=== PATIENT | female | born 1995 | race Caucasian/White ===

== ENCOUNTER 2017-11-07 16:45 | Emergency (ER) | payer SELFPAY ==
[2017-11-07 16:45] VITALS: BP 141/86; PULSE 108; RESP 16; TEMP 36.8; O2SAT 98; BMI 23.6
[2017-11-07 16:55] VITALS: BP 147/102; PULSE 93; RESP 16; O2SAT 99
--- NOTE | 2017-11-07 17:03 | CT_ITS ---
STUDY: CT BRAIN WITHOUT CONTRAST REASON FOR EXAM: Female, 22 years old. RADIATION DOSAGE (If Supplied By Facility): CTDIvol = ( 44.99 ) mGy, DLP = ( 762.36 ) mGycm TECHNIQUE: Transaxial CT imaging of the brain was performed without administration of intravenous contrast material. Individualized dose optimization techniques were used for this CT. COMPARISON: None. FINDINGS: Normal soft tissue structures. Normal calvarium. Normal size ventricles and extra-axial spaces for the patient's age. Normal white matter tracts of the cerebral hemispheres. Normal basal ganglia and thalami. Normal brainstem. Normal cerebellum. There is no intracranial hemorrhage. There are no findings of an acute ischemic infarction. Normal visualized paranasal sinuses. CT/Brain/Head without Contrast IMPRESSION: Normal unenhanced CT scan of the brain. Electronically Signed: Nando Collins MD at 19:25 EST , Service support ,
--- NOTE | 2017-11-07 18:34 | RAD_ITS ---
STUDY: X-RAY CHEST REASON FOR EXAM: Female, 22 years old. Chest pain TECHNIQUE: Frontal and lateral views of the chest. COMPARISON: None. FINDINGS: Incidental note is made of bilateral nipple rings. The lungs are clear and expanded. There is no demonstrated pleural abnormality. Normal size heart. Normal mediastinum and nathaniel. Normal visualized pulmonary arteries. Normal visualized aortic arch and descending thoracic aorta. Normal visualized thoracic spine. Normal visualized ribs, clavicles, and shoulders. There is no demonstrated abnormality of the visualized soft tissue structures of the upper abdomen. RAD/Chest PA and Lateral IMPRESSION: Normal x-ray examination of the chest. Electronically Signed: Nando Collins MD at 18:49 EST , Service support ,
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
--- NOTE | 2017-11-07 19:23 | NURSING ---
BRANDIN [facility] THE [facility] WILL ESCORT THE PT HOME TO ENSURE SAFETY.
[2017-11-07 19:47] VITALS: BP 116/74; PULSE 83; RESP 16; O2SAT 99
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
[2017-11-07 20:00] VITALS: BP 112/83; PULSE 82; RESP 16; O2SAT 100
== END 2017-11-07 20:03 | disposition home or self-care (01) ==
LOC: ED 19:01
PROVIDERS: Emergency Provider Emergency Medicine
DX: S06.9X9A Unspecified intracranial injury with loss of consciousness of unspecified duration, initial encounter (principal); S20.219A Contusion of unspecified front wall of thorax, initial encounter; S20.229A Contusion of unspecified back wall of thorax, initial encounter; Y04.2XXA Assault by strike against or bumped into by another person, initial encounter; Y93.89 Activity, other specified; Y92.9 Unspecified place or not applicable; Z72.0 Tobacco use
CPT/HCPCS: 70450; 71046; 99282

== ENCOUNTER 2022-11-03 09:20 | Emergency (ER) | payer MEDICAID, SELFPAY ==
[2022-11-03 09:20] VITALS: BP 119/78; PULSE 135; RESP 18; TEMP 36.6; O2SAT 98; BMI 23.7
--- NOTE | 2022-11-03 09:26 | EKG12_ITS ---
Test Reason : HIGH HR Blood Pressure : / mmHG Vent. Rate : 118 BPM Atrial Rate : 118 BPM P-R Int : 140 ms QRS Dur : 068 ms QT Int : 290 ms P-R-T Axes : 063 067 065 degrees QTc Int : 406 ms Sinus tachycardia Septal infarct , age undetermined Abnormal ECG Confirmed by OPAL DAVENPORT, PIERCE ([id number]), editor & co founder SHREE VERDUGO ([id number]) on 11/05/2022 2:00:17 PM Referred By: JOSE ALEJANDRO Confirmed By:PIERCE JOSEPH MD
[2022-11-03 09:29] VITALS: BP 122/96; PULSE 110; RESP 15; O2SAT 99
--- NOTE | 2022-11-03 09:54 | EDS_ITS ---
HPI History of Present Illness Chief Complaint: General Illness Detail of Chief Complaint: Body aches with nausea vomiting diarrhea. Informant: patient Onset/Context/Timing Onset: Days Context: Gradual Onset Timing: Continuous Current Severity: Mild Maximum Severity: Mild Narrative Narrative: 27-year-old female history of clots, prior tubal ligation, and history of kidney stones. States the last 4 days she has had just diffuse body aches with associated nausea, vomiting diarrhea. Decreased p.o. intake. Denies any significant abdominal pain. No dysuria. No fever. No melena or hematemesis. Prior similar symptoms: Yes Recent Illness/Hospitalization: No PFSH PFSH Medical History POTS (postural orthostatic tachycardia syndrome) Schizo affective schizophrenia Home Medications ondansetron 4 mg disintegrating tablet 4 mg PO Q6H PRN nausea and vomiting #7 tabs 11/03/22 [Rx Last Taken Unknown] Allergy/AdvReac Type Severity Reaction Status Date / Time adhesive Allergy Rash Verified 11/03/22 09:23 avocado Allergy Rash Verified 11/03/22 09:23 codeine Allergy Shortness Verified 11/03/22 09:23 of breath Surgical History Hx of section Hx of tubal ligation Social History Smoking Status: Current every day smoker tobacco type: cigarettes ROS ROS ED ROS Narrative Nausea vomiting diarrhea. Body aches Review of Systems ROS Unobtainable: Denies due to encephalopathy Constitutional Constitutional ED: Denies chills or fever(s) Eyes Eyes: Denies blurry vision ENT ENT ED: Denies ear pain Cardiovascular Cardiovascular: Denies chest pain Respiratory/Chest Respiratory/Chest: Denies cough or dyspnea Gastrointestinal Gastrointestinal: Reports diarrhea, nausea and vomiting; Denies abdominal pain or melena Genitourinary Genitourinary ED: Denies dysuria or hematuria Musculoskeletal Musculoskeletal: Reports myalgias; Denies arthralgias Integumentary Denies abscess Neurologic Neurologic: Denies headache(s) Psychiatric Psychiatric: Denies anxiety Endocrine Endocrinology: Denies cold intolerance Hematologic/Lymphatic Hematologic/Lymphatic: Reports none Allergic/Immunologic Allergic/Immunologic ED: Denies mouth swelling, tongue swelling or urticaria EXAM Physical Exam Narrative Exam Narrative: 27-year-old female no acute distress. Vital signs are stable afebrile. H EENT exam unremarkable except mild dry mucous membranes. Neck nontender no lymphadenopathy. No meningismus. Lungs clear to auscultation bilaterally. Heart tachycardic rate about 110 no murmur. Chest wall nontender. Abdomen soft, nontender, nondistended, normal bowel sounds without peritoneal signs. No hernia or mass. No distention. Back nontender. Patient moving all 4 extremities. Neurovascularly intact. Nontender no edema no cords. Normal range of motion. Neurologically she is awake and alert with no focal motor deficits. Benign exam mildly dehydrated. Const Vital Signs: 11/03/22 09:20 11/03/22 09:29 11/03/22 09:33 Temperature 97.9 F Temperature Source Temporal Pulse Rate 135 H 110 H Respiratory Rate 18 15 Respiratory Pattern Tachypnea Blood Pressure 119/78 122/96 H Blood Pressure Mean 91 104 Pulse Ox 98 99 Oxygen Delivery Method Room Air Room Air Positive well nourished and well developed; Negative for obese, cachectic, contractures or unkempt General Appearance ED: well developed and NAD; Negative for unkempt, cachectic, contractures, cyanotic, diaphoretic or pallor Nutritional Appearance: Negative for cachectic or obese HEENT Reports dry mucous membranes; Denies moist mucous membranes Negative for trauma or tenderness Mouth ED: Yes dry mucous membranes Mouth: dry mucous membranes Eyes PERRL and EOMs intact bilaterally General Eye ED: Negative for pale conjunctiva or scleral icterus Neck no lymphadenopathy, supple and no JVD General: Negative for tenderness Lymph Lymphatic: Negative for other Chest Wall inspection of chest normal and palpation of chest normal Chest: Negative for other Resp normal respiratory effort and clear to auscultation bilaterally Effort and Inspection: Negative for retractions Auscultation: Negative for rales, rhonchi or wheezes Cardio regular rhythm, S1 normal heart sound, S2 normal heart sound and no murmurs; Negative for regular rate Rate: tachycardic GI normal to inspection, nondistended, normoactive bowel sounds, non-tender, non- distended and no masses; Negative for hepatosplenomegaly Inspection: Negative for abdominal distention Auscultation: normoactive bowel sounds Palpation: soft; Negative for tender or guarding Back/Spine no CVA tenderness General Back: Negative for CVA tenderness Cervical Spine: Negative for cervical spine tenderness Thoracic Spine / Upper Back: Negative for thoracic spinal tenderness or paraspinal muscle tenderness Lumbar Spine / Lower Back: Negative for lumbar spinal tenderness Extremity normal to inspection General Extremety ED: Negative for edema or tenderness General Extremity: Negative for edema Neuro oriented x3 and CN's II-XII intact bilaterally Sensorium / Orientation: alert; Negative for orientation impaired, lethargic or stuporous Motor Exam: strength 5/5 throughout Psych mental status grossly normal Appearance: Negative for unkempt Attitude: No agitated Mood & Affect: Negative for depressed Skin no rashes or lesions noted and no wounds General Skin Exam: Negative for jaundice or pallor Rashes: No rashes noted Trauma: Negative for abrasion Wounds: Negative for wounds noted MDM MDM MDM Narrative Medical decision making narrative: 27-year-old with most likely viral gastroenteritis. Will be treated with IV fluids, IV Zofran and Toradol for body aches. CBC and chemistry will be obtained. Her abdomen is benign and nontender. She does not need any imaging. Repeat exam patient is doing well at 11:44 AM. We went over her normal test results. Clinically she looks well. She needs no further work-up today. She will be discharged home. Fluids and rest. Treated as a viral gastroenteritis. Zofran for nausea. Lab Data Attestation: I reviewed the patient's lab results. Lab results narrative: CBC shows a normal white count 5.2. H&H 13 and 39. Platelets 208. Elect rolytes show a gap of 5. Normal BUN and creatinine 11 and 0.6. Glucose of 105. Labs: Laboratory Results - last 24 hr 11/03/22 11/03/22 10:10 10:10 WBC 5.2 RBC 4.30 Hgb 13.4 Hct 39.7 MCV 92.3 MCH 31.2 MCHC 33.8 RDW Std Deviation 40.9 RDW Coeff of Mounika 12.0 Plt Count 208 MPV 10.5 Immature Gran % (Auto) 0.600 Neut % (Auto) 77.6 H Lymph % (Auto) 7.5 L [place] % (Auto) 12.6 H Eos % (Auto) 1.1 Baso % (Auto) 0.6 Absolute Neuts (auto) 4.1 Absolute Lymphs (auto) 0.39 L Nucleated RBC % 0 Sodium 139 Potassium 3.8 Chloride 108 H Carbon Dioxide 26.0 Anion Gap 5 BUN 11 Creatinine 0.67 Estim Creat Clear Calc 129.48 Est GFR (MDRD) Af Amer 133 Est GFR (MDRD) Non-Af 110 BUN/Creatinine Ratio 16.4 Glucose 105 Calcium 8.9 Rhythm Strip Rhythm Strip: Sinus Tach Rate: 118 Ectopy: None EKG Initial EKG: Attestation: I personally reviewed and interpreted this EKG as follows: Interpretation: No Acute Injury Pattern and Sinus Tachycardia Comments: Sinus tachycardia rate of 118 no acute signs of NE, ischemia or dysrhythmia. Discharge Plan Triage Chief Complaint: General Illness ED Provider: Bienvenido Bernard Dx/Rx/DC Orders Clinical Impression: Viral gastroenteritis Instructions: ED Gastroenteritis, Viral (Adult) Prescriptions: New ondansetron 4 mg tablet,disintegrating 4 mg PO Q6H PRN (Reason: nausea and vomiting) Qty: 7 0RF Primary Care Provider: Kelton Powers Referrals: Kelton Powers MD [Primary Care Provider] - 1 Week if not improving Activity Restrictions/Additional Instructions: Plenty of fluids and rest Zofran as needed for nausea. Follow-up with your doctor if not improving. Your labs today were all unremarkable. Disposition Disposition: Home, Self Care
[2022-11-03] MEDS: Ondansetron 4 MG/2 ML Vial IV (10:07)
[2022-11-03] MEDS: Ketorolac 30 MG/ML Syringe IV (10:07)
[2022-11-03] MEDS: 0.9% Normal Saline 1,000 ML 1000 ML IV (10:07)
[2022-11-03 10:27] LABS: Anion Gap 5 (5-15); BUN 11 mg/dL (7-18); BUN/Creat Ratio 16.4 RATIO (10-20); Calcium,Total 8.9 mg/dL (8.5-10.1); Chloride 108 mmol/L (98-107); Creatinine, Serum 0.67 mg/dL (0.55-1.02); EST Glomerular Filtration Rate 110 mL/min (>60); Est Glom Filt Rate - Afr Amer 133 mL/min (>60); Estimated Creatinine Clearance 129.48 ml/min; Glucose 105 mg/dL (74-106); Potassium 3.8 mmol/L (3.5-5.1); Sodium Level 139 mmol/L (136-145)
[2022-11-03 10:30] LABS: Absolute Lymphocyte Count 0.39 X10^3/uL (0.83-4.51); Absolute Neutrophil Count 4.1 X10^3/uL (2.0-7.7); Basophil# 0.03 X10^3/uL; Basophil% 0.6 % (0-1); Eosinophil# 0.06 X10^3/uL; Eosinophils% 1.1 % (0-5); Hematocrit 39.7 % (37-47); Hemoglobin 13.4 g/dL (12.0-15.0); Lymphocyte # 0.39 X10^3/ul (0.83-4.51); Lymphocyte % 7.5 % (19-41); Mean Corp Hgb Conc 33.8 g/dL (32-36); Mean Corpuscular Hgb 31.2 pg (27.0-32.0); Mean Corpuscular Volume 92.3 fL (81-99); Mean Platelet Vol. 10.5 fl (6.2-12.0); Monocyte# 0.66 X10^3/uL; Monocyte% 12.6 % (0-10); NRBC Flagged by Analyzer 0 % (0-5); Neutrophil # 4.06 X10^3/uL (2.7-7.7); Neutrophil % 77.6 % (47-70); POSITIVE DIFFERENTIAL YES; Platelet Count 208 K/mm3 (150-450); RBC Distribution Width SD 40.9 fl (35.1-43.9); White Blood Count 5.2 K/mm3 (4.4-11.0)
[2022-11-03 10:31] LABS: Differential Indicated SCAN CRITERIA MET
== END 2022-11-03 12:01 | disposition home or self-care (01) ==
PROVIDERS: Emergency Provider Emergency Medicine; PCP Internal Medicine; Visit Provider Emergency Medicine
DX: A08.4 Viral intestinal infection, unspecified (principal); F17.210 Nicotine dependence, cigarettes, uncomplicated
CPT/HCPCS: 80048; 85025; 93005; 96361; 96374; 96375; 99283; J7030; J2405

== ENCOUNTER 2025-09-05 10:14 | Emergency (ER) | payer MEDICARE, MEDICAID, SELFPAY ==
[2025-09-05 10:15] VITALS: BP 146/97; PULSE 108; RESP 15; TEMP 36.6; O2SAT 99; BMI 32.3
--- NOTE | 2025-09-05 10:37 | CT_ITS ---
PROCEDURE: ABDOMEN/PELVIS W IV CONT ONLY 09/05/2025 REASON FOR EXAM: LOWER ABDOMINAL PAIN, LEFT UPPER PAIN TECHNIQUE: Procedure Code: [id number] Modality: CT Procedure: ABDOMEN/PELVIS W IV CONT ONLY Coronal and Sagittal reconstruction series were provided. CONTRAST: Isovue 370 VOLUME: 75 mL One or more dose reduction techniques were used (e.g., Automated exposure control, adjustment of the mA and/or kV according to patient size, use of iterative reconstruction technique. RADIATION DOSE SUMMARY: CTDlvol: 21.47 mGy DLP: 1159.07 mGycm COMPARISON: None. FINDINGS: Lung bases: Clear Liver: Unremarkable. Gallbladder: Unremarkable. No biliary dilation. Spleen: Unremarkable. Pancreas: Unremarkable. Adrenals: Unremarkable. Kidneys: A 2 mm stone at the upper pole of the left kidney. No hydronephrosis. Bladder: Unremarkable. Reproductive Organs: Unremarkable. Bowel: No bowel wall thickening. No bowel obstruction. Appendix: Unremarkable. Lymph nodes: No lymphadenopathy. Vasculature: No aneurysm. Peritoneum / Retroperitoneum: No free air or free fluid. Bones: No acute bony elements. CT/Abdomen/Pelvis W IV Cont ONLY IMPRESSION: A 2 mm stone at the upper pole of the left kidney. No hydronephrosis. Reading Location: [id number]
--- NOTE | 2025-09-05 10:45 | ED.VIS.GI ---
HPI HPI - GI History of Present Illness Chief Complaint: Abd Pain Narrative Narrative: Patient is a 30-year-old female presenting to the emergency department for lower abdominal pain for the past 2 weeks. She states it has been constant and has consistently worsened. She states she has a past medical history of 2 sections, tubal ligation and reported oophorectomy on the left after an ovarian torsion. She states she followed up with her [employer] on the 16 of this month for the pain and had a pelvic exam done with STD swabs sent which were all negative and she showed me her MyChart which shows evidence of this. She also had a pelvic ultrasound that was normal and that was reviewed by myself in her MyChart as well. She states her last period was at the beginning of the week and was 7 days late and only 2 days long which is abnormal for her. She denies any fever or chills. She states that last night she had a bout of pain that worsened and she developed nausea with 1 episode of nonbloody nonbilious vomiting and felt like she was going to pass out but did not. She denies any changes to her bowel movements. Denies any dysuria or hematuria. She has been taking Motrin at home for pain control PFSH PFSH Medical History Schizophrenia Bipolar disorder Anxiety Depression Kidney stones Smoker Heart palpitations Schizo affective schizophrenia POTS (postural orthostatic tachycardia syndrome) Home Medications ?Medication ?Instructions ?Recorded ?Last Taken ?Type ondansetron 4 mg disintegrating 4 mg PO Q6H PRN nausea and 11/03/22 Unknown Rx tablet vomiting #7 tabs Allergy/AdvReac Type Severity Reaction Status Date / Time adhesive Allergy Rash Verified 09/05/25 10:19 avocado Allergy Rash Verified 09/05/25 10:19 codeine Allergy Shortness Verified 09/05/25 10:19 of breath Surgical History Hx of tubal ligation Hx of section Social History Smoking Status: Current every day smoker tobacco type: e-cigarettes ROS ROS ED ROS Narrative See HPI EXAM Physical Exam Narrative Exam Narrative: Vital signs: Reviewed General: Alert and oriented x 3. No acute distress. Well-appearing, nontoxic HEENT: Head is normocephalic and atraumatic, sinuses nontender, pupils equal round and reactive. Nares are patent. Oropharynx and throat exams normal. Neck: Supple without lymphadenopathy nontender Cardiovascular: Regular rate and rhythm, no murmurs. No rubs or gallops. Normal S1 and S2 Respiratory: Clear to auscultation bilaterally. No wheezes, rales, rhonchi Abdominal: Soft and tender to palpation in the suprapubic, left lower quadrant and left upper quadrant. Normal bowel sounds. No guarding or rebound. Extremities: No tenderness. No bruising. Normal range of motion. Normal sensation. Skin: No rash or redness. The rest of the physical exam is unremarkable Const Vital Signs: 09/05/25 10:15 09/05/25 12:31 Temperature 98 F Temperature Source Oral Pulse Rate 108 H 65 Respiratory Rate 15 18 Blood Pressure 146/97 H 97/78 Blood Pressure Mean 113 84 Pulse Ox 99 97 Oxygen Delivery Method Room Air Room Air MDM MDM MDM Narrative Medical decision making narrative: Patient is a 30-year-old female presenting to the emergency department for abdominal pain for the past 2 weeks. Patient was seen and examined. Vitals are stable. Patient resting in bed comfortably, no acute distress. Differential includes but is not limited to: UTI, colitis, diverticulitis, nephrolithiasis, ovarian torsion less likely given the patient's had pain for 2 weeks and her ultrasound was negative. The pain is not intermittent and I would not suspect intermittent ovarian torsion given her description of the pain. STD testing negative, less concern for tubo-ovarian abscess. Patient given Toradol for pain control. Labs and CT imaging of the abdomen was ordered. STD testing which included gonorrhea/chlamydia, trichomonas, BV, Lilian, urine and an ultrasound of the pelvis was reviewed by myself in her MyChart and are all negative. I do not think there is any indication to repeat any of these given it was just 5 days ago and she has had no change to her symptoms. Was notified by nursing staff that after she received the Toradol she did have 1 episode of vomiting. Toradol was ordered. CBC with no leukocytosis and a normal hemoglobin. CMP with no significant abnormalities. Lipase within normal limits. Urinalysis with no evidence of urinary tract infection. Urine negative. CT shows a 2 mm stone at the upper pole of the left kidney. No hydronephrosis. Bladder, appendix, bowel, reproductive organs and peritoneum/retroperitoneum are unremarkable. Patient was updated on the negative lab and imaging findings. She states that she has follow-up with GI and her safety patrol officer in September. Recommended Motrin and Tylenol at home for pain control and strict return precautions given we did not find a cause for her pain here today. Patient discharged from the Emergency Department. I do not feel that the patient's evaluation reveals any acute reason for admission at this time. I instructed them to either follow-up with their primary care physician or promptly return to the Emergency Department for reevaluation should symptoms worsen or new symptoms develop. I explained what symptoms would indicate the need to return to the emergency department. Shared decision making was used. The patient voiced understanding of the treatment plan and is agreeable with it. Clinical impression Lower abdominal pain History & Record Review Discussion w/independent historian: Patient Additional record(s) reviewed:: Prior outpatient record Lab Data Attestation: I reviewed the patient's lab results. Labs: Laboratory Results - last 24 hr 09/05/25 09/05/25 10:20 10:50 WBC 10.3 RBC 4.74 Hgb 14.5 Hct 42.1 MCV 88.8 MCH 30.6 MCHC 34.4 RDW Std Deviation 37.5 RDW Coeff of Mounika 11.6 Plt Count 382 MPV 9.5 Immature Gran % (Auto) 0.300 Neut % (Auto) 73.9 H Lymph % (Auto) 18.0 L Christian % (Auto) 5.9 Eos % (Auto) 1.0 Baso % (Auto) 0.9 Absolute Neuts (auto) 7.6 Absolute Lymphs (auto) 1.85 Nucleated RBC % 0 Sodium 138 Potassium 3.9 Chloride 101 Carbon Dioxide 23.2 Anion Gap 14 BUN 9 Creatinine 0.83 Estim Creat Clear Calc 122.05 Est GFR (MDRD) Non-Af 96 BUN/Creatinine Ratio 10.7 Glucose 103 H Calcium 9.5 Total Bilirubin 0.37 AST 20 ALT 28 Alkaline Phosphatase 71 Total Protein 7.6 Albumin 4.5 Globulin 3.2 Albumin/Globulin Ratio 1.4 Lipase 18 Urine Color Yellow Urine Clarity Clear Urine pH 8.0 Ur Specific [place] 1.010 Urine Protein Negative Urine Glucose (UA) Normal Urine Ketones Negative Urine Occult Blood Negative Urine Nitrite Negative Urine Bilirubin Negative Urine Urobilinogen Normal Ur Leukocyte Esterase Negative Urine RBC 0 SEEN Urine WBC 0-5 SEEN Ur Squamous Epith Cells 10-25 SEEN Urine Bacteria 1+ Urine Mucus 0 SEEN Urine Test Negative Radiography Diagnostic Testing: Clinical Impression(s) from Imaging Studies Abdomen/Pelvis CT 09/05/25 10:37 IMPRESSION: A 2 mm stone at the upper pole of the left kidney. No hydronephrosis. Reading Location: [facility] Discharge Plan Triage Chief Complaint: Abd Pain ED Provider: Shweta Beck Dx/Rx/DC Orders Clinical Impression: Lower abdominal pain Instructions: ED Abdominal Pain Unkn Cause Fem Prescriptions: No Action ondansetron 4 mg tablet,disintegrating 4 mg PO Q6H PRN (Reason: nausea and vomiting) Qty: 7 0RF Primary Care Provider: Kelton Powers Referrals: Kelton Powers MD [Primary Care Provider, Internal Medicine] - As soon as possible FriendMateusz DO [Med Staff - Active Staff, Gastroenterology] - As soon as possible Activity Restrictions/Additional Instructions: Please follow-up with your GI doctor or the 1 below as well as your safety patrol officer as soon as possible. Your evaluation in the Emergency Department did not reveal any acute reason for admission. However, I want to emphasize that you may be early in the course of a disease process or illness even if it is not present. For this reason you should follow-up within 24 hours for reevaluation with either your primary care physician or if necessary back here in the Emergency Department. You should return to the Emergency Department immediately if your symptoms worsen or new symptoms develop. Print Language: Venezuelan Disposition Disposition: Home, Self Care
--- OUTSIDE RECORDS SUMMARY | 2025-09-05 10:56 | XMS RPT_ITS | CCD ---
Author Organization [facility] Care Team Providers Care Network Operations Technician Name Role Phone Unavailable Primary Care Provider UnavailKelton Chambers MD Primary Care Provider Kelton Powers MD Primary Care Provider [phone] Unavailable Primary Care Provider UnavailKelton Chambers MD Primary Care Provider Alayna Bernard Attending Unavailable Ellis, Kelton Primary Care Unavailable PREETHI MELCHOR Attending Unavailable ANDRA PARRISH Referring Unavailable PRIYA, KELTON A Primary Care Unavailable Aileen Hunter Primary Care Provider [phone] Kelton Powers MD Primary Care Provider [phone] Kelton Powers MD Primary Care Provider [phone] PRIYA KELTON A Primary Care Unavailable ROLAND BLANCO Attending Unaaiyana alvarezle PRIYA, KELTON A Primary Care Unavailable SIVA GUNTER Referring Unavailable PRIYA, KELTON A Primary Care Unavailable JENNIFER SANDHU Referring Unavailable PRIYA, KELTON A Primary Care Unavailable PRIYA, KELTON A Referring Unavailable PRIYA, KELTON A Primary Care Unavailable MIREILLE SIMPSON Attending Unavailable PRIYA, KELTON A Referring Unavailable PRIYA, KELTON A Primary Care Unavailable RADHA HAYS Attending Unavailable SASKIA LUNA Attending Unavailable PRIYA, KELTON A Primary Care Unavailable RADHA HAYS Referring Unavailable MIREILLE SIMPSON Attending Unavailable PRIYA, KELTON A Primary Care Unavailable RADHA HAYS Referring Unavailable PRIYA, KELTON A Primary Care Unavailable RADHA HAYS Attending Unavailable ANDRA PARRISH Referring Unavailable PRIYA, KELTON A Primary Care Unavailable Aileen Hunter Primary Care Provider [phone] Stathopoulos WOOD HANDLER.HALL MANAGER, Ronen Unavailable Ani Batista MD Unavailable Ani Batista MD Unavailable Unavailable Primary Care Provider Unavailabl e Kelton Powers MD Primary Care Provider Ani Batista MD Unavailable Jessica Hollingsworth MD Unavailable Vinh Buchanan DO Unavailable PRIYA, KELTON Primary Care Unavailable JAMIL NEWBERRY Attending Unavailable PRIYA, KELTON Primary Care Unavailable JULISA AVALOS Attending Unavailable PRIYA, KELTON Primary Care Unavailable ALBA DOHERTY Attending Unavailable PRIYA, KELTON Primary Care Unavailable LINDA RODRIGUEZ Admitting Unavailable AZALIA CABRERA Attending Unavailable PRIYA, KELTON Primary Care Unavailable RAFA ARMSTRONG Attending Unavailable PRIYA, KELTON A Primary Care Unavailable STATHOPOULOS, RONEN Referring Unavailabl e PRIYA, KELTON A Primary Care Unavailable MICHELE VALENZUELA Attending Unavailable PRIYA, KELTON A Primary Care Unavailable STATHOPOULOS, RONEN Referring Unavailabl e PRIYA, KELTON A Primary Care Unavailable BRE GAGNON Referring Unavailable PRIYA, KELTON A Primary Care Unavailable STATHOPOULOS, RONEN Referring Unavailabl e PRIYA, KELTON A Primary Care Unavailable STATHOPOULOS, RONEN Referring Unavailabl e KATHYA SARABIA Attending Unavailable PRIYA, KELTON A Primary Care Unavailable STATHOPOULOS, RONEN Referring Unavailabl e PRIYA, KELTON A Primary Care Unavailable STATHOPOULOS, RONEN Referring Unavailabl e PRIYA, KELTON A Primary Care Unavailable ANI BATISTA Attending Unavailable PRIYA, KELTON A Primary Care Unavailable PRIYA, KELTON A Primary Care Unavailable ANI BATISTA Attending Unavailable PRIYA, KELTON A Primary Care Unavailable VINH BUCHANAN Referring Unavailable PRIYA, KELTON A Primary Care Unavailable ANI BATISTA Attending Unavailable PRIYA, KELTON A Primary Care Unavailable ANDRAPALLIYAL, BLAYNE Referring Unavailable PRIYA, KELTON A Primary Care Unavailable JESSICA PILLAI Attending Unavailable PRIYA, KELTON A Primary Care Unavailable RONEN FLAHERTY Attending Unavailabl e PRIYA, KELTON A Primary Care Unavailable FRANCOIS, ANDRA Attending Unavailable PRIYA, KELTON A Primary Care Unavailable EULALIO KELLER Referring Unavailable BRE GAGNON Attending Unavailable PRIYA, KELTON A Primary Care Unavailable JESSICA HOLLINGSWORTH Attending Unavailable PRIYA, KELTON A Primary Care Unavailable PRIYA, KELTON A Primary Care Unavailable PRIYA, KELTON A Primary Care Unavailable COURSON, VINH Referring Unavailable PRIYA, KELTON A Primary Care Unavailable SELF Referring Unavailable COURSONVINH Attending Unavailable LIYA REYES Attending Unavailable PRIYA, KELTON A Primary Care Unavailable PRIYA, KELTON A Primary Care Unavailable ANI BATISTA Attending Unavailable PRIYA, KELTON A Primary Care Unavailable LESTERANI Attending Unavailable PRIYA, KELTON A Primary Care Unavailable FRANCOIS, ANDRA Referring Unavailable ANDRAAKIRALIYAL, BLAYNE Attending Unavailable PRIYA, KELTON A Primary Care Unavailable ANDRAPALLIYAL, BLAYNE Referring Unavailable GABINO JORDAN Attending Unavailable PRIYA, KELTON A Primary Care Unavailable PRIYA, KELTON A Attending Unavailable OTILIO CALLEJAS Attending Unavailable PRIYA, KELTON A Primary Care Unavailable PRIYA, KELTON A Primary Care Unavailable SELF Referring Unavailable PRIYA, KELTON A Primary Care Unavailable ANDRAPALLIYAL, BLAYNE Referring Unavailable MABLE NESS Attending Unavailable Allergies Allergy Classification Reported Allergen(s) Allergy Type Date of Onset Reaction(s) Facility Aminoketones (1 source) buPROPion Drug Allergy 9 [facility] avocado oil (1 source) avocado oil Drug Allergy 7 [facility] Opioid Agonists (1 source) Codeine Drug Allergy 7 Hives, Rash [facility] Serotonin Reuptake Inhibitors (SSRIs) (1 source) Escitalopram Drug Allergy 3 [facility] (20 sources) codeine; Translations: [CODEINE] Drug Allergy 6 Hives, Rash [facility] [place] [facility] (20 sources) Adhesive agent; Translations: [ADHESIVE] Drug Allergy 7 Rash [facility] (20 sources) avocado oil; Translations: [AVOCADO OIL] Drug Allergy 7 Unknown [facility] (20 sources) buPROPion; Translations: [BUPROPION HCL] Drug Allergy 9 Mental Status Change [facility] Work Phone: (20 sources) Adhesive agent Drug Allergy 7 Rash [facility] (3 sources) avocado allergenic extract Drug Allergy 7 Unknown [facility] Work Phone: (20 sources) Escitalopram; Translations: [ESCITALOPRAM] Drug Allergy 3 Mental Status Change, Hallucinations [facility] (1 source) Adhesive agent Drug allergy (disorder) 3 [facility] Repository (1 source) avocado oil Drug Allergy 3 [facility] Repository (20 sources) avocado oil Drug Allergy 7 [facility] (20 sources) buPROPion Drug Allergy 9 Hallucinations [facility] (20 sources) Wound Dressing Adhesive Drug Allergy 7 Rash [facility] Medications Current Medications Medication Drug Class(es) Dates Sig (Normalized) Sig (Original) acetaminophen 325 mg oral tablet (16 sources) Start: 05-08-2023 End: 06-07-2023 take 3 tablets by mouth every six hours as needed acetaminophen (TYLENOL) 325 mg tablet Take 3 tablets by mouth every 6 hours as needed for pain. 0 05/08/2023 06/07/2023 Active Start: 10-01-2022 End: 10-01-2022 acetaminophen (Tylenol) tabl et 1,000 mg Start: 06-28-2022 acetaminophen (TYLENOL) tablet 650 mg take 2 tablets by mo uth every six hours as needed for pain acetaminophen (TYLENOL) 325 MG tablet Take 650 mg by mouth every 6 hours as needed for Pain 0 Active Comment on above: Take 3 tablets by mo uth every 6 hours as needed for pain. [id number] 200 actuat albuterol 0.09 mg/actuat metered dose inhaler (8 sources) beta2-Adrenergic Agonist Start: End: take 2 puff(s) by inhalation every four hours as needed for wheezing albuterol 108 (90 Base) MCG/ACT inhaler Inhale 2 puffs every 4 hours as needed for wheezing. 18 g 11/21/2024 Active brexpiprazole 2 mg oral tablet (20 sources) Atypical Antipsychotic Start: End: take 1 tablet by mouth once daily Brexpiprazole (Rexulti) 2 MG tablet Take 2 mg by mouth daily. 12/22/2024 Active Start: 11-25-2024 End: 12-25-2024 take 1 tablet by mouth once daily brexpiprazole (REXULTI) 1 mg tablet Indications: Schizoaffective disorder, bipolar type (HCC) Take 1 tablet by mouth once daily. 30 tablet 11/25/2024 12/22/2024 Discontinued Start: 11-10-2024 End: 02-08-2025 take 1 tablet by mouth once daily brexpiprazole (REXULTI) 0.5 mg tablet Indications: Schizoaffective disorder, bipolar type (HCC) , Encounter for medication management Take 1 tablet by mouth once daily. 30 tablet 2 11/10/2024 11/25/2024 Discontinued (Course of therapy completed) cloBAZam 10 mg oral tablet (2 sources) Benzodiazepine Start: 05-27-2025 End: 11-23-2025 take 1 tablet by mouth once daily at bedtime cloBAZam (ONFI) 10 mg tab tablet Indications: Seizure-like activity (HCC) Take 1 tablet by mouth daily at bedtime for 180 days. 30 tablet 5 05/27/2025 11/23/2025 Active cloNIDine hydrochloride 0.1 mg oral tablet (3 sources) Central alpha-2 Adrenergic Agonist Start: 04-03-2021 take 1 tablet by mouth three times daily cloNIDine (CATAPRES) 0.1 MG tablet Take 0.1 mg by mouth 3 times daily 0 04/03/2021 Active cyclobenzaprine hydrochloride 10 mg oral tablet (1 source) Muscle Relaxant Start: 11-20-2024 take 1 tablet by mouth three times daily as needed for muscle spasms cyclobenzaprine (Flexeril) 10 mg tablet Indications: Myalgia Take 1 tablet (10 mg) by mouth 3 times a day as needed for muscle spasms for up to 20 doses. 20 tablet 11/20/2024 Active Start: 11-20-2024 take 1 tablet by beatrice th three times daily as needed for muscle spasms cyclobenzaprine (Flexeril) 10 mg tablet Indications: Myalgia Take 1 tablet (10 mg) by mouth 3 times a day as needed for muscle spasms for up to 20 doses. 20 tablet 11/20/2024 Active desonide 0.0005 mg/mg topical ointment (1 source) Corticosteroid Start: 01-16-2025 End: 01-23-2025 desonide (DESOWEN) 0.05 % ointment Indications: Poison natalee dermatitis Apply to affected area two times a day as needed (itchy, rash) for up to 7 days. 15 g 01/16/2025 01/23/2025 Active 12 hr dextromethorphan hydrobromide 30 mg / guaiFENesin 600 mg extended release oral tablet (2 sources) Uncompetitive U-vidrfz-S-aspartat e Receptor Antagonist, Sigma-1 Agonist Start: 04-20-2024 End: 04-27-2024 take 1 tablet by mouth twice daily dextromethorphan- guaiFENesin (MUCINEX DM) 30-600 mg per tablet Indications: Viral upper respiratory tract infection with cough Take 1 tablet by mouth two times a day for 7 days. 14 tablet 0 04/20/2024 04/27/2024 Active docusate sodium 50 mg / sennosides, mcfp 8.6 mg oral tablet (5 sources) Start: 05-08-2023 End: 05-15-2023 take 1 tablet by mouth twice daily senna-docusate (SENNA-S) 8.6-50 mg per tablet Take 1 tablet by mouth twice daily for 7 days. 14 tablet 0 05/08/2023 05/15/2023 Active Comment on above: Take 1 tablet by beatrice twice daily for 7 days. famotidine 20 mg oral tablet (4 sources) Histamine-2 Receptor Antagonist take 1 tablet by mouth twice daily famotidine (PEPCID) 20 MG tablet Take 20 mg by mouth 2 times daily 0 Active fluconazole 150 mg oral tablet (1 source) Azole Antifungal Start: 12-04-2020 End: 12-04-2020 take 1 tablet by mouth once, then take 3 tablets by mouth once daily, then take 7 tablets by mouth once daily fluconazole (DIFLUCAN) 150 MG tablet Take 1 tablet by mouth once for 1 dose Take on day 3 and day 7 of antibiotic treatment for yeast infection 2 tablet 0 12/04/2020 12/04/2020 Active Humidifiers (Cool Mist Humidifier 0.8 gal) misc (8 sources) Start: 11-21-2024 Humidifiers (Cool Mist Humidifier 0.8 gal) misc 1 ampule daily. 20 each 11/21/2024 Active hydrOXYzine hydrochloride 50 mg oral tablet (15 sources) Antihistamine Start: 09-18-2022 End: 04-22-2023 take 1 tablet by mouth every eight hours as needed hydrOXYzine HCl (Atarax) 50 MG tablet Take 50 mg by mouth every 8 hours as needed. 0 09/18/2022 04/22/2023 Discontinued (Therapy completed) Start: 09-18-2022 End: 01-07-2023 take 1 tablet by mouth every eight hours as needed hydrOXYzine HCl (ATARAX) 50 mg tablet Take 1 tablet by mouth three times daily as needed for anxiety. 30 tablet 1 09/18/2022 01/07/2023 Discontinued Comment on above: Take 1 tablet by beatrice th three times daily as needed for anxiety. ibuprofen 600 mg oral tablet (8 sources) Nonsteroidal Anti-inflammatory Drug Start: 01-13-2022 End: 01-21-2022 take 1 tablet by mouth every six hours as needed ibuprofen (MOTRIN) 600 mg tablet Take 1 tablet by mouth every 6 hours as needed for pain for up to 8 days. 30 tablet 0 01/13/2022 01/21/2022 Active Start: 06-09-2021 ibuprofen (ADV IL;MOTRIN) tablet 600 mg take 1 tablet by beatrice th every six hours as needed for pain ibuprofen (ADVIL;MOTRIN) 400 MG tablet Indications: Acute Pain Take 400 mg by mouth every 6 hours as needed for Pain 0 Active Comment on above: Take 1 tablet by beatrice th every 6 hours as needed for pain for up to 8 days. lithium carbonate 300 mg oral tablet (9 sources) Start: 05-18-2025 End: 08-16-2025 take 1 tablet by mouth once daily at bedtime, then take 1.5 tablets by mouth at bedtime lithium carbonate 300 mg tablet Indications: Schizoaffective disorder, bipolar type (HCC) Take 1 tablet by mouth daily at bedtime. If you do not notice significant sedation, can increase to 1.5 tablets at bedtime. 30 tablet 2 05/18/2025 08/16/2025 Active Start: 01-07-2023 End: 04-07-2023 take 1 capsule by mouth once daily at dinner lithium carbonate (ESKALITH) 300 mg capsule Indications: Borderline personality disorder (HCC) , PTSD (post-traumatic stress disorder) , Schizoaffective disorder, bipolar type (HCC) , Panic disorder without agoraphobia Take 1 capsule by mouth daily with dinner. 30 capsule 2 01/07/2023 04/07/2023 Active Comment on above: Take 1 capsule by mo uth daily with dinner. MELATONIN FAST DISSOLVE PO (2 sources) MELATONIN FAST D ISSOLVE PO Indications: insomnia Take 10 tablets by mouth Nightly. Sometimes takes up to 20 mg, but doesn't help with sleep Active 24 hr metFORMIN hydrochloride 500 mg extended release oral tablet (20 sources) Biguanide Start : 02-02 End: 08-16 take 1 tablet by mouth once daily at breakfast metFORMIN ER (GLUCOPHAGE XR) 500 mg 24 hr tablet Indications: Schizoaffective disorder, bipolar type (HCC) , Encounter for medication management , Weight gain due to medication Take 1 tablet by mouth daily with breakfast. 30 tablet 2 05/18/2025 08/16/2025 Active methylPREDNISolone (12 sources) Corticosteroid Start : 05-07 methylPREDNISolone (MEDROL, EDWIN,) 4 mg Dose-Pack Indications: Headache, unspecified headache type As Instructed per package 21 tablet 05/07/2025 Active metoclopramide 10 mg oral tablet (4 sources) Dopamine-2 Receptor Antagonist Start : 05-08 End: 05-15 take 1 tablet by mouth every six hours as needed metoclopramide HCl (REGLAN) 10 mg tablet Take 1 tablet by mouth every 6 hours as needed for up to 7 days. 20 tablet 05/08/2025 05/15/2025 Active ondansetron 4 mg disintegrating oral tablet (20 sources) Serotonin-3 Receptor Antagonist Start : 11-03 take 4 mg by mouth every six hours Ondansetron Active 4 MG PO EVERY 6 HOURS November 03, 2022 12:00am Start: 05-05-2021 End: 04-22-2023 ondansetron (Zofran) 4 MG ta blet Comment on above: Take 1 tablet by beatrice th every 8 hours as needed for nausea/vomiting. oxyCODONE hydrochloride 5 mg oral tablet (7 sources) Opioid Agonist Start: 05-14-20 End: 05-21-20 take 1 tablet by mouth every eight hours as needed oxyCODONE (Roxicodone) 5 MG immediate release tablet Take 5 mg by mouth every 8 hours as needed. 0 05/14/2023 05/21/2023 Active Start: 05-08-2023 End: 05-13-2023 take 1 tablet by mouth every six hours as needed for pain oxyCODONE IR (ROXICODONE) 5 mg immediate release tablet Indications: Closed displaced fracture of shaft of right clavicle, initial encounter , Closed fracture of sternum, unspecified portion of sternum, initial encounter , Closed Colles' fracture of left radius, initial encounter Take 1 tablet by mouth every 6 hours as needed for pain for up to 5 days. 20 tablet 0 05/08/2023 05/13/2023 Comment on above: Take 1 tablet by beatrice th every 6 hours as needed for pain for up to 5 days. Take 1 tablet by beatrice th every 8 hours as needed for pain for up to 7 days. perflutren lipid microspheres 1.3 mL in NaCl (PF) 0.9% 10 mL injection (DEFINITY) (14 sources) Start: 10-04-19 End: 01-04-20 perflutren lipid microspheres 1.3 mL in NaCl (PF) 0.9% 10 mL injection (DEFINITY) phenazopyridine hydrochloride 200 mg delayed release oral tablet (2 sources) Start: 05-18-20 End: 05-20-20 take 1 tablet by mouth three times daily phenazopyridine (Pyridium) 200 MG tablet Take 1 tablet (200 mg) by mouth 3 times daily for 2 days. 6 tablet 0 05/18/2023 05/20/2023 Active prazosin 1 mg oral capsule (6 sources) alpha-Adrenergi c Ivania Start: 05-18-20 End: 08-16-20 take 1 capsule by mouth once daily at bedtime prazosin (MINIPRESS) 1 mg cap Indications: PTSD (post-traumatic stress disorder) Take 1 capsule by mouth daily at bedtime. 90 capsule 05/18/2025 08/16/2025 Active predniSONE 10 mg oral tablet (5 sources) Start: 01-17-20 End: 01-26-20 take 3 tablets by mouth once daily, then take 2 tablets by mouth once daily, then take 1 tablet by mouth once daily predniSONE (DELTASONE) 10 mg tablet Indications: Poison natalee dermatitis Take 3 tablets by mouth once daily for 3 days, THEN 2 tablets once daily for 3 days, THEN 1 tablet once daily for 3 days. 18 tablet 01/16/2025 01/25/2025 Active Start: 04-23-2023 End: 04-27-2023 predniSONE (Deltasone) 50 MG tablet Take 1 tablet (50 mg) by mouth daily for 4 days. Do not start before April 23, 2023. 4 tablet 0 04/23/2023 04/27/2023 Active Start: 04-22-2023 End: 04-22-2023 predniSONE (Deltasone) table t 50 mg propranolol hydrochloride 10 mg oral tablet (2 sources) beta-Adrenergic Ivania Start: 12-22-2024 End: 02-20-2025 take 1 tablet by mouth twice daily propranolol (INDERAL) 10 mg tablet Indications: Encounter for medication management , Panic attacks , Drug induced akathisia Take 1 tablet by mouth two times a day. 60 tablet 1 12/22/2024 02/20/2025 Active QUEtiapine 50 mg oral tablet (14 sources) Atypical Antipsychotic Start: 04-30-2025 End: 08-16-2025 take 1 tablet by mouth once daily QUEtiapine (SEROquel) 50 MG tablet Indications: Schizophrenia Take 1 tablet (50 mg) by mouth Nightly. 30 tablet 04/30/2025 Active risperiDONE 1 mg oral tablet (20 sources) Atypical Antipsychotic Start: 05-16-2023 End: 12-27-2023 take 1 tablet by mouth once daily risperiDONE (RisperDAL) 1 MG tablet Take 1 tablet (1 mg) by mouth Nightly. 30 tablet 11/27/2023 Active Comment on above: Take 1 tablet by beatrice th daily at bedtime. sodium chloride flush 0.9 % injection 3 mL (1 source) Start: 12-03-2020 sodium chloride flush 0.9 % injection 3 mL tobramycin 3 mg/ml ophthalmic solution (3 sources) Aminoglycoside Antibacterial Start: 07-20-2024 End: 07-29-2024 take 1 drop(s) into the eye(s) every four hours tobramycin (TOBREX) 0.3 % ophthalmic solution Indications: Bacterial conjunctivitis Use 1 Drop in the left eye every 4 hours for 7 days. into affected eye(s). 5 mL 07/22/2024 07/29/2024 Active Tranexamic Acid (4 sources) Antifibrinolytic Agent TRANEXAMIC ACID PO Indications: pt states she takes it during her period for 7-8 days Take by mouth Indications: pt states she takes it during her period for 7-8 days 0 Active traZODone hydrochloride 100 mg oral tablet (11 sources) Serotonin Reuptake Inhibitor Start: 05-26-2025 End: 07-25-2025 take 1 tablet by mouth once daily at bedtime traZODone (DESYREL) 100 mg tablet Indications: Insomnia, unspecified type Take 1 tablet by mouth daily at bedtime. 30 tablet 1 05/26/2025 07/25/2025 Active Start: 04-30-2025 End: 05-30-2025 take 1 tablet by mouth once daily as needed for sleep traZODone (Desyrel) 50 MG tablet Indications: Insomnia Take 1 tablet (50 mg) by mouth Nightly as needed for sleep. 30 tablet 04/30/2025 Active triamcinolone acetonide 0.005 mg/mg topical ointment (6 sources) Corticosteroid Start: 05-19-2025 triamcinolone acetonide topical 0.5 % ointment Apply to affected area two times a day. 15 g 1 05/19/2025 Active Start: 01-16-2025 triamcinolone (KENALOG) 0.025 % cream Indications: Poison natalee dermatitis Apply to affected area two times a day as needed (itching, rash). 80 g 01/16/2025 Active vilazodone hydrochloride 10 mg oral tablet (4 sources) vilazodone HCl ( VILAZODONE HCL) 10 MG TABS Take by mouth daily 0 Active Completed/Discontinued Medications Medication Drug Class(es) Dates Sig (Normalized) Sig (Original) ARIPiprazole 5 mg oral tablet (10 sources) Atypical Antipsychotic Start: 05-08-2023 End: 08-06-2023 take 1 tablet by mouth once daily at bedtime ARIPiprazole (ABILIFY) 5 mg tablet Take 1 tablet by mouth daily at bedtime. 30 tablet 2 05/08/2023 05/16/2023 Discontinued ARIPiprazole (AB ILIFY IM) Inject into the muscle Every 2 months 0 Active ARIPiprazole (AB ILIFY IM) Inject into the muscle Once monthly 0 Active Comment on above: Take 1 tablet by beatrice th daily at bedtime. bacitracin 0.5 unt/mg topical ointment (2 sources) Start: 4 End: 4 bacitracin ointment cephalexin 500 mg oral capsule (5 sources) Cephalosporin Antibacterial Start: 3 End: 3 take 1 capsule by mouth three times daily cephALEXin (KEFLEX) 500 mg capsule Indications: Abscess of right breast , Cellulitis of right breast Take 1 capsule by mouth three times a day for 5 days. 15 capsule 0 07/25/2023 07/30/2023 Start: 05-18-2023 End: 05-25-2023 cephalexin (Keflex) 500 MG c apsule Take 1 capsule (500 mg) by mouth in the morning and 1 capsule (500 mg) at noon and 1 capsule (500 mg) in the evening and 1 capsule (500 mg) before bedtime. Do all this for 7 days. 28 capsule 0 05/18/2023 05/25/2023 Active Start: 12-04-2020 End: 12-11-2020 take 1 capsule by mouth twice daily cephALEXin (KEFLEX) 500 MG capsule Take 1 capsule by mouth 2 times daily for 7 days 14 capsule 0 12/04/2020 12/11/2020 Active Comment on above: Take 1 capsule by mo uth three times a day for 5 days. diazePAM 5 mg oral tablet (2 sources) Benzodiazepine Start: End: take 5 mg by mouth once 5 mg, Oral, Once, On 11/21/24 at 1200, For 1 dose diphenhydrAMINE hydrochloride 25 mg oral tablet (2 sources) Histamine-1 Receptor Antagonist Start: End: diphenhydrAMINE (BENADryl) tablet/capsule 50 mg escitalopram 10 mg oral tablet (1 source) Serotonin Reuptake Inhibitor Start: End: escitalopram oxalate (LEXAPRO) 10 mg tablet TAKE 1/2 TABLET EVERY EVENING WITH FOOD FOR 2 WEEKS THEN TAKE 1 TABLET EVERY EVENING WITH FOOD 0 09/04/2022 09/18/2022 Discontinued (Course of therapy completed) Comment on above: TAKE 1/2 TABLET EVER Y EVENING WITH FOOD FOR 2 WEEKS THEN TAKE 1 TABLET EVERY EVENING WITH FOOD fluticasone propionate 0.05 mg/actuat metered dose nasal spray (4 sources) Corticosteroid Start: End: take 1 spray(s) nasal route twice daily fluticasone (FLONASE ALLERGY RELIEF) 50 mcg/actuation nasal spray Indications: Viral upper respiratory tract infection with cough Use 1 [place] in each nostril two times a day. 1 Each 04/20/2024 07/02/2024 Discontinued gabapentin 100 mg oral capsule (7 sources) Anti-epileptic Agent Start: End: take 2 capsules by mouth every eight hours gabapentin (NEURONTIN) 100 mg capsule Take 2 capsules by mouth every 8 hours for 10 days. 60 capsule 0 05/08/2023 05/22/2023 Discontinued (Discontinued by another Health Care Provider) Comment on above: Take 2 capsules by m outh every 8 hours for 10 days. 1 ml ketorolac tromethamine 30 mg/ml cartridge (4 sources) Nonsteroidal Anti-inflammatory Drug, Cyclooxygenase Inhibitor Start: 025 End: 025 30 mg, IntraVENous, Once, On 11/21/24 at 1200, For 1 dose Start: 11-20-2024 End: 11-20-2024 ketorolac (Toradol) injectio n 60 mg Start: 11-20-2024 End: 11-20-2024 inject 60 mg by intramuscular injection once 60 mg, intramuscular, Once, On Sat11/20/24 at 1000, For 1 dose 10 ml lidocaine hydrochloride 10 mg/ml injection (13 sources) Antiarrhythmic, Amide Local Anesthetic Start: 01-18-2025 End: 01-18-2025 10 mL, Infiltration, Once, On 01/18/25 at 1340, For 1 dose Start: 02-16-2024 End: 02-16-2024 lidocaine (Xylocaine) 1 % injection 10 mL Start: 08-06-2023 End: 08-07-2023 lidocaine 10 mg/mL (1 %) 100 mg injection (XYLOCAINE) Start: 05-09-2023 End: 05-19-2023 apply 1 dose transdermal route once daily lidocaine (SALONPAS) 4 % patch Indications: Closed fracture of sternum, unspecified portion of sternum, initial encounter Apply 1 Patch as directed once daily for 10 days. 10 Patch 0 05/09/2023 05/19/2023 Active Start: 11-30-2021 End: 11-30-2021 lidocaine PF 1 % injection Start: 11-30-2021 End: 11-30-2021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 along the glenoid articular surface. On Grashey view, the glenohumeral joint alignment is within normal limits. Visualized LEFT lung is clear. IMPRESSION: Anterior glenohumeral subluxation with bilateral axillary view. No brielle dislocation. Anatomic alignment on Grashey and true AP views. Ledge Man: MELANY Transcribe Date/Time: May 17 2025 12:04P Dictated by : ALEXI CONNOR DO This examination was interpreted and the report reviewed and electronically signed by: ALEXI CONNOR DO on May 17 2025 12:09PM EST [id number] [facility] XR SHLDR >/=3V AP/THOMAS AP/OTH R RTon 05-10-2025 XR SHLDR >/=3V AP/THOMAS AP/OTHR RT * * *Final Report* * * DATE OF EXAM: May 10 2025 2:07PM [facility] 5253 - XR SHLDR >/=3V AP/THOMAS AP/OTHR RT / PROCEDURE REASON: multiple diagnoses * * * * Physician Interpretation * * * * EXAMINATION: XR SHLDR >/=3V AP/THOMAS AP/OTHR RT, XR SHLDR >/=3V AP/THOMAS AP/OTHR LT CLINICAL HISTORY: Pain. Bilateral shoulder pain, unspecified chronicity Technique: XR SHLDR >/=3V AP/THOMAS AP/OTHR RT, XR SHLDR >/=3V AP/THOMAS AP/OTHR LT Comparison: 07/02/2024 RESULT: Right: No acute fractures. Internal fixation of the distal clavicle without hardware complication. On axillary view, the humeral head projects along the anterior glenoid fossa. A portion of the humeral articular surface still projects along the glenoid articular surface. On Grashey view, the glenohumeral joint alignment appears within normal limits. Visualized RIGHT lung is clear. Left: No acute fractures. Normal chromic clavicular joint. On axillary view the humeral head projects along the anterior glenoid fossa. A portion of the humeral head articular surface projects along the glenoid articular surface. On Grashey view, the glenohumeral joint alignment is within normal limits. Visualized LEFT lung is clear. IMPRESSION: Anterior glenohumeral subluxation with bilateral axillary view. No brielle dislocation. Anatomic alignment on Grashey and true AP views. Ledge Man: MELANY Transcribe Date/Time: May 17 2025 12:04P Dictated by : ALEXI CONNOR DO This examination was interpreted and the report reviewed and electronically signed by: ALEXI CONNOR DO on May 17 2025 12:09PM EST [id number] Normal [facility] CBC W Auto Differential pane l (Bld)on 05-08-2025 Basophils (Bld) [#/Vol] 0.06 10*3/uL Normal <0.11 [facility] Comment on above: Order Comment: Speci men Type: BLOOD SPECIMENOrdering Facility: [facility] Address: [address] [place] [address] Performed By: #### 5 7021-8 ####JIMÉNEZ LABORATORYCLIA [id number] [place] [address] [place] Basophils/100 WBC (Bld) 0.9 % Normal [facility] Comment on above: Order Comment: Speci men Type: BLOOD SPECIMENOrdering Facility: [facility] Address: [address] [place] [address] Performed By: #### 5 7021-8 ####JIMÉNEZ LABORATORYCLIA [id number] [place] [address] [place] Differential cell count method Nom (Bld) Auto Normal [facility] Comment on above: Order Comment: Speci men Type: BLOOD SPECIMENOrdering Facility: [facility] Address: [address] [place] [address] Performed By: #### 5 7021-8 ####JIMÉNEZ LABORATORYCLIA [id number] [place] [address] [place] Eosinophils (Bld) [#/Vol] 0.11 10*3/uL Normal <0.46 [facility] Comment on above: Order Comment: Speci men Type: BLOOD SPECIMENOrdering Facility: [facility] Address: [address] [place] [address] Performed By: #### 5 7021-8 ####JIMÉNEZ LABORATORYCLIA [id number] [place] [address] [place] Eosinophils/100 WBC (Bld) 1.7 % Normal [facility] Comment on above: Order Comment: Speci men Type: BLOOD SPECIMENOrdering Facility: [facility] Address: [facility] [place] [address] Performed By: #### 5 7021-8 ####JIMÉNEZ LABORATORYCLIA [id number] [place] [address] [place] Erythrocyte distribution width (RBC) [Ratio] 11.4 % Low 11.5-15.0 [facility] Comment on above: Order Comment: Speci men Type: BLOOD SPECIMENOrdering Facility: [facility] Address: [address] [place] [address] Performed By: #### 5 7021-8 ####JIMÉNEZ LABORATORYCLIA [id number] [place] [address] [place] Hematocrit (Bld) [Volume fraction] 40.9 % Normal 36.0-46.0 [facility] Comment on above: Order Comment: Speci men Type: BLOOD SPECIMENOrdering Facility: [facility] Address: [address] [place] [address] Performed By: #### 5 7021-8 ####JIMÉNEZ LABORATORYCLIA [id number] [place] [address] [place] Hemoglobin (Bld) [Mass/Vol] 14.2 g/dL Normal 11.5-15.5 [facility] Comment on above: Order Comment: Speci men Type: BLOOD SPECIMENOrdering Facility: [facility] Address: [address] [place] [address] Performed By: #### 5 7021-8 ####JIMÉNEZ LABORATORYCLIA [id number] [place] [address] [place] Immature granulocytes (Bld) [#/Vol] 10*3/uL Normal <0.10 [facility] Comment on above: Order Comment: Speci men Type: BLOOD SPECIMENOrdering Facility: [facility] Address: [address] [place] [address] Performed By: #### 5 7021-8 ####JIMÉNEZ LABORATORYCLIA [id number] [address] [place] Immature granulocytes/100 WBC (Bld) 0.3 % Normal [facility] Comment on above: Order Comment: Speci men Type: BLOOD SPECIMENOrdering Facility: [facility] Address: [address] [place] [address] Performed By: #### 5 7021-8 ####JIMÉNEZ LABORATORYCLIA [id number] [address] Lymphocytes (Bld) [#/Vol] 1.90 10*3/uL Normal 1.00-4.00 [facility] Comment on above: Order Comment: Speci men Type: BLOOD SPECIMENOrdering Facility: [facility] Address: [address] [place] [address] Performed By: #### 5 7021-8 ####JIMÉNEZ LABORATORYCLIA [id number] [address] Lymphocytes/100 WBC (Bld) 29.1 % Normal [facility] Comment on above: Order Comment: Speci men Type: BLOOD SPECIMENOrdering Facility: [facility] Address: [address] [place] [address] Performed By: #### 5 7021-8 ####JIMÉNEZ LABORATORYCLIA [id number] [address] [place] MCH (RBC) [Entitic mass] 30.8 pg Normal 26.0-34.0 [facility] Comment on above: Order Comment: Speci men Type: BLOOD SPECIMENOrdering Facility: [facility] Address: [address] [place] [address] Performed By: #### 5 7021-8 ####JIMÉNEZ LABORATORYCLIA [id number] [address] MCHC (RBC) [Mass/Vol] 34.7 g/dL Normal 30.5-36.0 [facility] Comment on above: Order Comment: Speci men Type: BLOOD SPECIMENOrdering Facility: [facility] Address: [address] [place] [address] Performed By: #### 5 7021-8 ####JIMÉNEZ LABORATORYCLIA [id number] [address] [place] MCV (RBC) [Entitic vol] 88.7 fL Normal 80.0-100.0 [facility] Comment on above: Order Comment: Speci men Type: BLOOD SPECIMENOrdering Facility: [facility] Address: [address] [place] [address] Performed By: #### 5 7021-8 ####JIMÉNEZ LABORATORYCLIA [id number] [place] [address] [place] Monocytes (Bld) [#/Vol] 0.48 10*3/uL Normal <0.87 [facility] Comment on above: Order Comment: Speci men Type: BLOOD SPECIMENOrdering Facility: [facility] Address: [address] [place] [address] Performed By: #### 5 7021-8 ####JIMÉNEZ LABORATORYCLIA [id number] [address] Monocytes/100 WBC (Bld) 7.4 % Normal [facility] Comment on above: Order Comment: Speci men Type: BLOOD SPECIMENOrdering Facility: [facility] Address: [address] [place] [address] Performed By: #### 5 7021-8 ####JIMÉNEZ LABORATORYCLIA [id number] [place] [address] [place] Neutrophils (Bld) [#/Vol] 3.95 10*3/uL Normal 1.45-7.50 [facility] Comment on above: Order Comment: Speci men Type: BLOOD SPECIMENOrdering Facility: [facility] Address: [address] [place] [address] Performed By: #### 5 7021-8 ####JIMÉNEZ LABORATORYCLIA [id number] [address] [place] Neutrophils/100 WBC (Bld) 60.6 % Normal [facility] Comment on above: Order Comment: Speci men Type: BLOOD SPECIMENOrdering Facility: [facility] Address: [address] [place] [address] Performed By: #### 5 7021-8 ####JIMÉNEZ LABORATORYCLIA [id number] [address] [place] Nucleated RBC (Bld) [#/Vol] 10*3/uL Normal <0.01 [facility] Comment on above: Order Comment: Speci men Type: BLOOD SPECIMENOrdering Facility: [facility] Address: [address] [place] [address] Performed By: #### 5 7021-8 ####JIMÉNEZ LABORATORYCLIA [id number] [place] [address] [facility] [place] Nucleated RBC/100 WBC (Bld) [Ratio] 0.0 /100 WBC Normal [facility] Comment on above: Order Comment: Speci men Type: BLOOD SPECIMENOrdering Facility: [facility] Address: [address] [place] [address] Performed By: #### 5 7021-8 ####JIMÉNEZ LABORATORYCLIA [id number] [address] [place] Platelet mean volume (Bld) [Entitic vol] 11.0 fL Normal 9.0-12.7 [facility] Comment on above: Order Comment: Speci men Type: BLOOD SPECIMENOrdering Facility: [facility] Address: [address] [place] [address] Performed By: #### 5 7021-8 ####JIMÉNEZ LABORATORYCLIA [id number] [address] [place] Platelets (Bld) [#/Vol] 297 10*3/uL Normal 150-400 [facility] Comment on above: Order Comment: Speci men Type: BLOOD SPECIMENOrdering Facility: [facility] Address: [address] [place] [address] Performed By: #### 5 7021-8 ####JIMÉNEZ LABORATORYCLIA [id number] [place] [address] [place] RBC (Bld) [#/Vol] 4.61 10*6/uL Normal 3.90-5.20 [facility] Comment on above: Order Comment: Speci men Type: BLOOD SPECIMENOrdering Facility: [facility] Address: [address] [place] [address] Performed By: #### 5 7021-8 ####JIMÉNEZ LABORATORYCLIA [id number] [place] [address] [place] WBC (Bld) [#/Vol] 6.52 10*3/uL Normal 3.70-11.00 [facility] Comment on above: Order Comment: Speci men Type: BLOOD SPECIMENOrdering Facility: [facility] Address: [address] [place] [address] [place] [address] Performed By: #### 5 7021-8 ####JIMÉNEZ LABORATORYCLIA [id number] [place] [address] [place] CT BRAIN WO IVCONon 05-08-20 CT BRAIN WO IVCON * * *Final Report* * * DATE OF EXAM: May 08 2025 4:02PM [facility] [place] IVCON / PROCEDURE REASON: Headache, sudden, severe * * * * Physician Interpretation * * * * EXAMINATION: CTA HEAD W IVCON, CT BRAIN WO IVCON, CTA NECK W IVCON HISTORY: Sudden severe headache. TECHNIQUE: Routine CT of the brain without IV contrast. Next, high resolution axial images were obtained through the head, neck and superior mediastinum following bolus administration of intravenous contrast for CT angiography. 3D maximum intensity projection images were created, reviewed and archived . MQ: CTABNPlus_4 Contrast: 80 mL Omnipaque [address] Radiation dose: Integrated Dose-Length Product (DLP) for this visit = 1253 mGy*cm. CT Dose Reduction Employed: Automated exposure control (AEC) COMPARISON: None. RESULT: BRAIN: Acute change: No evidence of an acute infarct or other acute parenchymal process. ASPECT Score = 10 Hemorrhage: No evidence of acute intracranial hemorrhage. ECASS hemorrhagic transformation score: Not Applicable Mass Lesion / Mass Effect: There is no evidence of an intracranial mass or extra-axial fluid collection. No significant mass effect. Chronic change: None apparent. Parenchyma: There is no significant volume loss. The brain parenchyma is otherwise within normal limits for age. Ventricles: The ventricles are within normal limits of size and configuration for age. Other: There is a mucous retention cyst within the left maxillary sinus. Small mucous retention cysts are seen within the right maxillary sinus. The skull and visualized extracranial soft tissues are grossly normal. NECK: Soft tissues: The soft tissue planes are maintained throughout. No evidence of a soft tissue mass in the neck or superior mediastinum. No significant lymphadenopathy is seen. Spine: Slight reversal of cervical lordosis.. Mild degenerative changes are present. Lung apices: The visualized lung apices are clear. CT ARTERIOGRAM: Extracranial Circulation: Aortic Arch: There is a normal branching pattern from the aortic arch. There is no significant stenosis in the proximal brachiocephalic vessels. Carotid Stenosis: Right Common: No significant stenosis. Right Internal Carotid Plaque: No significant plaque formation. Right Internal Carotid Stenosis (% by NASCET Criteria): 0 Left Common: No significant stenosis. Left Internal Carotid Plaque: No significant plaque formation. Left Internal Carotid Stenosis (% by NASCET Criteria): 0 Cervical Vertebral Arteries: Patency: Bilateral Dominance: Codominant Intracranial Circulation: The distal cervical, petrous, cavernous, and supraclinoid segments of the internal carotid arteries are patent. The anterior and middle cerebral arteries and their major branches are patent without focal narrowing or aneurysm. The distal vertebral arteries, basilar artery, superior cerebellar arteries, and posterior cerebral arteries are patent. There is a small fenestration of the proximal basilar artery. origin of both posterior cerebral arteries. No evidence of focal narrowing or aneurysm. Director Of Religious Activities (topogram) images: No additional findings. IMPRESSION: No acute intracranial abnormality. Normal CTA of the head and neck. Arterial blood flow was measured to detect acute large vessel occlusion by computer aided detection software: Not Performed. Concordance between software and imaging review: Not Applicable. Ledge Man: MELANY Transcribe Date/Time: May 08 2025 4:12P Dictated by : ASIA HEATH MD This examination was interpreted and the report reviewed and electronically signed by: ASIA HEATH MD on May 08 2025 4:28PM EST [id number] [facility] CTA HEAD W IVCONon 5 CTA HEAD W IVCON * * *Final Report* * * DATE OF EXAM: May 08 2025 4:02PM [facility] [place]A HEAD W IVCON / PROCEDURE REASON: Headache, sudden, severe * * * * Physician Interpretation * * * * EXAMINATION: CTA HEAD W IVCON, CT BRAIN WO IVCON, CTA NECK W IVCON HISTORY: Sudden severe headache. TECHNIQUE: Routine CT of the brain without IV contrast. Next, high resolution axial images were obtained through the head, neck and superior mediastinum following bolus administration of intravenous contrast for CT angiography. 3D maximum intensity projection images were created, reviewed and archived . MQ: CTABNPlus_4 Contrast: 80 mL Omnipaque [address] Radiation dose: Integrated Dose-Length Product (DLP) for this visit = 1253 mGy*cm. CT Dose Reduction Employed: Automated exposure control (AEC) COMPARISON: None. RESULT: BRAIN: Acute change: No evidence of an acute infarct or other acute parenchymal process. ASPECT Score = 10 Hemorrhage: No evidence of acute intracranial hemorrhage. ECASS hemorrhagic transformation score: Not Applicable Mass Lesion / Mass Effect: There is no evidence of an intracranial mass or extra-axial fluid collection. No significant mass effect. Chronic change: None apparent. Parenchyma: There is no significant volume loss. The brain parenchyma is otherwise within normal limits for age. Ventricles: The ventricles are within normal limits of size and configuration for age. Other: There is a mucous retention cyst within the left maxillary sinus. Small mucous retention cysts are seen within the right maxillary sinus. The skull and visualized extracranial soft tissues are grossly normal. NECK: Soft tissues: The soft tissue planes are maintained throughout. No evidence of a soft tissue mass in the neck or superior mediastinum. No significant lymphadenopathy is seen. Spine: Slight reversal of cervical lordosis.. Mild degenerative changes are present. Lung apices: The visualized lung apices are clear. CT ARTERIOGRAM: Extracranial Circulation: Aortic Arch: There is a normal branching pattern from the aortic arch. There is no significant stenosis in the proximal brachiocephalic vessels. Carotid Stenosis: Right Common: No significant stenosis. Right Internal Carotid Plaque: No significant plaque formation. Right Internal Carotid Stenosis (% by NASCET Criteria): 0 Left Common: No significant stenosis. Left Internal Carotid Plaque: No significant plaque formation. Left Internal Carotid Stenosis (% by NASCET Criteria): 0 Cervical Vertebral Arteries: Patency: Bilateral Dominance: Codominant Intracranial Circulation: The distal cervical, petrous, cavernous, and supraclinoid segments of the internal carotid arteries are patent. The anterior and middle cerebral arteries and their major branches are patent without focal narrowing or aneurysm. The distal vertebral arteries, basilar artery, superior cerebellar arteries, and posterior cerebral arteries are patent. There is a small fenestration of the proximal basilar artery. origin of both posterior cerebral arteries. No evidence of focal narrowing or aneurysm. Director Of Religious Activities (topogram) images: No additional findings. IMPRESSION: No acute intracranial abnormality. Normal CTA of the head and neck. Arterial blood flow was measured to detect acute large vessel occlusion by computer aided detection software: Not Performed. Concordance between software and imaging review: Not Applicable. Ledge Man: MELANY Transcribe Date/Time: May 08 2025 4:12P Dictated by : ASIA HEATH MD This examination was interpreted and the report reviewed and electronically signed by: ASIA HEATH MD on May 08 2025 4:28PM EST [id number] [facility] CTA NECK W IVCONon CTA NECK W IVCON * * *Final Report* * * DATE OF EXAM: May 08 2025 4:02PM [facility] [place]A NECK W IVCON / PROCEDURE REASON: Headache, sudden, severe * * * * Physician Interpretation * * * * EXAMINATION: CTA HEAD W IVCON, CT BRAIN WO IVCON, CTA NECK W IVCON HISTORY: Sudden severe headache. TECHNIQUE: Routine CT of the brain without IV contrast. Next, high resolution axial images were obtained through the head, neck and superior mediastinum following bolus administration of intravenous contrast for CT angiography. 3D maximum intensity projection images were created, reviewed and archived . MQ: CTABNPlus_4 Contrast: 80 mL Omnipaque [address] Radiation dose: Integrated Dose-Length Product (DLP) for this visit = 1253 mGy*cm. CT Dose Reduction Employed: Automated exposure control (AEC) COMPARISON: None. RESULT: BRAIN: Acute change: No evidence of an acute infarct or other acute parenchymal process. ASPECT Score = 10 Hemorrhage: No evidence of acute intracranial hemorrhage. ECASS hemorrhagic transformation score: Not Applicable Mass Lesion / Mass Effect: There is no evidence of an intracranial mass or extra-axial fluid collection. No significant mass effect. Chronic change: None apparent. Parenchyma: There is no significant volume loss. The brain parenchyma is otherwise within normal limits for age. Ventricles: The ventricles are within normal limits of size and configuration for age. Other: There is a mucous retention cyst within the left maxillary sinus. Small mucous retention cysts are seen within the right maxillary sinus. The skull and visualized extracranial soft tissues are grossly normal. NECK: Soft tissues: The soft tissue planes are maintained throughout. No evidence of a soft tissue mass in the neck or superior mediastinum. No significant lymphadenopathy is seen. Spine: Slight reversal of cervical lordosis.. Mild degenerative changes are present. Lung apices: The visualized lung apices are clear. CT ARTERIOGRAM: Extracranial Circulation: Aortic Arch: There is a normal branching pattern from the aortic arch. There is no significant stenosis in the proximal brachiocephalic vessels. Carotid Stenosis: Right Common: No significant stenosis. Right Internal Carotid Plaque: No significant plaque formation. Right Internal Carotid Stenosis (% by NASCET Criteria): 0 Left Common: No significant stenosis. Left Internal Carotid Plaque: No significant plaque formation. Left Internal Carotid Stenosis (% by NASCET Criteria): 0 Cervical Vertebral Arteries: Patency: Bilateral Dominance: Codominant Intracranial Circulation: The distal cervical, petrous, cavernous, and supraclinoid segments of the internal carotid arteries are patent. The anterior and middle cerebral arteries and their major branches are patent without focal narrowing or aneurysm. The distal vertebral arteries, basilar artery, superior cerebellar arteries, and posterior cerebral arteries are patent. There is a small fenestration of the proximal basilar artery. origin of both posterior cerebral arteries. No evidence of focal narrowing or aneurysm. Director Of Religious Activities (topogram) images: No additional findings. IMPRESSION: No acute intracranial abnormality. Normal CTA of the head and neck. Arterial blood flow was measured to detect acute large vessel occlusion by computer aided detection software: Not Performed. Concordance between software and imaging review: Not Applicable. Ledge Man: MELANY Transcribe Date/Time: May 08 2025 4:12P Dictated by : ASIA HEATH MD This examination was interpreted and the report reviewed and electronically signed by: ASIA HEATH MD on May 08 2025 4:28PM EST [id number] Normal [facility] Comprehensive metabolic 2000 panelon 05-08-2025 Albumin [Mass/Vol] 4.4 g/dL Normal 3.9-4.9 [facility] Comment on above: Order Comment: Speci men Type: BLOOD SPECIMENOrdering Facility: [facility] Address: [address] [place] [address] [place] [address] Performed By: #### 2 4323-8, HSTNT, 85043-1 ####TRADE LABORATORYCLIA [id number] [place] [address] [place] ALP [Catalytic activity/Vol] 58 U/L Normal 34-123 [facility] Comment on above: Order Comment: Speci men Type: BLOOD SPECIMENOrdering Facility: [facility] Address: [address] [place] [address] Performed By: #### 2 4323-8, HSTNT, ####JIMÉNEZ LABORATORYCLIA [id number] [place] [address] [place] ALT [Catalytic activity/Vol] 15 U/L Normal 7-38 [facility] Comment on above: Order Comment: Speci men Type: BLOOD SPECIMENOrdering Facility: [facility] Address: [address] [place] [address] Performed By: #### 2 4323-8, HSTNT, ####JIMÉNEZ LABORATORYCLIA [id number] [place] [id number] [place] Anion gap [Moles/Vol] 11 mmol/L Normal 8-15 [facility] Comment on above: Order Comment: Speci men Type: BLOOD SPECIMENOrdering Facility: [facility] Address: [facility] [place] [address] Performed By: #### 2 4323-8, HSTNT, ####JIMÉNEZ LABORATORYCLIA [id number] [address] [place] AST [Catalytic activity/Vol] 17 U/L Normal 13-35 [facility] Comment on above: Order Comment: Speci men Type: BLOOD SPECIMENOrdering Facility: [facility] Address: [address] [place] [address] Performed By: #### 2 4323-8, HSTNT, ####JIMÉNEZ LABORATORYCLIA [id number] [place] [address] [place] Bilirubin [Mass/Vol] 0.2 mg/dL Normal 0.2-1.3 [facility] Comment on above: Order Comment: Speci men Type: BLOOD SPECIMENOrdering Facility: [facility] Address: [facility] [place] [address] Performed By: #### 2 4323-8, HSTNT, 19853-1 ####JIMÉNEZ LABORATORYCLIA [id number] [place] [address] [place] Calcium [Mass/Vol] 9.9 mg/dL Normal 8.5-10.2 [facility] Comment on above: Order Comment: Speci men Type: BLOOD SPECIMENOrdering Facility: [facility] Address: [address] [place] [address] Performed By: #### 2 4323-8, HSTNT, ####JIMÉNEZ LABORATORYCLIA [id number] [place] [address] [place] Chloride [Moles/Vol] 101 mmol/L Normal 98-107 [facility] Comment on above: Order Comment: Speci men Type: BLOOD SPECIMENOrdering Facility: [facility] Address: [address] [place] [address] Performed By: #### 2 4323-8, HSTNT, ####JIMÉNEZ LABORATORYCLIA [id number] [place] [address] [place] CO2 [Moles/Vol] 27 mmol/L Normal 22-30 [facility] Comment on above: Order Comment: Speci men Type: BLOOD SPECIMENOrdering Facility: [facility] Address: [address] [place] [address] Performed By: #### 2 4323-8, HSTNT, ####JIMÉNEZ LABORATORYCLIA [id number] [place] [address] [place] Creatinine [Mass/Vol] 0.75 mg/dL Normal 0.58-0.96 [facility] Comment on above: Order Comment: Speci men Type: BLOOD SPECIMENOrdering Facility: [facility] Address: [address] [place] [address] Performed By: #### 2 4323-8, HSTNT, ####JIMÉNEZ LABORATORYCLIA [id number] [place] [address] [place] eGFRcr SerPlBld CKD-EPI 2020 109 mL/min/1.73m??? Normal >=60 [facility] Comment on above: Order Comment: Speci men Type: BLOOD SPECIMENOrdering Facility: [facility] Address: [address] [place] [address] Result Comment: Malina mated Glomerular Filtration Rate (eGFR) is calculated using the 2020 CKD-EPI creatinine equation. This equation utilizes serum creatinine, sex, and age as parameters. The creatinine assay has traceable calibration to isotope dilution-mass spectrometry. Refer to KDIGO guidelines for clinical interpretation. In patients with unstable renal function, e.g. those with acute kidney injury, the eGFR may not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 ####Sole Layer Hand: MIREILLE BAEZA ([id number])[facility] MCGUIRE RITTMAN (SWRLAB)[address] [place] [address] [place] Monocytes/100 WBC (Bld) 10.4 % Normal 5.0-13.0 [facility] Comment on above: Performed By: #### L [id number] ####Sole Layer Hand: MIREILLE BAEZA ([id number])[facility] MCGUIRE RITTMAN (SWRLAB)[address] [place] [address] [place] NEUTROPHILS ABSOLUTE 5.6 10*3/uL Normal 1.8-7.5 [facility] Comment on above: Performed By: #### L [id number] ####Sole Layer Hand: MIREILLE BAEZA ([id number])[facility] MCGUIRE RITTMAN (SWRLAB)[address] [place] [address] [place] Neutrophils/100 WBC (Bld) 63.0 % Normal 38.0-82.0 [facility] Comment on above: Performed By: #### L [id number] ####Sole Layer Hand: MIREILLE BAEZA ([id number])[facility] MCGUIRE RITTMAN (SWRLAB)[address] [place] [address] [place] NRBC 0.0 /100 WBCs Normal 0.0-2.0 [facility] Comment on above: Performed By: #### L [id number] ####Sole Layer Hand: MIREILLE BAEZA ([id number])[facility] MCGUIRE RITTMAN (SWRLAB)[address] [place] [address] Platelet mean volume (Bld) [Entitic vol] 10.1 fL Normal 9.0-12.7 [facility] Comment on above: Result Comment: MPV is a calculated measurement using platelet volume ratio Performed By: #### L [id number] ####Sole Layer Hand: MIREILLE BAEZA ([id number])[facility] RITTMAN (SWRLAB)[address] Platelets (Bld) [#/Vol] 256 10*3/uL Normal 140-440 [facility] Comment on above: Performed By: #### L [id number] ####Sole Layer Hand: MIREILLE BAEZA ([id number])[facility] MCGUIRE RITTMAN (SWRLAB)[address] RBC (Bld) [#/Vol] 4.71 10*6/uL Normal 3.80-5.20 [facility] Comment on above: Performed By: #### L [id number] ####Sole Layer Hand: MIREILLE BAEZA ([id number])[facility] MCGUIRE RITTMAN (SWRLAB)[address] [place] [address] WBC (Bld) [#/Vol] 8.9 10*3/uL Normal 3.6-10.7 [facility] Comment on above: Performed By: #### Marlo [id number] ####Sole Layer Hand: MIREILLE BAEZA ([id number])[facility] MCG[employer] RITTMAN (SWRLAB)[address] [place] [address] COMPREHENSIVE METABOLIC PANE Miguel 11-21-2024 Albumin [Mass/Vol] 3.6 g/dL Normal 3.5-5.0 [facility] Comment on above: Performed By: #### L AB106, LAB17, [id number], [id number] ####Sole Layer Hand: MIREILLE BAEZA ([id number])[facility] MCGUIRE RITTMAN (SWRLAB)[address] [place] [address] ALP [Catalytic activity/Vol] 54 U/L Normal 40-150 [facility] Comment on above: Performed By: #### L AB106, LAB17, [id number], [id number] ####Sole Layer Hand: MIREILLE BAEZA ([id number])[facility] MCGUIRE RITTMAN (SWRLAB)[address] [place] [address] [place] ALT [Catalytic activity/Vol] 22 U/L Normal <30 [facility] Comment on above: Performed By: #### L AB106, LAB17, [id number], [id number] ####Sole Layer Hand: MIREILLE BAEZA ([id number])[facility] MCGUIRE RITTMAN (SWRLAB)[address] [place] [address] Anion gap [Moles/Vol] 4 mmol/L Normal 3-13 [facility] Comment on above: Performed By: #### L AB106, LAB17, [id number], [id number] ####Sole Layer Hand: MIREILLE BAEZA ([id number])[facility] MCG[employer]RE RITTMAN (SWRLAB)[address] AST [Catalytic activity/Vol] 20 U/L Normal <34 [facility] Comment on above: Performed By: #### L AB106, LAB17, [id number], [id number] ####Sole Layer Hand: MIREILLE BAEZA ([id number])[facility] MCGUIRE RITTMAN (SWRLAB)[address] [place] [address] Bilirubin [Mass/Vol] 0.2 mg/dL Normal <1.2 [facility] Comment on above: Performed By: #### L AB106, LAB17, [id number], [id number] ####Sole Layer Hand: MIREILLE BAEZA ([id number])[facility] MCGUIRE RITTMAN (SWRLAB)[address] [place] [address] Calcium [Mass/Vol] 9.1 mg/dL Normal 8.4-10.2 [facility] Comment on above: Performed By: #### L AB106, LAB17, [id number], [id number] ####Sole Layer Hand: MIREILLE BAEZA ([id number])[facility] MCGUIRE RITTMAN (SWRLAB)[address] [place] [address] [place] Chloride [Moles/Vol] 106 mmol/L Normal 98-107 [facility] Comment on above: Performed By: #### L AB106, LAB17, [id number], [id number] ####Sole Layer Hand: MIREILLE BAEZA ([id number])[facility] (SWRLAB)[address] [place] [address] [place] CO2 [Moles/Vol] 29 mmol/L Normal 22-29 [facility] Comment on above: Performed By: #### L AB106, LAB17, [id number], [id number] ####Sole Layer Hand: MIREILLE BAEZA ([id number])[facility] MAYNOR DANIELSONTMAN (SWRLAB)[address] [place] [address] [place] Creatinine [Mass/Vol] 0.69 mg/dL Normal 0.57-1.11 [facility] Comment on above: Performed By: #### L AB106, LAB17, [id number], [id number] ####Sole Layer Hand: MIREILLE BAEZA ([id number])[facility] MAYNOR DANIELSONTMAN (SWRLAB)[address] [place] [address] [place] GLOMERULAR FILTRATION RATE ML/MIN/1.73 SQ M.PREDICTED >90.0 Normal >60.0 [facility] Comment on above: Result Comment: Calc ulation based on the Chronic Kidney Disease Epidemiology Collaboration (CKD-EPI) equation refit without adjustment for race Performed By: #### L AB106, LAB17, [id number], [id number] ####Sole Layer Hand: MIREILLE BAEZA ([id number])[facility] MAYNOR DANIELSONTMAN (SWRLAB)[address] [place] [address] [place] Glucose [Mass/Vol] 96 mg/dL Normal 74-100 [facility] Comment on above: Performed By: #### L AB106, LAB17, [id number], [id number] ####Sole Layer Hand: MIREILLE BAEZA ([id number])[facility] HOSPITALMAYNORBELLO DANIELSONTMAN (SWRLAB)[address] [place] [address] [place] Potassium [Moles/Vol] 4.3 mmol/L Normal 3.5-5.1 [facility] Comment on above: Result Comment: [facility] potassium values may be up to 0.5 mmol/L lower than serum values. Performed By: #### L AB106, LAB17, [id number], [id number] ####Sole Layer Hand: MIREILLE BAEZA ([id number])[facility] DANIELSONTMAN (SWRLAB)[address] [place] [address] Protein [Mass/Vol] 7.0 g/dL Normal 6.4-8.3 [facility] Comment on above: Performed By: #### L AB106, LAB17, [id number], [id number] ####Sole Layer Hand: MIREILLE BAEZA ([id number])[facility] DANIELSONTMAN (SWRLAB)[address] [place] [address] Sodium [Moles/Vol] 139 mmol/L Normal 136-145 [facility] Comment on above: Performed By: #### L AB106, LAB17, [id number], [id number] ####Sole Layer Hand: MIREILLE BAEZA ([id number])[facility] DANIELSONTMAN (SWRLAB)[address] [place] [address] Urea nitrogen [Mass/Vol] 12 mg/dL Normal 8-21 [facility] Comment on above: Performed By: #### L AB106, LAB17, [id number], [id number] ####Sole Layer Hand: MIREILLE BAEZA ([id number])[facility] BEASLEYAN (SWRLAB)[address] [place] [address] COVID-19, Flu A/B, and RSV C omboon 11-21-2024 Interpretation and review of laboratory results Normal [facility] Comprehensive metabolic 1998 panelon 11-21-2024 Albumin [Mass/Vol] 3.6 g/dL 3.5 - 5.0 g/dL [facility] ALP [Catalytic activity/Vol] 54 U/L 40 - 150 U/L [facility] ALT [Catalytic activity/Vol] 22 U/L NINF - 30 U/L [facility] Anion gap [Moles/Vol] 4 mmol/L 3 - 13 mmol/L [facility] AST [Catalytic activity/Vol] 20 U/L NINF - 34 U/L [facility] Bilirubin [Mass/Vol] 0.2 mg/dL NINF - 1.2 mg/dL [facility] Calcium [Mass/Vol] 9.1 mg/dL 8.4 - 10. 2 mg/dL [facility] Chloride [Moles/Vol] 106 mmol/L 98 - 10 7 mmol/L [facility] CO2 [Moles/Vol] 29 mmol/L 22 - 29 mmol/L [facility] Creatinine [Mass/Vol] 0.69 mg/dL 0.57 - 1.11 mg/dL [facility] GFR/1.73 sq M.predicted (S/P/Bld) [Vol rate/Area] - PINF [facility] Comment on above: Calculation based on the Chronic Kidney Disease Epidemiology Collaboration (CKD-EPI) equation refit without adjustment for race Glucose [Mass/Vol] 96 mg/dL 74 - 100 mg/dL [facility] Potassium [Moles/Vol] 4.3 mmol/L 3.5 - 5.1 mmol/L [facility] Comment on above: Plasma potassium spencer ues may be up to 0.5 mmol/L lower than serum values. Protein [Mass/Vol] 7 g/dL 6.4 - 8.3 g/dL [facility] Sodium [Moles/Vol] 139 mmol/L 136 - 145 mmol/L [facility] Urea nitrogen [Mass/Vol] 12 mg/dL 8 - 21 mg/dL [facility] D-DIMER,QUANTITATIVEon 11-21 D-DIMER, INNOVANCE 0.21 mg/L Normal <0.50 [facility] [facility] Comment on above: Result Comment: DAYANA Tubbs COMMENTS: [employer] D-Dimer values of <0.50 mg/L FEU can be used in combination with a pre-test probability model (e.g. Well's) to exclude pulmonary embolism (PE) disease, as well as an aid in the diagnosis of deep vein thrombosis (DVT). Performed By: #### L [id number] ####Sole Layer Hand: MIREILLE BAEZA ([id number])[facility] MAYNOR MERCADO ([facility])[address] [place] [address] ECG 12-LEADon 11-21-2024 ECG 12-LEAD IMPRESSION: Sinus tachycardia Low voltage, precordial leads Consider anteroseptal infarct EKG per my interpretation shows a sinus tachycardia at a rate of 115 with a normal axis. There is some low voltage in precordial leads. There is an abnormal R wave progression versus abnormal lead placement. There is no acute ST elevation or ST depression. Intervals are within normal limits otherwise. There were no significant changes compared to prior EKG on file. Electronically Signed On 11-21-2024 12:29:22 EST by Rafa Armstrong [facility] ED Nursing Noteon 11-21-2024 ED Nursing Note Pt states she has a rash that started on her chest and face. That started 4 days ago. Pt states she can't catch her breath. Pt states almost like a panic attack but states she feels fine in that aspect. Pt is alert and oriented x's 4 [facility] ED Provider Noteon ED Provider Note EMERGENCY DEPARTMENT ENCOUNTER Pt Name: Pranay Reyes Birthdate 1995 Date of evaluation: 11/21/2024 ED Provider: Rafa Armstrong MD CHIEF COMPLAINT Chief Complaint Patient presents with Back Pain Pt states she has a rash that started on her chest and face. That started 4 days ago. Pt states she can't catch her breath. Pt states almost like a panic attack but states she feels fine in that aspect. Pt is alert and oriented x's 4 HISTORY OF PRESENT ILLNESS (Location/Symptom, Timing/Onset, Context/Setting, Quality, Duration, Modifying Factors, Severity) Note limiting factors. I wore appropriate PPE for the entirety of this encounter. HPI Pranay Reyes is a 29 y.o. who presents to the emergency department with chief complaint of upper back pain, flulike symptoms as well as a rash. The patient said she has been having a cough, headache and congestion for few days. Her upper back has been hurting. She also has developed a rash. She said this started on her chest and upper abdomen. Now she has it on her face. She says she went to an urgent care in [place] the other day. They did viral testing which was negative. They did a chest x-ray which was unremarkable as well. She came in because with muscle relaxers that she was prescribed are not helping. She does not mention any fevers however. Vision is unchanged. No major ear pain or sore throat. She does not really describe any anterior chest pain. She has felt a little short of breath. No current abdominal pain, vomiting or diarrhea. No urinary complaints. She denies being . No new pain or swelling in her legs. No rash elsewhere. No localizing numbness or weakness. She said the rash is not bothering her. It does not itch or hurt. No other associated symptoms. She does smoke. She denies any alcohol or drug use. She has a history of POTS and says her heart rate is normally elevated. Nursing Notes were reviewed. Limitations to history: None Outside historians: Significant other REVIEW OF SYSTEMS Review of Systems Constitutional: Negative for chills and fever. HENT: Positive for congestion. Negative for ear pain and sore throat. Eyes: Negative for visual disturbance. Respiratory: Positive for cough and shortness of breath. Cardiovascular: Negative for chest pain and leg swelling. Gastrointestinal: Negative for abdominal pain, diarrhea and vomiting. Genitourinary: Negative for dysuria and frequency. Musculoskeletal: Negative for arthralgias and back pain. Skin: Positive for rash. Negative for color change. Neurological: Positive for headaches. Negative for weakness and numbness. All other systems reviewed and are negative. Pertinent positives and negatives as per HPI. PAST MEDICAL HISTORY Past Medical History: Diagnosis Date Anxiety Borderline personality disorder (CMS/HCC) (HCC) Depression Kidney stone POTS (postural orthostatic tachycardia syndrome) Schizophrenia ([facility]) UTI (urinary tract infection) SURGICAL HISTORY Past Surgical History: Procedure Laterality Date SECTION (HISTORICAL) CYST REMOVAL 02/2019 Left ovary ENDOMETRIAL ABLATION HEMORRHOID SURGERY TUBAL LIGATION CURRENT MEDICATIONS Previous Medications LORAZEPAM (ATIVAN) 0.5 MG TABLET Take by mouth. OLANZAPINE (ZYPREXA) 5 MG TABLET 5 mg. RISPERIDONE (RISPERDAL) 1 MG TABLET Take 1 tablet (1 mg) by mouth Nightly. ALLERGIES Escitalopram, Avocado, Bupropion, Codeine, and Wound dressing adhesive FAMILY HISTORY No family history on file. SOCIAL HISTORY Social History Socioeconomic History Marital status: Single Tobacco Use Smoking status: Every Day Current packs/day: 1.00 Types: Cigarettes Smokeless tobacco: Never Vaping Use Vaping status: Never Used Substance and Sexual Activity Alcohol use: Not Currently Drug use: No Social Drivers of Health Financial Resource Strain: High Risk (10/28/2024) Received from [facility] Overall Financial Resource Strain (CARDIA) Difficulty of Paying Living Expenses: Hard Food Insecurity: Food Insecurity Present (10/28/2024) Received from [facility] Hunger Vital Sign Worried About Running Out of Food in the Last Year: Often true Ran Out of Food in the Last Year: Often true Transportation Needs: Unmet Transportation Needs (10/28/2024) Received from [facility] PRAPARE - Transportation Lack of Transportation (Medical): Yes Lack of Transportation (Non-Medical): Yes Physical Activity: Sufficiently Active (10/28/2024) Received from [facility] Exercise Vital Sign Days of Exercise per Week: 5 days Minutes of Exercise per Session: 60 min Stress: Stress Concern Present (10/28/2024) Received from [facility] [employer] [place] [employer] - Occupational Stress Questionnaire Feeling of Stress : Rather much Social Connections: Socially Integrated (10/28/2024) Received from [facility] Social Connection (more content not included)... Normal [facility] Fibrin D-dimer FEU (PPP) [Ma ss/Vol]on 11-21-2024 Interpretation and review of laboratory results Normal [facility] D-Dimer va lues of <0.50 mg/L FEU can be used in combination with a pre-test probability model (e.g. Well's) to exclude pulmonary embolism (PE) disease, as well as an aid in the diagnosis of deep vein thrombosis (DVT). [facility] HIGH SENSITIVITY TROPONIN, S ERIAL BASELINEon 11-21-2024 TROPONIN HS SERIAL BASELINE <3 Normal <=14 [facility] Comment on above: Result Comment: In i ndividuals presenting with symptoms > 2h, a baseline troponin <= 5 ng/L suggests acute cardiac injury is unlikely and further serial testing is generally not indicated. Performed By: #### L [id number], LAB17, [id number], [id number] ####Sole Layer Hand: MIREILLE BAEZA ([id number])[facility] ([facility])[address] [place] [address] Laboratory - Chemistry and C hemistry - challengeon 11-21-2024 Magnesium [Mass/Vol] 2 mg/dL 1.6 - 2 .6 mg/dL [facility] - Coagulationon 0 11-21-2024 Fibrin D-dimer FEU (PPP) [Mass/Vol] 0.21 mg/L NINF - 0.50 mg/L [facility] - Microbiology an d Antimicrobial susceptibilityon 11-21-2024 FLUAV RNA LUIS+probe Ql (Resp) Not detected Not Detected [facility] FLUBV RNA LUIS+probe Ql (Resp) Not detected Not Detected [facility] RSV RNA LUIS+probe Ql (Resp) Not detected Not Detected [facility] SARS-CoV-2 (COVID-19) RNA LUIS+probe Ql (Resp) Not detected Not Detected [facility] SARS-CoV-2 (COVID-19) RNA LUIS+probe Ql (Unsp spec) Methodology: real-time, RT-PCR The SARS-CoV-2, Flu A/B, and RSV Combo assay is intended for in vitro diagnostic use under the FDA Emergency Use Authorization (EUA). This test has not been FDA cleared or approved. In compliance with this authorization, please visit www.fda.gov/media/797639 /download or www.fda.gov/media/015564 /download to access the applicable information sheets. [facility] MAGNESIUMon 11-21-2024 Magnesium [Mass/Vol] 2.0 mg/dL Normal 1.6-2.6 [facility] GLOG [facility] Comment on above: Result Comment: DAYANA Tubbs COMMENTS: Higher values can be expected in females during menses. Performed By: #### L [id number], LAB17, [id number], [id number] ####Sole Layer Hand: MIREILLE BAEZA ([id number])[facility] [employer] ([facility] [place] [address] Magnesium [Mass/Vol]on 11-21 Higher values can be expected in females during menses. [facility] GLOG NT PRO BNPon 11-21-2024 Natriuretic peptide B (Bld) [Mass/Vol] 256 pg/mL High <125 [facility] GLOG [facility] Comment on above: Performed By: #### L AB106, LAB17, [id number], [id number] ####Sole Layer Hand: MIREILLE BAEZA ([id number])[facility] [employer] (SW[facility])[address] [place] [address] [place] Natriuretic peptide B [Mass/ Vol]on 11-21-2024 Interpretation and review of laboratory results Abnormal [facility] GLOG Natriuretic peptide B (Bld) [Mass/Vol] 256 pg/mL High NINF - 125 pg/mL [facility] No Panel Informationon 11-21 Interpretation and review of laboratory results Normal [facility] Troponin HS Serial Baseline ng/L NINF - 14 ng/L [facility] Comment on above: In individuals prese nting with symptoms > 2h, a baseline troponin <= 5 ng/L suggests acute cardiac injury is unlikely and further serial testing is generally not indicated. [facility] Interpretation and review of laboratory results Normal [facility] P [place] 64 degrees [facility] SD Interval 145 ms [facility] QRS [place] 31 degrees [facility] QRSD Interval 63 ms [facility] 322 ms [facility] QTC Interval 447 ms [facility] T Wave [place] 41 degrees [facility] Sinus tachycardia Low voltage, precordial leads Consider anteroseptal infarct EKG per my interpretation shows a sinus tachycardia at a rate of 115 with a normal axis. There is some low voltage in precordial leads. There is an abnormal R wave progression versus abnormal lead placement. There is no acute ST elevation or ST depression. Intervals are within normal limits otherwise. There were no significant changes compared to prior EKG on file. Electronically Signed On 11-21-2024 12:29:22 EST by Rafa Purcell MD - 11/21/2024 IMPRESSION: Sinus tachycardia Low voltage, precordial leads Consider anteroseptal infarct EKG per my interpretation shows a sinus tachycardia at a rate of 115 with a normal axis. There is some low voltage in precordial leads. There is an abnormal R wave progression versus abnormal lead placement. There is no acute ST elevation or ST depression. Intervals are within normal limits otherwise. There were no significant changes compared to prior EKG on file. Electronically Signed On 11-21-2024 12:29:22 EST by Rafa Armstrong [facility] SARS-COV-2, FLU A/B, AND RSV COMBOon 11-21-2024 SARS-CoV-2 (COVID-19) RNA LUIS+probe Ql (Unsp spec) SARS-COV-2 Reference Not Detected Not Detected RESPIRATORY SYNCYTIAL VIRUS Reference Not Detected Not Detected INFLUENZA A (CEPHEID) Reference Not Detected Not Detected INFLUENZA B (CEPHEID) Reference Not Detected Not Detected ORDER COMMENTS: Methodology: real-time, RT-PCR The SARS-CoV-2, Flu A/B, and RSV Combo assay is intended for in vitro diagnostic use under the FDA Emergency Use Authorization (EUA). This test has not been FDA cleared or approved. In compliance with this authorization, please visit www.fda.gov/media/093876 /download or www.fda.gov/media/631622 /download to access the applicable information sheets. Normal [facility] Comment on above: Performed By: #### L [id number] ####Sole Layer Hand: MIREILLE BAEZA ([id number])[facility] (SW[facility])[address] [place] [address] Vital signson 11-21-2024 Heart rate 115 /min bpm [facility] XR Chest Single viewon 11-21 No acute cardiopulmonary disease. Report Dictated on Electronically Signed By: Jessica Lopez MD Electronically Signed Date/Time: 11/21/2024 12:39 PM EST [facility] Patient Name: PRANAY REYES : 1995 Exam Date/Time: 11/21/2024 12:06 Procedure: XR CHEST 1 VIEW Ordering Provider: ARMSTRONG TARAS Reason For Exam: COUGH PORTABLE CHEST X-RAY CLINICAL INDICATION: COUGH A portable frontal view of the chest was obtained. COMPARISON: None FINDINGS: The cardiac silhouette is within normal limits. No focal consolidation is seen within the lungs. There is no large pleural effusion or pneumothorax. Plate and screw fixation hardware of the right clavicle is unchanged. [facility] Jessica Lopez MD - 11/21/2024 Patient Name: PRANAY REYES : 1995 Exam Date/Time: 11/21/2024 12:06 Procedure: XR CHEST 1 VIEW Ordering Provider: ARMSTRONG TARAS Reason For Exam: COUGH PORTABLE CHEST X-RAY CLINICAL INDICATION: COUGH A portable frontal view of the chest was obtained. COMPARISON: None FINDINGS: The cardiac silhouette is within normal limits. No focal consolidation is seen within the lungs. There is no large pleural effusion or pneumothorax. Plate and screw fixation hardware of the right clavicle is unchanged. IMPRESSION: No acute cardiopulmonary disease. Report Dictated on Electronically Signed By: Jessica Lopez MD Electronically Signed Date/Time: 11/21/2024 12:39 PM EST [facility] Radiology Study observation (narrative) [facility] XR Chest Single viewOrdered By: Jessica Lopez on 11-21-2024 [facility] POCT Covid-19 Rapid Antigeno n 11-20-2024 SARS-CoV-2 (COVID-19) Ag IA.rapid Ql (Resp) Presumptive negative test for SARS-CoV-2 (no antigen detected) Presumptive negative test for SARS-CoV-2 (no antigen detected) [facility] Work Phone: POCT Influenza A/B manually resultedon 11-20-2024 Interpretation and review of laboratory results Normal [facility] Work Phone: POC Rapid Influenza A Negative Negative [facility] Work Phone: POC Rapid Influenza B Negative Negative [facility] Work Phone: [facility] Work Phone: SARS-CoV-2 (COVID-19) Ag IA. rapid Ql (Resp)on 11-20-2024 Interpretation and review of laboratory results Normal [facility] Work Phone: [facility] Work Phone: XR Chest 2 Viewson Negative exam. MACRO: None Signed by: Nahun Ortega 11/20/2024 9:31 AM Dictation workstation: [id number] [facility] Interpreted By: Nahun Dwyer, STUDY: XR CHEST 2 VIEWS; 11/20/2024 9:29 am INDICATION: Signs/Symptoms:cough, back pain. ,R68.89 Other general symptoms and signs COMPARISON: None. ACCESSION NUMBER(S): [id number] ORDERING CLINICIAN: SALLY RDZ TECHNIQUE: PA and lateral views of the chest were obtained. FINDINGS: MEDIASTINUM/LUNGS/SLIME: No cardiomegaly, vascular congestion, or pleural effusion. No abnormal opacity in either lung worrisome for tumor or pneumonia. No pneumothorax. No tracheal deviation. No abnormal hilar fullness or gross mass on either side. BONES: No lytic or blastic destructive bone lesion. UPPER ABDOMEN: Grossly intact. [facility] Nahun Ortega MD - 11/20/2024 Interpreted By: Nahun Ortega, STUDY: XR CHEST 2 VIEWS; 11/20/2024 9:29 am INDICATION: Signs/Symptoms:cough, back pain. ,R68.89 Other general symptoms and signs COMPARISON: None. ACCESSION NUMBER(S): [id number] ORDERING CLINICIAN: SALLY RDZ TECHNIQUE: PA and lateral views of the chest were obtained. FINDINGS: MEDIASTINUM/LUNGS/SLIME: No cardiomegaly, vascular congestion, or pleural effusion. No abnormal opacity in either lung worrisome for tumor or pneumonia. No pneumothorax. No tracheal deviation. No abnormal hilar fullness or gross mass on either side. BONES: No lytic or blastic destructive bone lesion. UPPER ABDOMEN: Grossly intact. IMPRESSION: Negative exam. MACRO: None Signed by: Nahun Ortega 11/20/2024 9:31 AM Dictation workstation: [id number] [facility] Work Phone: Radiology Study observation (narrative) [facility] Work Phone: XR Chest 2 ViewsOrdered By: Nahun Ortega on 11-20-2024 [facility] Work Phone: CNOVon 11-10-2024 CNOV Office Visit (ARESCL ) -------- PRANAY REYES ([id number]) 1995 F Date Time Provider Department 11/10/24 2:00 PM ANI BATISTASCMarlo During your visit today, we recorded the following information about you: Ani Batista MD 11/10/2024 3:42 PM Attested Sensitive Note -------- Attestation signed by David Kilgore MD at 11/13/2024 3:53 PM Attending Note I evaluated the patient and personally participated in the butler components. I agree with the resident's findings and plan as documented and have discussed the case and management of the patient's care with the resident. During this patient visit I have spent approximately 10 minutes in chart review, pt encounter counseling regarding diagnosis, treatment options, medications, providing supportive psychotherapy and coordinating care. David Kilgore MD Adult and Geriatric Psychiatry [facility] , -------- [facility] PROGRESS NOTE PATIENT: Pranay Reyes MRD: [id number] DATE: November 10, 2024 IDENTIFYING INFORMATION: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 Apoloniai matt Type: BLOOD SPECIMENOrdering Facility: [facility] Address: [address] [place] [address] Performed By: #### 5 0190-8, 9, 63704-0, 2275-4 ####[facility] LABORATORYCLIA [id number] [place] [id number] [place] Protein [Mass/Vol] 7.0 g/dL Normal 6.3-8.0 [facility] Comment on above: Order Comment: Apoloniai men Type: BLOOD SPECIMENOrdering Facility: [facility] Address: [address] [place] [address] Performed By: #### 5 0190-8, 9, 99272-9, 2275-4 ####[facility] LABORATORYCLIA [id number] [place] [address] [place] Sodium [Moles/Vol] 136 mmol/L Normal 136-144 [facility] Comment on above: Order Comment: Speci men Type: BLOOD SPECIMENOrdering Facility: [facility] Address: [address] [place] [address] Performed By: #### 5 0190-8, 9, 60682-5, 2275-4 ####[facility] LABORATORYCLIA [id number] [place] [address] [place] Urea nitrogen [Mass/Vol] 12 mg/dL Normal 7-21 [facility] Comment on above: Order Comment: Speci men Type: BLOOD SPECIMENOrdering Facility: [facility] Address: [address] [place] [address] Performed By: #### 5 0190-8, 9, 59043-2, 4 ####[facility] LABORATORYCLIA [id number] [place] [address] [place] Ferritin SerPl-mCncon 2022 Ferritin [Mass/Vol] 53.6 ng/mL Normal 14.7-205.1 [facility] Comment on above: Order Comment: Speci men Type: BLOOD SPECIMENOrdering Facility: [facility] Address: [address] [place] [address] Performed By: #### 5 0190-8, 9, 26287-4, 2275-4 ####[facility] LABORATORYCLIA [id number] [place] [id number] [place] Iron and Iron binding capaci ty panelon 09-11-2023 Iron [Mass/Vol] 96 ug/dL Normal 41-186 [facility] Comment on above: Order Comment: Speci men Type: BLOOD SPECIMENOrdering Facility: [facility] Address: [address] [place] [address] Performed By: #### 5 0190-8, 2131-9, 74705-9, 2275-4 ####[facility] WAY[facility]CL[facility] [id number] [address] [place] Iron binding capacity [Mass/Vol] 308 ug/dL Normal 232-386 [facility] Comment on above: Order Comment: Alpa gutierrez Type: BLOOD SPECIMENOrdering Facility: [facility] Address: [address] [place] [address] Performed By: #### 5 0190-8, 2132-9, 52755-5, 2276-4 ####[facility]CLIA [id number] [place] [id number] [facility] Iron saturation [Mass fraction] 31.2 % Normal 15.0-57.0 [facility] Comment on above: Order Comment: Alpa gutierrez Type: BLOOD SPECIMENOrdering Facility: [facility] Address: [address] [place] [address] Performed By: #### 5 0190-8, 2131-9, 85319-4, 2276-4 ####[facility]CLIA [id number] [address] Vit B12 [facility] 12-27-2 023 Cobalamin (Vitamin B12) [Mass/Vol] 360 pg/mL Normal 232-1245 [facility] Comment on above: Order Comment: Alpa gutierrez Type: BLOOD SPECIMENOrdering Facility: [facility] Address: [address] [place] [address] Performed By: #### 5 0190-8, 2-9, 18336-7, 2276-4 ####[facility] LABORATORYCLIA [id number] [place] [id number] [facility] [place] CNOVon 08-15-2023 CNOV Office Visit (HEMBAK ) -------- PRANAY REYES ([id number]) 1995 F Date Time Provider Department 08/15/23 3:00 PM MIREILLE SIMPSON During your visit today, we recorded the following information about you: Pulse Blood pressure Weight Height 105/minute 126/89 72.6 kg 1.753 m Diana Pisano MA 08/15/2023 3:19 PM Signed Patient present for 1 week after punch biopsy right of breast. Complains of itching,site clean and dry. Denies any new breast problems. ZANE Mcginnis Amy, APRN.SANTOS 08/19/2023 5:05 PM Signed Mireille Simpson APRN-SANTOS, [place] [address] Date of Visit: 08/15/2023 Patient Name: Pranay Reyes Date of : 1995 Established Visit Breast Surgeon: Radha Hays DO SUBJECTIVE Chief Complaint: Patient presents with: Follow Up HPI Pranay Reyes is a 28 year old female who presents today for suture removal post skin punch biopsy RIGHT breast 08/06/2023. She is an established [facility] patient and was last seen in the [facility] 08/06/2023. She does endorse itching at the site of the skin punch biopsy with suture intact. Final pathology as noted below discussed. Nursing Notes: Diana Pisano MA 08/15/2023 3:19 PM Signed Patient present for 1 week after punch biopsy right of breast. Complains of itching,site clean and dry. Denies any new breast problems. Diana Pisano LPN No question data found. Family and personal medical histories reviewed and updated. REVIEW OF SYSTEMS: Complete 10 system ROS done and negative except as stated above in the HPI. Current Outpatient Medications Medication Sig Dispense Refill risperiDONE (RISPERDAL) 1 mg tablet Take 1 tablet by mouth daily at bedtime. 30 tablet 2 LORazepam (ATIVAN) 0.5 mg (Patient not taking: Reported on 08/15/2023) No current facility-administered medications for this visit. I have performed the physical exam on 08/15/2023 - all new findings noted below. PAST MEDICAL HISTORY Diagnosis Date Abdominal pain Adenomatous polyp Blood in urine Borderline personality disorder (HCC) Bruising Chest pain Constipation Dizziness Early satiety Fatigue Heart trouble History of medical problems Unspecified, Ovarian Cysts, Left History of weight change change in appetite and weight Indigestion Kidney stones Leg swelling Manic bipolar I disorder (HCC) Nausea Numbness and tingling Palpitations POTS (postural orthostatic tachycardia syndrome) Renal disorder kidney stones SOB (shortness of breath) Visual changes blurry vision in both eyes,and spouts of blindness PAST SURGICAL HISTORY Procedure Laterality Date SECTION HX x 2 1. suspected LGA 2. repeat CLAVICAL SURGERY COLONOSCOPY 05/01/2019 sigmoid polyp (tubular adenoma) EGD 05/01/2019 normal HEMORRHOID SURGERY HX HEMORRHOIDECTOMY PAST SURGICAL HISTORY OF removal of left ovary and uterine ablation THERMAL ENDOMETRIAL ABLATION TUBAL LIGATION HX laparoscopic WRIST SURGERY HX Left 05/06/2023 Social History Tobacco Use Smoking status: Every Day Packs/day: 0.50 Years: 9.00 Additional pack years: 0.00 Total pack years: 4.50 Types: Cigarettes Smokeless tobacco: Never Tobacco comments: 1/2 ppd Vaping Use Vaping Use: Never used Substance Use Topics Alcohol use: Not Currently Drug use: Yes Types: Marijuana FAMILY HISTORY Problem Relation Age of Onset Ovarian cancer Paternal Grandmother Breast Cancer Paternal Aunt other (Blood Clots) Other Cancer Other Diabetes Other other (Heart Trouble) Other other (Lung Disease) Other Stroke Other other (High Blood Pressure) Other other (Intracranial Tumor) Sister sister,aunt,grandmother Multiple Sclerosis Maternal Uncle maternal uncle,cousins other (migraine) Mother The ROS, medical, surgical, family, and social history were reviewed by Mireille Simpson APRN.[employer] Allergen Reactions Lexapro [Escitalopr* Mental Status Change Adhesive Rash Avocado Oil Unknown Codeine Rash SOB Wellbutrin [Bupropi* Mental Status Change Current Outpatient Medications Medication Sig risperiDONE (RISPERDAL) 1 mg tablet Take 1 tablet by mouth daily at bedtime. LORazepam (ATIVAN) 0.5 mg (Patient not taking: Reported on 08/15/2023) No current facility-administered medications for this visit. OBJECTIVE BP 126/89 Pulse 105 Ht 175.3 cm (5' 9) Wt 72.6 kg (160 lb) LMP 06/16/2023 (Approximate) BMI 23.63 kg/m? BMI 23.63 kg/(m2) Physical Exam BREAST EXAM: RIGHT breast focused exam only: Suture removed from skin punch biopsy site without difficulty. Site is without noted erythema or drainage. ASSESSMENT/PLAN: 1. S/P skin biopsy - ICD9: V45.89, ICD10: Z98.890 (primary diagnosis) 2. Abscess of r (more content not included)... Normal [facility] CNOVon 08-06-2023 CNOV Office Visit (AGGBRC R) -------- PRANAY REYES ([id number]) 1995 F Date Time Provider Department 08/06/23 4:00 PM RADHA HAYS [facility] During your visit today, we recorded the following information about you: Pulse Blood pressure Weight Height 112/minute 137/85 72.6 kg 1.753 m Luna Newberry LPN 08/06/2023 4:02 PM Signed Pranay Fontanez Amy is a 28 year old female who presents to follow up for Breast Problem (H/o cellulitis of RT breast ) Pt c/o RT breast redness and lump. Pt denies pain and drainage ZANE Hoskins Nicole, DO 08/06/2023 4:39 PM Signed Radha Hays DO [place] [phone] SUBJECTIVE Chief Complaint: Patient presents with: Breast Problem: H/o cellulitis of RT breast . HPI Pranay Fontanez Amy is a 28 year old female here for follow up Recently saw her PCP for a large right breast mass and clear and curdling nipple discharge. Nipple discharge been going on for months. H/o lactational mastitis 7 years ago. Underwent right breast mammogram on 07/03/23 which showed extremely dense breast tissue and no mammographic abnormality. 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 Erythematous lesion over the right anterior, inferior, medial breast was seen on physical exam. She was given Augmentin and fluconazole and discharged for possible mastitis. She was scheduled to undergo ultrasound guided biopsy x 3 of right breast however on day of biopsy, the prior sites of concern were no longer seen by ultrasound, just evidence of skin thickening by ultrasound concerning for mastitis therefore no biopsies were done. She states that the area has significantly improved with the antibiotics. No further redness nor pain. However does still have the palpable area. Nursing Notes: Luna Newberry LPN 08/06/2023 4:02 PM Signed Pranay Reyes is a 28 year old female who presents to follow up for Breast Problem (H/o cellulitis of RT breast ) Pt c/o RT breast redness and lump. Pt denies pain and drainage Luna Newberry LPN No question data found. Review of Systems CONSTITUTIONAL: No weight loss, malaise or fevers HEENT: Negative for frequent or significant headaches, No changes in hearing or vision, no nose bleeds or other nasal problems NECK: Negative for Pain and Swelling RESPIRATORY: Negative for cough or shortness of breath CARDIOVASCULAR: Negative for chest pain or palpitations. Negative for leg swelling GI: Negative for abdominal pain, nausea, or vomiting MUSCULOSKELETAL: Negative for joint pain or swelling, back pain or muscle pain SKIN: Negative for lesions, rash, and itching BREAST: See HPI. PAST MEDICAL HISTORY Diagnosis Date Abdominal pain Adenomatous polyp Blood in urine Borderline personality disorder (HCC) Bruising Chest pain Constipation Dizziness Early satiety Fatigue Heart trouble History of medical problems Unspecified, Ovarian Cysts, Left History of weight change change in appetite and weight Indigestion Kidney stones Leg swelling Manic bipolar I disorder (HCC) Nausea Numbness and tingling Palpitations POTS (postural orthostatic tachycardia syndrome) Renal disorder kidney stones SOB (shortness of breath) Visual changes blurry vision in both eyes,and spouts of blindness PAST SURGICAL HISTORY Procedure Laterality Date SECTION HX x 2 1. suspected LGA 2. repeat CLAVICAL SURGERY COLONOSCOPY 05/01/2019 sigmoid polyp (tubular adenoma) EGD 05/01/2019 normal HEMORRHOID SURGERY HX HEMORRHOIDECTOMY PAST SURGICAL HISTORY OF removal of left ovary and uterine ablation THERMAL ENDOMETRIAL ABLATION TUBAL LIGATION HX laparoscopic WRIST SURGERY HX Left 05/06/2023 Social History Tobacco Use Smoking status: Every Day Packs/day: 0.50 Years: 9.00 Additional pack years: 0.00 Total pack years: 4.50 Types: Cigarettes Smokeless tobacco: Never Tobacco comments: 2 ppd Vaping Use Vaping Use: Never used Substance Use Topics Alcohol use: Not Currently Drug use: Yes Types: Marijuana FAMILY HISTORY Problem Relation Age of Onset Ovarian cancer Paternal Grandmother Breast Cancer Paternal Aunt other (Blood Clots) Other Cancer Other Diabetes Other other (Heart Trouble) Other other (Lung Disease) Other Stroke Other other (High Blood Pressure) Other other (Intracranial Tumor) Sister sister,aunt,grandmother Multiple Sclerosis Maternal Uncle maternal uncle,cousins other (migraine) M (more content not included)... Normal [facility] SURGICAL PATHOLOGYon 023 ADDENDUM 1: [facility] Comment on above: Order Comment: Speci men Type: TISSUE SPECIMENOrdering Facility: [facility] Address: [address] [place] [address] Result Comment: This addendum is being performed to report the results of AFB and GMS stains. See results below. AFB and GMS stains are negative for acid fast and fungal organisms respectively. Addendum electronically signed by Aye Dominguez DO on 08/29/2023 at 10:51 AM Performed By: #### S ####[facility] LABORATORYCLIA [id number] [place] [address] [place] [facility] CASE REPORT [facility] Comment on above: Order Comment: Speci men Type: TISSUE SPECIMENOrdering Facility: [facility] Address: [address] [place] [address] Result Comment: Surg [facility] Pathology Report Case: [id number] Authorizing Provider: Radha Hays DO Collected: 08/06/2023 04:23 PM Ordering Location: [facility] Received: 08/07/2023 07:04 AM [facility] Pathologist: Aye Dominguez DO Specimen: SKIN PUNCH BIOPSY Performed By: #### S ####[facility] LABORATORYCLIA [id number] [place] [id number] [facility] CLINICAL HISTORY Right breast punch biopsy Normal [facility] Comment on above: Order Comment: Speci men Type: TISSUE SPECIMENOrdering Facility: [facility] Address: [address] [place] [address] Performed By: #### S ####[facility] LABORATORYCLIA [id number] [place] [id number] [facility] DIAGNOSIS COMMENT Normal [facility] Comment on above: Order Comment: Speci men Type: TISSUE SPECIMENOrdering Facility: [facility] Address: [address] [place] [address] Result Comment: Immu nohistochemical staining for CD163 highlights the histiocytes. Cytokeratin AE1/AE3, GATA3 and CD34 are negative. The findings likely represent resolving abscess/cellulitis. Bereket Flores and Andi Cooper have reviewed this case and agree with the above diagnosis. Laboratory Developed Test (LDT) Disclaimer: Performance characteristics of immunohistochemical, immunofluorescent and chromogenic in-situ hybridization tests have been determined by the performing laboratory within [facility]???s [facility] Pathology and Laboratory Medicine [place] ([facility], [facility], [facility], [facility], [facility], or [facility]) in a manner consistent with CLIA requirements. One or more of these tests have not been cleared or approved by the FDA. [facility] is regulated under CLIA as qualified to perform high-complexity testing. These tests are used for clinical purposes. They should not be regarded as investigational or for research. Positive and negative controls stain appropriately. Performed By: #### S ####[facility] LABORATORYIA [id number] [place] [id number] [facility] FINAL DIAGNOSIS Normal [facility] Comment on above: Order Comment: Speci men Type: TISSUE SPECIMENOrdering Facility: [facility] Address: [address] [place] [address] Result Comment: A. S kin,right breast, punch biopsy: - Skin with underlying dermal lymphohistiocytic inflammation. - Negative for carcinoma. - See comment. Performed By: #### S ####[facility] LABORATORYCLIA [id number] [address] FINAL PERFORMING LAB Normal [facility] Comment on above: Order Comment: Alpa gutierrez Type: TISSUE SPECIMENOrdering Facility: [facility] Address: [address] [place] [address] Result Comment: Diag nostic interpretation performed at [facility], [address] [place] [address] CLIA# [id number] Coating Operator: Juan Webster M.D. Performed By: #### S ####[facility] LABORATORYCLIA [id number] [address] GROSS DESCRIPTION Normal [facility] Comment on above: Order Comment: Alpa gutierrez Type: TISSUE SPECIMENOrdering Facility: [facility] Address: [address] [place] [address] Result Comment: A. S KIN PUNCH BIOPSY Received in formalin labeled skin punch biopsy is a cylindrical fragment of skin and subcutaneous tissue measuring 0.5 cm in length and 0.4 cm in diameter. The specimen is submitted entirely in A1, intact and on edge. Gross examination performed at [facility], [address] [place] [address] CLIA#[id number] OLS August 07, 2023 11:45 AM Performed By: #### S ####[facility] LABORATORYCLIA [id number] [address] CNOVon 07-25-2023 CNOV Office Visit (HEMBAK ) -------- PRANAY [id number]) 1995 F Date Time Provider Department 07/25/23 10:00 AM MIREILLE SIMPSON During your visit today, we recorded the following information about you: Pulse Blood pressure Weight Height 106/minute 124/90 72.6 kg 1.753 m Luna Newberry LPN 07/25/2023 10:15 AM Signed Pranay Reyes is a 28 year old female who presents for Breast Problem and Neck Pain (Lump pain with palpation ) pt arrived for BX but radiology declined. Pt denies breast pain other than some sensitivity, breast redness. Pt also c/o left neck swelling and painful with palpation ZANE Hoskins Amy, APRN.CNP 08/15/2023 4:10 PM Signed RENATA Tapia, [place] [address] Date of Visit: 07/25/2023 Patient Name: Pranay Reyes Date of : 1995 Established Visit Breast Surgeon: Radha Hays DO SUBJECTIVE Chief Complaint: Patient presents with: Breast Problem Neck Pain: Lump pain with palpation HPI Pranay Reyes is a 28 year old female who presents today for multiple site RIGHT breast biopsies. Today the prior sites of concern were all no longer visible by ultrasound. She is an established [facility] patient and was last seen in the Breast Center 07/23/[address] Hays. She does endorse RIGHT breast sensitivity and erythema surrounding nipple. Nursing Notes: Luna Newberry LPN 07/25/2023 10:15 AM Signed Pranay Reyes is a 28 year old female who presents for Breast Problem and Neck Pain (Lump pain with palpation ) pt arrived for BX but radiology declined. Pt denies breast pain other than some sensitivity, breast redness. Pt also c/o left neck swelling and painful with palpation Luna Newberry LPN No question data found. Family and personal medical histories reviewed and updated. REVIEW OF SYSTEMS: Complete 10 system ROS done and negative except as stated above in the HPI. Current Outpatient Medications Medication Sig Dispense Refill LORazepam (ATIVAN) 0.5 mg (Patient not taking: Reported on 08/15/2023) risperiDONE (RISPERDAL) 1 mg tablet Take 1 tablet by mouth daily at bedtime. 30 tablet 2 No current facility-administered medications for this visit. I have performed the physical exam on 07/25/2023 - all new findings noted below. PAST MEDICAL HISTORY Diagnosis Date Abdominal pain Adenomatous polyp Blood in urine Borderline personality disorder (HCC) Bruising Chest pain Constipation Dizziness Early satiety Fatigue Heart trouble History of medical problems Unspecified, Ovarian Cysts, Left History of weight change change in appetite and weight Indigestion Kidney stones Leg swelling Manic bipolar I disorder (HCC) Nausea Numbness and tingling Palpitations POTS (postural orthostatic tachycardia syndrome) Renal disorder kidney stones SOB (shortness of breath) Visual changes blurry vision in both eyes,and spouts of blindness PAST SURGICAL HISTORY Procedure Laterality Date SECTION HX x 2 1. suspected LGA 2. repeat CLAVICAL SURGERY COLONOSCOPY 05/01/2019 sigmoid polyp (tubular adenoma) EGD 05/01/2019 normal HEMORRHOID SURGERY HX HEMORRHOIDECTOMY PAST SURGICAL HISTORY OF removal of left ovary and uterine ablation THERMAL ENDOMETRIAL ABLATION TUBAL LIGATION HX laparoscopic WRIST SURGERY HX Left 05/06/2023 Social History Tobacco Use Smoking status: Every Day Packs/day: 0.50 Years: 9.00 Additional pack years: 0.00 Total pack years: 4.50 Types: Cigarettes Smokeless tobacco: Never Tobacco comments: 1/2 ppd Vaping Use Vaping Use: Never used Substance Use Topics Alcohol use: Not Currently Drug use: Yes Types: Marijuana FAMILY HISTORY Problem Relation Age of Onset Ovarian cancer Paternal Grandmother Breast Cancer Paternal Aunt other (Blood Clots) Other Cancer Other Diabetes Other other (Heart Trouble) Other other (Lung Disease) Other Stroke Other other (High Blood Pressure) Other other (Intracranial Tumor) Sister sister,aunt,grandmother Multiple Sclerosis Maternal Uncle maternal uncle,cousins other (migraine) Mother The ROS, medical, surgical, family, and social history were reviewed by Mireille Simpson APRN.[employer]NAGER [employer]GIES Allergen Reactions Lexapro [Escitalopr* Mental Status Change Adhesive Rash Avocado Oil Unknown Codeine Rash SOB Wellbutrin [Bupropi* Mental Status Change Current Outpatient Medications Medication Sig LORazepam (ATIVAN) 0.5 mg (Patient not taking: Reported on 08/15/2023) risperiDONE (RISPERDAL) 1 mg tablet Take 1 tablet by mouth daily at bedtime. No current facility-administered medications for this visit. OBJECTIVE BP 124/90 Pulse 106 Ht 175.3 cm (5' 9) Wt 72.6 kg (160 lb) LMP 06/16/ (more content not included)... Normal [facility] US BREAST LTD RTon 07-25 [facility] US BREAST LTD RT * * *Final Report* * * DATE OF EXAM: Jul 25 2023 10:13AM AAW [id number] - [facility] US BREAST LTD RT / PROCEDURE REASON: Mass overlapping multiple quadrants of right breast * * * * Physician Interpretation * * * * #[id number] - [facility] US BREAST LTD RT LIMITED ULTRASOUND OF RIGHT BREAST: 07/25/2023 HISTORY: Mass Overlapping Multiple Quadrants Of Right Breast/ Ultrasound guided biopsy was canceled due to non-visualization. RESULT: Comparison is made to exams dated: 07/03/2023 mammogram, 07/03/2023 ultrasound - [facility], and 08/25/2019 ultrasound - [facility]. Color flow and real-time ultrasound of the right breast 4-6 o'clock region were performed. Ley scale images of the real-time examination were reviewed. Prior density is no longer seen in the right breast at 4 o'clock. Prior density is no longer seen in the right breast at 6 o'clock. Prior density is no longer seen in the right breast at 5 o'clock. IMPRESSION: BENIGN FINDING The prior sites of concern are all no longer seen by ultrasound. This would suggest that these were due to mastitis. The patient still has redness of the skin and there is evidence of skin thickening by ultrasound. Further clinical management is recommended. No biopsies were done today. There is is ongoing clinical concern for the skin/palpable finding, punch biopsy could be considered. There is no sonographic evidence of malignancy. Joe Salas M.D. tab/:07/25/2023 16:21:19 [facility] Roll Operator(s): Meliza GanSSara, [facility] Ultrasound BI-RADS: 2 Benign finding Multiple national specialty organizations have released breast cancer screening guidelines for women at average risk for developing breast cancer - guidelines that are based on both evidence and opinion, yet differ on when to start and how often to screen for breast cancer. With representation from Breast Imaging, Internal Medicine, Women's Health, Family Medicine, and Medical/Surgical Oncology, the [facility] has carefully reviewed the data and reached the following consensus: 1) All women should engage in shared decision-making with their providers to decide when to start and how often to screen; 2) All women should have the opportunity to start screening mammography at age 40; 3) For women ages 45-55, we recommend annual screening mammograms; 4) For women ages 55 and over, we support both the transition from an annual to a biennial interval if this aligns more with patient's values and preferences, or continuation with annual screening; 5) All women should discuss with their providers when to stop screening mammograms. Ledge Man: Nikki Transcribe Date/Time: Jul 25 2023 10:10A Dictated by : JOE SALAS MD This examination was interpreted and the report reviewed and electronically signed by: JOE SALAS MD on Jul 25 2023 4:21PM EST [id number] Normal [facility] US BREAST LTD RIGHTon 2022 [facility] CNOVon 07-23-2023 CNOV Office Visit ([facility] R) -------- PRANAY REYES ([id number]) 1995 F Date Time Provider Department 07/23/23 1:30 PM RADHA HAYS [facility] During your visit today, we recorded the following information about you: Pulse Blood pressure Weight Height 105/minute 130/99 72.6 kg 1.753 m Radha Hays DO 07/23/2023 2:20 PM Signed Radha Hays DO [facility] [address] [place] [id number] SUBJECTIVE Chief Complaint: Patient presents with: New Patient: BX scheduled for 07/25/23 Results: The 9 mm oval mass in the right breast at 6 o'clock in the retroareolar region likely represents a fibroadenoma and is at a low suspicion for malignancy. An ultrasound guided biopsy is recommended. The 1.5 cm area in the right breast at 4 o'clock anterior depth has a differential diagnosis of duct ectasia and is at a low suspicion for malignancy. An ultrasound guided biopsy is recommended. The 7 mm irregular mass in the right breast at 5 o'clock middle depth is suspicious of malignancy. . HPI Pranay Reyes is a 28 year old female who is here for right breast mass. Recently saw her PCP for a large right breast mass and clear and curdling nipple discharge. Nipple discharge been going on for months. H/o lactational mastitis 7 years ago. Underwent right breast mammogram on 07/03/23 which showed extremely dense breast tissue and no mammographic abnormality. 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 Erythematous lesion over the right anterior, inferior, medial breast was seen on physical exam. She was given Augmentin and fluconazole and discharged for possible mastitis. States that she has felt this mass for a few weeks. Along with the nipple discharge on the right which is white in color and only is present with manipulation. She did have history of lactational mastitis. Otherwise she did finish the antibiotics that were prescribed to her and the redness has improved, however the mass is still palpable. She also complains of nipple itching and sensitivity. Family history of colon cancer on both sides. History of scleroderma on both sides. Per patient, she does have 4 paternal aunts diagnosed with breast cancer, possibly at the age of 32 for the youngest diagnosis. Nursing Notes: Luna Newberry LPN 07/23/2023 1:43 PM Sign at exiting of workspace Pranay Reyes is a 28 year old female who presents for New Patient (BX scheduled for 07/25/23 ) and Results (The 9 mm oval mass in the right breast at 6 o'clock in the retroareolar /region likely represents a fibroadenoma and is at a low suspicion for /malignancy. An ultrasound guided biopsy is recommended. /The 1.5 cm area in the right breast at 4 o'clock anterior depth has a /differential diagnosis of duct ectasia and is at a low suspicion for /malignancy. An ultrasound guided biopsy is recommended. /The 7 mm irregular mass in the right breast at 5 o'clock middle depth is /suspicious of malignancy. ) Pt states the breast pain has resolved. Pt c/o nipple drainage, ability to palpate mass below areola, and redness. Pr noted mass first time 06/25/23. Luna Newberry LPN No question data found. Review of Systems CONSTITUTIONAL: No weight loss, malaise or fevers HEENT: Negative for frequent or significant headaches, No changes in hearing or vision, no nose bleeds or other nasal problems NECK: Negative for Pain and Swelling RESPIRATORY: Negative for cough or shortness of breath CARDIOVASCULAR: Negative for chest pain or palpitations. Negative for leg swelling GI: Negative for abdominal pain, nausea, or vomiting MUSCULOSKELETAL: Negative for joint pain or swelling, back pain or muscle pain SKIN: Negative for lesions, rash, and itching BREAST: See HPI. PAST MEDICAL HISTORY Diagnosis Date Abdominal pain Adenomatous polyp Blood in urine Borderline personality disorder (HCC) Bruising Chest pain Constipation Dizziness Early satiety Fatigue Heart trouble History of medical problems Unspecified, Ovarian Cysts, Left History of weight change change in appetite and weight Indigestion Kidney stones Leg swelling Manic bipolar I disorder (HCC) Nausea Numbness and tingling Palpitations POTS (postural orthostatic tachycardia syndrome) Renal disorder kidney stones SOB (shortness of breath) Visual changes blurry vision in both eyes,and spouts of blindness PAST SURGICAL HISTORY Procedure Laterality Date SECTION HX x 2 1. suspected LGA 2. repeat C (more content not included)... Normal [facility] ED NOTEon 07-12-2023 ED NOTE HNO ID: [id number] Author: Saskia Luna MD Service: ? Author Type: Physician Type: ED Notes Filed: 07/12/2023 2:49 PM Note Text: Chart reviewed showing PMHx bipolar d/o, POTS, borderline personality d/o, breast mass with recent US showing concern for fibroadenoma and possible malignancy. Pt presenting with increased pain and swelling to the area. She reports biopsy scheduled for 07/25. She has had fatigue for weeks now that is not changed. No fever. She reports yellow drainage from nipple, sometimes mixed with blood. She is worried about increasing size in the interim. Well-appearing Heart RRR Lungs no respiratory distress or cyanosis R breast with erythema inferior to the nipple, mostly in the medial quadrant with warmth and some TTP. Mass palpated as noted on US. No drainage evident at this time. No crepitus Pt stable for d/c, will initiate abx for possible infectious process at this time (given warmth with erythema suspect infection overlying mass). Pt gets yeast infections with abx so diflucan script provided as well. Saskia Luna MD Normal [facility] ED PROV NOTEon 07-12-2023 ED PROV NOTE HNO ID: [id number] Author: Saskia Luna MD Service: Emergency Medicine Author Type: Physician Type: ED Provider Notes Filed: 07/13/2023 3:54 PM Note Text: ED Provider Note Patient Name: Pranay Reyes : 1995 SERVICE DATE: 07/12/23 History Patient presents with: Breast Mass: Patient with right breast mass that patient has been seen for and she has an appointment on 07/25 for a biopsy. Patient called the breast specialist center that she's been seeing and they told her to come in. Patient states that the 2 masses in her breast have been growing rapidly Patient reports nipple discharge and redness to breast. Denies fever/chills. Patient is a 28 Yo female who presents today with right breast lump. She is being worked up as an outpatient for so we will bump she has on her right breast. She recently had an ultrasound done which did not show any signs of infection. Since she had this ultrasound completed however she has noticed that the lump has become erythematous and extremely tender. She is no longer able to wear bras or have tight fitting clothing secondary to her pain. Denies any fevers chills nausea vomiting chest pain shortness of breath or other constitutional symptoms. She does not have any nipple discharge. There is no skin breakdown of the area. She is scheduled for a biopsy on 07 25. She called her primary care doctor today because her pain acutely worsened in the morning however was routed here for further evaluation. PAST MEDICAL HISTORY Diagnosis Date Abdominal pain Adenomatous polyp Blood in urine Borderline personality disorder (HCC) Bruising Chest pain Constipation Dizziness Early satiety Fatigue Heart trouble History of medical problems Unspecified, Ovarian Cysts, Left History of weight change change in appetite and weight Indigestion Kidney stones Leg swelling Manic bipolar I disorder (HCC) Nausea Numbness and tingling Palpitations POTS (postural orthostatic tachycardia syndrome) Renal disorder kidney stones SOB (shortness of breath) Visual changes blurry vision in both eyes,and spouts of blindness PAST SURGICAL HISTORY Procedure Laterality Date SECTION HX x 2 1. suspected LGA 2. repeat COLONOSCOPY 05/01/2019 sigmoid polyp (tubular adenoma) EGD 05/01/2019 normal HEMORRHOID SURGERY HX HEMORRHOIDECTOMY PAST SURGICAL HISTORY OF removal of left ovary and uterine ablation THERMAL ENDOMETRIAL ABLATION TUBAL LIGATION HX laparoscopic FAMILY HISTORY Problem Relation Age of Onset Ovarian cancer Paternal Grandmother Breast Cancer Paternal Aunt other (Blood Clots) Other Cancer Other Diabetes Other other (Heart Trouble) Other other (Lung Disease) Other Stroke Other other (High Blood Pressure) Other other (Intracranial Tumor) Sister sister,aunt,grandmother Multiple Sclerosis Maternal Uncle maternal uncle,cousins other (migraine) Mother Social History Tobacco Use Smoking status: Every Day Packs/day: 0.50 Years: 9.00 Additional pack years: 0.00 Total pack years: 4.50 Types: Cigarettes Smokeless tobacco: Never Tobacco comments: 1/2 ppd Substance and Sexual Activity Alcohol use: Not Currently Drug use: Yes Types: Marijuana Sexual activity: Yes Partners: Male control/protection: Other ALLERGIES Allergen Reactions Lexapro [Escitalopr* Mental Status Change Adhesive Rash Avocado Oil Unknown Codeine Rash SOB Wellbutrin [Bupropi* Mental Status Change Review of Systems Constitutional: Negative for chills, fatigue and fever. HENT: Negative for congestion and rhinorrhea. Eyes: Negative for pain, redness and itching. Respiratory: Negative for cough, chest tightness, shortness of breath, wheezing and stridor. Cardiovascular: Negative for chest pain, palpitations and leg swelling. Gastrointestinal: Negative for abdominal distention, abdominal pain, diarrhea, nausea and vomiting. Endocrine: Negative for cold intolerance, polydipsia and polyphagia. Genitourinary: Negative for decreased urine volume, difficulty urinating and hematuria. Musculoskeletal: Negative for back pain and gait problem. Skin: Positive for rash. Negative for color change. Erythematous lesion over the right anterior inferior medial breast that is tender to touch. Allergic/Immunologic: Negative for immunocompromised state. Neurological: Negative for dizziness, seizures, light-headedness, numbness and headaches. Hematological: Negative for adenopathy. Psychiatric/Behavioral: Negative for behavioral problems. Physical Exam Vitals [07/12/23 1142] BP Pulse Temp Temp src Resp SpO2 Weight Height 152/82 (!) 111 36.6 ?C (97.9 ?F) Oral 16 98 % 72.6 kg (160 lb) 1.753 m (5' 9) Physical Exam HENT: Head: Normocephalic. Nose: Nose normal. Mouth/Throat: Mouth: Mucous membranes are moist. Eyes: Extraocular Movements: Extraocular mo (more content not included)... Normal [facility] ED Triage Noteon 07-12-2023 ED Triage Note HNO ID: [id number] Author: Fe Tavera PA-C Service: Emergency Medicine Author Type: Physician Practical Nurse Type: ED Triage Notes Filed: 07/12/2023 11:51 AM Note Text: ED INTAKE NOTE Patient Name: Pranay Reyes Service Date: 07/12/23 BRIEF HPI: 28-year-old female presented to ER for concerns of breast mass on the right side. Patient has had this right breast mass for multiple weeks. Has had ultrasound imaging done 07/03 results below. She is scheduled for a biopsy on 25 July. Discussed with her PCP about wanting to be seen sooner and she referred patient to ER. Ultrasound results IMPRESSION: INCOMPLETE: NEEDS ADDITIONAL IMAGING EVALUATION There is no abnormality seen in the right breast to correspond with the discharge from the nipple in the sub-areolar depth, however, ultrasound is recommended. There is no abnormality seen in the right breast to correspond with the area of clinical concern indicated by a triangular marker in the lower inner quadrant, however, ultrasound is recommended. BRIEF EXAM: Awake and Alert Abnormal breast lump at the 6:00 portion of the breast with surrounding erythema pain with palpation. There is no abnormal discharge on my evaluation INTAKE WORKUP: Defer SIGNATURE: Fe Tavera PA-C Normal [facility] EKGon 07-12-2023 Electrocardiogram Ventricular Rate : 1 08 BPM Atrial Rate : 108 BPM P-R Interval : 132 ms QRS Duration : 82 ms Q-T Interval : 340 ms QTC Calculation(Bazett) : 455 ms Calculated P [place] : 77 degrees Calculated R [place] : 65 degrees Calculated T [place] : 63 degrees SINUS TACHYCARDIA POSSIBLE LEFT ATRIAL ENLARGEMENT BORDERLINE ECG WHEN COMPARED WITH ECG OF 06-MAY-2023 00:45, NO SIGNIFICANT CHANGE WAS FOUND Confirmed by MD DOMINGUEZ ERICK ([id number]) on 08/01/2023 5:56:45 AM NAME : PRANAY REYES PID : [id number] : 1995 Gender : Female Race : ORD : Procedure Date : Jul 12 2023 11:42:31 Edit Date : Aug 01 2023 05:56:47 Diagnosis: SINUS TACHYCARDIA POSSIBLE LEFT ATRIAL ENLARGEMENT BORDERLINE ECG WHEN COMPARED WITH ECG OF 06-MAY-2023 00:45, NO SIGNIFICANT CHANGE WAS FOUND Confirmed by MD DOMINGUEZ ERICK ([id number]) on 08/01/2023 5:56:45 AM Test Reason : Location : 4 : [facility] Overread By : MD DOMINGUEZ ERICK Edited By : MD DOMINGUEZ ERICK Referred By : , Acquired by : REGINALD COLEMAN [facility] ADAM DIAG W DIANA RIGHTon 06-16 [facility] No Panel Informationon 07-03 [facility] Laboratory - Chemistry and C hemistry - challengeOrdered By: Valeri Valladares on 05-18-2023 Beta HCG ( test) Ql Negative Negative [facility] Comment on above: Please note: Very di lute urine specimens, as indicated by a low specific gravity, may not contain operations support representative levels of hCG. If is still suspected, a first morning urine specimen should be collected 48 hours later and tested. Beta HCG ( test) Ql (U) is the most common reason for HCG in urine, although choriocarcinoma, hydatidiform mole, and certain nontrophoblastic malignancies also result in detectable urinary HCG levels. Sensitivity = 20mIU/mL. [facility] No Panel InformationOrdered By: Valeri Valladares on 05-18-2023 [facility] Urinalysis complete panel (U )on 05-18-2023 Bacteria LM.HPF (Urine sed) [#/Area] Few Abnormal Negative /HPF [facility] Bilirubin Ql (U) Negative Negative mg/dL [facility] Clarity (U) Clear Clear [facility] Color (U) Light Yellow Lt. Yellow [facility] Epithelial cells.squamous LM.HPF (Urine sed) [#/Area] 3-5 [facility] Glucose Ql (U) Normal Normal (<70) mg/dL [facility] Hemoglobin Ql (U) >1.0 Abnormal Negative mg/dL [facility] Interpretation and review of laboratory results Abnormal [facility] Ketones (U) [Mass/Vol] Negative Negative mg/dL [facility] Leukocyte esterase Test strip Ql (U) Negative Negative Fer/uL [facility] Mucus LM.HPF (Urine sed) [#/Area] Few Negative /LPF [facility] Nitrite Ql (U) Negative Negative [facility] pH (U) 5.5 [pH] 5.0 - 8.0 pH [facility] Protein (U) [Mass/Vol] Negative Negative mg/dL [facility] RBC LM.HPF (Urine sed) [#/Area] 26-50 Abnormal [facility] Specific gravity (U) [Rel density] 1.011 1.005 - 1.030 [facility] Urobilinogen (U) [Mass/Vol] Normal Normal (0-1) mg/dL [facility] Volume, Urine 12 mL [facility] WBC LM.HPF (Urine sed) [#/Area] 0-2 [facility] CNPNon 01-25-2023 [facility] Telephone ([place]) -------- PRANAY REYES ([id number]) 1995 F Date Time Provider Department 01/25/23 PREETHI MELCHOR During your visit today, we recorded the following information about you: Allergies As of Date: 01/25/2023 Noted Allergy Reaction LEXAPRO (ESCITALOPRAM) 09/18/2022 1 - Mental Status Change ADHESIVE 05/14/2017 2 - Rash AVOCADO OIL 05/14/2017 16 - Unknown CODEINE 05/14/2017 2 - Rash Comments: SOB WELLBUTRIN (BUPROPION HCL) 05/27/2019 1 - Mental Status Change Date Reviewed: 01/25/2023 Reviewed by: Lillian Alcazar - Fully Assessed Reason for Visit: Missed Appointment [1304] Prescriptions as of 01/25/2023 - lithium carbonate (ESKALITH) 300 mg capsule Take 1 capsule by mouth daily with dinner. - ondansetron (ZOFRAN) 4 mg tablet Take 1 tablet by mouth every 8 hours as needed for nausea/vomiting. Problem List As Of Date 01/25/2023 Noted Resolved Bipolar 1 disorder (HCC) [F31.9] 08/15/2019 12/17/2022 Chronic pain of both shoulders [M25.511, G89.29*06/28/2021 Shoulder weakness [R29.898] 06/28/2021 08/02/2021 POTS (postural orthostatic tachycardia syndrome*12/05/2021 Agoraphobia with panic attacks [F40.01] 11/08/2017 Anxiety [F41.9] 06/17/2012 Generalized anxiety disorder [F41.1] 01/25/2022 Schizoaffective disorder, bipolar type (HCC) [F*12/17/2022 Encounter Status:Closed by PREETHI MELCHOR on 01/25/23 [facility] Telephone ([place]) -------- PRANAY REYES ([id number]) 1995 F Date Time Provider Department 01/25/23 PREETHI MELCHOR During your visit today, we recorded the following information about you: Preethi Melchor APRN.[facility] 01/25/2023 2:19 PM Signed Called patient twice regarding missed appointment; left message for return call Allergies As of Date: 01/25/2023 Noted Allergy Reaction LEXAPRO (ESCITALOPRAM) 09/18/2022 1 - Mental Status Change ADHESIVE 05/14/2017 2 - Rash AVOCADO OIL 05/14/2017 16 - Unknown CODEINE 05/14/2017 2 - Rash Comments: SOB WELLBUTRIN (BUPROPION HCL) 05/27/2019 1 - Mental Status Change Date Reviewed: 01/25/2023 Reviewed by: Lillian Alcazar - Fully Assessed Reason for Visit: Missed Appointment [1304] Prescriptions as of 01/25/2023 - lithium carbonate (ESKALITH) 300 mg capsule Take 1 capsule by mouth daily with dinner. - ondansetron (ZOFRAN) 4 mg tablet Take 1 tablet by mouth every 8 hours as needed for nausea/vomiting. Problem List As Of Date 01/25/2023 Noted Resolved Bipolar 1 disorder (HCC) [F31.9] 08/15/2019 12/17/2022 Chronic pain of both shoulders [M25.511, G89.29*06/28/2021 Shoulder weakness [R29.898] 06/28/2021 08/02/2021 POTS (postural orthostatic tachycardia syndrome*12/05/2021 Agoraphobia with panic attacks [F40.01] 11/08/2017 Anxiety [F41.9] 06/17/2012 Generalized anxiety disorder [F41.1] 01/25/2022 Schizoaffective disorder, bipolar type (HCC) [F*12/17/2022 Encounter Status:Closed by PREETHI MELCHOR on 01/25/23 [facility] 12 Lead EKGon 11-03-2022 12 Lead EKG [facility] Cardiovascular Services [address] [place] [address] 12 Lead EKG 11/03/22 09 MR#: [id number] Acct: [id number] Name: PRANAY REYES Rep #: [id number] : 1995 27 From: Luther Cruz MD Attending Dr: Status: DEP ER Ordering Dr: Alayna Bernard MD Date: 11/03/22 Location: ED Sex: F C Admitted: Test Reason : HIGH HR Blood Pressure : / mmHG Vent. Rate : 118 BPM Atrial Rate : 118 BPM P-R Int : 140 ms QRS Dur : 068 ms QT Int : 290 ms P-R-T Axes : 063 067 065 degrees QTc Int : 406 ms Sinus tachycardia Septal infarct , age undetermined Abnormal ECG Confirmed by LUTHER CRUZ MD ([id number]), graphic editor SHREE VERDUGO ([id number]) on 11/05/2022 2:00:17 PM Referred By: JW Confirmed By:LUTHER CRUZ MD 11/05/22 1400 Date Luther Cruz MD CC: Dr. Alayna Bernard MD; Dr. Kelton Powers MD Signed Normal [facility] Absolute lymphocyte countOrd ered By: Dr. Bernard on 11-03-2022 Lymphocytes Auto (Unsp spec) [#/Vol] 0.39 10*3/uL 0.83-4.51 [facility] Basic Metabolic Profile (BMP )on 11-03-2022 BUN/CRE 16.4 RATIO Normal 10-20 [facility] Comment on above: Performed By: #### L 500.2500, L100.0100 #### [facility] [address] [place], [address] CA,Total 8.9 mg/dL Normal 8.5-10.1 [facility] Comment on above: Performed By: #### L 500.2500, L100.0100 #### [facility] [address] [place], [address] Chloride [Moles/Vol] 108 mmol/L High 98-107 [facility] Comment on above: Performed By: #### L 500.2500, L100.0100 #### [facility] [address] [facility], [address] CO2 [Moles/Vol] 26.0 mmol/L Normal 21.0-32.0 [facility] Comment on above: Performed By: #### L 500.2500, L100.0100 #### [facility] [address] [place], [address] Creatinine [Mass/Vol] 0.67 mg/dL Normal 0.55-1.[address] [facility] Comment on above: Result Comment: The validity of the calculated GFR GFRAA in patients over 70 years has not been determined. Clinical correlation is essential. Performed By: #### L 500.2500, L100.0100 #### [facility] [address] [place], [address] ECRCL 129.48 ml/min Normal [facility] Comment on above: Performed By: #### L 500.2500, L100.0100 #### [facility] [address] [place], [address] EST GFR - AA 133 mL/min Normal >60 [facility] Comment on above: Result Comment: Afri can Spanish GFR Calc Performed By: #### L 500.2500, L100.0100 #### [facility] [address] [place], [address] GAP 5 Normal 5-15 [facility] Comment on above: Performed By: #### L 500.2500, L100.0100 #### [facility] [address] [place], [address] GFR/1.73 sq M.predicted among non-blacks MDRD (S/P/Bld) [Vol rate/Area] 110 mL/min/{1.73_m2} Normal >60 [facility] Comment on above: Result Comment: Non- GFR Calc Performed By: #### L 500.2500, L100.0100 #### [facility] [address] [place], [address] Glucose [Mass/Vol] 105 mg/dL Normal 74-106 [facility] Comment on above: Result Comment: Fast ing Glucose result from 100 to 125 mg/dL suggests IMPAIRED HOMEOSTASIS per A.D.A. criteria. Performed By: #### L 500.2500, L100.0100 #### [facility] [address] [place], [address] Potassium [Moles/Vol] 3.8 mmol/L Normal 3.5-5.[address] [facility] Comment on above: Performed By: #### L 500.2500, L100.0100 #### [facility] [address] [place], [address] Sodium [Moles/Vol] 139 mmol/L Normal 136-145 [facility] Comment on above: Performed By: #### L 500.2500, L100.0100 #### [facility] [address] [place], [address] Urea nitrogen [Mass/Vol] 11 mg/dL Normal 7-18 [facility] [facility] Comment on above: Performed By: #### L 500.2500, L100.0100 #### [facility] [address] [place], [address] Basophil percentageOrdered B y: Dr. Bernard on 11-03-2022 Basophils/100 WBC (Bld) 0.6 % 0-1 [facility] Chloride [Moles/Vol] 108 mmol/L 98-107 [facility] Eosinophils/100 WBC (Bld) 1.1 % 0-5 [facility] Glucose [Mass/Vol] 105 mg/dL 74-106 [facility] Comment on above: Fasting Glucose resu lt from 100 to 125 mg/dL suggests IMPAIRED HOMEOSTASIS per A.D.A. criteria. Neutrophils (Bld) [#/Vol] 4.1 10*3/uL 2.0-7.7 [facility] Neutrophils/100 WBC (Bld) 77.6 % 47-70 [facility] Potassium [Moles/Vol] 3.8 mmol/L 3.5-5.[address] [facility] Sodium [Moles/Vol] 139 mmol/L 136-145 [facility] WBC (Bld) [#/Vol] 5.2 10*3/uL 4.4-11.0 [facility] Blood erythrocytes count (nu mber/volume)Ordered By: Dr. Bernard on 11-03-2022 RBC (Bld) [#/Vol] 4.30 10*6/uL 4.2-5.4 [facility] Blood hemoglobin measurement (mass/volume)Ordered By: Dr. Bernard on 11-03-2022 Hemoglobin (Bld) [Mass/Vol] 13.4 g/dL 12.0-15.0 [facility] Blood lymphocytes/100 leukoc ytesOrdered By: Dr. Bernard on 11-03-2022 Lymphocytes/100 WBC (Bld) 7.5 % 19-41 [facility] Blood monocytes/100 leukocyt esOrdered By: Dr. Bernard on 11-03-2022 Monocytes/100 WBC (Bld) 12.6 % 0-10 [facility] Blood platelet mean volumeOr dered By: Dr. Bernard on 11-03-2022 Platelet mean volume (Bld) [Entitic vol] 10.5 fL 6.2-12.0 [facility] CBC W/Diff, Automatedon 10-17 Absolute Lymph 0.39 X10 3/uL Low 0.83-4.51 [facility] Comment on above: Performed By: #### L 500.2500, L100.0100 #### [facility] [address] [place], [address] Absolute Neut 4.1 X10 3/uL Normal 2.0-7.7 [facility] Comment on above: Performed By: #### L 500.2500, L100.0100 #### [facility] [address] [place], [address] Basophils/100 WBC (Bld) 0.6 % Normal 0-1 [facility] Comment on above: Performed By: #### L 500.2500, L100.0100 #### [facility] [address], [address] Eosinophils/100 WBC (Bld) 1.1 % Normal 0-5 [facility] Comment on above: Performed By: #### L 500.2500, L100.0100 #### [facility] [address] [place], [address] Erythrocyte distribution width (RBC) [Ratio] 12.0 % Normal 11.6-14.6 [facility] Comment on above: Performed By: #### L 500.2500, L100.0100 #### [facility] [address] [place], [address] Hematocrit (Bld) [Volume fraction] 39.7 % Normal 37-47 [facility] Comment on above: Performed By: #### L 500.2500, L100.0100 #### [facility] [address] [place], [address] Hemoglobin (Bld) [Mass/Vol] 13.4 g/dL Normal 12.0-15.0 [facility] Comment on above: Performed By: #### L 500.2500, L100.0100 #### [facility] [address] [place], [address] IG% 0.600 Normal 0.0-0.9 [facility] Comment on above: Result Comment: IG% - Immature Granulocytes (promyelocytes, myelocytes and metamyelocytes) > 1% indicates that a LEFT SHIFT is Present. Performed By: #### L 500.2500, L100.0100 #### [facility] [address] [place], [address] Lymphocytes/100 WBC (Bld) 7.5 % Low 19-41 [facility] Comment on above: Performed By: #### L 500.2500, L100.0100 #### [facility] [address] [place], [address] MCH (RBC) [Entitic mass] 31.2 pg Normal 27.0-32.0 [facility] Comment on above: Performed By: #### L 500.2500, L100.0100 #### [facility] [address] [place], [address] MCHC (RBC) [Mass/Vol] 33.8 g/dL Normal 32-[address] [facility] Comment on above: Performed By: #### L 500.2500, L100.0100 #### [facility] [address] [place], [address] MCV (RBC) [Entitic vol] 92.3 fL Normal 81-99 [facility] Comment on above: Performed By: #### L 500.2500, L100.0100 #### [facility] [address] [place], [address] Monocytes/100 WBC (Bld) 12.6 % High 0-10 [facility] Comment on above: Performed By: #### L 500.2500, L100.0100 #### [facility] [address] [place], [address] Neutrophils/100 WBC (Bld) 77.6 % High 47-70 [facility] Comment on above: Performed By: #### L 500.2500, L100.0100 #### [facility] [address] [place], [address] Nucleated RBC (Bld) [#/Vol] 0 10*3/uL Normal 0-5 [facility] Comment on above: Performed By: #### L 500.2500, L100.0100 #### [facility] [address] [place], [address] Platelet mean volume (Bld) [Entitic vol] 10.5 fL Normal 6.2-12.0 [facility] Comment on above: Performed By: #### L 500.2500, L100.0100 #### [facility] [address] [place], [address] Platelets (Bld) [#/Vol] 208 10*3/uL Normal 150-450 [facility] Comment on above: Performed By: #### L 500.2500, L100.0100 #### [facility] [address] [place], [address] RBC (Bld) [#/Vol] 4.30 10*6/uL Normal 4.2-5.4 [facility] Comment on above: Performed By: #### L 500.2500, L100.0100 #### [facility] [address] [place], [address] RDW SD 40.9 fl Normal 35.1-43.9 [facility] Comment on above: Performed By: #### L 500.2500, L100.0100 #### [facility] [address] [place], [address] WBC (Bld) [#/Vol] 5.2 10*3/uL Normal 4.4-11.0 [facility] Comment on above: Performed By: #### L 500.2500, L100.0100 #### [facility] [address] [place], [address] Determination of erythrocyte mean corpuscular volume (MCV)Ordered By: Dr. Bernard on 11-03-2022 MCV (RBC) [Entitic vol] 92.3 fL 81-99 [facility] Emergency Department Summary on 11-03-2022 Emergency Department Summary [facility] Medical Records Department [address] [place] [address] Emergency Department Summary 11/03/22 MR#: [id number] Acct: [id number] Name: PRANAY REYES Rep #: [id number] : 1995 27 From: Alayna Bernard MD PCP: Dr. Kelton Powers MD Status:REG ER Location: ED HPI History of Present Illness Chief Complaint: General Illness Detail of Chief Complaint: Body aches with nausea vomiting diarrhea. Informant: patient Onset/Context/Timing Onset: Days Context: Gradual Onset Timing: Continuous Current Severity: Mild Maximum Severity: Mild Narrative Narrative: 27-year-old female history of clots, prior tubal ligation, and history of kidney stones. States the last 4 days she has had just diffuse body aches with associated nausea, vomiting diarrhea. Decreased p.o. intake. Denies any significant abdominal pain. No dysuria. No fever. No melena or hematemesis. Prior similar symptoms: Yes Recent Illness/Hospitalization: No PFSH PFSH Medical History POTS (postural orthostatic tachycardia syndrome) Schizo affective schizophrenia Home Medications ondansetron 4 mg disintegrating tablet 4 mg PO Q6H PRN nausea and vomiting #7 tabs 11/03/22 [Rx Last Taken Unknown] Allergy/AdvReac Type Severity Reaction Status Date / Time adhesive Allergy Rash Verified 11/03/22 09:23 avocado Allergy Rash Verified 11/03/22 09:23 codeine Allergy Shortness Verified 11/03/22 09:23 of breath Surgical History Hx of section Hx of tubal ligation Social History Smoking Status: Current every day smoker tobacco type: cigarettes ROS ROS ED ROS Narrative Nausea vomiting diarrhea. Body aches Review of Systems ROS Unobtainable: Denies due to encephalopathy Constitutional Constitutional ED: Denies chills or fever(s) Eyes Eyes: Denies blurry vision ENT ENT ED: Denies ear pain Cardiovascular Cardiovascular: Denies chest pain Respiratory/Chest Respiratory/Chest: Denies cough or dyspnea Gastrointestinal Gastrointestinal: Reports diarrhea, nausea and vomiting; Denies abdominal pain or melena Genitourinary Genitourinary ED: Denies dysuria or hematuria Musculoskeletal Musculoskeletal: Reports myalgias; Denies arthralgias Integumentary Denies abscess Neurologic Neurologic: Denies headache(s) Psychiatric Psychiatric: Denies anxiety Endocrine Endocrinology: Denies cold intolerance Hematologic/Lymphatic Hematologic/Lymphatic: Reports none Allergic/Immunologic Allergic/Immunologic ED: Denies mouth swelling, tongue swelling or urticaria EXAM Physical Exam Narrative Exam Narrative: 27-year-old female no acute distress. Vital signs are stable afebrile. H EENT exam unremarkable except mild dry mucous membranes. Neck nontender no lymphadenopathy. No meningismus. Lungs clear to auscultation bilaterally. Heart tachycardic rate about 110 no murmur. Chest wall nontender. Abdomen soft, nontender, nondistended, normal bowel sounds without peritoneal signs. No hernia or mass. No distention. Back nontender. Patient moving all 4 extremities. Neurovascularly intact. Nontender no edema no cords. Normal range of motion. Neurologically she is awake and alert with no focal motor deficits. Benign exam mildly dehydrated. Const Vital Signs: 11/03/22 09:20 11/03/22 09:29 11/03/22 09:33 Temperature 97.9 F Temperature Source Temporal Pulse Rate 135 H 110 H Respiratory Rate 18 15 Respiratory Pattern Tachypnea Blood Pressure 119/78 122/96 H Blood Pressure Mean 91 104 Pulse Ox 98 99 Oxygen Delivery Method Room Air Room Air Positive well nourished and well developed; Negative for obese, cachectic, contractures or unkempt General Appearance ED: well developed and NAD; Negative for unkempt, cachectic, contractures, cyanotic, diaphoretic or pallor Nutritional Appearance: Negative for cachectic or obese HEENT Reports dry mucous membranes; Denies moist mucous membranes Negative for trauma or tenderness Mouth ED: Yes dry mucous membranes Mouth: dry mucous membranes Eyes PERRL and EOMs intact bilaterally General Eye ED: Negative for pale conjunctiva or scleral icterus Neck no lymphadenopathy, supple and no JVD General: Negative for tenderness Lymph Lymphatic: Negative for other Chest Wall inspection of chest normal and palpation of chest normal Chest: Negative for other Resp normal respiratory effort and clear to auscultation bilaterally Effort and Inspection: Negative for retractions Auscultation: Negative for rales, rhonchi or wheezes Cardio regular rhythm, S1 normal heart sound, S2 normal heart sound and no murmurs; Negative for regular (more content not included)... Normal [facility] Hematocrit Auto (Bld) [Volum e fraction]Ordered By: Dr. Bernard on 11-03-2022 Hematocrit (Bld) [Volume fraction] 39.7 % 37-47 [facility] - Chemistry and C hemistry - challengeOrdered By: Dr. Bernard on 11-03-2022 CO2 [Moles/Vol] 26.0 mmol/L 21.0-32.0 [facility] Urea nitrogen/Creatinine [Mass ratio] 16.4 mg/mg 10-20 [facility] - Hematology and Cell countsOrdered By: Dr. Bernard on 11-03-2022 Erythrocyte distribution width (RBC) [Entitic vol] 40.9 fL 35.1-43.9 [facility] Erythrocyte distribution width (RBC) [Ratio] 12.0 % 11.6-14.6 [facility] Immature granulocytes/100 WBC (Bld) 0.600 % 0.0-0.9 [facility] Comment on above: IG% - Immature Granu locytes (promyelocytes, myelocytes and metamyelocytes) > 1% indicates that a LEFT SHIFT is Present. MCH (RBC) [Entitic mass] 31.2 pg 27.0-32.0 [facility] Nucleated RBC/100 WBC (Bld) [Ratio] 0 % 0-5 [facility] MCHC Auto (RBC) [Mass/Vol]Or dered By: Dr. Bernard on 11-03-2022 MCHC (RBC) [Mass/Vol] 33.8 g/dL 32-[address] [facility] No Panel InformationOrdered By: Dr. Bernard on 11-03-2022 Estimated Creatinine Clearance Calc 129.48 ml/min [facility] Estimated GFR (MDRD) Amer 133 mL/min >60 [facility] Comment on above: GFR Calc Estimated GFR (MDRD) Non-Af Amer 110 mL/min >60 [facility] Comment on above: Non- GFR Calc Platelets bldOrdered By: Dr. Bernard on 11-03-2022 Platelets (Bld) [#/Vol] 208 10*3/uL 150-450 [facility] Serum or plasma calcium georgiana urement (mass/volume)Ordered By: Dr. Bernard on 11-03-2022 Calcium [Mass/Vol] 8.9 mg/dL 8.5-10.1 [facility] Serum or plasma creatinine m easurement (mass/volume)Ordered By: Dr. Bernard on 11-03-2022 Creatinine [Mass/Vol] 0.67 mg/dL 0.55-1.[address] [facility] Comment on above: The validity of the calculated GFR & GFRAA in patients over 70 years has not been determined. Clinical correlation is essential. Serum or plasma urea nitroge n measurement (mass/volume)Ordered By: Dr. Bernard on 11-03-2022 Urea nitrogen [Mass/Vol] 11 mg/dL 04-02 [facility] Thin prep Papanicolaou smear with manual screeningOrdered By: Dr. Bernard on 11-03-2022 Thin prep Papanicolaou smear with manual screening 01 18- [facility] XR Foot - left 3 Viewson 1. No acute osseous abnormality. Report Dictated on Electronically Signed By: Wagner Santillan Electronically Signed Date/Time: 10/01/2022 7:56 PM EST [facility] Patient Name: PRANAY REYES Exam Date/Time: 10/01/2022 19:43 Procedure: XR FOOT 3+ VIEWS LEFT Ordering Provider: COLEY NICHOLAS Reason For Exam: LEFT FOOT 3 VIEWS CLINICAL INDICATION: left foot crush injury TECHNIQUE: 3 views of the left foot. COMPARISON: February,. FINDINGS: No acute fracture or dislocation. Joint spaces maintained. Soft tissues grossly unremarkable. [facility] Wagner Santillan MD - 10/01/2022 Patient Name: PRANAY REYES Exam Date/Time: 10/01/2022 19:43 Procedure: XR FOOT 3+ VIEWS LEFT Ordering Provider: COLEY NICHOLAS Reason For Exam: LEFT FOOT 3 VIEWS CLINICAL INDICATION: left foot crush injury TECHNIQUE: 3 views of the left foot. COMPARISON: February,. FINDINGS: No acute fracture or dislocation. Joint spaces maintained. Soft tissues grossly unremarkable. IMPRESSION: 1. No acute osseous abnormality. Report Dictated on Electronically Signed By: Wagner Santillan Electronically Signed Date/Time: 10/01/2022 7:56 PM EST [facility] Radiology Study observation (narrative) [facility] XR Foot - left 3 ViewsOrdere d By: Wagner Santillan on 10-01-2022 [facility] Work Phone: CT Head WO Contraston 2021 Patient Name: PRANAY REYES Computed Tomography ACCESSION EXAM DATE/TIME PROCEDURE ORDERING PROVIDER [id number] 06/28/2022 22:[address] Head or Brain w/o SANTOS MCCLENDON, ZACARIAS M Contrast CPT code 16418 Reason For Exam (CT Head or Brain w/o Contrast) head injury with LOC Report CT BRAIN WITHOUT CONTRAST CLINICAL INDICATION: head injury with LOC TECHNIQUE: CT scan of the brain without IV contrast. Multiplanar reformations. COMPARISON: None. FINDINGS: No apparent mass or mass effect, hemorrhage, midline shift or hydrocephalus. No evidence of acute cortical infarct. No abnormal, extra-axial fluid or air collection. Osseous calvarium grossly intact. IMPRESSION: 1. No acute intracranial findings. Report Dictated on Workstation: [id number] --- Final --- Dictating Physician: MD SANTILLAN WENDELL Signed Date and Time: 06/28/2022 10:18 pm Signed by: MD SANTILLAN WENDELL Transcribed Date and Time: 06/28/2022 10:19 [facility] Wagner Santillan MD - 06/28/2022 Patient Name: PRANAY REYES Computed Tomography ACCESSION EXAM DATE/TIME PROCEDURE ORDERING PROVIDER [id number] 06/28/2022 22:[address] Head or Brain w/o SANTOS MCCLENDON, ZACARIAS M Contrast CPT code 00605 Reason For Exam (CT Head or Brain w/o Contrast) head injury with LOC Report CT BRAIN WITHOUT CONTRAST CLINICAL INDICATION: head injury with LOC TECHNIQUE: CT scan of the brain without IV contrast. Multiplanar reformations. COMPARISON: None. FINDINGS: No apparent mass or mass effect, hemorrhage, midline shift or hydrocephalus. No evidence of acute cortical infarct. No abnormal, extra-axial fluid or air collection. Osseous calvarium grossly intact. IMPRESSION: 1. No acute intracranial findings. Report Dictated on Workstation: [id number] --- Final --- Dictating Physician: MD SANTILLAN WENDELL Signed Date and Time: 06/28/2022 10:18 pm Signed by: MD SANTILLAN WENDELL Transcribed Date and Time: 06/28/2022 10:19 [facility] Work Phone: Radiology Study observation (narrative) [facility] Work Phone: CT Head WO ContrastOrdered B y: Wagner Santillan on 06-28-2022 [facility] Work Phone: [facility] 11-30-2021 Stefano Gonzalez MD 11/30/2021 1:54 AM [facility] Date/Time: 11/30/2021 1:51 AM Performed by: Stefano Gonzalez MD Authorized by: Stefano Gonzalez MD Consent: Consent obtained: Verbal Consent given by: Patient Risks discussed: Infection, pain, poor cosmetic result, nerve damage and retained foreign body Alternatives discussed: No treatment Anesthesia (see MAR for exact dosages): Anesthesia method: Local infiltration Local anesthetic: Lidocaine 1% w/o epi Laceration details: Location: Finger Finger location: R small finger Length (cm): 2 Depth (mm): 1 Repair type: Repair type: Simple Pre-procedure details: Preparation: Patient was prepped and draped in usual sterile fashion Exploration: Wound exploration: wound explored through full range of motion Wound extent: no foreign bodies/material noted Contaminated: no Skin repair: Repair method: Sutures Suture size: 5-0 Wound skin closure material used: vicryl. Suture technique: Simple interrupted Number of sutures: 3 Approximation: Approximation: Close Post-procedure details: Dressing: Open (no dressing) Patient tolerance of procedure: Tolerated well, no immediate complications [facility] Work Phone: [facility] Work Phone: CR Hand Complete 3+ Views Le fton 06-09-2021 CR Hand Complete 3+ Views Left Patient Name: PRANAY REYES Diagnostic Radiology ACCESSION EXAM DATE/TIME PROCEDURE ORDERING PROVIDER [id number] 06/09/2021 08:01 EDT CR Hand Complete 3+ MD KATHYA, HALIMA Sellers Views Left CPT code 96659 Reason For Exam (CR Hand Complete 3+ Views Left) pain Report CLINICAL INDICATION: Status post left hand injury with pain and bruising. TECHNIQUE: Three views of the left hand COMPARISON: None FINDINGS/IMPRESSION: Bone mineralization is within normal limits. No acute fracture or dislocation. Joint spaces are well-maintained. There is some soft tissue swelling dorsally at the level of the MCP joints. Report Dictated on Final Dictating Physician: MD MALIK VLADIMIR Signed Date and Time: 06/09/2021 8:13 am Signed by: MD MALIK VLADIMIR Transcribed Date and Time: 06/09/2021 8:14 Normal [facility] XR HAND LEFT (MIN 3 VIEWS)Or dered By: Halima Rasheed on 06-09-2021 Patient Name: PRANAY REYES Diagnostic Radiology ACCESSION EXAM DATE/TIME PROCEDURE ORDERING PROVIDER [id number] 06/09/2021 08:01 EDT CR Hand Complete 3+ MD RASHEED DAVID L Views Left CPT code 72969 Reason For Exam (CR Hand Complete 3+ Views Left) pain Report CLINICAL INDICATION: Status post left hand injury with pain and bruising. TECHNIQUE: Three views of the left hand COMPARISON: None FINDINGS/IMPRESSION: Bone mineralization is within normal limits. No acute fracture or dislocation. Joint spaces are well-maintained. There is some soft tissue swelling dorsally at the level of the MCP joints. Report Dictated on --- Final --- Dictating Physician: MD MALIK VLADIMIR Signed Date and Time: 06/09/2021 8:13 am Signed by: MD MALIK VLADIMIR Transcribed Date and Time: 06/09/2021 8:14 [facility] Work Phone: [facility], [facility] Incoming Radiology Results From [facility] - 06/09/2021 8:14 AM EDT Patient Name: PRANAY REYES Diagnostic Radiology ACCESSION EXAM DATE/TIME PROCEDURE ORDERING PROVIDER [id number] 06/09/2021 08:01 EDT CR Hand Complete 3+ MD RASHEED DAVID L Views Left CPT code 86161 Reason For Exam (CR Hand Complete 3+ Views Left) pain Report CLINICAL INDICATION: Status post left hand injury with pain and bruising. TECHNIQUE: Three views of the left hand COMPARISON: None FINDINGS/IMPRESSION: Bone mineralization is within normal limits. No acute fracture or dislocation. Joint spaces are well-maintained. There is some soft tissue swelling dorsally at the level of the MCP joints. Report Dictated on --- Final --- Dictating Physician: MD MALIK VLADIMIR Signed Date and Time: 06/09/2021 8:13 am Signed by: MD MALIK VLADIMIR Transcribed Date and Time: 06/09/2021 8:14 [facility] Work Phone: [facility] Work Phone: CT Abdomen Pelvis Wo Contras [facility] 12-04-2020 [facility], [facility] Rad[facility] Results From [facility] - 12/04/2020 12:02 AM EDT Patient Name: PRANAY REYES Computed Tomography ACCESSION EXAM DATE/TIME PROCEDURE ORDERING PROVIDER [id number] 12/03/2020 23:[address] Abdomen/Pelvis (No [id number] -GOMBASH, MILES PO, No IV) CPT code 29321 Reason For Exam (CT Abdomen/Pelvis (No PO, No IV)) left flank pain, eval for stone Report CT ABDOMEN AND PELVIS WITHOUT CONTRAST CLINICAL INDICATION: left flank pain, eval for stone TECHNIQUE: CT scan of the abdomen and pelvis without IV/oral contrast. Multiplanar reformations. COMPARISON: 03/27/2019 FINDINGS: Solid organ evaluation limited from lack of IV contrast. Lung bases are clear. No free intraperitoneal gas seen. Liver shows no significant abnormality. Gallbladder and biliary tree appear normal. Spleen shows no significant abnormality. Adrenal glands show no significant abnormality. 2 mm stone medial upper pole right kidney. Left kidney shows 2 mm stone mid to upper kidney. No hydronephrosis seen on either side. Pancreas shows no significant abnormality. Abdominal aorta is nonaneurysmal. The appendix appears normal. Grossly normal-appearing left ovary. Right ovary not seen with certainty but there is some fluid-filled bowel in the right hemipelvis. No ureteral calculus seen on either side. No bowel obstruction. IMPRESSION: 1. Nonobstructive renal calculus on either side. Computed Tomography Report Report Dictated on --- Final --- Dictating Physician: MD BHAKTA JOHN R Signed Date and Time: 12/04/2020 0:01 am Signed by: MD BHAKTA JOHN R Transcribed Date and Time: 12/04/2020 0:02 [facility] Work Phone: [id number] Computed Tomography ACCESSION EXAM DATE/TIME PROCEDURE ORDERING PROVIDER [id number] 12/03/2020 23:[address] Abdomen/Pelvis (No [id number] -PRIYA SIRERAER PO, No IV) CPT code 98144 Reason For Exam (CT Abdomen/Pelvis (No PO, No IV)) left flank pain, eval for stone Report CT ABDOMEN AND PELVIS WITHOUT CONTRAST CLINICAL INDICATION: left flank pain, eval for stone TECHNIQUE: CT scan of the abdomen and pelvis without IV/oral contrast. Multiplanar reformations. COMPARISON: 03/27/2019 FINDINGS: Solid organ evaluation limited from lack of IV contrast. Lung bases are clear. No free intraperitoneal gas seen. Liver shows no significant abnormality. Gallbladder and biliary tree appear normal. Spleen shows no significant abnormality. Adrenal glands show no significant abnormality. 2 mm stone medial upper pole right kidney. Left kidney shows 2 mm stone mid to upper kidney. No hydronephrosis seen on either side. Pancreas shows no significant abnormality. Abdominal aorta is nonaneurysmal. The appendix appears normal. Grossly normal-appearing left ovary. Right ovary not seen with certainty but there is some fluid-filled bowel in the right hemipelvis. No ureteral calculus seen on either side. No bowel obstruction. IMPRESSION: 1. Nonobstructive renal calculus on either side. Computed Tomography Report Report Dictated on --- Final --- Dictating Physician: MD BHAKTA JOHN R Signed Date and Time: 12/04/2020 0:01 am Signed by: MD BHAKTA JOHN R Transcribed Date and Time: 12/04/2020 0:02 [facility] Work Phone: Basic Metabolic Panelon 03-2 Anion gap [Moles/Vol] 6 mmol/L 3 - 13 mmol/L [facility] Work Phone: [phone] Calcium [Mass/Vol] 9.5 mg/dL 8.4 - 10. 4 mg/dL [facility] Work Phone: [phone] Chloride [Moles/Vol] 106 mmol/L 98 - 10 7 mmol/L [facility] Work Phone: [phone] [phone] [Moles/Vol] 28 mmol/L 22 - 30 mmol/L [facility] Work Phone: [phone] Creatinine [Mass/Vol] 0.74 mg/dL 0.52 - 1.25 mg/dL [facility] Work Phone: [phone] EGFR IF NonAfrican Spanish >90.0 >60 mL/min [facility] Work Phone: [phone] Comment on above: KDIGO guidelines pro vide the following GFR categories: Stage GFR(ml/min/1.73 m2) Terms G1 >=90 Normal or high G2 60-89 Mildly decreased* G3a 45-59 Mildly to moderately decreased G3b 30-44 Moderately to severely decreased G4 15-29 Severely decreased G5 <15 Kidney failure *Relative to young adult level. In the absence of evidence of kidney damage, neither GFR category G1 nor G2 fulfill the criteria for CKD. The CKD-EPI equation is validated in individuals 18 years of age and older. Currently the best equation for estimating glomerular filtration rate (GFR) from serum creatinine in children is the Bedside Martinez equation. It is less accurate in patients with extremes of muscle mass, restriction of dietary protein, ingestion of creatine, extra-renal metabolism of creatinine, or treatment with medications that affect renal tubular creatinine secretion. GFR/1.73 sq M predicted among blacks MDRD (S/P/Bld) [Vol rate/Area] mL/min/{1.73_m2} >60 mL/min [facility] Work Phone: [phone] Glucose [Mass/Vol] 87 mg/dL 70 - 100 mg/dL [facility] Work Phone: [phone] Potassium [Moles/Vol] 3.8 mmol/L 3.5 - 5.1 mmol/L [facility] Work Phone: [phone] Sodium [Moles/Vol] 140 mmol/L 135 - 145 mmol/L [facility] Work Phone: 1 Urea nitrogen [Mass/Vol] 13 mg/dL 7 - 20 mg/dL [facility] Work Phone: Hemogram (CBC) w/Auto Diffon 12-03-2020 Absolute Baso # 0.1 10*3/uL 0.0 - 0.2 10*3/uL [facility] Work Phone: Absolute Neut # 3.6 10*3/uL 1.8 - 7.0 10*3/uL [facility] Work Phone: 1 Basophils/100 WBC (Bld) 1.2 % 0.0 - 2.0 % [facility] Work Phone: Eosinophils (Bld) [#/Vol] 0.5 10*3/uL 0.0 - 0.5 10*3/uL [facility] Work Phone: Eosinophils/100 WBC (Bld) 6.8 % High 1.0 - 6.0 % [facility] Work Phone: Erythrocyte distribution width (RBC) [Ratio] 12.8 % 11.5 - 14.5 % [facility] Work Phone: Granulocytes/100 WBC (Bld) 47.2 % 40.0 - 80.0 % [facility] Work Phone: Hematocrit (Bld) [Volume fraction] 43.2 % 35.0 - 47.0 % [facility] Work Phone: Hemoglobin (Bld) [Mass/Vol] 14.5 g/dL 11.7 - 16.0 g/dL [facility] Work Phone: Interpretation and review of laboratory results Abnormal [facility] Work Phone: Lymphocytes (Bld) [#/Vol] 2.7 10*3/uL 1.0 - 4.3 10*3/uL [facility] Work Phone: Lymphocytes/100 WBC (Bld) 35.6 % 20.0 - 40.0 % [facility] Work Phone: MCH (RBC) [Entitic mass] 30.0 pg 26.0 - 34.0 pg [facility] Work Phone: 1 MCHC (RBC) [Mass/Vol] 33.6 % 32.0 - 36.0 % [facility] Work Phone: 1 MCV (RBC) [Entitic vol] 89.4 fL 79.0 - 98.0 fL [facility] Work Phone: 1 Monocytes (Bld) [#/Vol] 0.7 10*3/uL 0.0 - 0.8 10*3/uL [facility] Work Phone: 1 Monocytes/100 WBC (Bld) 9.2 % 2.0 - 10.0 % [facility] Work Phone: 1 Platelet mean volume (Bld) [Entitic vol] 8.5 fL 7.4 - 10.4 fL [facility] Work Phone: 1 Platelets (Bld) [#/Vol] 291 10*3/uL 140 - 440 10*3/uL [facility] Work Phone: RBC (Bld) [#/Vol] 4.84 10*6/uL 3.80 - 5.2 0 10*6/uL [facility] Work Phone: 1 WBC (Bld) [#/Vol] 7.7 10*3/uL 3.6 - 10.7 10*3/uL [facility] Work Phone: 1 Test Performed by [facility], [address] , [place] [id number] [facility] Work Phone: Lactic Acid, Plasmaon 2020 Lactate [Moles/Vol] 1.1 mmol/L 0.7 - 2. 0 mmol/L [facility] Work Phone: 1 Otheron 12-03-2020 Test Performed by [employer] [facility] [employer] [address] , [place], [place] [address] [facility] Work Phone: , Urineon Beta HCG ( test) Ql (U) Negative Negative NA [facility] Work Phone: 1 Comment on above: Please note: Very di lute urine specimens, as indicated by a low specific gravity, may not contain operations support representative levels of hCG. If is still suspected, a first morning urine specimen should be collected 48 hours later and tested. is the most common reason for HCG in urine, although choriocarcinoma, hydatidiform mole, and certain nontropho- blastic malignancies also result in detectable urinary HCG levels. Sensitivity = 20mIU/mL. Test Performed by [facility], [address] , [place], [place] [address] [facility] Work Phone: [phone] Urinalysison 12-03-2020 Appearance (U) Turbid Abnormal Clear NA [facility] Work Phone: [phone] Comment on above: . Bacteria, UA Loaded (>100) Abnormal Negative /[HPF] [facility] Work Phone: [phone] Comment on above: . Bilirubin Urine Negative Negative mg/dL [facility] Work Phone: [phone] Comment on above: . Color (U) LIGHT ORANGE Abnormal Lt. Yellow NA [facility] Work Phone: [phone] Comment on above: . Glucose, Ur Normal Normal (<70) mg/dL [facility] Work Phone: [phone] Comment on above: . Interpretation and review of laboratory results Abnormal [facility] Work Phone: [phone] Ketones Ql (U) Negative Negative mg/dL [facility] Work Phone: [phone] Comment on above: . LEUKOCYTES, UA 75 Abnormal Negative Fer/uL [facility] Work Phone: [phone] Comment on above: . Nitrite, Urine Negative Negative NA [facility] Work Phone: [phone] Comment on above: . Occult Blood,Urine >1.0 Abnormal Negative mg/dL [facility] Work Phone: [phone] Comment on above: . pH (U) 6.0 [pH] [facility] Work Phone: [phone] Comment on above: . Protein (U) [Mass/Vol] 10 mg/dL Abnormal Negative [facility] Work Phone: [phone] Comment on above: . RBC (U) [#/Vol] 26-50 Abnormal 0 - 2 /[HPF] [facility] Work Phone: [phone] Comment on above: . Specific [place], Urine 1.018 [facility] Work Phone: Comment on above: . Squam Epithel, UA 11-25 Abnormal 3 - 5 /[HPF] [facility] Work Phone: Comment on above: . Urobilinogen, Urine 2 mg/dL Abnormal Normal (0-1) [facility] Work Phone: Comment on above: . Volume 12 ml [facility] Work Phone: Comment on above: . WBC, UA 11-25 Abnormal 0 - 5 /[HPF] [facility] Work Phone: Comment on above: . Test Performed by [facility], [address] , [address] Work Phone: [employer] LTon 08-25 [employer] * * *Final Report* * * DATE OF EXAM: Aug 25 2019 2:51PM LDW [id number] - [employer] / PROCEDURE REASON: nipple discharge * * * * Physician Interpretation * * * * #[id number] - [employer] LIMITED ULTRASOUND OF LEFT BREAST: 08/25/2019 HISTORY: The patient presents for evaluation of left nipple milky discharge and nipple pain. RESULT: No prior exams were available for comparison. Real-time ultrasound of the left breast retroareolar was performed. Ley scale images of the real-time examination were reviewed. No abnormalities are seen in the subareolar region to correlate with reported discharge from the nipple or nipple pain. IMPRESSION: NEGATIVE There is no sonographic evidence of malignancy. There is no abnormality seen in the left breast to correspond with the discharge from the nipple and pain in the sub-areolar depth, however, clinical correlation and clinical followup are recommended. Follow-up with ACR/NCCN guidelines. Heena vega/nikki:08/25/2019 15:41:42 copy to: KELTON POWERS, ph: [phone] Calender Roll Operator(s): Chrissy Stinson, , [facility] Ultrasound BI-RADS: 1 Negative Multiple national specialty organizations have released breast cancer screening guidelines for women at average risk for developing breast cancer - guidelines that are based on both evidence and opinion, yet differ on when to start and how often to screen for breast cancer. With representation from Breast Imaging, Internal Medicine, Women's Health, Family Medicine, and Medical/Surgical Oncology, the [facility] has carefully reviewed the data and reached the following consensus: 1) All women should engage in shared decision-making with their providers to decide when to start and how often to screen; 2) All women should have the opportunity to start screening mammography at age 40; 3) For women ages 45-55, we recommend annual screening mammograms; 4) For women ages 55 and over, we support both the transition from an annual to a biennial interval if this aligns more with patient's values and preferences, or continuation with annual screening; 5) All women should discuss with their providers when to stop screening mammograms. Ledge Man: Nikki Transcribe Date/Time: Aug 25 2019 2:36P Dictated by : HEENA MATTHEWS MD This examination was interpreted and the report reviewed and electronically signed by: HEENA MATTHEWS MD on Aug 25 2019 3:41PM [facility] CNOVon 12-11-2017 CNOV Office Visit ([facility]) Elsy REYES ([id number]) [address] [facility] Department12/11/17 2:00 PM WILLIAM LOPEZ) [facility] During your visit today, we recorded the following information about you: Temperature Pulse Respiration Blood pressure 101.2 degrees 100/minute 18/minute 120/82 Weight 72.1 kgWilliam Lopez PA-C 12/11/2017 5:12 PM SignedSubjectiveHPIPt Presents with cough, congestion, sore throat, body aches since yesterday.She has since developed vomiting and diarrhea. No flu shot this year. No hx ofasthma. She is a smoker, less than half pack per day.Review of SystemsConstitutional: Positive for chills, fever and malaise/fatigue.HENT: Positive for congestion, ear pain and sore throat.Eyes: Negative.Respiratory: Positive for cough and wheezing.Cardiovascular: Negative.Gastrointestina l: Negative.Genitourinary: Negative.Musculoskeletal : Negative.Skin: Negative for rash.All other systems reviewed and are negative.PAST MEDICAL HISTORYDiagnosis Date- Abdominal pain- Blood in urine- Bruising- Chest pain- Constipation- Dizziness- Fatigue- Heart trouble- History of weight change change in appetite and weight- Indigestion- Kidney stones- Leg swelling- Nausea- Numbness and tingling- Palpitations- SOB (shortness of breath)- Visual changes blurry vision in both eyes,and spouts of blindnessCurrent Outpatient Prescriptions:DM/P-EPHED /ACETAMINOPH/DOXYLAM (NYQUIL ORAL) Take by mouth. Disp: Rfl:DULOXETINE HCL (CYMBALTA ORAL) Take by mouth. Disp: Rfl:buPROPion SR (WELLBUTRIN SR) 100 mg 12 hr tablet Disp: Rfl:PNV95/FERROUS FUMARATE/FA ( ORAL) Disp: Rfl:No current facility-administered medications for this visit.PAST SURGICAL HISTORYProcedure Laterality Date- SECTION HX- HEMORRHOIDECTOMYFAMILY HISTORYProblem Relation Age of Onset- Blood Clots [Other] [OTHER]- Cancer- Diabetes- Heart Trouble [Other] [OTHER]- Lung Disease [Other] [OTHER]- Stroke- High Blood Pressure [Other] [OTHER]- Intracranial Tumor [Other] [OTHER] Sister sister,aunt,grandmother- Multiple Sclerosis Maternal Uncle maternal uncle,cousins- migraine [Other] [OTHER] MotherSocial HistorySubstance Use Topics- Smoking status: Current Every Day Smoker- Smokeless tobacco: Never Used- Alcohol use NoBP 120/82 Pulse 100 Temp 38.4 ?C (101.2 ?F) (Tympanic) Resp 18 Wt 72.1kg (159 lb) SpO2 97% BMI 24.54 kg/m1YwozdyyuaGteqkelf ExamConstitutional: She is oriented to person, place, and time and well-developed,well-nour ished, and in no distress.HENT:Head: Normocephalic and atraumatic.Right Ear: Tympanic membrane, external ear and ear canal normal.Left Ear: Tympanic membrane, external ear and ear canal normal.Nose: Mucosal edema and rhinorrhea present.Mouth/Throat: Uvula is midline. No oropharyngeal exudate, posteriororopharyngeal edema, posterior oropharyngeal erythema or tonsillar abscesses.Clear PNDEyes: Conjunctivae are normal.Neck: Normal range of motion. Neck supple.Cardiovascular: Normal rate, regular rhythm and normal heart sounds.Pulmonary/Chest: Effort normal and breath sounds normal.Lymphadenopathy: She has no cervical adenopathy.Neurological: She is alert and oriented to person, place, and time.Skin: Skin is warm and dry. No rash noted.Psychiatric: Affect and judgment normal.Nursing note and vitals reviewed. ASSESSMENT/PLAN:1. Influenza-like illness - ICD9: 799.89, ICD10: R69I discussed risks/benefits of tamiflu and pt declined script. She was givenprednisone and tessalon for symptoms. She is non toxic here. While takingprednisone patient was informed not to take any nsaids. Tylenol for fever.Discussed with patient concerning symptoms to go to the emergency department orfollow up here. Pt agreeable with this plan.HUMZA López-CReferring Provider: SELF [200]Allergies As of Date: 12/11/2017 Noted Allergy ReactionCODEINE 02/08/2016 16 - UnknownDate Reviewed: 12/11/2017Reviewed by: Mouna Chen LPN - Fully AssessedReason for Visit: Cough [28] Cmt: headache, bodyaches, nausea AND VANDD since yesterdayPrimary Visit Diagnosis:Influenza-like illness [R69]Order(s):predniSONE (DELTASONE) 20 mg tabletTake 1 tablet by mouth twice daily for 5 days.Disp: 10 tabletRfl: 0 benzonatate (TESSALON PERLE) 100 mg capsuleTake 2 capsules by mouth three times daily as needed.Disp: 30 capsuleRfl: 0Prescriptions as of 12/11/2017 Sig: NYQUIL ORAL Take by mouth. PREDNISONE 20 MG TABLET Take 1 tablet by mouth twice * BENZONATATE 100 MG CAPSULE Take 2 capsules by mouth thre* CYMBALTA ORAL Take by mouth. BUPROPION HCL SR 100 MG TABLE* ORALMedication notes this encounter CYMBALTA ORAL >> Mouna Chen LPN 12/11/2017 1:59 PM >> MOUNA CHEN ENGINEERING CLERK SatDec 11, 2017 1:59 PM Not taking BUPROPION HCL SR 100 MG TABLET,12 HR SUSTAINED-RELEASE >> Mouna Chen ENGINEERING CLERK 12/11/2017 1:59 PM >> MOUNA CHEN ENGINEERING CLERK SatDec 11, 2017 1:59 PM Not takingProblem List As Of Date: 12/11/2017(None)Prescrip tions ordered this encounter Disp Refills Start End PREDNISONE 20 MG TABLET 10 t* 0 12/11/2017 12/16/2017 Route: ORAL Sig: Take 1 tablet by mouth twice daily for 5 days. BENZONATATE 100 MG CAPSULE 30 c* 0 12/11/2017 Route: ORAL Sig: Take 2 capsules by mouth three times daily as needed.Letter TextWoosterDepartment of Urgent CareHUMZA Ryan[address] [place], [place] [address]Adltj: [phone] WHOM IT MAY CONCERN:This is to confirm that [facility] had an appointment [facility] HUMZA Klein on 12/11/2017 and may return to work on 12/14/2017.Sincerely yours,Annamaria Ryan Number: [id number] Status:Closed by WILLIAM LOPEZ PA-C on 12/11/17 Normal [facility] PROGRESSon 12-11-2017 PROGRESS HNO ID: [id number]: William Kang) AthyService: (none)Author Type: Physician AssistantType: Progress NotesFiled: 12/11/2017 5:12 PMNote Text:SubjectiveHPIPt Presents with cough, congestion, sore throat, body aches sinceyesterday. She has since developed vomiting and diarrhea. No flu shot thisyear. No hx of asthma. She is a smoker, less than half pack per day.Review of SystemsConstitutional: Positive for chills, fever and malaise/fatigue.HENT: Positive for congestion, ear pain and sore throat.Eyes: Negative.Respiratory: Positive for cough and wheezing.Cardiovascular: Negative.Gastrointestina l: Negative.Genitourinary: Negative.Musculoskeletal : Negative.Skin: Negative for rash.All other systems reviewed and are negative.PAST MEDICAL HISTORYDiagnosis Date- Abdominal pain- Blood in urine- Bruising- Chest pain- Constipation- Dizziness- Fatigue- Heart trouble- History of weight change change in appetite and weight- Indigestion- Kidney stones- Leg swelling- Nausea- Numbness and tingling- Palpitations- SOB (shortness of breath)- Visual changes blurry vision in both eyes,and spouts of blindnessCurrent Outpatient Prescriptions:DM/P-EPHED /ACETAMINOPH/DOXYLAM (NYQUIL ORAL) Take by mouth. Disp: Rfl:DULOXETINE HCL (CYMBALTA ORAL) Take by mouth. Disp: Rfl:buPROPion SR (WELLBUTRIN SR) 100 mg 12 hr tablet Disp: Rfl:PNV95/FERROUS FUMARATE/FA ( ORAL) Disp: Rfl:No current facility-administered medications for this visit.PAST SURGICAL HISTORYProcedure Laterality Date- SECTION HX- HEMORRHOIDECTOMYFAMILY HISTORYProblem Relation Age of Onset- Blood Clots [Other] [OTHER]- Cancer- Diabetes- Heart Trouble [Other] [OTHER]- Lung Disease [Other] [OTHER]- Stroke- High Blood Pressure [Other] [OTHER]- Intracranial Tumor [Other] [OTHER] Sister sister,aunt,grandmother- Multiple Sclerosis Maternal Uncle maternal uncle,cousins- migraine [Other] [OTHER] MotherSocial HistorySubstance Use Topics- Smoking status: Current Every Day Smoker- Smokeless tobacco: Never Used- Alcohol use NoBP 120/82 Pulse 100 Temp 38.4 ?C (101.2 ?F) (Tympanic) Resp 18 Wt72.1 kg (159 lb) SpO2 97% BMI 24.54 kg/w1XzombfuehHlmutnvf ExamConstitutional: She is oriented to person, place, and time andwell-developed, well-nourished, and in no distress.HENT:Head: Normocephalic and atraumatic.Right Ear: Tympanic membrane, external ear and ear canal normal.Left Ear: Tympanic membrane, external ear and ear canal normal.Nose: Mucosal edema and rhinorrhea present.Mouth/Throat: Uvula is midline. No oropharyngeal exudate, posteriororopharyngeal edema, posterior oropharyngeal erythema or tonsillarabscesses.Clear PNDEyes: Conjunctivae are normal.Neck: Normal range of motion. Neck supple.Cardiovascular: Normal rate, regular rhythm and normal heart sounds.Pulmonary/Chest: Effort normal and breath sounds normal.Lymphadenopathy: She has no cervical adenopathy.Neurological: She is alert and oriented to person, place, and time.Skin: Skin is warm and dry. No rash noted.Psychiatric: Affect and judgment normal.Nursing note and vitals reviewed. ASSESSMENT/PLAN:1. Influenza-like illness - ICD9: 799.89, ICD10: R69I discussed risks/benefits of tamiflu and pt declined script. She wasgiven prednisone and tessalon for symptoms. She is non toxic here. Whiletaking prednisone patient was informed not to take any nsaids. Tylenol forfever. Discussed with patient concerning symptoms to go to the emergencydepartment or follow up here. Pt agreeable with this plan.William Lopez PA-C Normal [facility] No Panel Information [facility] Vital Signs Date Time Vital Sign Value Performing Clinician Eliseo tong 07-01-2025 20:58-0400 Diastolic blood pressure 81 mm[Hg] Jamil Newberry MD Work Phone: [facility] 07-01-2025 20:58-0400 Heart rate 87 /min Jamil Newberry MD Work Phone: [facility] 07-01-2025 20:58-0400 Respiratory rate 16 /min Jamil Newberry MD Work Phone: [facility] 07-01-2025 20:58-0400 SaO2% (BldA) [Mass fraction] 99 % Jamil Newberry MD Work Phone: [facility] 07-01-2025 20:58-0400 Systolic blood pressure 134 mm[Hg] Jamil Newberry MD Work Phone: [facility] 07-01-2025 18:28-0400 Body height 172.7 cm Jamil Newberry MD Work Phone: [facility] 07-01-2025 18:28-0400 Body mass index (BMI) [Ratio] 28.89 kg/m2 Jamil Newberry MD Work Phone: [facility] 07-01-2025 18:28-0400 Body temperature 97.81 [degF] Jamil Newberry MD Work Phone: [facility] 07-01-2025 18:28-0400 Body weight 86.18 kg Jamil Newberry MD Work Phone: [facility] 05-27-2025 14:42-0400 Diastolic blood pressure 81 mm[Hg] Gabino Jordan MD, PhD Work Phone: [facility] 05-27-2025 14:42-0400 Systolic blood pressure 129 mm[Hg] Gabino Jordan MD, PhD Work Phone: [facility] 05-27-2025 14:38-0400 Body height 175.3 cm Gabino Jordan MD, PhD Work Phone: [facility] 05-27-2025 14:38-0400 Body mass index (BMI) [Ratio] 29.53 kg/m2 Gabino Jordan MD, PhD Work Phone: [facility] 05-27-2025 14:38-0400 Body weight 90.72 kg Gabino Jordan MD, PhD Work Phone: [facility] 05-26-2025 09:23-0400 Body mass index (BMI) [Ratio] 29.97 kg/m2 Blayne Andrapalliyal WOOD HANDLER.HALL MANAGER Work Phone: [facility] 05-26-2025 09:23-0400 Body weight 90.72 kg Blayne Andrapalliyal WOOD HANDLER.HALL MANAGER Work Phone: [facility] 05-26-2025 09:23-0400 Diastolic blood pressure 93 mm[Hg] Blayne Andrapalliyal WOOD HANDLER.HALL MANAGER Work Phone: [facility] 05-26-2025 09:23-0400 Heart rate 109 /min Blayne Andrapalliyal WOOD HANDLER.HALL MANAGER Work Phone: [facility] 05-26-2025 09:23-0400 Respiratory rate 18 /min Blanye Andrapalliyal WOOD HANDLER.HALL MANAGER Work Phone: [facility] 05-26-2025 09:23-0400 SaO2% (BldA) [Mass fraction] 98 % Blayne Francis WOOD HANDLER.HALL MANAGER Work Phone: [facility] 05-26-2025 09:23-0400 Systolic blood pressure 130 mm[Hg] Blayne Meyersakirahaily WOOD HANDLER.HALL MANAGER Work Phone: [facility] 05-19-2025 09:02-0400 Body height 174 cm Kelton Powers MD Work Phone: [facility] 05-19-2025 09:02-0400 Body mass index (BMI) [Ratio] 31.15 kg/m2 Kelton Powers MD Work Phone: [facility] 05-19-2025 09:02-0400 Body temperature 97.39 [degF] Kelton Powers MD Work Phone: [facility] 05-19-2025 09:02-0400 Body weight 94.3 kg Kelton Powers MD Work Phone: [facility] 05-19-2025 09:02-0400 Diastolic blood pressure 88 mm[Hg] Kelton Powers MD Work Phone: [facility] 05-19-2025 09:02-0400 Heart rate 109 /min Kelton Powers MD Work Phone: [facility] 05-19-2025 09:02-0400 Respiratory rate 16 /min Kelton Powers MD Work Phone: [facility] 05-19-2025 09:02-0400 SaO2% (BldA) [Mass fraction] 96 % Kelton Powers MD Work Phone: [facility] 05-19-2025 09:02-0400 Systolic blood pressure 117 mm[Hg] Kelton Powers MD Work Phone: [facility] 04-24-2025 10:04-0400 Body height 175.3 cm Julisa Avalos DO Work Phone: [employer] 04-24-2025 10:04-0400 Body mass index (BMI) [Ratio] 28.06 kg/m2 Julisa Avalos DO Work Phone: [employer] 04-24-2025 10:04-0400 Body temperature 97.5 [degF] Julisa Avalos DO Work Phone: [employer] 04-24-2025 10:04-0400 Body weight 86.18 kg Julisa Avalos DO Work Phone: [employer] 04-24-2025 10:04-0400 Diastolic blood pressure 98 mm[Hg] Julisa Avalos DO Work Phone: [employer] 04-24-2025 10:04-0400 Heart rate 94 /min Julisa Avalos DO Work Phone: [employer] 04-24-2025 10:04-0400 Respiratory rate 16 /min Julisa Avalos DO Work Phone: [employer] 04-24-2025 10:04-0400 SaO2% (BldA) [Mass fraction] 97 % Julisa Avalos DO Work Phone: [employer] 04-24-2025 10:04-0400 Systolic blood pressure 139 mm[Hg] Julisa Avalos DO Work Phone: [employer] 01-18-2025 15:21-0400 Diastolic blood pressure 87 mm[Hg] Alba Doherty MD Work Phone: [employer] 01-18-2025 15:21-0400 Heart rate 84 /min Alba Doherty MD Work Phone: [employer] 01-18-2025 15:21-0400 Respiratory rate 16 /min Alba Doherty MD Work Phone: [employer] 01-18-2025 15:21-0400 SaO2% (BldA) [Mass fraction] 98 % Alba Doherty MD Work Phone: [employer] 01-18-2025 15:21-0400 Systolic blood pressure 144 mm[Hg] Alba Doherty MD Work Phone: [facility] 01-18-2025 13:28-0400 Body height 175.3 cm Alba Doherty MD Work Phone: [facility] 01-18-2025 13:28-0400 Body mass index (BMI) [Ratio] 27.32 kg/m2 Alba Doherty MD Work Phone: [facility] 01-18-2025 13:28-0400 Body temperature 98.2 [degF] Alba Doherty MD Work Phone: [facility] 01-18-2025 13:28-0400 Body weight 83.92 kg Alba Doherty MD Work Phone: [facility] 11-21-2024 11:47-0500 Body temperature 97.81 [degF] Rafa Armstrong MD Work Phone: [facility] 11-21-2024 11:47-0500 Diastolic blood pressure 99 mm[Hg] Rafa Armstrong MD Work Phone: [facility] 11-21-2024 11:47-0500 Heart rate 126 /min Rafa Armstrong MD Work Phone: [facility] 11-21-2024 11:47-0500 Respiratory rate 16 /min Rafa Armstrong MD Work Phone: [facility] 11-21-2024 11:47-0500 SaO2% (BldA) [Mass fraction] 100 % Rafa Armstrong MD Work Phone: [facility] 11-21-2024 11:47-0500 Systolic blood pressure 139 mm[Hg] Rafa Armstrong MD Work Phone: [facility] 11-20-2024 08:48-0500 Body temperature 97.3 [degF] Sally Rdz PA-C Work Phone: [facility] 11-20-2024 08:48-0500 Body weight 81.65 kg Sally BYRDC Work Phone: [facility] 11-20-2024 08:48-0500 Diastolic blood pressure 86 mm[Hg] Sally Rdz PA-C Work Phone: [facility] 11-20-2024 08:48-0500 Heart rate 111 /min Sally Rdz PA-C Work Phone: [facility] 11-20-2024 08:48-0500 SaO2% (BldA) [Mass fraction] 98 % Sally Rdz PA-C Work Phone: [facility] 11-20-2024 08:48-0500 Systolic blood pressure 139 mm[Hg] Sally Rdz PA-C Work Phone: [facility] 10-29-2024 11:30-0500 Heart rate 103 /min Ronen Stathopoulos WOOD HANDLER.HALL MANAGER Work Phone: [facility] 10-29-2024 11:22-0500 Body mass index (BMI) [Ratio] 27.31 kg/m2 Ronen Stathopoulos WOOD HANDLER.HALL MANAGER Work Phone: [facility] 10-29-2024 11:22-0500 Body temperature 98.6 [degF] Ronen Stathopoulos WOOD HANDLER.HALL MANAGER Work Phone: [facility] 10-29-2024 11:22-0500 Body weight 83.9 kg Ronen Stathopoulos WOOD HANDLER.HALL MANAGER Work Phone: [facility] 10-29-2024 11:22-0500 Diastolic blood pressure 102 mm[Hg] Ronen Stathopoulos WOOD HANDLER.HALL MANAGER Work Phone: [facility] 10-29-2024 11:22-0500 SaO2% (BldA) [Mass fraction] 100 % Ronen Stathopoulos WOOD HANDLER.HALL MANAGER Work Phone: [facility] 10-29-2024 11:22-0500 Systolic blood pressure 140 mm[Hg] Ronen Statwilberto WOOD HANDLER.HALL MANAGER Work Phone: [facility] 10-27-2024 14:28-0500 Body mass index (BMI) [Ratio] 27.35 kg/m2 Jessica Pillai MD Work Phone: [facility] 10-27-2024 14:28-0500 Body weight 84 kg Jessica Pillai MD Work Phone: [facility] 10-27-2024 14:28-0500 Diastolic blood pressure 78 mm[Hg] Jessica Pillai MD Work Phone: [facility] 10-27-2024 14:28-0500 Systolic blood pressure 142 mm[Hg] Jessica Pillai MD Work Phone: [facility] 07-02-2024 15:35-0400 Body height 175.3 cm Roland Blanco MD Work Phone: [facility] 07-02-2024 15:35-0400 Body mass index (BMI) [Ratio] 26.58 kg/m2 Roland Blanco MD Work Phone: [facility] 07-02-2024 15:35-0400 Body weight 81.65 kg Roland Blanco MD Work Phone: [facility] 07-02-2024 15:35-0400 Respiratory rate 20 /min Roland Blanco MD Work Phone: [facility] 04-20-2024 13:56-0400 Body mass index (BMI) [Ratio] 26.6 kg/m2 Siva Gunter WOOD HANDLER.HALL MANAGER Work Phone: [facility] 04-20-2024 13:56-0400 Body temperature 97.5 [degF] Siva Gunter WOOD HANDLER.HALL MANAGER Work Phone: [facility] 04-20-2024 13:56-0400 Body weight 81.7 kg Siva Gunter WOOD HANDLER.HALL MANAGER Work Phone: [facility] 04-20-2024 13:56-0400 Diastolic blood pressure 97 mm[Hg] Siva Gunter WOOD HANDLER.HALL MANAGER Work Phone: [facility] 04-20-2024 13:56-0400 Heart rate 88 /min Siva Gunter WOOD HANDLER.HALL MANAGER Work Phone: [facility] 04-20-2024 13:56-0400 SaO2% (BldA) [Mass fraction] 98 % Siva Gunter WOOD HANDLER.HALL MANAGER Work Phone: [facility] 04-20-2024 13:56-0400 Systolic blood pressure 133 mm[Hg] Siva Gunter WOOD HANDLER.HALL MANAGER Work Phone: [facility] 02-16-2024 14:07-0400 Body height 175.3 cm Roland Yung MD Work Phone: [facility] 02-16-2024 14:07-0400 Body mass index (BMI) [Ratio] 27.32 kg/m2 Roland Yung MD Work Phone: [facility] 02-16-2024 14:07-0400 Body temperature 98.2 [degF] Roland Yung MD Work Phone: [facility] 02-16-2024 14:07-0400 Body weight 83.92 kg Roland Yung MD Work Phone: [facility] 02-16-2024 14:07-0400 Diastolic blood pressure 99 mm[Hg] Roland Yung MD Work Phone: [facility] 02-16-2024 14:07-0400 Heart rate 110 /min Roland Yung MD Work Phone: [facility] 02-16-2024 14:07-0400 Respiratory rate 18 /min Roland Yung MD Work Phone: [facility] 02-16-2024 14:07-0400 SaO2% (BldA) [Mass fraction] 99 % Roland Yung MD Work Phone: [facility] 02-16-2024 14:07-0400 Systolic blood pressure 153 mm[Hg] Roland Yung MD Work Phone: [facility] 01-19-2024 00:39-0400 Body height 175.3 cm Maximo Segura MD Work Phone: [facility] 01-19-2024 00:39-0400 Body mass index (BMI) [Ratio] 26.58 kg/m2 Maximo Segura MD Work Phone: [facility] 01-19-2024 00:39-0400 Body temperature 97.5 [degF] Maximo Segura MD Work Phone: [facility] 01-19-2024 00:39-0400 Body weight 81.65 kg Maximo Segura MD Work Phone: [facility] 01-19-2024 00:39-0400 Diastolic blood pressure 97 mm[Hg] Maximo Segura MD Work Phone: [facility] 01-19-2024 00:39-0400 Heart rate 121 /min Maximo Segura MD Work Phone: [facility] 01-19-2024 00:39-0400 Respiratory rate 16 /min Maximo Segura MD Work Phone: [facility] 01-19-2024 00:39-0400 SaO2% (BldA) [Mass fraction] 100 % Maximo Segura MD Work Phone: [facility] 01-19-2024 00:39-0400 Systolic blood pressure 142 mm[Hg] Maximo Segura MD Work Phone: [facility] 12-02-2023 13:49-0400 Body height 175.3 cm Stefano Gonzalez MD Work Phone: [facility] 12-02-2023 13:49-0400 Body mass index (BMI) [Ratio] 25.1 kg/m2 Stefano Gonzalez MD Work Phone: [facility] 12-02-2023 13:49-0400 Body temperature 97.9 [degF] Stefano Gonzalez MD Work Phone: [facility] 12-02-2023 13:49-0400 Body weight 77.11 kg Stefano Gonzalez MD Work Phone: [facility] 12-02-2023 13:49-0400 Diastolic blood pressure 97 mm[Hg] Stefano Gonzalez MD Work Phone: [facility] 12-02-2023 13:49-0400 Heart rate 112 /min Stefano Gonzalez MD Work Phone: [facility] Comment on above: states has POTS and always has a resting heart rate around 120 12-02-2023 13:49-0400 Respiratory rate 16 /min Stefano Gonzalez MD Work Phone: [facility] 12-02-2023 13:49-0400 SaO2% (BldA) [Mass fraction] 98 % Stefano Gonzalez MD Work Phone: [facility] 12-02-2023 13:49-0400 Systolic blood pressure 153 mm[Hg] Stefano Gonzalez MD Work Phone: [facility] 11-26-2023 23:46-0400 Body temperature 98.1 [degF] Julisa Gonzalez MD Work Phone: [facility] 11-26-2023 23:46-0400 Heart rate 94 /min Julisa Gonzalez MD Work Phone: [facility] 11-26-2023 23:46-0400 Respiratory rate 22 /min Julisa Gonzalez MD Work Phone: [facility] 11-26-2023 23:46-0400 SaO2% (BldA) [Mass fraction] 99 % Julisa Gonzalez MD Work Phone: [facility] 11-26-2023 23:31-0400 Body height 175.3 cm Julisa Gonzalez MD Work Phone: [facility] 11-26-2023 23:31-0400 Body mass index (BMI) [Ratio] 25.25 kg/m2 Julisa Gonzalez MD Work Phone: [facility] 11-26-2023 23:31-0400 Body weight 77.56 kg Julisa Gonzalez MD Work Phone: [facility] 11-26-2023 23:31-0400 Diastolic blood pressure 94 mm[Hg] Julisa Gonzalez MD Work Phone: [facility] 11-26-2023 23:31-0400 Systolic blood pressure 126 mm[Hg] Julisa Gonzalez MD Work Phone: [facility] 10-03-2023 12:04-0500 Diastolic blood pressure 87 mm[Hg] Hanh Pryor MD Work Phone: [facility] 10-03-2023 12:04-0500 Heart rate 80 /min Hanh Pryor MD Work Phone: [facility] 10-03-2023 12:04-0500 Respiratory rate 16 /min Hanh Pryor MD Work Phone: [facility] 10-03-2023 12:04-0500 SaO2% (BldA) [Mass fraction] 100 % Hanh Pryor MD Work Phone: [facility] 10-03-2023 12:04-0500 Systolic blood pressure 131 mm[Hg] Hanh Pryor MD Work Phone: [facility] 10-03-2023 11:49-0500 Body temperature 97.11 [degF] Hanh Pryor MD Work Phone: [facility] 10-03-2023 11:07-0500 Body height 175.3 cm Hanh Pryor MD Work Phone: [facility] 10-03-2023 11:07-0500 Body mass index (BMI) [Ratio] 23.63 kg/m2 Hanh Pryor MD Work Phone: [facility] 10-03-2023 11:07-0500 Body weight 72.58 kg Hanh Pryor MD Work Phone: [facility] 08-06-2023 16:00-0500 Body height 175.3 cm Radha Hays DO Work Phone: [facility] 08-06-2023 16:00-0500 Body weight 72.58 kg Radha Saúl DO Work Phone: [facility] 08-06-2023 16:00-0500 Diastolic blood pressure 85 mm[Hg] Radha Saúl DO Work Phone: [facility] 08-06-2023 16:00-0500 Heart rate 112 /min Radha Saúl DO Work Phone: [facility] 08-06-2023 16:00-0500 Systolic blood pressure 137 mm[Hg] Radha Saúl DO Work Phone: [facility] 07-25-2023 10:13-0500 Body height 175.3 cm Mireille Simpson WOOD HANDLER.HALL MANAGER Work Phone: [facility] 07-25-2023 10:13-0500 Body weight 72.58 kg Mireille Simpson WOOD HANDLER.HALL MANAGER Work Phone: [facility] 07-25-2023 10:13-0500 Diastolic blood pressure 90 mm[Hg] Mireille Simpson WOOD HANDLER.HALL MANAGER Work Phone: [facility] 07-25-2023 10:13-0500 Heart rate 106 /min Mireille Simpson WOOD HANDLER.HALL MANAGER Work Phone: [facility] 07-25-2023 10:13-0500 Systolic blood pressure 124 mm[Hg] Mireille Simpson WOOD HANDLER.HALL MANAGER Work Phone: [facility] 07-23-2023 13:41-0500 Body height 175.3 cm Radha Saúl DO Work Phone: [facility] 07-23-2023 13:41-0500 Body weight 72.58 kg Radha Saúl DO Work Phone: [facility] 07-23-2023 13:41-0500 Diastolic blood pressure 99 mm[Hg] Radha Saúl DO Work Phone: [facility] 07-23-2023 13:41-0500 Heart rate 105 /min Radha Saúl DO Work Phone: [facility] 07-23-2023 13:41-0500 Systolic blood pressure 130 mm[Hg] Radha Hays DO Work Phone: [facility] 07-03-2023 08:44-0400 Diastolic blood pressure 94 mm[Hg] Andra Francois WOOD HANDLER.HALL MANAGER Work Phone: [facility] 07-03-2023 08:44-0400 Heart rate 126 /min Andra Francois WOOD HANDLER.HALL MANAGER Work Phone: [facility] 07-03-2023 08:44-0400 Systolic blood pressure 142 mm[Hg] Andra Francois WOOD HANDLER.HALL MANAGER Work Phone: [facility] 07-03-2023 08:19-0400 Body height 172.7 cm Andra Francois WOOD HANDLER.HALL MANAGER Work Phone: [facility] 07-03-2023 08:19-0400 Body temperature 97.3 [degF] Andra Francois WOOD HANDLER.HALL MANAGER Work Phone: [facility] 07-03-2023 08:19-0400 Body weight 73.71 kg Andra Francois WOOD HANDLER.HALL MANAGER Work Phone: [facility] 07-03-2023 08:19-0400 SaO2% (BldA) [Mass fraction] 99 % Andra Francois WOOD HANDLER.HALL MANAGER Work Phone: [facility] 05-24-2023 13:29-0400 Body height 175.3 cm Roland Blanco MD Work Phone: [facility] 05-24-2023 13:29-0400 Body weight 72.58 kg Roland Blanco MD Work Phone: [facility] 05-24-2023 13:29-0400 Respiratory rate 16 /min Roland Blanco MD Work Phone: [facility] 05-22-2023 10:49-0400 Body height 175.3 cm Roland Blanco MD Work Phone: [facility] 05-22-2023 10:49-0400 Body weight 72.58 kg Roland Blanco MD Work Phone: [facility] 05-22-2023 10:49-0400 Respiratory rate 16 /min Roland Blanco MD Work Phone: [facility] 05-18-2023 04:36-0400 Body temperature 98.71 [degF] Zuhair Mudrakola DO Work Phone: [facility] 05-18-2023 04:36-0400 Diastolic blood pressure 100 mm[Hg] Zuhair Mudrakola DO Work Phone: [facility] 05-18-2023 04:36-0400 Heart rate 158 /min Zuhair Beccarakola DO Work Phone: [facility] 05-18-2023 04:36-0400 Respiratory rate 20 /min Zuhair Beccarakola DO Work Phone: [facility] 05-18-2023 04:36-0400 SaO2% (BldA) [Mass fraction] 98 % Zuhair Beccarakola DO Work Phone: [facility] 05-18-2023 04:36-0400 Systolic blood pressure 151 mm[Hg] Zuhair Mudrakola DO Work Phone: [facility] 04-22-2023 01:17-0400 Heart rate 96 /min Magy Webster DO Work Phone: [facility] 04-22-2023 00:51-0400 Body height 175.3 cm Magy Doddy DO Work Phone: [facility] 04-22-2023 00:51-0400 Body mass index (BMI) [Ratio] 23.63 kg/m2 Magy Thompsonffey DO Work Phone: [facility] 04-22-2023 00:51-0400 Body temperature 97.81 [degF] Magy Thompsonffey DO Work Phone: [facility] 04-22-2023 00:51-0400 Body weight 72.58 kg Magy Doddy DO Work Phone: [facility] 04-22-2023 00:51-0400 Diastolic blood pressure 100 mm[Hg] Magy Webster DO Work Phone: [facility] 04-22-2023 00:51-0400 Respiratory rate 18 /min Magy Webster DO Work Phone: [facility] 04-22-2023 00:51-0400 SaO2% (BldA) [Mass fraction] 99 % Magy Webster DO Work Phone: [facility] 04-22-2023 00:51-0400 Systolic blood pressure 132 mm[Hg] Magy Webster DO Work Phone: [facility] 12-17-2022 22:28-0400 Diastolic blood pressure 80 mm[Hg] Kelton Powers MD Work Phone: [facility] 12-17-2022 22:28-0400 Systolic blood pressure 136 mm[Hg] Kelton Powers MD Work Phone: [facility] 12-17-2022 18:23-0400 Body height 172.7 cm Kelton Powers MD Work Phone: [facility] 12-17-2022 18:23-0400 Body temperature 98.6 [degF] Kelton Powers MD Work Phone: [facility] 12-17-2022 18:23-0400 Body weight 71.67 kg Kelton Powers MD Work Phone: [facility] 12-17-2022 18:23-0400 Heart rate 101 /min Kelton Powers MD Work Phone: [facility] 12-17-2022 18:23-0400 Respiratory rate 16 /min Kelton Powers MD Work Phone: [facility] 12-17-2022 18:23-0400 SaO2% (BldA) [Mass fraction] 99 % Kelton Powers MD Work Phone: [facility] 11-03-2022 09:29-0500 Diastolic blood pressure 96 mm[Hg] [facility] 11-03-2022 09:29-0500 Heart rate 110 /min [facility] 11-03-2022 09:29-0500 Respiratory rate 15 /min [facility] 11-03-2022 09:29-0500 SaO2% (BldA) [Mass fraction] 99 % [facility] 11-03-2022 09:29-0500 Systolic blood pressure 122 mm[Hg] [facility] 11-03-2022 09:20-0500 Body height 175.26 cm [facility] 11-03-2022 09:20-0500 Body mass index (BMI) [Ratio] 23.7 kg/m2 [facility] 11-03-2022 09:20-0500 Body temperature 97.9 [degF] [facility] 11-03-2022 09:20-0500 Body weight 72.91 kg [facility] 10-01-2022 20:19-0500 SaO2% (BldA) [Mass fraction] 100 % Roland Coley MD Work Phone: [facility] 10-01-2022 20:11-0500 Body height 175.3 cm Roland Coley MD Work Phone: [facility] 10-01-2022 20:09-0500 Diastolic blood pressure 91 mm[Hg] Roland Coley MD Work Phone: [facility] 10-01-2022 20:09-0500 Heart rate 113 /min Roland Coley MD Work Phone: [facility] 10-01-2022 20:09-0500 Respiratory rate 16 /min Roland Coley MD Work Phone: [facility] 10-01-2022 20:09-0500 Systolic blood pressure 142 mm[Hg] Roland Coley MD Work Phone: [facility] 10-01-2022 18:55-0500 Body mass index (BMI) [Ratio] 24.22 kg/m2 Roland Coley MD Work Phone: [facility] 10-01-2022 18:55-0500 Body temperature 98.01 [degF] Roland Coley MD Work Phone: [facility] 10-01-2022 18:55-0500 Body weight 74.39 kg Roland Coley MD Work Phone: [facility] 09-18-2022 13:01-0500 Body height 175.3 cm Andra Francois WOOD HANDLER.HALL MANAGER Work Phone: [facility] 09-18-2022 13:01-0500 Body weight 74.39 kg Andra Francois WOOD HANDLER.HALL MANAGER Work Phone: [facility] 09-18-2022 13:01-0500 Diastolic blood pressure 90 mm[Hg] Andra Francois WOOD HANDLER.HALL MANAGER Work Phone: [facility] 09-18-2022 13:01-0500 Heart rate 112 /min Andra Francois WOOD HANDLER.HALL MANAGER Work Phone: [facility] 09-18-2022 13:01-0500 SaO2% (BldA) [Mass fraction] 99 % Andra Francois WOOD HANDLER.HALL MANAGER Work Phone: [facility] 09-18-2022 13:01-0500 Systolic blood pressure 142 mm[Hg] Andra Francois WOOD HANDLER.HALL MANAGER Work Phone: [facility] 06-28-2022 23:15-0400 Heart rate 115 /min Saskia Mcguire MD Work Phone: [facility] 06-28-2022 23:15-0400 Respiratory rate 16 /min Saskia Mcguire MD Work Phone: [facility] 06-28-2022 23:15-0400 SaO2% (BldA) [Mass fraction] 100 % Saskia Mcguire MD Work Phone: [facility] 06-28-2022 23:00-0400 Diastolic blood pressure 107 mm[Hg] Saskia Mcguire MD Work Phone: [facility] 06-28-2022 23:00-0400 Systolic blood pressure 154 mm[Hg] Saskia Mcguire MD Work Phone: [facility] 06-28-2022 21:19-0400 Body height 175.3 cm Saskia Mcguire MD Work Phone: [facility] 06-28-2022 21:19-0400 Body mass index (BMI) [Ratio] 23.63 kg/m2 Saskia Mcguire MD Work Phone: [facility] 06-28-2022 21:19-0400 Body temperature 98.01 [degF] Saskia Mcguire MD Work Phone: [facility] 06-28-2022 21:19-0400 Body weight 72.58 kg Saskia Mcguire MD Work Phone: [facility] 01-18-2022 11:48-0400 Diastolic blood pressure 80 mm[Hg] Andra Francois WOOD HANDLER.HALL MANAGER Work Phone: [facility] 01-18-2022 11:48-0400 Heart rate 104 /min Andra Francois WOOD HANDLER.HALL MANAGER Work Phone: [facility] 01-18-2022 11:48-0400 Systolic blood pressure 132 mm[Hg] Andra Francois WOOD HANDLER.HALL MANAGER Work Phone: [facility] 01-18-2022 11:23-0400 Body height 175.3 cm Andra Francois WOOD HANDLER.HALL MANAGER Work Phone: [facility] 01-18-2022 11:23-0400 Body temperature 98.2 [degF] Andra Francois WOOD HANDLER.HALL MANAGER Work Phone: [facility] 01-18-2022 11:23-0400 Body weight 85.32 kg Andra Francois WOOD HANDLER.HALL MANAGER Work Phone: [facility] 01-18-2022 11:23-0400 SaO2% (BldA) [Mass fraction] 99 % Andra Francois WOOD HANDLER.HALL MANAGER Work Phone: [facility] 12-12-2021 12:57-0400 Diastolic blood pressure 76 mm[Hg] Julisa Ji DO Work Phone: [facility] 12-12-2021 12:57-0400 Heart rate 96 /min Julisa Ji DO Work Phone: [facility] 12-12-2021 12:57-0400 Systolic blood pressure 136 mm[Hg] Julisa Ji DO Work Phone: [facility] 12-05-2021 14:46-0400 Body weight 89.47 kg Jessica Pillai MD Work Phone: [facility] 12-05-2021 14:46-0400 Diastolic blood pressure 100 mm[Hg] Jessica Pillai MD Work Phone: [facility] 12-05-2021 14:46-0400 Systolic blood pressure 122 mm[Hg] Jessica Pillai MD Work Phone: [facility] 11-30-2021 01:26-0400 Body temperature 97.9 [degF] Stefano Gonzalez MD Work Phone: [facility] 11-30-2021 01:26-0400 Diastolic blood pressure 110 mm[Hg] Stefano Gonzalez MD Work Phone: [facility] 11-30-2021 01:26-0400 Heart rate 125 /min Stefano Gonzalez MD Work Phone: [facility] Comment on above: Patient states that 120's is her normal due to her POTS 11-30-2021 01:26-0400 Respiratory rate 18 /min Stefano Gonzalez MD Work Phone: [facility] 11-30-2021 01:26-0400 SaO2% (BldA) [Mass fraction] 100 % Stefano Gonzalez MD Work Phone: [facility] 11-30-2021 01:26-0400 Systolic blood pressure 155 mm[Hg] Stefano Gonzalez MD Work Phone: [facility] 06-09-2021 07:30-0400 Body temperature 98.01 [degF] Halima Rasheed MD Work Phone: [facility] Work Phone: 06-09-2021 07:30-0400 Diastolic blood pressure 92 mm[Hg] Halima Rasheed MD Work Phone: [facility] Work Phone: 06-09-2021 07:30-0400 Heart rate 120 /min Halima Rasheed MD Work Phone: [facility] Work Phone: 06-09-2021 07:30-0400 Respiratory rate 16 /min Halima Rasheed MD Work Phone: [facility] Work Phone: 06-09-2021 07:30-0400 SaO2% (BldA) [Mass fraction] 100 % Halima Rasheed MD Work Phone: [facility] Work Phone: 06-09-2021 07:30-0400 Systolic blood pressure 154 mm[Hg] Halima Rasheed MD Work Phone: [facility] Work Phone: 12-04-2020 00:32-0400 Body Temperature 98.01 [degF] Miles FLOOD Work Phone: 12-04-2020 00:32-0400 BP Diastolic 88 mm[Hg] Miles FLOOD Work Phone: 12-04-2020 00:32-0400 BP Systolic 141 mm[Hg] Miles FLOOD Work Phone: 12-04-2020 00:32-0400 Pulse (Heart Rate) 110 /min Miles FLOOD Work Phone: Comment on above: Dr Sierra notified - per pt her HR is a lways elevated due to anxiety and PTSD 12-04-2020 00:32-0400 Pulse Oximetry 99 % Miles FLOOD Work Phone: 12-04-2020 00:32-0400 Respiratory Rate 20 /min Miles FLOOD Work Phone: 12-03-2020 22:45-0400 BMI (Body Mass Index) 26.61 kg/m2 Miles [facility]LOOD Work Phone: 12-03-2020 22:45-0400 Body weight 79.38 kg Miles FLOOD Work Phone: 12-03-2020 22:45-0400 Height 172.7 cm Miles FLOOD Work Phone: Encounters Encounter Date Encounter Type Care Provider Facility Start: 07-13-2025 End: 07-13-2025 [facility] Facility:[facility] Start: 07-01-2025 End: 07-01-2025 Emergency department patient visit Jaiml Newberry MD Work Phone: [facility] Comment on above: Facial tic (Primary Dx) Start: 06-28-2025 End: 06-28-2025 ambulatory [facility] Facility:[facility] Start: 06-02-2025 End: 06-02-2025 ambulatory [facility] Facility:[facility] Start: 05-27-2025 End: 05-27-2025 Patient encounter procedure Gabino Jordan MD, PhD Work Phone: Neurology Comment on above: Seizure-like activit y (HCC) Start: 05-27-2025 End: 05-27-2025 ambulatory KELTON A HUDSON Facility:[facility] Start: 05-27-2025 End: 05-27-2025 Telephone encounter Gabino Jordan MD, PhD Work Phone: Neurology Comment on above: Medication Preauthor ization (PA for On[employer] ) Start: 05-26-2025 End: 05-26-2025 Office outpatient new 30 minutes Blayne Francis APRN.CNP Work Phone: Neurology Comment on above: Seizure-like activit y (HCC) (Primary Dx); Sleep apnea-like behavior; Postural dizziness with presyncope Start: 05-26-2025 End: 05-26-2025 ambulatory [facility] Facility:[facility] Start: 05-20-2025 End: 05-20-2025 ambulatory Jessica Hollingsworth MD Work Phone: [facility] Start: 05-20-2025 End: 05-20-2025 Patient encounter procedure Jessica Hollingsworth MD Work Phone: [facility] Comment on above: Not sleeping again Start: 05-19-2025 End: 05-19-2025 Office outpatient visit 25 minutes Kelton Powers MD Work Phone: [facility] [place] Comment on above: Irritant contact cole matitis due to plants, except food (Primary Dx); Dizziness and giddiness; Nonintractable headache, unspecified chronicity pattern, unspecified headache type; History of substance abuse (HCC); History of amphetamine abuse (HCC) Start: 05-19-2025 End: 05-19-2025 ambulatory KELTON POWERS Facility:[facility] Start: 05-18-2025 End: 05-18-2025 Patient encounter procedure [facility] Comment on above: Chronic pain of both shoulders (Primary Dx) Schizoaffective diso rder, bipolar type (HCC) (Primary Dx); Encounter for medication management; Weight gain due to medication; PTSD (post-traumatic stress disorder); Panic attacks Start: 05-18-2025 End: 05-18-2025 ambulatory [facility] Start: 05-13-2025 End: 05-13-2025 Patient encounter procedure [facility] Comment on above: Chronic pain of both shoulders (Primary Dx) Start: 05-13-2025 End: 05-13-2025 ambulatory Kelton Powers MD Work Phone: [facility] Comment on above: Nurse Triage Call Start: 05-10-2025 End: 05-10-2025 Office outpatient new 45 minutes Bre Gagnon MD Work Phone: Orthopaedics Comment on above: 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); Chronic pain of both shoulders Start: 05-10-2025 End: 05-10-2025 ambulatory KELTON POWERS Facility:[facility] Start: 05-10-2025 End: 05-10-2025 Subsequent hospital visit by physician Radio Spicer [facility] Work Phone: Radiology Comment on above: Bilateral shoulder p ain, unspecified chronicity [M25.511, M25.512] Start: 05-08-2025 End: 05-08-2025 Emergency department patient [facility] Facility:[facility] Start: 05-07-2025 End: 05-07-2025 Telemedicine consultation with patient Andra Parrish APRN.HALL MANAGER Work Phone: Family Medicine Start: 05-07-2025 End: 05-07-2025 ambulatory Andra Parrish APRN.HALL MANAGER Work Phone: Family Medicine Comment on above: Headache, unspecifie d headache type (Primary Dx); Postural dizziness with presyncope Start: 05-05-2025 End: 05-14-2025 Telephone encounter Jessica Hollingsworth MD Work Phone: [facility] Comment on above: Medication Problem Start: 05-04-2025 End: 05-04-2025 Refill Jessica Hollingsworth MD Work Phone: [facility] Comment on above: Refill Request Start: 05-03-2025 End: 05-03-2025 Patient encounter procedure Gretel Marquez PHILOSOPHY LECTURER Work Phone: [facility] Comment on above: Chronic pain of both shoulders (Primary Dx) Start: 05-03-2025 End: 05-03-2025 ambulatory Gretel Marquez PHILOSOPHY LECTURER Work Phone: [facility] Start: 04-28-2025 End: 05-06-2025 ambulatory Jessica Hollingsworth MD Work Phone: [facility] Start: 04-28-2025 End: 05-06-2025 Patient encounter procedure Jessica Hollingsworth MD Work Phone: [facility] Comment on above: Struggling with slee p Start: 04-28-2025 End: 04-30-2025 Evaluation and management of inpatient [facility] Start: 04-26-2025 End: 04-26-2025 Orders Only Bre Gagnon MD Work Phone: [facility] Comment on above: Pain (Primary Dx) Start: 04-24-2025 End: 04-24-2025 Emergency department patient visit Julisa Avaols DO Work Phone: [facility] Comment on above: Anxiety (Primary Dx) ; Schizophrenia, unspecified type (HCC); Insomnia, unspecified type Start: 04-23-2025 End: 04-24-2025 ambulatory [facility] [place] Start: 04-23-2025 End: 04-24-2025 Patient encounter procedure [facility] [place] Comment on above: Referral question Start: 04-21-2025 End: 04-21-2025 ambulatory [facility] Facility:[facility] Start: 04-21-2025 End: 04-21-2025 ambulatory [facility] Facility:[facility] Start: 04-21-2025 End: 04-21-2025 ambulatory [facility] Facility:[facility] Start: 04-07-2025 End: 04-07-2025 ambulatory [facility] Facility:[facility] Start: 02-02-2025 End: 02-02-2025 ambulatory [facility] Facility:[facility] Start: 01-18-2025 End: 01-18-2025 Emergency department patient visit Alba Doherty MD Work Phone: [facility] Comment on above: Laceration of left t humb without foreign body without damage to nail, initial encounter (Primary Dx) Start: 01-16-2025 End: 01-16-2025 Office outpatient visit 15 minutes Otilio Callejas APRN.HALL MANAGER Work Phone: Telemedicine Comment on above: Poison natalee dermatiti s (Primary Dx) Start: 01-16-2025 End: 01-16-2025 ambulatory OTILIO CALLEJAS Facility:[facility] Start: 12-22-2024 End: 12-22-2024 [facility] Ani Batista MD Work Phone: [facility] Comment on above: Encounter for medica tion management; Schizoaffective disorder, bipolar type (HCC); PTSD (post-traumatic stress disorder); Panic attacks; Drug induced akathisia Start: 11-23-2024 End: 11-25-2024 ambulatory Ani Batista MD Work Phone: [facility] Start: 11-23-2024 End: 11-25-2024 Patient encounter procedure Ani Batista MD Work Phone: [facility] Comment on above: Up dosage Start: 11-21-2024 End: 11-21-2024 E-mail encounter from caregiver Malka Hernandez PA-C Work Phone: Telemedicine Start: 11-21-2024 End: 11-21-2024 Emergency department patient visit Rafa Armstrong MD Work Phone: [facility] Comment on above: Flu-like symptoms (P rimary Dx); Upper back pain; Rash and nonspecific skin eruption; Viral URI; POTS (postural orthostatic tachycardia syndrome) Start: 11-21-2024 End: 11-21-2024 ambulatory [facility] Facility:[facility] Start: 11-21-2024 End: 11-21-2024 Telemedicine consultation with patient Malka Hernandez PA-C Work Phone: Telemedicine Comment on above: Rash (Primary Dx) Start: 11-20-2024 End: 11-20-2024 Office outpatient new 45 minutes Sally Rdz PA-C Work Phone: [facility] [place] Comment on above: Myalgia (Primary Dx) ; Exposure to COVID-19 virus; Flu-like symptoms Start: 11-10-2024 End: 11-10-2024 ambulatory [facility] Facility:[facility] Start: 11-10-2024 End: 11-10-2024 Patient encounter procedure Ani Batista MD Work Phone: [facility] Comment on above: Schizoaffective diso rder, bipolar type (HCC) (Primary Dx); Encounter for medication management; PTSD (post-traumatic stress disorder); Panic attacks; Nicotine use disorder Start: 11-10-2024 End: 11-10-2024 Telephone encounter Ani Batista MD Work Phone: [facility] Comment on above: Appointment (Next vi sit 12/22) Start: 11-05-2024 End: 11-06-2024 Follow-up encounter Ronen Flaherty APRN.CNP Work Phone: [facility] [place] Comment on above: Mixed hyperlipidemia (Primary Dx) Start: 11-05-2024 End: 11-05-2024 ambulatory [facility] Facility:[facility] Start: 11-05-2024 Patient encounter procedure [facility] Start: 10-29-2024 End: 10-29-2024 [facility] Facility:[facility] Start: 10-29-2024 End: 10-29-2024 Patient encounter procedure Ronen Flaherty APRN.CNP Work Phone: [facility] Start: 10-29-2024 End: 10-29-2024 Periodic preventive med est patient 18-39 yrs Ronen Statwilberto WOOD HANDLER.HALL MANAGER Work Phone: [facility] [place] Comment on above: Annual physical exam (Primary Dx); Schizoaffective disorder, bipolar type (HCC); Other foreign body or object entering through skin, initial encounter; POTS (postural orthostatic tachycardia syndrome); Chronic pain of both shoulders Start: 10-28-2024 End: 10-28-2024 Orders Only Vinh Buchanan DO Work Phone: Cardiology Comment on above: POTS (postural ortho static tachycardia syndrome) (Primary Dx) Start: 10-27-2024 End: 10-27-2024 ambulatory [facility] Facility:[facility] Start: 10-27-2024 End: 10-27-2024 Patient encounter procedure Jessica Pillai MD Work Phone: Obstetrics/Gynecolog y Comment on above: Encounter for gyneco logical examination (general) (routine) without abnormal findings (Primary Dx) Start: 10-27-2024 End: 10-27-2024 Patient encounter status Jessica Pillai MD Work Phone: [facility] Work Phone: Start: 10-14-2024 End: 10-14-2024 Telephone encounter Kelton Powers MD Work Phone: [facility] [place] Comment on above: Patient Update (New assessment and care plan) No Show (1st Documen julio cesar no show ) Start: 08-07-2024 End: 08-07-2024 ambulatory KELTON Chin [facility] Facility:[facility] Start: 08-07-2024 End: 08-07-2024 Patient encounter procedure Ani Batista MD Work Phone: [facility] Comment on above: Schizoaffective diso rder, bipolar type (HCC) (Primary Dx); Encounter for medication management; PTSD (post-traumatic stress disorder); Panic attacks; Nicotine use disorder Start: 08-04-2024 ambulatory KELTON POWERS Faci lity:[facility] Start: 08-04-2024 End: 08-04-2024 Telephone encounter Ani Batista MD Work Phone: [facility] Comment on above: Appointment Start: 07-22-2024 End: 07-22-2024 ambulatory KELTON Chin [facility] Facility:[facility] Start: 07-22-2024 End: 07-22-2024 Telemedicine consultation with patient Luis Crawford APRN.HALL MANAGER Work Phone: Telemedicine Comment on above: Subconjunctival hemo rrhage of right eye (Primary Dx); Bacterial conjunctivitis Start: 07-20-2024 End: 07-20-2024 ambulatory KELTON Chin [facility] Facility:[facility] Start: 07-20-2024 End: 07-20-2024 Telemedicine consultation with patient Sourav Leodan COTTONHALL MANAGER Work Phone: Telemedicine Comment on above: Bacterial conjunctiv itis (Primary Dx) Start: 07-03-2024 End: 07-07-2024 ambulatory Ani Batista MD Work Phone: [facility] Start: 07-03-2024 End: 07-07-2024 Patient encounter procedure Ani Batista MD Work Phone: [facility] Comment on above: Medication before ap pointment Start: 07-02-2024 End: 07-02-2024 ambulatory KELTON POWERS Facility:[facility] Start: 07-02-2024 End: 07-02-2024 Patient encounter procedure Roland Blanco MD Work Phone: [facility] Orthopedics Comment on above: Closed displaced fra cture of shaft of right clavicle with routine healing, subsequent encounter (Primary Dx); Other closed intra-articular fracture of distal end of left radius with routine healing, subsequent encounter Start: 06-29-2024 End: 06-29-2024 Telephone encounter Ani Batista MD Work Phone: [facility] Comment on above: Appointment Start: 04-21-2024 ambulatory KELTON A PRIYA Faci lity:[facility] Start: 04-21-2024 End: 04-21-2024 Subsequent hospital visit by physician [facility] Comment on above: Sternum pain [R07.89 ] Start: 04-20-2024 End: 04-20-2024 Office outpatient visit 25 minutes Siva Gunter APRN.HALL MANAGER Work Phone: [facility] Comment on above: Viral upper respirat ory tract infection with cough (Primary Dx); Sternum pain Start: 02-16-2024 End: 02-16-2024 Emergency department patient visit Roland Yung MD Work Phone: [facility] Comment on above: Leg laceration, left , initial encounter (Primary Dx) Start: 01-19-2024 End: 01-19-2024 Subsequent hospital visit by physician [facility] Radiology Comment on above: Arrived Start: 01-19-2024 End: 01-19-2024 Emergency department patient visit Maximo Segura MD Work Phone: [facility] Start: 01-15-2024 Telephone encounter Blayne aguilera [facility] Work Phone: [facility] Comment on above: Results (Genetic Sussy t Results - Negative) Start: 12-30-2023 End: 12-30-2023 ambulatory [facility] Facility:[facility] Start: 12-18-2023 End: 12-18-2023 ambulatory Blayne Dong [facility] Work Phone: [facility] Comment on above: Family history of co miguel cancer (Primary Dx); Family history of breast cancer; Tubular adenoma of colon Start: 12-18-2023 End: 12-18-2023 Telemedicine consultation with patient Blayne Dong [facility] Work Phone: [facility] Start: 12-04-2023 Telephone encounter Ani blanchard MD Work Phone: [facility] Start: 12-03-2023 End: 12-03-2023 [facility] Ani Batista MD Work Phone: [facility] Comment on above: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 05-08-2023 Are you deaf, or do you have serious difficulty hearing No 05/08/2023 1:34 PM Katina Moon, ALEXA No [facility] 05-08-2023 Are you blind, or do you have serious difficulty seeing, even when wearing glasses No 05/08/2023 1:34 PM Katina Moon RN No [facility] 05-08-2023 Do you have serious difficulty walking or climbing stairs No 05/08/2023 1:34 PM Katina Moon, ALEXA No [facility] 05-08-2023 Do you have difficul ty dressing or bathing Yes 05/08/2023 1:34 PM Katina Moon, ALEXA Yes [facility] 05-08-2023 Because of a physica l, mental, or emotional condition, do you have difficulty doing errands alone such as visiting a physician's office or shopping Yes 05/08/2023 1:34 PM EDKatina Ramos, ALEXA Yes [facility] Mental Status Date Assessment Result Facility 05-08-2023 Because of a physica l, mental, or emotional condition, do you have serious difficulty concentrating, remembering, or making decisions No 05/08/2023 1:34 PM EDT Katina Neumann, ALEXA No [facility] 11-03-2022 Cognitive function Level Of Cons ciousness Awake;Alert;Appropriate [facility] Work Phone: Clinical Notes 06-28-2021 to 07-15-2025 Discharge InstructionsTrupti Barros RN - 07/01/2025 7:12 PM EDUlysses Barros RN - 07/01/2025 7:12 PM EDTGsonya Newberry MD - 07/01/2025 6:25 PM EDTPatient Instructions Note Date & Type Note Facility 07-15-2025 Note HNO ID: [id number] Author: KATHYA SARABIA PT, DPT Service: ? Author Type: Physical Therapist Type: Progress Notes Filed: 07/15/2025 13:40 Note Text: 07/15/2025 [facility] PHYSICAL THERAPY DISCONTINUANCE OF CARE Plan of Care Period: Start of Care Date: 04/21/25 Last Visit Date: 05/18/2025 Therapy Program: The following is a summary of the interventions provided for this episode of care; Therapeutic exercise and Manual therapy Assessment: Based on most recent visit, patient was progressing as expected toward functional goals based on pain levels. Unable to formally assess goal achievement, as patient has not returned to therapy or scheduled additional follow-up appointments. Reason for Discontinuation of Care: Patient has not returned to therapy or scheduled additional follow-up appointments. Kathya Sarabia PT, DPT [facility] 07-01-2025 Hospital Discharge instructions Jamil Newberry MD - 07/01/2025 8:49 PM EDT Recommend that you continue all current medications. At this point in time it does not appear that this secondary to the lithium or your electrolytes. Do not believe CT of the head is indicated. Could still be related to medications. Would recommend that you continue all current medications but follow-up with your neurologist. Return here if any problems or concerns. documented in this encounter [facility] 07-01-2025 Emergency department Note Speech improving and less facial droop left side of mouth. [facility] 07-01-2025 Emergency department Note Speech improving and less facial droop left side of mouth. [facility] ED EMERGENCY DEPARTMENT ENCOUNTER Pt Name: Pranay Reyes Birthdate 1995 Date of evaluation: 07/01/2025 Provider: Jamil Newberry MD CHIEF COMPLAINT Chief Complaint Patient presents with Facial Droop Left side noted 15 min ago HISTORY OF PRESENT ILLNESS (Location/Symptom, Timing/Onset,Context/Setting, Quality, Duration, Modifying Factors, Severity) Note limiting factors. Pranay Reyes is a 30 y.o. female who presents to the emergency department with twitching of her face she feels numbness around her mouth both sides. Then feels like her lower lip is pulling to the left and almost spasming. Started about 15 minutes prior to arrival. She denies headache denies fevers chills denies cough cold congestion. She says her mouth pulling to the side says she feels like it is hard for her to talk. Patient does have a history of schizophrenia personality disorder anxiety posterior neck stress disorder she is being worked up for seizures. She did have a CTA head and neck and CT of the head in late April. She is scheduled have a EEG. Seeing neurology. She is on lithium. No recent change in the medication. No trauma she has not fallen. HPI Historian is the patient Nurse's notes for past medical history, surgical history, social history were reviewed. Medications and allergies reviewed. PAST MEDICAL HISTORY Medical History[1] SURGICALHISTORY Surgical History[2] CURRENT MEDICATIONS Previous Medications ALBUTEROL 108 (90 BASE) MCG/ACT INHALER Inhale 2 puffs every 4 hours as needed for wheezing. BREXPIPRAZOLE (REXULTI) 2 MG TABLET Take 2 mg by mouth daily. HUMIDIFIERS (COOL MIST HUMIDIFIER 0.8 GAL) MISC 1 ampule daily. MELATONIN FAST DISSOLVE PO Take 10 tablets by mouth Nightly. Sometimes takes up to 20 mg, but doesn't help with sleep METFORMIN XR (GLUCOPHAGE-XR) 500 MG 24 HR TABLET Take 500 mg by mouth every morning. Do not crush, chew, or split. QUETIAPINE (SEROQUEL) 50 MG TABLET Take 1 tablet (50 mg) by mouth Nightly. TRAZODONE (DESYREL) 50 MG TABLET Take 1 tablet (50 mg) by mouth Nightly as needed for sleep. Escitalopram, Avocado, Bupropion, Codeine, and Wound dressing adhesive FAMILY HISTORY Family History[3] SOCIAL HISTORY Social History[4] SCREENINGS PHYSICAL EXAM (up to 7 for level 4, 8 or more for level 5) @EDTRIAGEVSS@ Appropriate PPE including n 95, gown, gloves, goggles where worn when appropriate with this patient. Physical Exam General She appears anxious but alert and appropriate. She has no facial drooping. Talking to her at times she will have her lip pulled to the side but it almost is like a spasm or a twitch. It is not drooping. She is able to smile. Wrinkle her forehead. Strength sensation intact gait steady. NIH equals 0. Heart is regular. Lungs are clear. Skin no rash or lesions. DIAGNOSTIC RESULTS RADIOLOGY: Interpretation per the Radiologist below, if availableat the time of this note: No orders to display ED BEDSIDE ULTRASOUND: Performed by ED Physician - none LABS: Labs Reviewed LITHIUM - Abnormal Result Value LITHIUM <0.10 (*) Narrative: Values greater than 1.5 mmol/L at 12 hours post dose indicate a significant risk of toxicity. It is recommended that the maximum serum lithium level that should ideally never be exceeded is 1.0 - 1.2 mmol/L. CBC WITH AUTO DIFFERENTIAL - Abnormal Auto WBC 7.8 RBC 4.81 Hemoglobin 14.9 Hematocrit 41.6 MCV 86.5 MCH 31.0 MCHC 35.8 RDW 11.4 (*) Platelets 331 MPV 9.9 nRBC 0.0 Neutrophils Relative 62.3 Lymphocytes Relative 28.2 Monocytes Relative 7.3 Eosinophils Relative 1.1 Basophils Relative 0.8 Immature Grans % 0.3 Neutrophils Absolute 4.9 Lymphocytes Absolute 2.2 Monocytes Absolute 0.6 Eosinophils Absolute 0.1 Basophils Absolute 0.1 Immature Grans Absolute 0.0 BASIC METABOLIC PANEL - Normal SODIUM 138 POTASSIUM 3.7 CHLORIDE 105 CARBON DIOXIDE 22 UREA NITROGEN 11 CREATININE 0.82 GLUCOSE 89 CALCIUM 9.6 ANION GAP 11 eGFR >90.0 POCT GLUCOSE METER UNSOLICITED RESULTS - Normal Glucose 100 Narrative: Performed by: Remigio Mercado, [address] [place] [address] CLIA ID: [id number] All other labs were within normal range or not returned as of thisdictation. EMERGENCYDEPARTMENT COURSE and DIFFERENTIAL DIAGNOSIS/MDM: Vitals: Vitals: 07/01/25 1828 BP: (!) 141/95 BP Location: Right arm Patient Position: Sitting Pulse: (!) 103 Resp: 16 Temp: 36.6 C (97.8 F) TempSrc: Temporal SpO2: 100% Weight: 86.2 kg (190 lb) Height: 1.727 m (5' 8) Medical Decision Making Problems Addressed: Facial tic: complicated acute illness or injury Amount and/or Complexity of Data Reviewed Labs: ordered. EMERGENCY DEPARTMENT COURSE and DIFFERENTIAL DIAGNOSIS/MDM: Vitals: Vitals: 07/01/25 1828 BP: (!) 141/95 BP Location: Right arm Patient Position: Sitting Pulse: (!) 103 Resp: 16 Temp: 36.6 C (97.8 F) TempSrc: Temporal SpO2: 100% Weight: 86.2 kg (190 lb) Height: 1.727 m (5' 8) The patient presented with a chief complaint of facial drooping. The differential diagnosis associated with this patient's presentation includes stroke lithium toxicity, anxiety, focal seizure, medication side effect. Our workup consisted of ordering/reviewing blood work. [place] level is a send out. Glucose is normal normal white blood cell count. CT head and CTA head and neck were reviewed. I do not believe repeat CT is needed. Do not believe this is stroke. Patient was given Ativan by my partner prior to arrival. She says she feels better. ED Course as of 07/01/252049 [facility] Jul 01, [address] head wo IV contrast (05/08/25 1630) Prior medical records were reviewed: nad [NM] 1829 CTA HEAD W IV CONTRAST (05/08/25 1630) Prior medical records were reviewed: nad [NM] 1830 [facility], EXTERNAL (05/08/25 1540) Prior medical records were reviewed: normal [NM] 1928 Normal glucose. Normal white blood cell count. Normal hemoglobin. [GS] 2031 [place] level is low. [GS] 2040 Normal sodium potassium. [GS] 2046 Patient is neurologically intact. I do not believe this is Motta's palsy do not believe this is CVA. Certainly could be medication side effect but her lithium level is not toxic. Recommend that she continue his current medications and follows up with her neurologist. Return here if any problems or concerns. NIH is 0. [GS] ED Course User Index [GS] Jamil Newberry MD [NM] Bob Stewart MD Diagnoses as of 07/01/252049 Facial tic Diagnostics considered but not indicated based on history, physical, testing: CT head however not clinical indicated based on history and physical External records reviewed: Outpatient records reviewed questionable seizure-like activity seen 05/27/2025 by neurology scheduled for outpatient EEG. She does have a history of migraines seen 05/08/2025 she was admitted [facility] for hallucinations 04/28/2025 Radiologic diagnostics interpreted by me: film images such as CT, Ultrasound and MRI are read by the radiologist. Plain radiographic images are visualized and preliminarily interpreted by the emergency physician with the below findings: None Discussions with other clinicians: None Chronic conditions impacting care: Schizophrenia borderline personality disorder anxiety [place] stress disorder seizure-like activity auditory hallucinations Social determinants of health affecting care: Former smoker she does vape Shared decision making: Patient agrees to treatment plan ED Medications managed: Medications LORazepam (Ativan) injection 1 mg (1 mg IntraVENous Given 07/01/25 185) Prescription drugs prescribed: PROCEDURES: Unless otherwise noted below, none Procedures IMPRESSION 1. Facial tic DISPOSITION/PLAN DISPOSITION Discharge 07/01/2025 08:49:24 PM PATIENT REFERRED TO: Gabino Jordan [address] [facility] [address] In 1 week Kelton Powers MD [address] [facility] [id number] In 1 week DISCHARGE MEDICATIONS: New Prescriptions No medications on file @[facility]([phone]:LAST:1)@ (Comment: Please notethis report has been produced using speech recognition software and may contain errors related to that system including errors in grammar, punctuation, and spelling, as well as words and phrases that may be inappropriate.If there is any questions or concerns please feel free to contact the dictating provider for clarification). Jamil Newberry MD (electronically signed) Attending Emergency Physician [1] Past Medical History: Diagnosis Date Anxiety Borderline personality disorder (HCC) Depression Kidney stone POTS (postural orthostatic tachycardia syndrome) PTSD (post-traumatic stress disorder) Schizophrenia (HCC) UTI (urinary tract infection) [2] Past Surgical History: Procedure Laterality Date SECTION (HISTORICAL) CYST REMOVAL 02/2019 Left ovary ENDOMETRIAL ABLATION HEMORRHOID SURGERY TUBAL LIGATION [3] No family history on file. [4] Social History Socioeconomic History Marital status: Single Tobacco Use Smoking status: Former Current packs/day: 0.00 Average packs/day: 1 pack/day for 12.6 years (12.6 ttl pk-yrs) Types: Cigarettes Start date: 2012 Quit date: 01/14/2025 Years since quittin.4 Smokeless tobacco: Never Tobacco comments: 04/29/25 Started smoking age 17, smoked 1 ppd. Quit 3.5 months ago, started vaping at that time. One pod lasts ~2 weeks. Vaping Use Vaping status: Every Day Start date: 01/14/2025 Substances: Nicotine Substance and Sexual Activity Alcohol use: Not Currently Drug use: Yes Frequency: 4.0 times per week Types: Marijuana Social Drivers of Health Financial Resource Strain: Patient Declined (04/29/2025) Overall Financial Resource Strain (CARDIA) Difficulty of Paying Living Expenses: Patient declined Food Insecurity: Patient Declined (04/29/2025) Hunger Vital Sign Worried About Running Out of Food in the Last Year: Patient declined Ran Out of Food in the Last Year: Patient declined Transportation Needs: No Transportation Needs (04/29/2025) PRAPARE - Transportation Lack of Transportation (Medical): No Lack of Transportation (Non-Medical): No Physical Activity: Patient Declined (04/29/2025) Exercise Vital Sign Days of Exercise per Week: Patient declined Minutes of Exercise per Session: Patient declined Stress: Patient Declined (04/29/2025) [employer] [place] [employer] - Occupational Stress Questionnaire Feeling of Stress : Patient declined Social Connections: Patient Declined (04/29/2025) Social Connection and Isolation Panel [NHANES] Frequency of Communication with Friends and Family: Patient declined Frequency of Social Gatherings with Friends and Family: Patient declined Attends Christian Services: Patient declined Active Member of Clubs or Organizations: Patient declined Attends Club or Organization Meetings: Patient declined Marital Status: Patient declined Intimate Partner Violence: Not At Risk (04/28/2025) Humiliation, Afraid, Rape, and Kick questionnaire Fear of Current or Ex-Partner: No Emotionally Abused: No Physically Abused: No Sexually Abused: No Housing Stability: Patient Declined (04/29/2025) Housing Stability Vital Sign Unable to Pay for Housing in the Last Year: Patient declined Homeless in the Last Year: Patient declined Jamil Newberry MD 07/01/252049 Pt to ER with complaint of left sided facial droop. Pt states sudden onset while she was standing in the kitchen . Happened about 15 min prior to arrival. Denies any pain or numbness, weakness. States it is hard for her to talk because she feels her mouth pulling to the side. Alert and oriented x 4. Answers questions appropriately. Steady gait. Moves all extremities. NIH performed by Dr. Stewart. BGT =100. Visitor @ bedside. Call light in reach. As [id number], I performed a medical screening history and physical exam on this patient. HISTORY OF PRESENT ILLNESS Reporting left lower lip spasm and pain. Symptoms are 15 minutes prior to arrival. No blurry vision,, no vision no numbness. She reports she is able to control it and then it will revert to spasming. No fever. She is on Rexulti, lithium, trazodone and something for seizure. She reports she has an EEG scheduled for seizure. She is seeing a neurologist. PHYSICAL EXAM Neurologic examination: Patient alert oriented x 3, cranial nerves II to XII intact. Able to overcome left lower lip spasm with symmetric smile and symmetric showing of teeth and gums. Motor examination is normal sensory examination is normal cerebellar examination is normal reflexes symmetric gait is intact.nih Stroke scale equals 0. MDM Possible muscle spasm, dystonia, medication side effect, hypoglycemia, arrhythmia ED Course as of 07/01/252048 [facility] Jul 01, [address] head wo IV contrast (05/08/25 1630) Prior medical records were reviewed: nad [NM] 1829 CTA HEAD W IV CONTRAST (05/08/25 1630) Prior medical records were reviewed: nad [NM] 1830 [facility] CMP, EXTERNAL (05/08/25 1540) Prior medical records were reviewed: normal [NM] 1928 Normal glucose. Normal white blood cell count. Normal hemoglobin. [GS] 2031 [place] level is low. [GS] 2040 Normal sodium potassium. [GS] 2046 Patient is neurologically intact. I do not believe this is Motta's palsy do not believe this is CVA. Certainly could be medication side effect but her lithium level is not toxic. Recommend that she continue his current medications and follows up with her neurologist. Return here if any problems or concerns. NIH is 0. [GS] ED Course User Index [GS] Jamil Newberry MD [NM] Bob Stewart MD Diagnoses as of 07/01/252048 Facial tic Medications LORazepam (Ativan) injection 1 mg (has no administration in time range) Labs Reviewed POCT GLUCOSE METER UNSOLICITED RESULTS - Normal Result Value Glucose 100 Narrative: Performed by: Remigio Mercado, [address] [place] [address] CLIA ID: [id number] LITHIUM CBC WITH AUTO DIFFERENTIAL See subsequent providers note for further care documented in this encounter [facility] 07-01-2025 Emergency department Triage note Pt to ER with complaint of left sided facial droop. Pt states sudden onset while she was standing in the kitchen . Happened about 15 min prior to arrival. Denies any pain or numbness, weakness. States it is hard for her to talk because she feels her mouth pulling to the side. Alert and oriented x 4. Answers questions appropriately. Steady gait. Moves all extremities. NIH performed by Dr. Stewart. BGT =100. Visitor @ bedside. Call light in reach. [facility] 07-01-2025 Emergency department Triage note As [id number], I performed a medical screening history and physical exam on this patient. HISTORY OF PRESENT ILLNESS Reporting left lower lip spasm and pain. Symptoms are 15 minutes prior to arrival. No blurry vision,, no vision no numbness. She reports she is able to control it and then it will revert to spasming. No fever. She is on Rexulti, lithium, trazodone and something for seizure. She reports she has an EEG scheduled for seizure. She is seeing a neurologist. PHYSICAL EXAM Neurologic examination: Patient alert oriented x 3, cranial nerves II to XII intact. Able to overcome left lower lip spasm with symmetric smile and symmetric showing of teeth and gums. Motor examination is normal sensory examination is normal cerebellar examination is normal reflexes symmetric gait is intact.nih Stroke scale equals 0. MDM Possible muscle spasm, dystonia, medication side effect, hypoglycemia, arrhythmia ED Course as of 07/01/252048 [facility] Jul 01, [id number] CT head wo IV contrast (05/08/25 1630) Prior medical records were reviewed: nad [NM] 1829 CTA HEAD W IV CONTRAST (05/08/25 1630) Prior medical records were reviewed: nad [NM] 1830 [facility] CMP, EXTERNAL (05/08/25 1540) Prior medical records were reviewed: normal [NM] 1928 Normal glucose. Normal white blood cell count. Normal hemoglobin. [GS] 2031 [place] level is low. [GS] 2040 Normal sodium potassium. [GS] 2046 Patient is neurologically intact. I do not believe this is Motta's palsy do not believe this is CVA. Certainly could be medication side effect but her lithium level is not toxic. Recommend that she continue his current medications and follows up with her neurologist. Return here if any problems or concerns. NIH is 0. [GS] ED Course User Index [GS] Jamil Newberry MD [NM] Bob Stewart MD Diagnoses as of 07/01/252048 Facial tic Medications LORazepam (Ativan) injection 1 mg (has no administration in time range) Labs Reviewed POCT GLUCOSE METER UNSOLICITED RESULTS - Normal Result Value Glucose 100 Narrative: Performed by: [employer], [address] [place] [address] CLIA ID: [id number] LITHIUM CBC WITH AUTO DIFFERENTIAL See subsequent providers note for further care [employer] Work Phone: 07-01-2025 Note As [id number], I performed a medical screening history and physical exam on this patient. HISTORY OF PRESENT ILLNESS Reporting left lower lip spasm and pain. Symptoms are 15 minutes prior to arrival. No blurry vision,, no vision no numbness. She reports she is able to control it and then it will revert to spasming. No fever. She is on Rexulti, lithium, trazodone and something for seizure. She reports she has an EEG scheduled for seizure. She is seeing a neurologist. PHYSICAL EXAM Neurologic examination: Patient alert oriented x 3, cranial nerves II to XII intact. Able to overcome left lower lip spasm with symmetric smile and symmetric showing of teeth and gums. Motor examination is normal sensory examination is normal cerebellar examination is normal reflexes symmetric gait is intact.nih Stroke scale equals 0. MDM Possible muscle spasm, dystonia, medication side effect, hypoglycemia, arrhythmia ED Course as of 07/01/252048 [facility] Jul 01, [id number] CT head wo IV contrast (05/08/25 1630) Prior medical records were reviewed: nad [NM] 1829 CTA HEAD W IV CONTRAST (05/08/25 1630) Prior medical records were reviewed: nad [NM] 1830 [employer] CMP, EXTERNAL (05/08/25 1540) Prior medical records were reviewed: normal [NM] 1928 Normal glucose. Normal white blood cell count. Normal hemoglobin. [GS] 2031 [place] level is low. [GS] 2040 Normal sodium potassium. [GS] 2046 Patient is neurologically intact. I do not believe this is Motta's palsy do not believe this is CVA. Certainly could be medication side effect but her lithium level is not toxic. Recommend that she continue his current medications and follows up with her neurologist. Return here if any problems or concerns. NIH is 0. [GS] ED Course User Index [GS] Jamil Newberry MD [NM] Bob Stewart MD Diagnoses as of 07/01/252048 Facial tic Medications LORazepam (Ativan) injection 1 mg (has no administration in time range) Labs Reviewed POCT GLUCOSE METER UNSOLICITED RESULTS - Normal Result Value Glucose 100 Narrative: Performed by: Remigio Mercado, [address] [place] [address] CLIA ID: [id number] LITHIUM CBC WITH AUTO DIFFERENTIAL See subsequent providers note for further care [facility] 07-01-2025 Physician Emergency department Note [facility] ED EMERGENCY DEPARTMENT ENCOUNTER Pt Name: Pranay Reyes Birthdate 1995 Date of evaluation: 07/01/2025 Provider: Jamil Newberry MD CHIEF COMPLAINT Chief Complaint Patient presents with Facial Droop Left side noted 15 min ago HISTORY OF PRESENT ILLNESS (Location/Symptom, Timing/Onset,Context/Setting, Quality, Duration, Modifying Factors, Severity) Note limiting factors. Pranay Reyes is a 30 y.o. female who presents to the emergency department with twitching of her face she feels numbness around her mouth both sides. Then feels like her lower lip is pulling to the left and almost spasming. Started about 15 minutes prior to arrival. She denies headache denies fevers chills denies cough cold congestion. She says her mouth pulling to the side says she feels like it is hard for her to talk. Patient does have a history of schizophrenia personality disorder anxiety posterior neck stress disorder she is being worked up for seizures. She did have a CTA head and neck and CT of the head in late April. She is scheduled have a EEG. Seeing neurology. She is on lithium. No recent change in the medication. No trauma she has not fallen. HPI Historian is the patient Nurse's notes for past medical history, surgical history, social history were reviewed. Medications and allergies reviewed. PAST MEDICAL HISTORY Medical History[1] SURGICALHISTORY Surgical History[2] CURRENT MEDICATIONS Previous Medications ALBUTEROL 108 (90 BASE) MCG/ACT INHALER Inhale 2 puffs every 4 hours as needed for wheezing. BREXPIPRAZOLE (REXULTI) 2 MG TABLET Take 2 mg by mouth daily. HUMIDIFIERS (COOL MIST HUMIDIFIER 0.8 GAL) MISC 1 ampule daily. MELATONIN FAST DISSOLVE PO Take 10 tablets by mouth Nightly. Sometimes takes up to 20 mg, but doesn't help with sleep METFORMIN XR (GLUCOPHAGE-XR) 500 MG 24 HR TABLET Take 500 mg by mouth every morning. Do not crush, chew, or split. QUETIAPINE (SEROQUEL) 50 MG TABLET Take 1 tablet (50 mg) by mouth Nightly. TRAZODONE (DESYREL) 50 MG TABLET Take 1 tablet (50 mg) by mouth Nightly as needed for sleep. Escitalopram, Avocado, Bupropion, Codeine, and Wound dressing adhesive FAMILY HISTORY Family History[3] SOCIAL HISTORY Social History[4] SCREENINGS PHYSICAL EXAM (up to 7 for level 4, 8 or more for level 5) @EDTRIAGEVSS@ Appropriate PPE including n 95, gown, gloves, goggles where worn when appropriate with this patient. Physical Exam General She appears anxious but alert and appropriate. She has no facial drooping. Talking to her at times she will have her lip pulled to the side but it almost is like a spasm or a twitch. It is not drooping. She is able to smile. Wrinkle her forehead.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 Places Lived in the Last Year: 3 Unstable Housing in the Last Year: Yes SCREENINGS PHYSICAL EXAM ED Triage Vitals [01/18/25 1328] Temp Heart Rate Resp BP 36.8 C (98.2 F) 98 18 (!) 160/106 SpO2 Temp Source Heart Rate Source Patient Position 97 % Temporal -- Sitting BP Location FiO2 (%) Right arm -- Physical Exam Well-appearing female in no acute distress. Vital signs reviewed and unremarkable. Patient has a 3 cm V-shaped laceration to the volar aspect of the left thumb overlying the distal portion of it. There is no active bleeding. Brisk capillary refill. Normal sensation of the radial, median ulnar nerve distribution of the hand. She is able to flex at the DIP and MCP joint of the thumb. No obvious foreign body. No obvious tendon laceration or bony injury. DIAGNOSTIC RESULTS RADIOLOGY (Per Emergency Physician): Interpretation per the Radiologist below, if available at the time of this note: XR fingers 2+ views left (Results Pending) LABS: Labs Reviewed - No data to display All other labs were within normal range or not returned as of this dictation. EMERGENCY DEPARTMENT COURSE and DIFFERENTIAL DIAGNOSIS/MDM: Vitals: Vitals: 01/18/25 1328 BP: (!) 160/106 BP Location: Right arm Patient Position: Sitting Pulse: 98 Resp: 18 Temp: 36.8 C (98.2 F) TempSrc: Temporal SpO2: 97% Weight: 83.9 kg (185 lb) Height: 1.753 m (5' 9) Medications lidocaine (Xylocaine) 1 % injection 10 mL (has no administration in time range) Medical Decision Making Amount and/or Complexity of Data Reviewed Radiology: ordered. Risk Prescription drug management. 29-year-old female presented emergency room today for thumb laceration. Afebrile hemodynamically stable. Laceration volar aspect of the thumb. Good range of motion. Neurovascular intact. X-ray imaging done to rule out foreign body and fracture which is normal per my interpretation. Tetanus is up-to-date. Wound washed out and laceration repair done. Patient educated on watching signs for infection. Sutures are absorbable, educated on wound care. Discharged in stable condition. Diagnostic tests considered but not performed: External records reviewed: Diagnostics interpreted by me: X-ray finger Discussions with other clinicians: Chronic conditions impacting care: Social determinants of health affecting care: ED Medications managed: Medications lidocaine (Xylocaine) 1 % injection 10 mL (has no administration in time range) Prescription drugs considered: I Alba Doherty MD am the paste up artist of record. FINAL IMPRESSION No diagnosis found. DISPOSITION PATIENT REFERRED TO: No follow-up provider specified. DISCHARGE MEDICATIONS: New Prescriptions No medications on file (Comment: Please note this report has been produced using speech recognition software and may contain errors related to that system including errors in grammar, punctuation, and spelling, as well as words and phrases that may be inappropriate. If there are any questions or concerns please feel free to contact the dictating provider for clarification.) Alba Doherty MD (electronically signed) Emergency Medicine Provider Alba Doherty MD 01/18/25 1342 Alba Doherty MD 01/18/25 1508 [facility] 01-18-2025 Physician Emergency department Note Associated Order(s): Laceration Repair Laceration Repair Performed by: Alba Doherty MD Authorized by: Alba Doherty MD Consent: Consent obtained: Verbal [place] protocol: Patient identity confirmed: Verbally with patient Anesthesia: Anesthesia method: Local infiltration Local anesthetic: Lidocaine 1% w/o epi Laceration details: Location: Finger Finger location: L thumb Length (cm): 3 Depth (mm): 7 Pre-procedure details: Preparation: Imaging obtained to evaluate for foreign bodies and patient was prepped and draped in usual sterile fashion Exploration: Imaging obtained: x-ray Imaging outcome: foreign body not noted Wound exploration: wound explored through full range of motion and entire depth of wound visualized Wound extent: no nerve damage noted, no tendon damage noted and no underlying fracture noted Contaminated: no Treatment: Area cleansed with: Shur-Clens and saline Amount of cleaning: Extensive Irrigation solution: Sterile saline Irrigation volume: 250cc Irrigation method: Pressure wash Skin repair: Repair method: Sutures Suture size: 4-0 Wound skin closure material used: monocryl. Suture technique: Simple interrupted Number of sutures: 13 Approximation: Approximation: Close Repair type: Repair type: Intermediate Post-procedure details: Dressing: Non-adherent dressing Procedure completion: Tolerated Alba Doherty MD 01/18/25 1509 [facility] 01-16-2025 Instructions Otilio Callejas APRN.SANTOS - 01/16/2025 5:16 PM EDT [facility] PATIENT INFO POISON NATALEE INTRODUCTION When the skin comes in direct contact with an irritating or allergy-causing substance, contact dermatitis can develop. Exposure to poison natalee, poison oak, and poison sumac cause more cases of allergic contact dermatitis than all other plant families combined. People of all ethnicities and skin types are at risk for developing poison natalee dermatitis. The severity of the reaction tends to decrease with age, especially in people who have had mild reactions in the past. People in occupations such as firefighting, forestry, and farming are at a higher risk of poison natalee dermatitis because of repeated exposure to toxic plants. POISON NATALEE CAUSES Poison natalee, poison oak, and poison sumac plants all contain a compound called urushiol, which is a light, colorless oil that is found on the fruit, leaves, stem, root, and sap of the plant. When urushiol is exposed to air, it turns brown and the plant leaves develop small black spots. There are several ways that you can be exposed to urushiol: By touching the sap or rubbing against the leaves of the toxic plant By touching something that has urushiol on it, such as animal fur or garden tools By breathing in smoke when toxic plants are burned Ginkgo fruit and the skin of mangoes also contain urushiol and can produce symptoms similar to poison natalee dermatitis. IDENTIFYING POISON NATALEE Leaves of three, let them be is a phrase often used to identify plants that cause poison natalee dermatitis. Generally, poison natalee and poison oak have three leaves with flowering branches on a single stem. Poison sumac has five, seven, or more leaves that angle upward toward the top of the stem. Some types of poison natalee produce a green or off-white fruit in [place], and in some cases, black dots form on the plants' leaves. It is not always possible to identify the plant by the leaves alone since the appearance can vary depending upon the season, growth cycle, region, and climate. Poison natalee, oak, and sumac plants grow in many areas across the [facility] and throughout the world. East of the [facility], poison natalee commonly grows as a climbing vine. In the [place] area and west, poison natalee tends to grow low to the ground as a shrub. Poison oak most often grows west of the [facility], and poison sumac inhabits boggy areas in the [facility] part of the [facility]. The plants are not usually found in areas at high elevations or in desert climates. POISON NATALEE SIGNS AND SYMPTOMS After contact with urushiol, approximately 50 percent of people develop signs and symptoms of poison natalee dermatitis. The symptoms and severity differ from person to person. The most common signs and symptoms of poison natalee dermatitis are: Intense itching Skin swelling Skin redness These symptoms usually develop within four hours to four days after exposure to the urushiol. After the initial symptoms, you will develop fluid-filled blisters in a line or streak-like pattern. The symptoms are worst within 1 to 14 days after touching the plant, but can develop up to 21 days later if you have never been exposed to urushiol before. The blisters can occur at different times in different people; blisters can develop on the arms several days after blisters on the hands developed. This does not mean that the reaction is spreading from one area of the body to the other. The fluid that leaks from blisters does not cause symptoms. Poison natalee dermatitis is not contagious and cannot be passed from person to person. However, urushiol can be carried under fingernails and on clothes; if another person comes in contact with the urushiol, they can develop poison natalee dermatitis. POISON NATALEE DIAGNOSIS Poison natalee is usually diagnosed based upon how your skin looks. Further testing is not usually necessary. POISON NATALEE TREATMENT Poison natalee dermatitis usually resolves within one to three weeks without treatment. Treatments that may help relieve the itching, soreness, and discomfort caused by poison natalee dermatitis include: Skin treatments -- For some people, adding oatmeal to a bath, applying cool wet compresses, and applying calamine lotion may help to relieve itching. Once the blisters begin weeping fluid, astringents containing aluminum acetate (Bandar's solution) and Domeboro may help to relieve the rash. Antihistamines -- Antihistamines may help to relieve itching caused by poison natalee dermatitis. Some antihistamines make you sleepy while others do not. Antihistamines that make you sleepy (eg, diphenhydramine [Benadryl ]) may be helpful if you have trouble sleeping due to itching. Other formulas (eg, loratadine [Claritin ], cetirizine [Zyrtec ]) may be preferable for daytime. Steroid creams -- Steroid creams may be helpful if they are used during the first few days after symptoms develop. Low potency steroid creams, such as 1 percent hydrocortisone (available in the [place] without prescription) are not usually helpful. A stronger prescription formula may be helpful. Steroids -- If you develop severe symptoms or the rash covers a large area (especially on the face or genitals), you may need steroid pills or injections (eg, prednisone) to help relieve itching and swelling. Pills are usually given for 14 to 21 days, with the dosage slowly decreased over time. Antibiotics -- Skin infections are a potential complication of poison natalee, especially if you scratch your skin. If you develop a skin infection because of poison natalee dermatitis, you may need antibiotics to treat the infection. Other treatments -- An herbal therapy called jewelweed extract has been used to treat poison natalee dermatitis, although it has not been proven effective. You should not use antihistamine creams or lotions, anesthetic creams containing benzocaine, or antibiotic creams containing neomycin or bacitracin to the skin. These creams or ointments could make the rash worse. POISON NATALEE PREVENTION The best way to prevent poison natalee dermatitis is to identify and avoid the plants that cause it. These plants can irritate the skin year round, even during the winter months, and can still cause a reaction years after the plant dies. Wear protective clothing, including long sleeves and pants when working in areas where toxic plants may be found. Keep in mind that the resin and oils from the toxic plants can be carried on clothing, pets, and under fingernails. Wear heavy-duty vinyl gloves when doing yard work or gardening. The oils from toxic plants can seep through latex or rubber gloves. After coming in contact with poison natalee, remove any contaminated clothing and gently wash (do not scrub or rub) you skin and under the fingernails with mild soap and water as soon as possible. Washing within two hours after exposure can reduce the likelihood and severity of symptoms; washing the skin after you have symptoms will not help. Creams and ointments that create a barrier between the skin and the urushiol oil may be somewhat effective for people who are frequently exposed to poison natalee. Bentoquatam (Natalee Block ) is one type of barrier cream that may prevent poison natalee dermatitis. It must be reapplied every four hours and it leaves a fili residue on the skin. Avoid burning poisonous vegetation, which can disperse the plant particles in the smoke, irritate the skin, and cause poison natalee dermatitis. documented in this encounter [facility] 01-16-2025 Note HNO ID: [id number] Author: OTILIO CALLEJAS APRN.SANTOS Service: ? Author Type: Nurse Practitioner Type: Progress Notes Filed: 01/16/2025 17:18 Note Text: Telemedicine Visit - Distance Health Virtual Visit Note Patient seen on lifeIO Video Visit platform. Location of patient: [place] I have communicated my name and active licensure. The patient's identity and physical location were verified at the time of this visit. Either the patient or their legal operations support representative has been informed of the risks and benefits of -- and alternatives to -- treatment through a remote evaluation and consents to proceed with the evaluation remotely. History of Present Illness Pranay Reyes is a 29 year old female presenting with a rash. History was obtained from: patient The rash is located to bilat arms (reports from wrists to upper arms), anterior right leg, and now on face (including eyelids) for the past few days and are worsening The rash is described as itchy. The prior dermatologic history includes similar rash in past. The patient reports recent yard work. Complains of no other pertinent symptoms. Denies no other pertinent symptoms. /Lactating: : No: Lactating: No. OTC meds/remedies that patient has tried antihistamine, calamine lotion, hydrocortisone PAST MEDICAL HISTORY Diagnosis Date Abdominal pain Adenomatous polyp Blood in urine Borderline personality disorder (HCC) Bruising Chest pain Constipation Dizziness Early satiety Fatigue Heart trouble History of medical problems Unspecified, Ovarian Cysts, Left History of weight change change in appetite and weight Indigestion Kidney stones Leg swelling Manic bipolar I disorder (HCC) Nausea Numbness and tingling Palpitations POTS (postural orthostatic tachycardia syndrome) Renal disorder kidney stones SOB (shortness of breath) Visual changes blurry vision in both eyes,and spouts of blindness PAST SURGICAL HISTORY Procedure Laterality Date BX OF BREAST; INCISIONAL Right 2023 benign SECTION HX x 2 1. suspected LGA 2. repeat CLAVICAL SURGERY COLONOSCOPY 05/01/2019 sigmoid polyp (tubular adenoma) COLONOSCOPY SCREENING 10/03/2023 Normal EGD 05/01/2019 normal HEMORRHOID SURGERY HX HEMORRHOIDECTOMY PAST SURGICAL HISTORY OF removal of left ovary and uterine ablation THERMAL ENDOMETRIAL ABLATION TUBAL LIGATION HX laparoscopic WRIST SURGERY HX Left 05/06/2023 FAMILY HISTORY Problem Relation Age of Onset other (migraine) Mother other (Intracranial Tumor) Sister sister,aunt,grandmother Ovarian cancer Paternal Grandmother Colon Cancer Paternal Grandfather Multiple Sclerosis Maternal Uncle maternal uncle,cousins Breast Cancer Paternal Aunt half-aunt through PGM Breast Cancer Paternal Aunt half-aunt through PGM other (Blood Clots) Other Cancer Other Diabetes Other other (Heart Trouble) Other other (Lung Disease) Other Stroke Other other (High Blood Pressure) Other Colon Cancer Paternal Uncle half-uncle through PGF Colon Cancer Paternal Uncle half-uncle through PGF Social History Tobacco Use Smoking status: Every Day Current packs/day: 0.50 Average packs/day: 0.5 packs/day for 9.0 years (4.5 ttl pk-yrs) Types: Cigarettes Smokeless tobacco: Never Tobacco comments: 09/17 ppd Vaping Use Vaping status: Never Used Substance Use Topics Alcohol use: Not Currently Drug use: Not Currently Types: Marijuana Comment: 10/03 currently denies ALLERGIES Allergen Reactions Lexapro [Escitalopr* Mental Status Change Adhesive Rash Avocado Oil Unknown Codeine Rash SOB Wellbutrin [Bupropi* Mental Status Change propranolol (INDERAL) 10 mg tablet Take 1 tablet by mouth two times a day. brexpiprazole (REXULTI) 2 mg tablet Take 1 tablet by mouth once daily. LORazepam (ATIVAN) 0.5 mg Take 1 tablet by mouth as needed (for panic attack, up to 5 times a month.) for up to 90 days. Video Exam (Examination performed via Video enabled technology) General appearance: Alert, oriented, pleasant, in NAD: Yes Ill appearing: No Lethargic appearing: No Respiratory distress: No Skin: linear streaks of erythematous papules with pruritic small vesicles to bilat upper extremities; +linear streak of erythematous papules to chin, nose, and bilat periorbital areas/upper lids (L>R) ASSESSMENT/PLAN: 1. Poison natalee dermatitis - ICD9: 692.6, ICD10: L23.7 - PREDNISONE 10 MG TABLET - DESONIDE 0.05 % TOPICAL OINTMENT - TRIAMCINOLONE ACETONIDE 0.025 % TOPICAL CREAM - Begin treatment with prednisone - Desonide topical ointment BID PRN itching/rash to face - Triamcinolone topical cream BID PRN itching/rash - Continue with antihistamine - Benadryl (diphenhydramine) can be used per package instructions as needed for itching - Discussed skin care instructions - Use mild soap like Dove, Aveeno or Cetaphil - Limit shower/bath to (more content not included)... [facility] 01-16-2025 History of Present illness Narrative Telemedicine Visit - Distance Health Virtual Visit Note Patient seen on lifeIO Video Visit platform. Location of patient: [place] I have communicated my name and active licensure. The patient's identity and physical location were verified at the time of this visit. Either the patient or their legal operations support representative has been informed of the risks and benefits of -- and alternatives to -- treatment through a remote evaluation and consents to proceed with the evaluation remotely. History of Present Illness Pranay Reyes is a 29 year old female presenting with a rash. History was obtained from: patient The rash is located to bilat arms (reports from wrists to upper arms), anterior right leg, and now on face (including eyelids) for the past few days and are worsening The rash is described as itchy. The prior dermatologic history includes similar rash in past. The patient reports recent yard work. Complains of no other pertinent symptoms. Denies no other pertinent symptoms. /Lactating: : No: Lactating: No. OTC meds/remedies that patient has tried antihistamine, calamine lotion, hydrocortisone PAST MEDICAL HISTORY Diagnosis Date Abdominal pain Adenomatous polyp Blood in urine Borderline personality disorder (HCC) Bruising Chest pain Constipation Dizziness Early satiety Fatigue Heart trouble History of medical problems Unspecified, Ovarian Cysts, Left History of weight change change in appetite and weight Indigestion Kidney stones Leg swelling Manic bipolar I disorder (HCC) Nausea Numbness and tingling Palpitations POTS (postural orthostatic tachycardia syndrome) Renal disorder kidney stones SOB (shortness of breath) Visual changes blurry vision in both eyes,and spouts of blindness PAST SURGICAL HISTORY Procedure Laterality Date BX OF BREAST; INCISIONAL Right 2023 benign SECTION HX x 2 1. suspected LGA 2. repeat CLAVICAL SURGERY COLONOSCOPY 05/01/2019 sigmoid polyp (tubular adenoma) COLONOSCOPY SCREENING 10/03/2023 Normal EGD 05/01/2019 normal HEMORRHOID SURGERY HX HEMORRHOIDECTOMY PAST SURGICAL HISTORY OF removal of left ovary and uterine ablation THERMAL ENDOMETRIAL ABLATION TUBAL LIGATION HX laparoscopic WRIST SURGERY HX Left 05/06/2023 FAMILY HISTORY Problem Relation Age of Onset other (migraine) Mother other (Intracranial Tumor) Sister sister,aunt,grandmother Ovarian cancer Paternal Grandmother Colon Cancer Paternal Grandfather Multiple Sclerosis Maternal Uncle maternal uncle,cousins Breast Cancer Paternal Aunt half-aunt through PGM Breast Cancer Paternal Aunt half-aunt through PGM other (Blood Clots) Other Cancer Other Diabetes Other other (Heart Trouble) Other other (Lung Disease) Other Stroke Other other (High Blood Pressure) Other Colon Cancer Paternal Uncle half-uncle through PGF Colon Cancer Paternal Uncle half-uncle through PGF Social History Tobacco Use Smoking status: Every Day Current packs/day: 0.50 Average packs/day: 0.5 packs/day for 9.0 years (4.5 ttl pk-yrs) Types: Cigarettes Smokeless tobacco: Never Tobacco comments: 09/17 ppd Vaping Use Vaping status: Never Used Substance Use Topics Alcohol use: Not Currently Drug use: Not Currently Types: Marijuana Comment: 10/03 currently denies ALLERGIES Allergen Reactions Lexapro [Escitalopr* Mental Status Change Adhesive Rash Avocado Oil Unknown Codeine Rash SOB Wellbutrin [Bupropi* Mental Status Change propranolol (INDERAL) 10 mg tablet Take 1 tablet by mouth two times a day. brexpiprazole (REXULTI) 2 mg tablet Take 1 tablet by mouth once daily. LORazepam (ATIVAN) 0.5 mg Take 1 tablet by mouth as needed (for panic attack, up to 5 times a month.) for up to 90 days. Video Exam (Examination performed via Video enabled technology) General appearance: Alert, oriented, pleasant, in NAD: Yes Ill appearing: No Lethargic appearing: No Respiratory distress: No Skin: linear streaks of erythematous papules with pruritic small vesicles to bilat upper extremities; +linear streak of erythematous papules to chin, nose, and bilat periorbital areas/upper lids (L>R) ASSESSMENT/PLAN: 1. Poison natalee dermatitis - ICD9: 692.6, ICD10: L23.7 - PREDNISONE 10 MG TABLET - DESONIDE 0.05 % TOPICAL OINTMENT - TRIAMCINOLONE ACETONIDE 0.025 % TOPICAL CREAM - Begin treatment with prednisone - Desonide topical ointment BID PRN itching/rash to face - Triamcinolone topical cream BID PRN itching/rash - Continue with antihistamine - Benadryl (diphenhydramine) can be used per package instructions as needed for itching - Discussed skin care instructions - Use mild soap like Dove, Aveeno or Cetaphil - Limit shower/bath to less than 15 minutes with warm, not hot, water - BID use of recommended emollients such as Cetaphil, Eucerin Plus, Aveeno, Aquaphor - Do not scratch and break the skin - Use cool compresses as needed - Avoid exposure to irritant if known - Follow up with PCP and/or dermatology (or available in-person care) in 1 week if symptoms persist or sooner if symptoms worsen - Red flags discussed for immediate in person care - All questions answered Otilio Callejas APRN.SANTOS History and Record Review External record(s) reviewed: prior outpatient record, CareEverywhere and prior labs/imaging. Findings from review of prior labs/imaging: CMP from 11/2024 Differential Diagnoses - Poison natalee dermatitis is more likely for the following reason(s): suggested by H&P Disposition The patient was other (comment) (Zoom visit ended). documented in this encounter [facility] 12-22-2024 History of Present illness Narrative [facility] PROGRESS NOTE PATIENT: Pranay Reyes MRD: [id number] DATE: December 22, 2024 Telehealth VISIT Utilizing telemental health services via telephone / video. Verified patient location and . Identified their current location. Patient gave verbal consent to engage in telemental health services. Virtual platform used: [employer] Pt was explained the process of use of telehealth and pt agreed and consented to the use. IDENTIFYING INFORMATION: Pranay is a 29 year old female, who is being followed for Schizoaffective disorder and PTSD. CHIEF COMPLAINT: Schizoaffective dx; Anxiety; Medication management; Follow up SUBJECTIVE: Pt is overall doing well. Rexulti 0.5 mg qD started 11/10/24, increased to 1 mg qD on 11/25/24. - Has been tolerating well w/o significant SEs. Noting a little bit of akathisia, especially left leg is restless, similar to what she experienced on Abilify, but to a lesser degree. Not pacing but the restlessness is noticeable. Feels the medication's benefits far outweigh this SE and would like to start treatment for akathisia rather than trial a different antipsychotic. - Auditory hallucinations are getting better but still present. - Recently experienced a visual hallucination which is rare for the patient. This caused a lot of distress for her and stressed the need to continue her treatment with antipsychotics. The cake press operator told her to jump into it. Was able to recognize that was not real and was able to walk away to calm herself. - Paranoid delusions are still present, but able to communicate with friends/family to explain herself and overall paranoia is significantly improved. - Overall mood is significantly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 1206) diazePAM (Valium) tablet 5 mg (5 mg Oral Given 11/21/24 1206) REVAL: The patient's back pain is most likely consistent with a muscle strain since it is very tender to palpation. Because of her vital signs, I ordered an EKG and lab work. EKG shows sinus tachycardia which is similar to prior. She has a history of POTS her heart rate is normally elevated. I ordered IV fluids for her. For her back pain I ordered IV Toradol as well as p.o. Valium. CBC was normal with a normal white count. CMP unremarkable. D-dimer was within a normal range. Troponin was negative. COVID, RSV and influenza are negative. BNP level was 256. I reassured her and told her that her chest x-ray shows nothing acute. There is no obvious evidence of failure clinically or radiologically. Her heart rate has come down somewhat. She still mildly tachycardic, but I suspect that is her baseline. I gave her some suggestions as to what she can use topically for her back. For her breathing I called in a prescription for an inhaler and a humidifier. Follow-up with her primary physician is recommended. If anything changes she can notify us. A total of the she has no evidence of infection that requires antibiotics. I told her that the rash appears consistent with a dermatitis. I gave her some suggestions as to what she should avoid doing and what she can use. She has a ux lead. I suggested she take a picture of the rash and notify her ux lead with any changes. She is comfortable with the plan and with discharge. MEDICAL DECISION MAKING: I considered, but did not perform, additional testing such CT Angiogram, CT abdomen/pelvis, and MRI, as well as admission or transfer to a higher level of care. I utilized an evidence-based risk rating tool (CMT) along with my training and experience to weigh the risk of discharge against the risks of further testing, imaging, or hospitalization. At this time, I estimate the risks of additional testing, imaging, or hospitalization to be equal to or greater than the risk of discharge.[id number] SHARED DECISION MAKING: I discussed my risk assessment with the patient. The patient understands and consents to the risk of discharge, as well as the risk of uncertainty in estimating outcomes. [id number] CRITICAL CARE TIME None CONSULTS: None PROCEDURES: Unless otherwise noted below, none FINAL IMPRESSION 1. Flu-like symptoms 2. Upper back pain 3. Rash and nonspecific skin eruption 4. Viral URI 5. POTS (postural orthostatic tachycardia syndrome) DISPOSITION Discharge 11/21/2024 01:10:05 PM PATIENT REFERRED TO: Kelton Powers MD [address] [address] Schedule an appointment as soon as possible for a visit DISCHARGE MEDICATIONS: New Prescriptions ALBUTEROL 108 (90 BASE) MCG/ACT INHALER Inhale 2 puffs every 4 hours as needed for wheezing. HUMIDIFIERS (COOL MIST HUMIDIFIER 0.8 GAL) MISC 1 ampule daily. (Comment: Please note this report has been produced using speech recognition software and may contain errors related to that system including errors in grammar, punctuation, and spelling, as well as words and phrases that may be inappropriate. If there are any questions or concerns please feel free to contact the dictating provider for clarification.) Rafa Armstrong MD (electronically signed) Emergency Medicine Provider Rafa Armstrong MD 11/21/24 1314 Pt states she has a rash that started on her chest and face. That started 4 days ago. Pt states she can't catch her breath. Pt states almost like a panic attack but states she feels fine in that aspect. Pt is alert and oriented x's 4 documented in this encounter [facility] 11-21-2024 Emergency department Triage note Pt states she has a rash that started on her chest and face. That started 4 days ago. Pt states she can't catch her breath. Pt states almost like a panic attack but states she feels fine in that aspect. Pt is alert and oriented x's 4 [facility] 11-21-2024 Physician Emergency department Note Images from the original note were not included. EMERGENCY DEPARTMENT ENCOUNTER Pt Name: Pranay Reyes Birthdate 1995 Date of evaluation: 11/21/2024 ED Provider: Rafa Armstrong MD CHIEF COMPLAINT Chief Complaint Patient presents with Back Pain Pt states she has a rash that started on her chest and face. That started 4 days ago. Pt states she can't catch her breath. Pt states almost like a panic attack but states she feels fine in that aspect. Pt is alert and oriented x's 4 HISTORY OF PRESENT ILLNESS (Location/Symptom, Timing/Onset, Context/Setting, Quality, Duration, Modifying Factors, Severity) Note limiting factors. I wore appropriate PPE for the entirety of this encounter. HPI Pranay Reyes is a 29 y.o. who presents to the emergency department with chief complaint of upper back pain, flulike symptoms as well as a rash. The patient said she has been having a cough, headache and congestion for few days. Her upper back has been hurting. She also has developed a rash. She said this started on her chest and upper abdomen. Now she has it on her face. She says she went to an urgent care in [place] the other day. They did viral testing which was negative. They did a chest x-ray which was unremarkable as well. She came in because with muscle relaxers that she was prescribed are not helping. She does not mention any fevers however. Vision is unchanged. No major ear pain or sore throat. She does not really describe any anterior chest pain. She has felt a little short of breath. No current abdominal pain, vomiting or diarrhea. No urinary complaints. She denies being . No new pain or swelling in her legs. No rash elsewhere. No localizing numbness or weakness. She said the rash is not bothering her. It does not itch or hurt. No other associated symptoms. She does smoke. She denies any alcohol or drug use. She has a history of POTS and says her heart rate is normally elevated. Nursing Notes were reviewed. Limitations to history: None Outside historians: Significant other REVIEW OF SYSTEMS Review of Systems Constitutional: Negative for chills and fever. HENT: Positive for congestion. Negative for ear pain and sore throat. Eyes: Negative for visual disturbance. Respiratory: Positive for cough and shortness of breath. Cardiovascular: Negative for chest pain and leg swelling. Gastrointestinal: Negative for abdominal pain, diarrhea and vomiting. Genitourinary: Negative for dysuria and frequency. Musculoskeletal: Negative for arthralgias and back pain. Skin: Positive for rash. Negative for color change. Neurological: Positive for headaches. Negative for weakness and numbness. All other systems reviewed and are negative. Pertinent positives and negatives as per HPI. PAST MEDICAL HISTORY Past Medical History: Diagnosis Date Anxiety Borderline personality disorder (CMS/HCC) (HCC) Depression Kidney stone POTS (postural orthostatic tachycardia syndrome) Schizophrenia (HCC) UTI (urinary tract infection) SURGICAL HISTORY Past Surgical History: Procedure Laterality Date SECTION (HISTORICAL) CYST REMOVAL 02/2019 Left ovary ENDOMETRIAL ABLATION HEMORRHOID SURGERY TUBAL LIGATION CURRENT MEDICATIONS Previous Medications LORAZEPAM (ATIVAN) 0.5 MG TABLET Take by mouth. OLANZAPINE (ZYPREXA) 5 MG TABLET 5 mg. RISPERIDONE (RISPERDAL) 1 MG TABLET Take 1 tablet (1 mg) by mouth Nightly. ALLERGIES Escitalopram, Avocado, Bupropion, Codeine, and Wound dressing adhesive FAMILY HISTORY No family history on file. SOCIAL HISTORY Social History Socioeconomic History Marital status: Single Tobacco Use Smoking status: Every Day Current packs/day: 1.00 Types: Cigarettes Smokeless tobacco: Never Vaping Use Vaping status: Never Used Substance and Sexual Activity Alcohol use: Not Currently Drug use: No Social Drivers of Health Financial Resource Strain: High Risk (10/28/2024) Received from [facility] Overall Financial Resource Strain (CARDIA) Difficulty of Paying Living Expenses: Hard Food Insecurity: Food Insecurity Present (10/28/2024) Received from [facility] Hunger Vital Sign Worried About Running Out of Food in the Last Year: Often true Ran Out of Food in the Last Year: Often true Transportation Needs: Unmet Transportation Needs (10/28/2024) Received from [facility] PRAPARE - Transportation Lack of Transportation (Medical): Yes Lack of Transportation (Non-Medical): Yes Physical Activity: Sufficiently Active (10/28/2024) Received from [facility] Exercise Vital Sign Days of Exercise per Week: 5 days Minutes of Exercise per Session: 60 min Stress: Stress Concern Present (10/28/2024) Received from [facility] [employer] [place] [employer] - Occupational Stress Questionnaire Feeling of Stress : Rather much Social Connections: Socially Integrated (10/28/2024) Received from [facility] Social Connection and Isolation Panel [NHANES] Frequency of Communication with Friends and Family: Three times a week Frequency of Social Gatherings with Friends and Family: Three times a week Attends Christian Services: More than 4 times per year Active Member of Clubs or Organizations: Yes Attends Club or Organization Meetings: More than 4 times per year Marital Status: Living with partner Housing Stability: High Risk (05/07/2023) Received from [facility], [facility] Housing Stability Vital Sign Unable to Pay for Housing in the Last Year: Yes Number of Places Lived in the Last Year: 3 Unstable Housing in the Last Year: Yes SCREENINGS PHYSICAL EXAM ED Triage Vitals [11/21/24 1147] Temp Heart Rate Resp BP 36.6 C (97.8 F) (!) 126 16 (!) 139/99 SpO2 Temp Source Heart Rate Source Patient Position 100 % Oral Monitor Sitting BP Location FiO2 (%) Right arm -- Physical Exam Vitals and nursing note reviewed. Exam conducted with a bridge/structure inspection team leader present. Constitutional: Appearance: Normal appearance. She is well-developed. She is not toxic-appearing. Comments: Patient appears uncomfortable although is nontoxic. HENT: Head: Normocephalic and atraumatic. Right Ear: External ear normal. Left Ear: External ear normal. Nose: Nose normal. Mouth/Throat: Mouth: Mucous membranes are moist. Pharynx: Oropharynx is clear. Eyes: Conjunctiva/sclera: Conjunctivae normal. Pupils: Pupils are equal, round, and reactive to light. Cardiovascular: Rate and Rhythm: Regular rhythm. Tachycardia present. Heart sounds: Normal heart sounds. No murmur heard. Pulmonary: Effort: Pulmonary effort is normal. No respiratory distress. Breath sounds: Normal breath sounds. No wheezing, rhonchi or rales. Abdominal: Palpations: Abdomen is soft. Tenderness: There is no abdominal tenderness. There is no right CVA tenderness, left CVA tenderness, guarding or rebound. Musculoskeletal: General: Tenderness present. No swelling. Normal range of motion. Cervical back: Normal range of motion and neck supple. No rigidity. Comments: There is paraspinal bilateral thoracic back tenderness to palpation. There is no tenderness in the midline of the spine however. Range of motion of her upper back is slightly limited by pain, but grossly intact. The lumbar and paraspinal lumbar areas are nontender. Skin: General: Skin is warm and dry. Findings: Rash present. Comments: She has somewhat of a pinpoint erythematous macular papular rash on her anterior chest, upper abdomen as well as forehead. There is no rash noted elsewhere. There are no petechia or purpura. There are no vesicles or pustules. Neurological: General: No focal deficit present. Mental Status: She is alert and oriented to person, place, and time. GCS: GCS eye subscore is 4. GCS verbal subscore is 5. GCS motor subscore is 6. Cranial Nerves: Cranial nerves 2-12 are intact. Sensory: Sensation is intact. Motor: Motor function is intact. Coordination: Coordination is intact. Psychiatric: Mood and Affect: Mood normal. DIAGNOSTIC RESULTS Procedures/EKG: EKG per my interpretation shows a sinus tachycardia at a rate of 115 with a normal axis. There is some low voltage in precordial leads. There is an abnormal R wave progression versus abnormal lead placement. There is no acute ST elevation or ST depression. Intervals are within normal limits otherwise. There were no significant changes compared to prior EKG on file. EKG was reviewed by myself. Physician EKG interpretation can be found in [facility] (Per Emergency Physician): Chest x-ray interpreted by me shows no obvious evidence of infiltrate or failure. Interpretation per the Radiologist below, if available at the time of this note: XR chest 1 view Final Result No acute cardiopulmonary disease. Report Dictated on Electronically Signed By: Jessica Lopez MD Electronically Signed Date/Time: 11/21/2024 12:39 PM EST ED BEDSIDE ULTRASOUND: Performed by ED Physician - none LABS: Labs Reviewed NT PRO BNP - Abnormal Result Value NT PRO BNP 256 (*) SARS-COV-2, FLU A/B, AND RSV COMBO - Normal SARS-CoV-2 Not Detected Respiratory Syncytial Virus Not Detected Influenza A Not Detected Influenza B Not Detected Narrative: Methodology: real-time, RT-PCR The SARS-CoV-2, Flu A/B, and RSV Combo assay is intended for in vitro diagnostic use under the FDA Emergency Use Authorization (EUA). This test has not been FDA cleared or approved. In compliance with this authorization, please visit www.fda.gov/media/203579/download or www.fda.gov/media/064743/download to access the applicable information sheets. COMPREHENSIVE METABOLIC PANEL - Normal SODIUM 139 POTASSIUM 4.3 CHLORIDE 106 CARBON DIOXIDE 29 ANION GAP 4 UREA NITROGEN 12 CREATININE 0.69 GLUCOSE 96 CALCIUM 9.1 AST (SGOT) 20 ALT 22 ALKALINE PHOSPHATASE 54 ALBUMIN 3.6 BILIRUBIN, TOTAL 0.2 TOTAL PROTEIN 7.0 eGFR >90.0 MAGNESIUM - Normal MAGNESIUM 2.0 Narrative: Higher values can be expected in females during menses. D-DIMER,QUANTITATIVE - Normal D-DIMER, INNOVANCE 0.21 Narrative: [employer] D-Dimer values of <0.50 mg/L FEU can be used in combination with a pre-test probability model (e.g. Well's) to exclude pulmonary embolism (PE) disease, as well as an aid in the diagnosis of deep vein thrombosis (DVT). CBC WITH AUTO DIFFERENTIAL - Normal Auto WBC 8.9 RBC 4.71 Hemoglobin 14.8 Hematocrit 43.4 MCV 92.1 MCH 31.4 MCHC 34.1 RDW 11.9 Platelets 256 MPV 10.1 nRBC 0.0 Neutrophils Relative 63.0 Lymphocytes Relative 22.1 Monocytes Relative 10.4 Eosinophils Relative 3.5 Basophils Relative 0.8 Immature Grans % 0.2 Neutrophils Absolute 5.6 Lymphocytes Absolute 2.0 Monocytes Absolute 0.9 Eosinophils Absolute 0.3 Basophils Absolute 0.1 Immature Grans Absolute 0.0 HIGH SENSITIVITY TROPONIN, SERIAL BASELINE - Normal Troponin HS Serial Baseline <3 All other labs were within normal range or not returned as of this dictation. EMERGENCY DEPARTMENT COURSE and DIFFERENTIAL DIAGNOSIS/MDM: Vitals: Vitals: 11/21/24 1147 BP: (!) 139/99 BP Location: Right arm Patient Position: Sitting Pulse: (!) 126 Resp: 16 Temp: 36.6 C (97.8 F) TempSrc: Oral SpO2: 100% Diagnoses as of 11/21/24 1312 Flu-like symptoms Upper back pain Rash and nonspecific skin eruption Viral URI POTS (postural orthostatic tachycardia syndrome) The patient presented with chief complaint of flulike symptoms, upper back pain, rash. The differential diagnosis associated with this patient's presentation includes viral illness, dehydration, electrolyte abnormality, muscle strain, less likely pneumonia, less likely PE, unlikely ACS, unlikely sepsis or bacteremia, rash likely is a dermatitis, less likely cellulitis. Our workup consisted of ordering/reviewing: EKG, chest x-ray and lab work will be obtained. Patient is in agreement with this plan. Medications sodium chloride 0.9 % bolus 1,000 mL (1,000 mL IntraVENous New Bag 11/21/24 1205) ketorolac (Toradol) injection 30 mg (30 mg IntraVENous Given 11/21/24 1206) diazePAM (Valium) tablet 5 mg (5 mg Oral Given 11/21/241205) REVAL: The patient's back pain is most likely consistent with a muscle strain since it is very tender to palpation. Because of her vital signs, I ordered an EKG and lab work. EKG shows sinus tachycardia which is similar to prior. She has a history of POTS her heart rate is normally elevated. I ordered IV fluids for her. For her back pain I ordered IV Toradol as well as p.o. Valium. CBC was normal with a normal white count. CMP unremarkable. D-dimer was within a normal range. Troponin was negative. COVID, RSV and influenza are negative. BNP level was 256. I reassured her and told her that her chest x-ray shows nothing acute. There is no obvious evidence of failure clinically or radiologically. Her heart rate has come down somewhat. She still mildly tachycardic, but I suspect that is her baseline. I gave her some suggestions as to what she can use topically for her back. For her breathing I called in a prescription for an inhaler and a humidifier. Follow-up with her primary physician is recommended. If anything changes she can notify us. A total of the she has no evidence of infection that requires antibiotics. I told her that the rash appears consistent with a dermatitis. I gave her some suggestions as to what she should avoid doing and what she can use. She has a ux lead. I suggested she take a picture of the rash and notify her ux lead with any changes. She is comfortable with the plan and with discharge. MEDICAL DECISION MAKING: I considered, but did not perform, additional testing such CT Angiogram, CT abdomen/pelvis, and MRI, as well as admission or transfer to a higher level of care. I utilized an evidence-based risk rating tool (CMT) along with my training and experience to weigh the risk of discharge against the risks of further testing, imaging, or hospitalization. At this time, I estimate the risks of additional testing, imaging, or hospitalization to be equal to or greater than the risk of discharge.[id number] SHARED DECISION MAKING: I discussed my risk assessment with the patient. The patient understands and consents to the risk of discharge, as well as the risk of uncertainty in estimating outcomes. [id number] CRITICAL CARE TIME None CONSULTS: None PROCEDURES: Unless otherwise noted below, none FINAL IMPRESSION 1. Flu-like symptoms 2. Upper back pain 3. Rash and nonspecific skin eruption 4. Viral URI 5. POTS (postural orthostatic tachycardia syndrome) DISPOSITION Discharge 11/21/2024 01:10:05 PM PATIENT REFERRED TO: Kelton Powers MD [address] [facility] [id number] Schedule an appointment as soon as possible for a visit DISCHARGE MEDICATIONS: New Prescriptions ALBUTEROL 108 (90 BASE) MCG/ACT INHALER Inhale 2 puffs every 4 hours as needed for wheezing. HUMIDIFIERS (COOL MIST HUMIDIFIER 0.8 GAL) MISC 1 ampule daily. (Comment: Please note this report has been produced using speech recognition software and may contain errors related to that system including errors in grammar, punctuation, and spelling, as well as words and phrases that may be inappropriate. If there are any questions or concerns please feel free to contact the dictating provider for clarification.) Rafa Armstrong MD (electronically signed) Emergency Medicine Provider Rafa Armstrong MD 11/21/24 1314 [facility] 11-21-2024 Instructions Malka Hernandez PA-C - 11/21/2024 11:14 AM EST Not able to connect online. I recommend in person visit for the symptoms of severe back pain/headache and rash. documented in this encounter [facility] 11-21-2024 Note HNO ID: [id number] Author: MALKA HERNANDEZ PA-C Service: ? Author Type: Physician Practical Nurse Type: Progress Notes Filed: 11/21/2024 11:15 Note Text: Not able to connect online. I recommend in person visit for the symptoms of severe back pain/headache and rash. [facility] 11-21-2024 History of Present illness Narrative Not able to connect online. I recommend in person visit for the symptoms of severe back pain/headache and rash. documented in this encounter [facility] 11-21-2024 Telephone encounter Note Not able to connect online. I recommend in person visit for the symptoms of severe back pain/headache and rash. [facility] Work Phone: 11-21-2024 Miscellaneous Notes Not able to connect online. I recommend in person visit for the symptoms of severe back pain/headache and rash. documented in this encounter [facility] 11-20-2024 History of Present illness Narrative Subjective Patient ID: Pranay Reyes is a 29 y.o. female. They present today with a chief complaint of Headache (X 2 days, Congestion, upper back pain, body aches). Patient disposition: Home HISTORY OF PRESENT ILLNESS: This is an adult female with POTS. She presents for 2d of muscle aches in the mid/upper back with mild cough, mild global intermittent HERNÁNDEZ, nasal congestion and runny nose, mild ST. Denies productive cough, dyspnea, sick contacts. Admits chills and sweats wo definite fever. Past Medical History Allergies as of 11/20/2024 - Reviewed 11/20/2024 Allergen Reaction Noted Escitalopram Hallucinations 09/18/2022 Avocado Unknown 05/14/2017 Bupropion Hallucinations 05/27/2019 Adhesive Rash 05/14/2017 Codeine Hives and Rash 05/14/2017 (Not in a hospital admission) No past medical history on file. No past surgical history on file. reports that she has been smoking cigarettes. She has never used smokeless tobacco. Review of Systems Negative except as documented in the History of Present Illness. Objective Vitals: 11/20/24 0848 BP: 139/86 Pulse: (!) 111 Temp: 36.3 C (97.3 F) SpO2: 98% Weight: 81.6 kg (180 lb) No LMP recorded. PHYSICAL EXAMINATION: CONSTITUTIONAL: well-appearing, nontoxic ENT: Head and face are unremarkable and atraumatic. Mucous membranes moist. Congested phonation, rhinorrhea, PND. * Oropharynx nl. Airway patent. * No uvular deviation. No visible abscess. * Lymphadenopathy absent. * TMs nl bl. LUNGS: CTAB, no r/r/w. CARDIOVASCULAR: RRR, no m/r/g. Nl S1/S2. ABDOMEN: Nontender including left upper quadrant, nondistended, no acute abdomen. MUSCULOSKELETAL: Positive spasm of paraspinous muscles throughout the T-spine. Neck supple wo C-spine TTP. No LS-spine TTP. SKIN: Warm and dry with no rashes. NEURO: Normal baseline mental status. PSYCH: Appropriate mood and affect. --------- MDM: Apparent viral process w/ myalgias. Rapid flu, COVID negative. CXR interpreted by me negative for PNA. Pt just completed menses and denies chance of . Toradol IM administered here and Rx flexeril for home. Will fu here PRN if not improving. Procedures Diagnostic study results (if any) were reviewed by Sally Rdz PA-C. Results for orders placed or performed in visit on 11/20/24 POCT Covid-19 Rapid Antigen Result Value Ref Range POC JOSE-COV-2 AG Presumptive negative test for SARS-CoV-2 (no antigen detected) Presumptive negative test for SARS-CoV-2 (no antigen detected) POCT Influenza A/B manually resulted Result Value Ref Range POC Rapid Influenza A Negative Negative POC Rapid Influenza B Negative Negative Assessment/Plan Allergies, medications, history, and pertinent labs/EKGs/Imaging reviewed by Sally Rdz PA-C. Orders and Diagnoses Diagnoses and all orders for this visit: Exposure to COVID-19 virus - POCT Covid-19 Rapid Antigen Flu-like symptoms - POCT Influenza A/B manually resulted Medical Admin Record Follow Up Instructions No follow-ups on file. Electronically signed by Sally Rdz PA-C 9:15 AM documented in this encounter [facility] Work Phone: 11-10-2024 Telephone encounter Note Patient asked for virtual for her next visit 4/ Pamela Toledo November 10, 2024 2:40 PM [facility] 11-10-2024 Miscellaneous Notes Patient asked for virtual for her next visit 4/ Pamela Toledo November 10, 2024 2:40 PM documented in this encounter [facility] 11-10-2024 Note HNO ID: [id number] Author: DAVID KILGORE MD Service: ? Author Type: Resident Type: Progress Notes Filed: 11/13/2024 15:53 Note Text: Attestation signed by David Kilgore MD at 11/13/2024 3:53 PM Attending Note I evaluated the patient and personally participated in the butler components. I agree with the resident's findings and plan as documented and have discussed the case and management of the patient's care with the resident. During this patient visit I have spent approximately 10 minutes in chart review, pt encounter counseling regarding diagnosis, treatment options, medications, providing supportive psychotherapy and coordinating care. David Kilgore MD Adult and Geriatric Psychiatry [facility] , [facility] PROGRESS NOTE PATIENT: Pranay Reyes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 wear contact lenses should avoid wearing the lenses during the first 24 hours of treatment, or until the eye is no longer red. The contact case should be thrown away and the contacts disinfected overnight or replaced (if disposable). Return to work/school -- The safest approach to avoid spreading viral and bacterial conjunctivitis to others is to stay home until there is no longer any discharge from the eye(s). However, this is not practical for most students and for those who work outside the home. Most daycare centers and schools require that students receive 24 hours of eye drops or ointment before returning to school. This treatment helps to prevent the spread of bacterial conjunctivitis, but is not necessary or helpful for children with viral conjunctivitis. Viral conjunctivitis is similar to a cold because it spreads easily between people. Younger children, who may not remember to wash their hands or avoid touching their eyes, should probably not attend school until the discharge has resolved. Older students or adults may choose to attend school/work, although they should limit close contact with others. In addition, adults who have contact with the very old, the very young, and people with a weakened immune system should limit contact with these susceptible individuals. Non-specific conjunctivitis treatment -- The conjunctiva heals quickly after it is injured, and non-specific conjunctivitis usually resolves within a few days without any treatment. However, the eye may feel better faster when it is treated with a lubricant, such as drops or ointments. These products are available without a prescription in most pharmacies. Preservative-free preparations are more expensive and are necessary only for people with a severe case of dry eye and those who are allergic to preservatives. Lubricant drops can be used as often as hourly with no side effects. The ointment provides longer lasting relief but blurs vision temporarily. For this reason, some people use ointment only at bedtime. It may be worthwhile to switch brands if one brand of drop or ointment is irritating, since each preparation contains different active and inactive ingredients and preservatives. Antibiotic or steroid eye drops/ointments are not recommended unless there is a specific reason they are needed (eg, a bacterial infection or inflammatory condition). Using these treatments when they are not needed can lead to serious complications. If the symptoms of conjunctivitis do not improve within two weeks, an examination with an aquaculture worker may be recommended. CONJUNCTIVITIS PREVENTION Bacterial and viral conjunctivitis are both highly contagious and spread by direct contact with secretions or contact with contaminated objects. Simple hygiene measures can help minimize transmission to others. Adults or children with bacterial or viral conjunctivitis should not share handkerchiefs, tissues, towels, cosmetics, or bed sheets/pillows with uninfected family or friends. Hand washing is an essential and highly effective way to prevent the spread of infection. Hands should be wet with water and plain soap, and rubbed together for 15 to 30 seconds. It is not necessary to use antibacterial hand soap. Teach children to wash their hands before and after eating and after touching the eyes, coughing, or sneezing. Alcohol-based hand rubs are a good alternative for disinfecting hands if a sink is not available. Hand rubs should be spread over the entire surface of hands, fingers, and wrists until dry, and may be used several times. These rubs can be used repeatedly without skin irritation or loss of effectiveness. documented in this encounter [facility] 07-20-2024 Note HNO ID: [id number] Author: SOURAV MCCOY APRN.CNP Service: ? Author Type: Nurse Practitioner Type: Progress Notes Filed: 07/20/2024 12:57 Note Text: Telemedicine Visit - Distance Health Virtual Visit Note Patient seen on [employer] Video Visit platform. Location of patient: [place] I have communicated my name and active licensure. The patient's identity and physical location were verified at the time of this visit. Either the patient or their legal operations support representative has been informed of the risks and benefits of -- and alternatives to -- treatment through a remote evaluation and consents to proceed with the evaluation remotely. History of Present Illness: Pranay Reyes is a 29 year old female with a history of left eye symptoms that started last night. Positive for: Irritation, Redness, Eyelid swelling, Ocular discharge white/yellow, Watery, Crusting in AM, and Contact lens wear Negative for: Blurred vision, Change in vision, Double vision, Photophobia, Bumps/Styes, Injury, Fevers, Chills/Sweats, URI Symptoms, and Sick contact exposure none Hx of seasonal allergies: Yes Ocular history: no /Lactating: : No: Lactating: Yes OTC remedies attempted: none PAST MEDICAL HISTORY Diagnosis Date Abdominal pain Adenomatous polyp Blood in urine Borderline personality disorder (HCC) Bruising Chest pain Constipation Dizziness Early satiety Fatigue Heart trouble History of medical problems Unspecified, Ovarian Cysts, Left History of weight change change in appetite and weight Indigestion Kidney stones Leg swelling Manic bipolar I disorder (HCC) Nausea Numbness and tingling Palpitations POTS (postural orthostatic tachycardia syndrome) Renal disorder kidney stones SOB (shortness of breath) Visual changes blurry vision in both eyes,and spouts of blindness PAST SURGICAL HISTORY Procedure Laterality Date SECTION HX x 2 1. suspected LGA 2. repeat CLAVICAL SURGERY COLONOSCOPY 05/01/2019 sigmoid polyp (tubular adenoma) COLONOSCOPY SCREENING 10/03/2023 Normal EGD 05/01/2019 normal HEMORRHOID SURGERY HX HEMORRHOIDECTOMY PAST SURGICAL HISTORY OF removal of left ovary and uterine ablation THERMAL ENDOMETRIAL ABLATION TUBAL LIGATION HX laparoscopic WRIST SURGERY HX Left 05/06/2023 FAMILY HISTORY Problem Relation Age of Onset other (migraine) Mother other (Intracranial Tumor) Sister sister,aunt,grandmother Ovarian cancer Paternal Grandmother Colon Cancer Paternal Grandfather Multiple Sclerosis Maternal Uncle maternal uncle,cousins Breast Cancer Paternal Aunt half-aunt through [facility] Breast Cancer Paternal Aunt half-aunt through [facility] other (Blood Clots) Other Cancer Other Diabetes Other other (Heart Trouble) Other other (Lung Disease) Other Stroke Other other (High Blood Pressure) Other Colon Cancer Paternal Uncle half-uncle through [facility] Colon Cancer Paternal Uncle half-uncle through [facility] Social History Tobacco Use Smoking status: Every Day Current packs/day: 0.50 Average packs/day: 0.5 packs/day for 9.0 years (4.5 ttl pk-yrs) Types: Cigarettes Smokeless tobacco: Never Tobacco comments: 09/17 ppd Vaping Use Vaping status: Never Used Substance Use Topics Alcohol use: Not Currently Drug use: Not Currently Types: Marijuana Comment: 10/03 currently denies Current Outpatient Medications Medication Sig LORazepam (ATIVAN) 0.5 mg Use as needed for panic attacks, up to 5 times a month. OLANZapine (ZYPREXA) 5 mg tablet Take 1 tablet by mouth daily at bedtime. No current facility-administered medications for this visit. ALLERGIES Allergen Reactions Lexapro [Escitalopr* Mental Status Change Adhesive Rash Avocado Oil Unknown Codeine Rash SOB Wellbutrin [Bupropi* Mental Status Change VIDEO EXAMINATION (Examination performed via Video enabled technology) General Appearance: Well/stable in appearance Alert, oriented, pleasant, in NAD: Yes Ill appearing: No Lethargic appearing: No Respiratory distress: No Eyes: Normal Pupil Size EOMI Right: Sclera white and healthy appearing, No conjunctival injection, No ocular discharge, No eyelid edema, No periorbital edema, and No periorbital tenderness Left: Conjunctival injection, Ocular discharge, Eyelid edema lower lid, and Scleral injection ASSESSMENT/PLAN: 1. Bacterial conjunctivitis - ICD9: 372.39, 041.9, ICD10: H10.9 Bacterial - see medication orders - course and contagiousness issues discussed, including hand washing. - Instructed to call if high fever, development of periorbital redness or swelling, eye pain, visual changes, concerns or if symptoms persist. - TOBRAMYCIN 0.3 % EYE DROPS PLAN: All questions answered Follow up in person in 3-5 days if symptoms do not improve or earlier for worsening symptoms Needs in person evaluation if: develops high fever, develops periorbital redness (more content not included)... [facility] 07-20-2024 History of Present illness Narrative Images from the original note were not included. Telemedicine Visit - Distance Health Virtual Visit Note Patient seen on [employer] Video Visit platform. Location of patient: [place] I have communicated my name and active licensure. The patient's identity and physical location were verified at the time of this visit. Either the patient or their legal operations support representative has been informed of the risks and benefits of -- and alternatives to -- treatment through a remote evaluation and consents to proceed with the evaluation remotely. History of Present Illness: Pranay Reyes is a 29 year old female with a history of left eye symptoms that started last night. Positive for: Irritation, Redness, Eyelid swelling, Ocular discharge white/yellow, Watery, Crusting in AM, and Contact lens wear Negative for: Blurred vision, Change in vision, Double vision, Photophobia, Bumps/Styes, Injury, Fevers, Chills/Sweats, URI Symptoms, and Sick contact exposure none Hx of seasonal allergies: Yes Ocular history: no /Lactating: : No: Lactating: Yes OTC remedies attempted: none PAST MEDICAL HISTORY Diagnosis Date Abdominal pain Adenomatous polyp Blood in urine Borderline personality disorder (HCC) Bruising Chest pain Constipation Dizziness Early satiety Fatigue Heart trouble History of medical problems Unspecified, Ovarian Cysts, Left History of weight change change in appetite and weight Indigestion Kidney stones Leg swelling Manic bipolar I disorder (HCC) Nausea Numbness and tingling Palpitations POTS (postural orthostatic tachycardia syndrome) Renal disorder kidney stones SOB (shortness of breath) Visual changes blurry vision in both eyes,and spouts of blindness PAST SURGICAL HISTORY Procedure Laterality Date SECTION HX x 2 1. suspected LGA 2. repeat CLAVICAL SURGERY COLONOSCOPY 05/01/2019 sigmoid polyp (tubular adenoma) COLONOSCOPY SCREENING 10/03/2023 Normal EGD 05/01/2019 normal HEMORRHOID SURGERY HX HEMORRHOIDECTOMY PAST SURGICAL HISTORY OF removal of left ovary and uterine ablation THERMAL ENDOMETRIAL ABLATION TUBAL LIGATION HX laparoscopic WRIST SURGERY HX Left 05/06/2023 FAMILY HISTORY Problem Relation Age of Onset other (migraine) Mother other (Intracranial Tumor) Sister sister,aunt,grandmother Ovarian cancer Paternal Grandmother Colon Cancer Paternal Grandfather Multiple Sclerosis Maternal Uncle maternal uncle,cousins Breast Cancer Paternal Aunt half-aunt through [facility] Breast Cancer Paternal Aunt half-aunt through [facility] other (Blood Clots) Other Cancer Other Diabetes Other other (Heart Trouble) Other other (Lung Disease) Other Stroke Other other (High Blood Pressure) Other Colon Cancer Paternal Uncle half-uncle through [facility] Colon Cancer Paternal Uncle half-uncle through [facility] Social History Tobacco Use Smoking status: Every Day Current packs/day: 0.50 Average packs/day: 0.5 packs/day for 9.0 years (4.5 ttl pk-yrs) Types: Cigarettes Smokeless tobacco: Never Tobacco comments: 09/17 ppd Vaping Use Vaping status: Never Used Substance Use Topics Alcohol use: Not Currently Drug use: Not Currently Types: Marijuana Comment: 10/03 currently denies Current Outpatient Medications Medication Sig LORazepam (ATIVAN) 0.5 mg Use as needed for panic attacks, up to 5 times a month. OLANZapine (ZYPREXA) 5 mg tablet Take 1 tablet by mouth daily at bedtime. No current facility-administered medications for this visit. ALLERGIES Allergen Reactions Lexapro [Escitalopr* Mental Status Change Adhesive Rash Avocado Oil Unknown Codeine Rash SOB Wellbutrin [Bupropi* Mental Status Change VIDEO EXAMINATION (Examination performed via Video enabled technology) General Appearance: Well/stable in appearance Alert, oriented, pleasant, in NAD: Yes Ill appearing: No Lethargic appearing: No Respiratory distress: No Eyes: Normal Pupil Size EOMI Right: Sclera white and healthy appearing, No conjunctival injection, No ocular discharge, No eyelid edema, No periorbital edema, and No periorbital tenderness Left: Conjunctival injection, Ocular discharge, Eyelid edema lower lid, and Scleral injection ASSESSMENT/PLAN: 1. Bacterial conjunctivitis - ICD9: 372.39, 041.9, ICD10: H10.9 Bacterial - see medication orders - course and contagiousness issues discussed, including hand washing. - Instructed to call if high fever, development of periorbital redness or swelling, eye pain, visual changes, concerns or if symptoms persist. - TOBRAMYCIN 0.3 % EYE DROPS PLAN: All questions answered Follow up in person in 3-5 days if symptoms do not improve or earlier for worsening symptoms Needs in person evaluation if: develops high fever, develops periorbital redness or swelling, eye pain, visual changes, concerns or if symptoms persist Sourav Mccoy APRN.HALL MANAGER documented in this encounter [facility] 07-02-2024 History of Present illness Narrative Images from the original note were not included. ORTHOPAEDIC OFFICE NOTE CHIEF COMPLAINT: right clavicle, left wrist injuries HISTORY OF PRESENT ILLNESS: Pranay Reyes is a 29 year old female who presents for reevaluation after open reduction internal fixation right clavicle and left distal radius fractures 05/06/2023. Missed prior follow-up appointments and wanted to confirm injuries were 'okay'. Has been using right and left upper extremities as tolerated, no new symptoms including pain or instability. No new injury mechanism. Reviewed nursing note and current pain scale. PAST MEDICAL HISTORY Diagnosis Date Abdominal pain Adenomatous polyp Blood in urine Borderline personality disorder (HCC) Bruising Chest pain Constipation Dizziness Early satiety Fatigue Heart trouble History of medical problems Unspecified, Ovarian Cysts, Left History of weight change change in appetite and weight Indigestion Kidney stones Leg swelling Manic bipolar I disorder (HCC) Nausea Numbness and tingling Palpitations POTS (postural orthostatic tachycardia syndrome) Renal disorder kidney stones SOB (shortness of breath) Visual changes blurry vision in both eyes,and spouts of blindness PAST SURGICAL HISTORY Procedure Laterality Date SECTION HX x 2 1. suspected LGA 2. repeat CLAVICAL SURGERY COLONOSCOPY 05/01/2019 sigmoid polyp (tubular adenoma) COLONOSCOPY SCREENING 10/03/2023 Normal EGD 05/01/2019 normal HEMORRHOID SURGERY HX HEMORRHOIDECTOMY PAST SURGICAL HISTORY OF removal of left ovary and uterine ablation THERMAL ENDOMETRIAL ABLATION TUBAL LIGATION HX laparoscopic WRIST SURGERY HX Left 05/06/2023 FAMILY HISTORY Problem Relation Age of Onset other (migraine) Mother other (Intracranial Tumor) Sister sister,aunt,grandmother Ovarian cancer Paternal Grandmother Colon Cancer Paternal Grandfather Multiple Sclerosis Maternal Uncle maternal uncle,cousins Breast Cancer Paternal Aunt half-aunt through [facility] Breast Cancer Paternal Aunt half-aunt through [facility] other (Blood Clots) Other Cancer Other Diabetes Other other (Heart Trouble) Other other (Lung Disease) Other Stroke Other other (High Blood Pressure) Other Colon Cancer Paternal Uncle half-uncle through [facility] Colon Cancer Paternal Uncle half-uncle through [facility] Social History Tobacco Use Smoking status: Every Day Current packs/day: 0.50 Average packs/day: 0.5 packs/day for 9.0 years (4.5 ttl pk-yrs) Types: Cigarettes Smokeless tobacco: Never Tobacco comments: 09/17 ppd Vaping Use Vaping status: Never Used Substance Use Topics Alcohol use: Not Currently Drug use: Not Currently Types: Marijuana Comment: 10/03 currently denies MEDICATIONS: Current Outpatient Medications Medication Sig OLANZapine (ZYPREXA) 5 mg tablet Take 1 tablet by mouth daily at bedtime. No current facility-administered medications for this visit. ALLERGIES: ALLERGIES Allergen Reactions Lexapro [Escitalopr* Mental Status Change Adhesive Rash Avocado Oil Unknown Codeine Rash SOB Wellbutrin [Bupropi* Mental Status Change PHYSICAL EXAMINATION: Resp 20 Ht 5' 9 (1.75m) Wt 180 lb (81.6kg) LMP 06/16/2023 BMI 26.57 kg/(m^2). General Appearance: Well appearing, alert, in no acute distress, well-hydrated, well nourished. Skin: Skin color, texture, turgor normal, no suspicious rashes or lesions. Extremities: Right shoulder and left wrist with well healed surgical scars. No deformity either location. No tenderness to palpation over clavicle hardware. Demonstrates active comfortable left wrist flexion and extension, full forearm pronation and supination. Peripheral Pulses: Normal. Neurologic: Intact light touch sensation right and left upper extremity. IMAGES: Recent Results (from the past 36 hour(s)) XR WRIST GENERAL 3V PA/LAT/OBL LEFT Narrative Three views left wrist demonstrate healed distal radius fracture. Hardware unchanged in position, somewhat rotated views. Lateral confirms extraarticular screw position. No new fracture identified. XR CLAVICLE 2V RIGHT Narrative Two views right clavicle demonstrate no change in position of the stabilizing hardware. Fracture appears healed and remodeled. Clavicle length and alignment normal. ASSESSMENT AND PLAN: 1. Closed displaced fracture of shaft of right clavicle with routine healing, subsequent encounter - ICD9: V54.11, ICD10: S42.021D (primary diagnosis) 2. Other closed intra-articular fracture of distal end of left radius with routine healing, subsequent encounter - ICD9: V54.12, ICD10: S52.572D Functional Plan: No restrictions with range of motion or weight bearing bilateral upper extremities. Assistance Devices: None. Physical/Occupational Therapy: None recommended. Wound Care: None. Pain Control: No change in pain regimen recommended this office visit. Fragility Fracture: Not applicable. Additional: None, patient reassured by imaging and exam. Follow-up as needed. Roland Blanco MD Medical Decision Making: Problems: Moderate: 2+ stable chronic illnesses Data: Unique test result(s) reviewed: 2 Unique test(s) ordered: 2 Risk: Low: Low risk from testing/treatment Medical Decision Making Level: 4 - Moderate documented in this encounter [facility] 07-02-2024 Note HNO ID: [id number] Author: ROLAND BLANCO MD Service: ? Author Type: Physician Type: Progress Notes Filed: 07/05/2024 11:59 Note Text: ORTHOPAEDIC OFFICE NOTE CHIEF COMPLAINT: right clavicle, left wrist injuries HISTORY OF PRESENT ILLNESS: Pranay Reyes is a 29 year old female who presents for reevaluation after open reduction internal fixation right clavicle and left distal radius fractures 05/06/2023. Missed prior follow-up appointments and wanted to confirm injuries were 'okay'. Has been using right and left upper extremities as tolerated, no new symptoms including pain or instability. No new injury mechanism. Reviewed nursing note and current pain scale. PAST MEDICAL HISTORY Diagnosis Date - Abdominal pain - Adenomatous polyp - Blood in urine - Borderline personality disorder (HCC) - Bruising - Chest pain - Constipation - Dizziness - Early satiety - Fatigue - Heart trouble - History of medical problems Unspecified, Ovarian Cysts, Left - History of weight change change in appetite and weight - Indigestion - Kidney stones - Leg swelling - Manic bipolar I disorder (HCC) - Nausea - Numbness and tingling - Palpitations - POTS (postural orthostatic tachycardia syndrome) - Renal disorder kidney stones - SOB (shortness of breath) - Visual changes blurry vision in both eyes,and spouts of blindness PAST SURGICAL HISTORY Procedure Laterality Date - SECTION HX x 2 1. suspected LGA 2. repeat - CLAVICAL SURGERY - COLONOSCOPY 05/01/2019 sigmoid polyp (tubular adenoma) - COLONOSCOPY SCREENING 10/03/2023 Normal - EGD 05/01/2019 normal - HEMORRHOID SURGERY HX - HEMORRHOIDECTOMY - PAST SURGICAL HISTORY OF removal of left ovary and uterine ablation - THERMAL ENDOMETRIAL ABLATION - TUBAL LIGATION HX laparoscopic - WRIST SURGERY HX Left 05/06/2023 FAMILY HISTORY Problem Relation Age of Onset - other (migraine) Mother - other (Intracranial Tumor) Sister sister,aunt,grandmother - Ovarian cancer Paternal Grandmother - Colon Cancer Paternal Grandfather - Multiple Sclerosis Maternal Uncle maternal uncle,cousins - Breast Cancer Paternal Aunt half-aunt through PGM - Breast Cancer Paternal Aunt half-aunt through PGM - other (Blood Clots) Other - Cancer Other - Diabetes Other - other (Heart Trouble) Other - other (Lung Disease) Other - Stroke Other - other (High Blood Pressure) Other - Colon Cancer Paternal Uncle half-uncle through PGF - Colon Cancer Paternal Uncle half-uncle through PGF Social History Tobacco Use - Smoking status: Every Day Current packs/day: 0.50 Average packs/day: 0.5 packs/day for 9.0 years (4.5 ttl pk-yrs) Types: Cigarettes - Smokeless tobacco: Never - Tobacco comments: 09/17 ppd Vaping Use - Vaping status: Never Used Substance Use Topics - Alcohol use: Not Currently - Drug use: Not Currently Types: Marijuana Comment: 10/03 currently denies MEDICATIONS: Current Outpatient Medications Medication Sig - OLANZapine (ZYPREXA) 5 mg tablet Take 1 tablet by mouth daily at bedtime. No current facility-administered medications for this visit. ALLERGIES: ALLERGIES Allergen Reactions - Lexapro [Escitalopr* Mental Status Change - Adhesive Rash - Avocado Oil Unknown - Codeine Rash SOB - Wellbutrin [Bupropi* Mental Status Change PHYSICAL EXAMINATION: Resp 20 Ht 5' 9 (1.75m) Wt 180 lb (81.6kg) LMP 06/16/2023 BMI 26.57 kg/(m2). General Appearance: Well appearing, alert, in no acute distress, well-hydrated, well nourished. Skin: Skin color, texture, turgor normal, no suspicious rashes or lesions. Extremities: Right shoulder and left wrist with well healed surgical scars. No deformity either location. No tenderness to palpation over clavicle hardware. Demonstrates active comfortable left wrist flexion and extension, full forearm pronation and supination. Peripheral Pulses: Normal. Neurologic: Intact light touch sensation right and left upper extremity. IMAGES: Recent Results (from the past 36 hour(s)) XR WRIST GENERAL 3V PA/LAT/OBL LEFT Narrative Three views left wrist demonstrate healed distal radius fracture. Hardware unchanged in position, somewhat rotated views. Lateral confirms extraarticular screw position. No new fracture identified. XR CLAVICLE 2V RIGHT Narrative Two views right clavicle demonstrate no change in position of the stabilizing hardware. Fracture appears healed and remodeled. Clavicle length and alignment normal. ASSESSMENT AND PLAN: 1. Closed displaced fracture of shaft of right clavicle with routine healing, subsequent encounter - ICD9: V54.11, ICD10: S42.021D (primary diagnosis) 2. Other closed intra-articular fracture of distal end of left radius with routine healing, subsequent encounter - ICD9: V54.12, ICD10: S52.572D Functional Plan: No restrictions with range of motion or weight bearing (more content not included)... [facility] 06-29-2024 Telephone encounter Note Patient sent a [employer] message Wanting to schedule a follow up with Dr Lester Fernandez called patient at 5pm set up next appt Pamela Toledo June 29, 2024 5:03 PM [facility] 06-29-2024 Miscellaneous Notes Patient sent a [employer] message Wanting to schedule a follow up with Dr Lester Fernandez called patient at 5pm set up next appt Pamela Toledo June 29, 2024 5:03 PM documented in this encounter [facility] 04-21-2024 History of Present illness Narrative Radiology Service Progress Note PATIENT NAME: Pranay Reyes DATE OF SERVICE: April 21, 2024 TIME: 8:16 AM PATIENT IDENTITY VERIFICATION COMPLETED USING TWO (2) IDENTIFIERS: Name and Date of confirmed by patient verbally. FALL SCREENING: Has the patient had 2 falls in the last year or 1 fall with injury or currently using an Ambulatory Assistive Device (Walker, Cane, Wheelchair, Crutches,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 change. Negative for chills and fever. HENT: Negative for ear pain and sore throat. Eyes: Negative for pain and visual disturbance. Respiratory: Negative for cough and shortness of breath. Cardiovascular: Negative for chest pain and palpitations. Gastrointestinal: Negative for abdominal pain and vomiting. Genitourinary: Negative for dysuria and hematuria. Musculoskeletal: Negative for arthralgias and back pain. Skin: Negative for color change and rash. Neurological: Negative for seizures and syncope. Psychiatric/Behavioral: Positive for dysphoric mood and sleep disturbance. The patient is nervous/anxious. All other systems reviewed and are negative. Pertinent positives and negatives as per HPI. PAST MEDICAL HISTORY Past Medical History: Diagnosis Date Anxiety Borderline personality disorder (CMS/HCC) (HCC) Depression Kidney stone POTS (postural orthostatic tachycardia syndrome) Schizophrenia (HCC) UTI (urinary tract infection) SURGICAL HISTORY Past Surgical History: Procedure Laterality Date SECTION (HISTORICAL) CYST REMOVAL 02/2019 Left ovary ENDOMETRIAL ABLATION HEMORRHOID SURGERY TUBAL LIGATION CURRENT MEDICATIONS Previous Medications RISPERIDONE (RISPERDAL) 1 MG TABLET Take 1 tablet by mouth Nightly. ALLERGIES Escitalopram, Avocado, Bupropion, Codeine, and Wound dressing adhesive FAMILY HISTORY No family history on file. SOCIAL HISTORY Social History Socioeconomic History Marital status: Single Tobacco Use Smoking status: Every Day Packs/day: 1 Types: Cigarettes Smokeless tobacco: Never Vaping Use Vaping Use: Never used Substance and Sexual Activity Alcohol use: Not Currently Drug use: No SCREENINGS PHYSICAL EXAM ED Triage Vitals Temp Pulse Resp BP -- -- -- -- SpO2 Temp src Heart Rate Source Patient Position -- -- -- -- BP Location FiO2 (%) -- -- Physical Exam Vitals and nursing note reviewed. Constitutional: General: She is not in acute distress. Appearance: She is well-developed. She is not ill-appearing or diaphoretic. HENT: Head: Normocephalic and atraumatic. Eyes: Conjunctiva/sclera: Conjunctivae normal. Cardiovascular: Rate and Rhythm: Normal rate and regular rhythm. Heart sounds: No murmur heard. Pulmonary: Effort: Pulmonary effort is normal. No respiratory distress. Breath sounds: Normal breath sounds. Abdominal: Palpations: Abdomen is soft. Tenderness: There is no abdominal tenderness. Musculoskeletal: General: No swelling. Cervical back: Neck supple. Skin: General: Skin is warm and dry. Capillary Refill: Capillary refill takes less than 2 seconds. Neurological: General: No focal deficit present. Mental Status: She is alert and oriented to person, place, and time. Psychiatric: Attention and Perception: Attention normal. She perceives auditory hallucinations. Mood and Affect: Mood normal. Speech: Speech normal. Behavior: Behavior normal. Thought Content: Thought content does not include homicidal or suicidal ideation. Cognition and Memory: Memory normal. Comments: Insight seems to be intact DIAGNOSTIC RESULTS Procedures/EKG: EKG was reviewed by myself. Physician EKG interpretation can be found in [facility] RADIOLOGY (Per Emergency Physician): Interpretation per the Radiologist below, if available at the time of this note: No orders to display ED BEDSIDE ULTRASOUND: Performed by ED Physician - none LABS: Labs Reviewed - No data to display All other labs were within normal range or not returned as of this dictation. EMERGENCY DEPARTMENT COURSE and DIFFERENTIAL DIAGNOSIS/MDM: Vitals: Vitals: 11/26/23 2331 11/26/23 2346 BP: (!) 126/94 BP Location: Right arm Patient Position: Sitting Pulse: 94 Resp: Temp: 36.7 C (98.1 F) TempSrc: Oral SpO2: 99% Weight: 77.6 kg (171 lb) Height: 1.753 m (5' 9) 28-year-old female with history of schizophrenia presents feeling nervous anxious. Differential decompensated psychosis, medication noncompliance, metabolic disturbance. She is not homicidal suicidal she appears to have insight into her condition she tells us that she stopped her medications because she wanted to feel normal and she realizes she needs to be back on them. She is out of her medications. At this time she does not require inpatient psychiatric stabilization a pink slip. Diagnoses as of 11/27/23 0002 Anxiety Schizophrenia, unspecified type (HCC) The patient presented with chief complaint of nervous anxious. The differential diagnosis associated with this patient's presentation includes above. Our workup consisted of ordering/reviewing: above. Diagnostic tests considered but not performed: ct head - not truly altered I also reviewed external records from Outpatient notes 07/23/2023 psychiatry telephone encounter for anxiety. Consideration for escalation of care with: Admission/observation if she is unable to take care of herself and require psychiatric placement. Patient is in agreement with this plan. Patient's care was impacted by schizophrenia. Patient's care was significantly impacted by social determinants of health including med noncompliance. Medications - No data to display REVAL: Patient reevaluated and monitored here she is feeling improved. She states that she feels comfortable going home and I believe this is appropriate she has not endorsed any thoughts of harming herself and safety agreement verbally has been affirmed by her to me. Will refill her Risperdal, I do not have a history of her being on Depakote so we will defer to her psychiatrist for this. She states she will call her social service manager in the morning who can help her get in with her psychiatrist. Return precautions provided. CRITICAL CARE TIME None no CONSULTS: None PROCEDURES: Unless otherwise noted below, none Procedures Patients symptoms are consistent with sepsis, severe sepsis, or septic shock (If yes use .sepsiscoremeasure): no FINAL IMPRESSION 1. Anxiety 2. Schizophrenia, unspecified type (HCC) DISPOSITION PATIENT REFERRED TO: No follow-up provider specified. DISCHARGE MEDICATIONS: New Prescriptions No medications on file (Comment: Please note this report has been produced using speech recognition software and may contain errors related to that system including errors in grammar, punctuation, and spelling, as well as words and phrases that may be inappropriate. If there are any questions or concerns please feel free to contact the dictating provider for clarification.) Julisa Gonzalez MD (electronically signed) Emergency Medicine Provider Julisa Gonzalez MD 11/27/23 0002 Pt states that symptoms started a few days ago but admits that has not taken medication for the last month. Pt states she has not seen her provider in the last month so was not able to refill. Pt states did not know what to do and felt ED was safest place to come. Pt has verbalize no indication of harm to herself or anyone else. Pt stated that she felt fine, so did not meet her appt this past month. Pt is anxious, sitting in bed asking for medication to help with anxiety. Pt meeting with physician and appears to be cooperative. documented in this encounter [facility] 11-27-2023 Hospital Discharge instructions Julisa Gonzalez MD - 11/27/2023 12:04 AM EDT Please contact her social service manager in the morning and follow-up with your psychiatrist. Risperdal prescription has been sent to your pharmacy. Please restart this. Please return if you have any worsening symptoms or concerns. The following attachments cannot be sent through Care Everywhere.Schizophrenia Discharge Instructions (Angolan)documented in this encounter [facility] 11-26-2023 Emergency department Note Pt was provided with warm blanket. This RN offered PO fluids and snacks, pt stated no thanks. Pt is tearful. Antionette Dexter RN 11/26/23 0147 [facility] 11-26-2023 Emergency department Triage note Pt states that symptoms started a few days ago but admits that has not taken medication for the last month. Pt states she has not seen her provider in the last month so was not able to refill. Pt states did not know what to do and felt ED was safest place to come. Pt has verbalize no indication of harm to herself or anyone else. Pt stated that she felt fine, so did not meet her appt this past month. Pt is anxious, sitting in bed asking for medication to help with anxiety. Pt meeting with physician and appears to be cooperative. [facility] 11-26-2023 Physician Emergency department Note EMERGENCY DEPARTMENT ENCOUNTER Pt Name: Pranay Reyes Birthdate 1995 Date of evaluation: 11/26/2023 ED Provider: Julisa Gonzalez MD CHIEF COMPLAINT Chief Complaint Patient presents with Altered Mental Status Few days ago HISTORY OF PRESENT ILLNESS (Location/Symptom, Timing/Onset, Context/Setting, Quality, Duration, Modifying Factors, Severity) Note limiting factors. I wore appropriate PPE for the entirety of this encounter. HPI Pranay Reyes is a 28 y.o. who presents to the emergency department with chief complaint of feeling not herself. Patient has history of schizophrenia has not been taking her Risperdal or Depakote for about a month because she has been feeling better and she just wants to be normal. She states she missed her psychiatry appointment with Dr. Major at [facility], therefore did not get her meds refilled, and came here just for some support to help with her nerves and anxiety. She states her boyfriend does not always know how to know what is going on with her so she likes to talk to healthcare personnel. She denies any suicidal homicidal thoughts. She states she has chronic hallucinations that are any worse than normal. Denies any overdose or substance use. Denies any physical complaints. Despite the triage note she denies any confusion or altered mental status to me. She does not feel like she needs to be admitted to inpatient she appears to have insight. She realizes that she needs to go back on her medications and needs any prescriptions. She did drive herself here. Nursing Notes were reviewed. Limitations to history: None Outside historians: None REVIEW OF SYSTEMS Review of Systems Constitutional: Positive for activity change and appetite change. Negative for chills and fever. HENT: Negative for ear pain and sore throat. Eyes: Negative for pain and visual disturbance. Respiratory: Negative for cough and shortness of breath. Cardiovascular: Negative for chest pain and palpitations. Gastrointestinal: Negative for abdominal pain and vomiting. Genitourinary: Negative for dysuria and hematuria. Musculoskeletal: Negative for arthralgias and back pain. Skin: Negative for color change and rash. Neurological: Negative for seizures and syncope. Psychiatric/Behavioral: Positive for dysphoric mood and sleep disturbance. The patient is nervous/anxious. All other systems reviewed and are negative. Pertinent positives and negatives as per HPI. PAST MEDICAL HISTORY Past Medical History: Diagnosis Date Anxiety Borderline personality disorder (CMS/HCC) (HCC) Depression Kidney stone POTS (postural orthostatic tachycardia syndrome) Schizophrenia ([facility]) UTI (urinary tract infection) SURGICAL HISTORY Past Surgical History: Procedure Laterality Date SECTION (HISTORICAL) CYST REMOVAL 02/2019 Left ovary ENDOMETRIAL ABLATION HEMORRHOID SURGERY TUBAL LIGATION CURRENT MEDICATIONS Previous Medications RISPERIDONE (RISPERDAL) 1 MG TABLET Take 1 tablet by mouth Nightly. ALLERGIES Escitalopram, Avocado, Bupropion, Codeine, and Wound dressing adhesive FAMILY HISTORY No family history on file. SOCIAL HISTORY Social History Socioeconomic History Marital status: Single Tobacco Use Smoking status: Every Day Packs/day: 1 Types: Cigarettes Smokeless tobacco: Never Vaping Use Vaping Use: Never used Substance and Sexual Activity Alcohol use: Not Currently Drug use: No SCREENINGS PHYSICAL EXAM ED Triage Vitals Temp Pulse Resp BP -- -- -- -- SpO2 Temp src Heart Rate Source Patient Position -- -- -- -- BP Location FiO2 (%) -- -- Physical Exam Vitals and nursing note reviewed. Constitutional: General: She is not in acute distress. Appearance: She is well-developed. She is not ill-appearing or diaphoretic. HENT: Head: Normocephalic and atraumatic. Eyes: Conjunctiva/sclera: Conjunctivae normal. Cardiovascular: Rate and Rhythm: Normal rate and regular rhythm. Heart sounds: No murmur heard. Pulmonary: Effort: Pulmonary effort is normal. No respiratory distress. Breath sounds: Normal breath sounds. Abdominal: Palpations: Abdomen is soft. Tenderness: There is no abdominal tenderness. Musculoskeletal: General: No swelling. Cervical back: Neck supple. Skin: General: Skin is warm and dry. Capillary Refill: Capillary refill takes less than 2 seconds. Neurological: General: No focal deficit present. Mental Status: She is alert and oriented to person, place, and time. Psychiatric: Attention and Perception: Attention normal. She perceives auditory hallucinations. Mood and Affect: Mood normal. Speech: Speech normal. Behavior: Behavior normal. Thought Content: Thought content does not include homicidal or suicidal ideation. Cognition and Memory: Memory normal. Comments: Insight seems to be intact DIAGNOSTIC RESULTS Procedures/EKG: EKG was reviewed by myself. Physician EKG interpretation can be found in [facility] RADIOLOGY (Per Emergency Physician): Interpretation per the Radiologist below, if available at the time of this note: No orders to display ED BEDSIDE ULTRASOUND: Performed by ED Physician - none LABS: Labs Reviewed - No data to display All other labs were within normal range or not returned as of this dictation. EMERGENCY DEPARTMENT COURSE and DIFFERENTIAL DIAGNOSIS/MDM: Vitals: Vitals: 11/26/23 2331 11/26/23 2346 BP: (!) 126/94 BP Location: Right arm Patient Position: Sitting Pulse: 94 Resp: 22 22 Temp: 36.7 C (98.1 F) TempSrc: Oral SpO2: 99% Weight: 77.6 kg (171 lb) Height: 1.753 m (5' 9) 28-year-old female with history of schizophrenia presents feeling nervous anxious. Differential decompensated psychosis, medication noncompliance, metabolic disturbance. She is not homicidal suicidal she appears to have insight into her condition she tells us that she stopped her medications because she wanted to feel normal and she realizes she needs to be back on them. She is out of her medications. At this time she does not require inpatient psychiatric stabilization a pink slip. Diagnoses as of 11/27/23 0002 Anxiety Schizophrenia, unspecified type (HCC) The patient presented with chief complaint of nervous anxious. The differential diagnosis associated with this patient's presentation includes above. Our workup consisted of ordering/reviewing: above. Diagnostic tests considered but not performed: ct head - not truly altered I also reviewed external records from Outpatient notes 07/23/2023 psychiatry telephone encounter for anxiety. Consideration for escalation of care with: Admission/observation if she is unable to take care of herself and require psychiatric placement. Patient is in agreement with this plan. Patient's care was impacted by schizophrenia. Patient's care was significantly impacted by social determinants of health including med noncompliance. Medications - No data to display REVAL: Patient reevaluated and monitored here she is feeling improved. She states that she feels comfortable going home and I believe this is appropriate she has not endorsed any thoughts of harming herself and safety agreement verbally has been affirmed by her to me. Will refill her Risperdal, I do not have a history of her being on Depakote so we will defer to her psychiatrist for this. She states she will call her social service manager in the morning who can help her get in with her psychiatrist. Return precautions provided. CRITICAL CARE TIME None no CONSULTS: None PROCEDURES: Unless otherwise noted below, none Procedures Patients symptoms are consistent with sepsis, severe sepsis, or septic shock (If yes use .sepsiscoremeasure): no FINAL IMPRESSION 1. Anxiety 2. Schizophrenia, unspecified type (HCC) DISPOSITION PATIENT REFERRED TO: No follow-up provider specified. DISCHARGE MEDICATIONS: New Prescriptions No medications on file (Comment: Please note this report has been produced using speech recognition software and may contain errors related to that system including errors in grammar, punctuation, and spelling, as well as words and phrases that may be inappropriate. If there are any questions or concerns please feel free to contact the dictating provider for clarification.) Julisa Gonzalez MD (electronically signed) Emergency Medicine Provider Julisa Gonzalez MD 11/27/23 0002 [facility] 10-03-2023 Nurse Note Physician at bedside. [facility] 10-03-2023 Nurse Note Physician at bedside. Pt. States readiness for discharge. Assisted with dressing. documented in this encounter [facility] 10-03-2023 Nurse Note Pt. States readiness for discharge. Assisted with dressing. [facility] 08-22-2023 Instructions Kelton Powers MD - 08/22/2023 6:40 AM EST Images from the original note were not included. Bowel Preparation Instructions for: Miralax-Gatorade Preparations IF YOU DO NOT FOLLOW THESE DIRECTIONS, YOUR COLONOSCOPY WILL BE CANCELLED. [place] Instructions: Your bowel must be empty so that your doctor can clearly view your colon. Follow all of the instructions in this handout EXACTLY as they are written. Do NOT eat any solid food the ENTIRE day before your colonoscopy. Buy your bowel preparation at least 5 days before your colonoscopy. Four (4) Dulcolax laxative tablets containing 5mg of bisacodyl each (NOT Dulcolax stool softener) One (1) 8.3oz. bottle Miralax (238 grams) or generic equivalent 2 x 32oz. Bottles of Gatorade (NOT RED) Diabetic Patients: Use G2 (Gatorade 2) TRANSPORTATION on the Day of Your Exam A responsible adult MUST be present with you at Check In prior to your colonoscopy and REMAIN in the endoscopy area until you are discharged. You are NOT ALLOWED to drive, take a taxi or bus, or leave the Endoscopy Center ALONE. If you do not have a responsible tractor driver teamster (family member or friend) with you to take you home, your exam cannot be done with sedation and will be cancelled. Please bring a list of all of your current medications, including any Dtuc-vjr-Glkftsr medications with you. Medications If you take insulin, diabetic medications or blood thinners such as Coumadin (warfarin), Plavix (clopidogrel), Ticlid (ticlopidine hydrochloride), Agrylin (anagrelide), Xarelto (Rivaroxaban), Pradaxa (Dabigatran), Eliquis (Apixaban), and Effient (Prasugrel). You MUST call the doctors who orders those medicines for instructions on altering the dosage before your colonoscopy. All other medications should be taken the day of the exam with a sip of water including ASPIRIN. Five (5) Days Before Your Colonoscopy Do NOT take medicines that stop diarrhea - such as Imodium, Kaopectate, or Pepto Bismol. Do NOT take fiber supplements - such as Metamucil, Citrucel, or Perdiem. Do NOT take products that contain iron - such as multi-vitamins (the label lists what is in the products). Three (3) Days Before Your Colonoscopy Do NOT eat high-fiber foods - such as popcorn, beans, seeds (flax, sunflower, quinoa), multigrain bread, nuts, salad/vegetables, or fresh and dried fruit. 1 Bowel Preparation Instructions for: Miralax-Gatorade Preparations One (1) Day Before Your Colonoscopy Only drink clear liquids the ENTIRE DAY before your colonoscopy. Do NOT eat any solid foods. Drink at least 8 ounces of clear liquids every hour after waking up. The clear liquids you can drink include: Clear Liquid (NO RED LIQUIDS) DO NOT DRINK Gatorade, Pedialyte or Powerade Clear broth or bouillon Coffee or tea (no milk or non-dairy creamer) Carbonated and non-carbonated soft drinks Mateusz-Aid or other fruit flavored drinks Strained fruit juices (no pulp) Jell-O, popsicles, hard candy Water Alcohol Milk or non-dairy creamers Noodles or vegetables in soup Juice with pulp Liquid you cannot see through Do not use tobacco/vaping products Mix 1/2 of Miralax bottle (119 grams) in each 32 ounces of Gatorade bottle until dissolved. Keep cool in the refrigerator. DO NOT ADD ICE. The bowel preparation solution will be consumed in two parts. Part 1 5:00 PM - Evening before your colonoscopy Take 4 Dulcolax tablets. 6 PM - Evening before your colonoscopy Drink 32 oz. of the mixed solution. Drink an 8 oz. glass of bowel preparation every 15 minutes for a total of 4 glasses. Fifteen (15) minutes later, drink an 8 oz. glass of of clear liquids every 15 minutes for a total of 2 glasses. You may continue to drink clear liquids till midnight. Part 2 On the day of your colonoscopy you may drink clear liquids up to (three) 3 hours prior to procedure. 4 1/2 hours before your colonoscopy Take another 32 oz. bottle of mixed solution. Drink an 8 oz. glass of bowel prep every 15 minutes for a total of 4 glasses. Fifteen (15) minutes later, drink an 8 oz. glass of clear liquids every 15 minutes for a total of 2 glasses. You may continue to drink clear liquids up to (three) 3 hours before your exam. 2 08/2019 documented in this encounter [facility] 08-15-2023 Note HNO ID: [id number] Author: Mireille Simpson APRN.SANTOS Service: ? Author Type: Nurse Practitioner Type: Progress Notes Filed: 08/19/2023 5:05 PM Note Text: Mireille Simpson APRN-SANTOS, OCN [place] [id number] Date of Visit: 08/15/2023 Patient Name: Pranay Reyes Date of : 1995 Established Visit Breast Surgeon: Radha Hays DO SUBJECTIVE Chief Complaint: Patient presents with: Follow Up HPI Pranay Reyes is a 28 year old female who presents today for suture removal post skin punch biopsy RIGHT breast 08/06/2023. She is an established [facility] patient and was last seen in the Breast [facility] 08/06/2023. She does endorse itching at the site of the skin punch biopsy with suture intact. Final pathology as noted below discussed. Nursing Notes: Diana Pisano MA 08/15/2023 3:19 PM Signed Patient present for 1 week after punch biopsy right of breast. Complains of itching,site clean and dry. Denies any new breast problems. Diana Pisano LPN No question data found. Family and personal medical histories reviewed and updated. REVIEW OF SYSTEMS: Complete 10 system ROS done and negative except as stated above in the HPI. Current Outpatient Medications Medication Sig Dispense Refill risperiDONE (RISPERDAL) 1 mg tablet Take 1 tablet by mouth daily at bedtime. 30 tablet 2 LORazepam (ATIVAN) 0.5 mg (Patient not taking: Reported on 08/15/2023) No current facility-administered medications for this visit. I have performed the physical exam on 08/15/2023 - all new findings noted below. PAST MEDICAL HISTORY Diagnosis Date Abdominal pain Adenomatous polyp Blood in urine Borderline personality disorder (HCC) Bruising Chest pain Constipation Dizziness Early satiety Fatigue Heart trouble History of medical problems Unspecified, Ovarian Cysts, Left History of weight change change in appetite and weight Indigestion Kidney stones Leg swelling Manic bipolar I disorder (HCC) Nausea Numbness and tingling Palpitations POTS (postural orthostatic tachycardia syndrome) Renal disorder kidney stones SOB (shortness of breath) Visual changes blurry vision in both eyes,and spouts of blindness PAST SURGICAL HISTORY Procedure Laterality Date SECTION HX x 2 1. suspected LGA 2. repeat CLAVICAL SURGERY COLONOSCOPY 05/01/2019 sigmoid polyp (tubular adenoma) EGD 05/01/2019 normal HEMORRHOID SURGERY HX HEMORRHOIDECTOMY PAST SURGICAL HISTORY OF removal of left ovary and uterine ablation THERMAL ENDOMETRIAL ABLATION TUBAL LIGATION HX laparoscopic WRIST SURGERY HX Left 05/06/2023 Social History Tobacco Use Smoking status: Every Day Packs/day: 0.50 Years: 9.00 Additional pack years: 0.00 Total pack years: 4.50 Types: Cigarettes Smokeless tobacco: Never Tobacco comments: / ppd Vaping Use Vaping Use: Never used Substance Use Topics Alcohol use: Not Currently Drug use: Yes Types: Marijuana FAMILY HISTORY Problem Relation Age of Onset Ovarian cancer Paternal Grandmother Breast Cancer Paternal Aunt other (Blood Clots) Other Cancer Other Diabetes Other other (Heart Trouble) Other other (Lung Disease) Other Stroke Other other (High Blood Pressure) Other other (Intracranial Tumor) Sister sister,aunt,grandmother Multiple Sclerosis Maternal Uncle maternal uncle,cousins other (migraine) Mother The ROS, medical, surgical, family, and social history were reviewed by Mireille Simpson APRN.HALL MANAGER ALLERGIES Allergen Reactions Lexapro [Escitalopr* Mental Status Change Adhesive Rash Avocado Oil Unknown Codeine Rash SOB Wellbutrin [Bupropi* Mental Status Change Current Outpatient Medications Medication Sig risperiDONE (RISPERDAL) 1 mg tablet Take 1 tablet by mouth daily at bedtime. LORazepam (ATIVAN) 0.5 mg (Patient not taking: Reported on 08/15/2023) No current facility-administered medications for this visit. OBJECTIVE BP 126/89 Pulse 105 Ht 175.3 cm (5' 9) Wt 72.6 kg (160 lb) LMP 06/16/2023 (Approximate) BMI 23.63 kg/m? BMI 23.63 kg/(m2) Physical Exam BREAST EXAM: RIGHT breast focused exam only: Suture removed from skin punch biopsy site without difficulty. Site is without noted erythema or drainage. ASSESSMENT/PLAN: 1. S/P skin biopsy - ICD9: V45.89, ICD10: Z98.890 (primary diagnosis) 2. Abscess of right breast - ICD9: 611.0, ICD10: N61.1 3. Cellulitis of right breast - ICD9: 611.0, ICD10: N61.0 Pranay Reyes is a 28 year old female who presents today for suture removal following RIGHT breast skin punch biopsy 08/06/2023. Final pathology report discussed - noted above. She denies any breast related concerns or complaints. There are no concerning or suspicious findings demonstrated on today's clinical breast exam. She will return for f (more content not included)... [facility] 08-06-2023 Note HNO ID: [id number] Author: Radha Hays DO Service: ? Author Type: Physician Type: Procedures Filed: 08/06/2023 4:39 PM Note Text: PUNCH BIOPSY PROCEDURE NOTE: After informed consent was obtained informing the patient of the risk and benefits of the procedure including bleeding possibly requiring surgery, infection, scar, a time out was performed verifying the correct patient, side, and procedure. The patient's right breast was prepared and draped in the usual sterile fashion and anesthesia obtained using 3 cc of 1% lidocaine without epinephrine. A 4 mm Punch biopsy device was utilized to obtain a full thickness biopsy of the affected skin. The wound was approximated with an interrupted suture of 3-0 Prolene and dressed with a sterile dressing. The patient tolerated the procedure well without complications. [facility] 08-06-2023 Procedure note PUNCH BIOPSY PROCEDURE NOTE: After informed consent was obtained informing the patient of the risk and benefits of the procedure including bleeding possibly requiring surgery, infection, scar, a time out was performed verifying the correct patient, side, and procedure. The patient's right breast was prepared and draped in the usual sterile fashion and anesthesia obtained using 3 cc of 1% lidocaine without epinephrine. A 4 mm Punch biopsy device was utilized to obtain a full thickness biopsy of the affected skin. The wound was approximated with an interrupted suture of 3-0 Prolene and dressed with a sterile dressing. The patient tolerated the procedure well without complications. documented in this encounter [facility] 08-06-2023 History of Present illness Narrative Images from the original note were not included. Radha Hays DO Breast [facility] [address] [place] [address] SUBJECTIVE Chief Complaint: Patient presents with: Breast Problem: H/o cellulitis of RT breast . HPI Pranay Reyes is a 28 year old female here for follow up Recently saw her PCP for a large right breast mass and clear and curdling nipple discharge. Nipple discharge been going on for months. H/o lactational mastitis 7 years ago. Underwent right breast mammogram on 07/03/23 which showed extremely dense breast tissue and no mammographic abnormality. 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 Erythematous lesion over the right anterior, inferior, medial breast was seen on physical exam. She was given Augmentin and fluconazole and discharged for possible mastitis. She was scheduled to undergo ultrasound guided biopsy x 3 of right breast however on day of biopsy, the prior sites of concern were no longer seen by ultrasound, just evidence of skin thickening by ultrasound concerning for mastitis therefore no biopsies were done. She states that the area has significantly improved with the antibiotics. No further redness nor pain. However does still have the palpable area. Nursing Notes: Luna Newberry LPN 08/06/2023 4:02 PM Signed Pranay Reyes is a 28 year old female who presents to follow up for Breast Problem (H/o cellulitis of RT breast ) Pt c/o RT breast redness and lump. Pt denies pain and drainage Luna Newberry LPN No question data found. Review of Systems CONSTITUTIONAL: No weight loss, malaise or fevers HEENT: Negative for frequent or significant headaches, No changes in hearing or vision, no nose bleeds or other nasal problems NECK: Negative for Pain and Swelling RESPIRATORY: Negative for cough or shortness of breath CARDIOVASCULAR: Negative for chest pain or palpitations. Negative for leg swelling GI: Negative for abdominal pain, nausea, or vomiting MUSCULOSKELETAL: Negative for joint pain or swelling, back pain or muscle pain SKIN: Negative for lesions, rash, and itching BREAST: See HPI. PAST MEDICAL HISTORY Diagnosis Date Abdominal pain Adenomatous polyp Blood in urine Borderline personality disorder (HCC) Bruising Chest pain Constipation Dizziness Early satiety Fatigue Heart trouble History of medical problems Unspecified, Ovarian Cysts, Left History of weight change change in appetite and weight Indigestion Kidney stones Leg swelling Manic bipolar I disorder (HCC) Nausea Numbness and tingling Palpitations POTS (postural orthostatic tachycardia syndrome) Renal disorder kidney stones SOB (shortness of breath) Visual changes blurry vision in both eyes,and spouts of blindness PAST SURGICAL HISTORY Procedure Laterality Date SECTION HX x 2 1. suspected LGA 2. repeat CLAVICAL SURGERY COLONOSCOPY 05/01/2019 sigmoid polyp (tubular adenoma) EGD 05/01/2019 normal HEMORRHOID SURGERY HX HEMORRHOIDECTOMY PAST SURGICAL HISTORY OF removal of left ovary and uterine ablation THERMAL ENDOMETRIAL ABLATION TUBAL LIGATION HX laparoscopic WRIST SURGERY HX Left 05/06/2023 Social History Tobacco Use Smoking status: Every Day Packs/day: 0.50 Years: 9.00 Additional pack years: 0.00 Total pack years: 4.50 Types: Cigarettes Smokeless tobacco: Never Tobacco comments: 1/2 ppd Vaping Use Vaping Use: Never used Substance Use Topics Alcohol use: Not Currently Drug use: Yes Types: Marijuana FAMILY HISTORY Problem Relation Age of Onset Ovarian cancer Paternal Grandmother Breast Cancer Paternal Aunt other (Blood Clots) Other Cancer Other Diabetes Other other (Heart Trouble) Other other (Lung Disease) Other Stroke Other other (High Blood Pressure) Other other (Intracranial Tumor) Sister sister,aunt,grandmother Multiple Sclerosis Maternal Uncle maternal uncle,cousins other (migraine) Mother The ROS, medical, surgical, family, and social history were reviewed by Radha Hays DO ALLERGIES Allergen Reactions Lexapro [Escitalopr* Mental Status Change Adhesive Rash Avocado Oil Unknown Codeine Rash SOB Wellbutrin [Bupropi* Mental Status Change Current Outpatient Medications Medication Sig risperiDONE (RISPERDAL) 1 mg tablet Take 1 tablet by mouth daily at bedtime. LORazepam (ATIVAN) 0.5 mg Current Facility-Administered Medications Medication Dose Route Frequency lidocaine 10 mg/mL (1 %) 100 mg injection (XYLOCAINE) 10 mL INTRADERMAL ONCE OBJECTIVE BP 137/85 Pulse 112 Ht 175.3 cm (5' 9) Wt 72.6 kg (160 lb) LMP 06/16/2023 (Approximate) BMI 23.63 kg/m BMI 23.63 kg/(m^2) PHYSICAL EXAM: General appearance: Well appearing, alert, in no acute distress Skin: skin color, texture, turgor normal, no suspicious rashes or lesions Eyes: Anicteric sclera, Pupils are equally round and reactive Abdomen: soft, non-tender, non-distended Extremities: No clubbing, cyanosis, or edema. Heart: Regular rate and rhythm Lungs: Clear to ascultation bilaterally Neuro: Alert and oriented times three Physical Exam Chest: Comments: 3 cm long palpable cord like area, resolution of previous erythema and dry skin. No fluctuance or induration. No fluid collection. Imaging: The breast ultrasound from 07/25/23 was reviewed in detail and shows IMPRESSION: BENIGN FINDING The prior sites of concern are all no longer seen by ultrasound. This would suggest that these were due to mastitis. The patient still has redness of the skin and there is evidence of skin thickening by ultrasound. Further clinical management is recommended. No biopsies were done today. There is is ongoing clinical concern for the skin/palpable finding, punch biopsy could be considered. There is no sonographic evidence of malignancy. Breast Density: Extremely Dense Data Reviewed: Most recent labs and imaging results. Plan ASSESSMENT/PLAN Pranay Reyes is a 28 year old female who presents with palpable right breast mass that is painful with overlying erythema, and nipple discharge. Was initially scheduled for biopsy x 3 of multiple breast masses, however at the time of biopsy Significant improvement of redness, induration, and dry skin in the right breast. There is a 3 cm palpable cord like area in the right breast remaining just proximal to the NAC at the 4:00 position. Punch biopsy of this area performed in the office. No need for further antibiotics at this time Will call with pathology results Plan to follow up in 1 week for suture removal 1. Cellulitis of right breast - ICD9: 611.0, ICD10: N61.0 (primary diagnosis) - SURGICAL PATHOLOGY 2. Mass overlapping multiple quadrants of right breast - ICD9: 611.72, ICD10: N63.15 3. Mass of lower inner quadrant of right breast - ICD9: 611.72, ICD10: N63.14 4. Nipple discharge - ICD9: 611.79, ICD10: N64.52 5. 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 Extremely dense tissue of right breast on mammography - ICD9: 793.82, ICD10: R92.341 7. Family history of breast cancer - ICD9: V16.3, ICD10: Z80.3 Genetics pending for family history of breast cancer (4 paternal aunts with breast cancer, youngest at age 32) Follow up: Return follow up in 1 week for suture removal and in 2 weeks with me. Radha Hays DO Breast Surgical Oncology Fellow 08/02/2023 4:44 PM documented in this encounter [facility] 08-06-2023 Note HNO ID: [id number] Author: Radha Hays DO Service: ? Author Type: Physician Type: Progress Notes Filed: 08/06/2023 4:39 PM Note Text: Radha Hays DO [facility] [address] [place], [place] [id number] SUBJECTIVE Chief Complaint: Patient presents with: Breast Problem: H/o cellulitis of RT breast . HPI Pranay Reyes is a 28 year old female here for follow up Recently saw her PCP for a large right breast mass and clear and curdling nipple discharge. Nipple discharge been going on for months. H/o lactational mastitis 7 years ago. Underwent right breast mammogram on 07/03/23 which showed extremely dense breast tissue and no mammographic abnormality. 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 Erythematous lesion over the right anterior, inferior, medial breast was seen on physical exam. She was given Augmentin and fluconazole and discharged for possible mastitis. She was scheduled to undergo ultrasound guided biopsy x 3 of right breast however on day of biopsy, the prior sites of concern were no longer seen by ultrasound, just evidence of skin thickening by ultrasound concerning for mastitis therefore no biopsies were done. She states that the area has significantly improved with the antibiotics. No further redness nor pain. However does still have the palpable area. Nursing Notes: Luna Newberry LPN 08/06/2023 4:02 PM Signed Pranay Reyes is a 28 year old female who presents to follow up for Breast Problem (H/o cellulitis of RT breast ) Pt c/o RT breast redness and lump. Pt denies pain and drainage Luna Newberry LPN No question data found. Review of Systems CONSTITUTIONAL: No weight loss, malaise or fevers HEENT: Negative for frequent or significant headaches, No changes in hearing or vision, no nose bleeds or other nasal problems NECK: Negative for Pain and Swelling RESPIRATORY: Negative for cough or shortness of breath CARDIOVASCULAR: Negative for chest pain or palpitations. Negative for leg swelling GI: Negative for abdominal pain, nausea, or vomiting MUSCULOSKELETAL: Negative for joint pain or swelling, back pain or muscle pain SKIN: Negative for lesions, rash, and itching BREAST: See HPI. PAST MEDICAL HISTORY Diagnosis Date Abdominal pain Adenomatous polyp Blood in urine Borderline personality disorder (HCC) Bruising Chest pain Constipation Dizziness Early satiety Fatigue Heart trouble History of medical problems Unspecified, Ovarian Cysts, Left History of weight change change in appetite and weight Indigestion Kidney stones Leg swelling Manic bipolar I disorder (HCC) Nausea Numbness and tingling Palpitations POTS (postural orthostatic tachycardia syndrome) Renal disorder kidney stones SOB (shortness of breath) Visual changes blurry vision in both eyes,and spouts of blindness PAST SURGICAL HISTORY Procedure Laterality Date SECTION HX x 2 1. suspected LGA 2. repeat CLAVICAL SURGERY COLONOSCOPY 05/01/2019 sigmoid polyp (tubular adenoma) EGD 05/01/2019 normal HEMORRHOID SURGERY HX HEMORRHOIDECTOMY PAST SURGICAL HISTORY OF removal of left ovary and uterine ablation THERMAL ENDOMETRIAL ABLATION TUBAL LIGATION HX laparoscopic WRIST SURGERY HX Left 05/06/2023 Social History Tobacco Use Smoking status: Every Day Packs/day: 0.50 Years: 9.00 Additional pack years: 0.00 Total pack years: 4.50 Types: Cigarettes Smokeless tobacco: Never Tobacco comments: 1/2 ppd Vaping Use Vaping Use: Never used Substance Use Topics Alcohol use: Not Currently Drug use: Yes Types: Marijuana FAMILY HISTORY Problem Relation Age of Onset Ovarian cancer Paternal Grandmother Breast Cancer Paternal Aunt other (Blood Clots) Other Cancer Other Diabetes Other other (Heart Trouble) Other other (Lung Disease) Other Stroke Other other (High Blood Pressure) Other other (Intracranial Tumor) Sister sister,aunt,grandmother Multiple Sclerosis Maternal Uncle maternal uncle,cousins other (migraine) Mother The ROS, medical, surgical, family, and social history were reviewed by Radha Hays DO ALLERGIES Allergen Reactions Lexapro [Escitalopr* Mental Status Change Adhesive Rash Avocado Oil Unknown Codeine Rash SOB Wellbutrin [Bupropi* Mental Status Change Current Outpatient Medications Medication Sig risperiDONE (RISPERDAL) 1 mg tablet Take 1 tablet by mouth daily at bedtime. LORazepam (ATIVAN) 0.5 mg Current Facility-Administered Medications Medication Dose Route Frequency (more content not included)... [facility] 08-06-2023 Nurse Note Pranay Reyes is a 28 year old female who presents to follow up for Breast Problem (H/o cellulitis of RT breast ) Pt c/o RT breast redness and lump. Pt denies pain and drainage Luna Newberry LPN documented in this encounter [facility] 07-31-2023 Miscellaneous Notes No Show Documentation Pranay Reyes no showed for an appointment with Ani Batista MD. I called the patient regarding her missed appointment. Resources discussed/offered to patient: left voicemail for the patient This is the patients second no show in the last 12 months. Letter mailed : Yes Is this the Third or Fourth No Show? Radha Fletcher documented in this encounter [facility] 07-25-2023 Instructions Mireille Simpson APRN.HALL MANAGER - 07/25/2023 10:46 AM EST Images from the original note were not included. Breast Self-Exam What is a breast self-exam? A breast self-exam is a technique that a woman can use to examine her breasts to look for changes (such lumps or thickenings) that may signal breast cancer. When a woman detects breast cancer in its early stages, she greatly improves her chances for surviving the disease. Most breast lumps (80 percent) are not cancerous, but you can help ensure your breast health by regularly performing a breast self-exam. When should I perform a breast self-exam? You should perform a breast self-exam once a month, three to five days after your menstrual period ends. If you have stopped menstruating, perform the exam on the same day of each month, such as the first day of the month or a day easy for you to remember, like your date. The exam will take several minutes to perform. With each exam, you will become familiar with the contours and feel of your breasts and will be more alert to changes. 1. The first part of the exam is the inspection, or looking at your breasts. Stand undressed from waist up in front of a large mirror in a well-lit room. Look at your breasts. Don't be alarmed if they do not look equal in size or shape. Most women's breasts are not. With your arms relaxed by your sides, look for any changes in your breasts' size, shape, texture, or skin. Look for any sores as well as any puckering, dimpling, or discoloration of the skin. Inspect your nipples and look for any sores, peeling, or change in the direction of the nipples. 2. Next, place your hands on your hips and press down firmly to tighten the chest muscles beneath your breasts. Turn from side to side so you can inspect the outer part of your breasts. 3. Bend forward toward the mirror. Roll your shoulders and elbows forward to tighten your chest muscles. Your breasts will fall forward. Look for any changes in the shape or contour of your breasts. 4. Now, clasp your hands behind your head and press your hands forward. Again, turn from side to side to inspect your breasts' outer portions. Remember to inspect the border underneath your breasts. You may need to lift your breasts with your hand to see this area. 5. Check your nipples for discharge (fluid). Place your thumb and forefinger on the tissue surrounding the nipple, and pull outward toward the end of the nipple. Look for any discharge. Repeat on your other breast. In the shower 6. The second part of the exam is palpation, or feeling for changes. Use the finger pads of your three middle fingers on each hand to feel for lumps. It is helpful to have your hands slippery with soap and water. Check for any lumps or thickening in your underarm area. Place your left hand on your hip and reach with your right hand to feel in the left armpit. Repeat on the other side. 7. Check both sides for lumps or thickenings below your collarbone. 8. With soapy hands, support the breast with one hand while using the other hand to feel the tissue. Use the flat part of your fingers to press gently into the breast. Follow an up-and-down pattern along the breast, moving from bra line to collarbone. Continue the pattern until you have covered the entire breast. Repeat on the other side. Lying down 9. Next, lie down and place a small pillow or folded towel under your right shoulder. Put your right hand behind your head. Place your left hand on the upper portion of your right breast with fingers together and flat. Body lotion may help to make palpation easier. 10. Think of your breast as a face on a clock. Start at 12 o'clock and move toward 1 o'clock in small circular motions. Continue around the entire [place] until you reach 12 o'clock again. Keep your fingers flat and in constant contact with your breast. When the [place] is complete, move in one inch toward the nipple and complete another [place] around the clock. Continue in this pattern until your entire breast has been palpated. Make sure to palpate the upper outer areas that extend into your armpit. 11. Place your fingers flat and directly on top of your nipple. Feel beneath the nipple for any changes. Gently press your nipple inward. It should move easily. Repeat steps 9, 10, and 11 on your other breast. What should I do if I find a lump? See your physician if you discover any new breast changes, changes that persist after your menstrual cycle, or changes that concern you. Conditions that should be checked by a physician include: An area that is distinctly different from any other area on either breast A lump or thickening in or near the breast or in the underarm that persists through the menstrual cycle A change in the size, shape, or contour of the breast A mass or lump, which may feel as small as a pea A marble-like area under the skin A change in the feel or appearance of the skin on the breast or nipple (dimpled, puckered, scaly, or inflamed [red, warm, or swollen]) Bloody or clear fluid discharge from the nipples Redness of the skin on the breast or nipple References [employer]. Breast Cancer Accessed 08/17/2013. Shalini P, Jaime M, Liang H. Breast disorders and breast cancer screening. In: Zahira MOSELEY, ed. [facility]: Current Clinical Medicine 2010. 2nd ed. [place], [place]: Ondina Parra; 2010:section 15. Copyright 6809-2624 The [facility]. All rights reserved This information is provided by the [facility] and is not intended to replace the medical advice of your doctor or health care provider. Please consult your health care provider for advice about a specific medical condition. For additional health information, please contact the Center for Consumer Health Information at the [facility] or toll-free extension [phone]. If you prefer, you may visit [email or web address] documented in this encounter [facility] 07-25-2023 Note HNO ID: [id number] Author: Mireille Simpson APRN.CNP Service: ? Author Type: Nurse Practitioner Type: Progress Notes Filed: 08/15/2023 4:10 PM Note Text: Mireille Simpson, WOOD HANDLER-HALL MANAGER, [facility] [address] [id number] Date of Visit: 07/25/2023 Patient Name: Pranay Reyes Date of : 1995 Established Visit Breast Surgeon: Radha Hays DO SUBJECTIVE Chief Complaint: Patient presents with: Breast Problem Neck Pain: Lump pain with palpation HPI Pranay Reyes is a 28 year old female who presents today for multiple site RIGHT breast biopsies. Today the prior sites of concern were all no longer visible by ultrasound. She is an established [facility] [place] patient and was last seen in the [facility] 07/23/[address] Hays. She does endorse RIGHT breast sensitivity and erythema surrounding nipple. Nursing Notes: Luna Newberry LPN 07/25/2023 10:15 AM Signed Pranay Reyes is a 28 year old female who presents for Breast Problem and Neck Pain (Lump pain with palpation ) pt arrived for BX but radiology declined. Pt denies breast pain other than some sensitivity, breast redness. Pt also c/o left neck swelling and painful with palpation Luna Newberry LPN No question data found. Family and personal medical histories reviewed and updated. REVIEW OF SYSTEMS: Complete 10 system ROS done and negative except as stated above in the HPI. Current Outpatient Medications Medication Sig Dispense Refill LORazepam (ATIVAN) 0.5 mg (Patient not taking: Reported on 08/15/2023) risperiDONE (RISPERDAL) 1 mg tablet Take 1 tablet by mouth daily at bedtime. 30 tablet 2 No current facility-administered medications for this visit. I have performed the physical exam on 07/25/2023 - all new findings noted below. PAST MEDICAL HISTORY Diagnosis Date Abdominal pain Adenomatous polyp Blood in urine Borderline personality disorder (HCC) Bruising Chest pain Constipation Dizziness Early satiety Fatigue Heart trouble History of medical problems Unspecified, Ovarian Cysts, Left History of weight change change in appetite and weight Indigestion Kidney stones Leg swelling Manic bipolar I disorder (HCC) Nausea Numbness and tingling Palpitations POTS (postural orthostatic tachycardia syndrome) Renal disorder kidney stones SOB (shortness of breath) Visual changes blurry vision in both eyes,and spouts of blindness PAST SURGICAL HISTORY Procedure Laterality Date SECTION HX x 2 1. suspected LGA 2. repeat CLAVICAL SURGERY COLONOSCOPY 05/01/2019 sigmoid polyp (tubular adenoma) EGD 05/01/2019 normal HEMORRHOID SURGERY HX HEMORRHOIDECTOMY PAST SURGICAL HISTORY OF removal of left ovary and uterine ablation THERMAL ENDOMETRIAL ABLATION TUBAL LIGATION HX laparoscopic WRIST SURGERY HX Left 05/06/2023 Social History Tobacco Use Smoking status: Every Day Packs/day: 0.50 Years: 9.00 Additional pack years: 0.00 Total pack years: 4.50 Types: Cigarettes Smokeless tobacco: Never Tobacco comments: 1/2 ppd Vaping Use Vaping Use: Never used Substance Use Topics Alcohol use: Not Currently Drug use: Yes Types: Marijuana FAMILY HISTORY Problem Relation Age of Onset Ovarian cancer Paternal Grandmother Breast Cancer Paternal Aunt other (Blood Clots) Other Cancer Other Diabetes Other other (Heart Trouble) Other other (Lung Disease) Other Stroke Other other (High Blood Pressure) Other other (Intracranial Tumor) Sister sister,aunt,grandmother Multiple Sclerosis Maternal Uncle maternal uncle,cousins other (migraine) Mother The ROS, medical, surgical, family, and social history were reviewed by Mireille Simpson APRN.HALL MANAGER ALLERGIES Allergen Reactions Lexapro [Escitalopr* Mental Status Change Adhesive Rash Avocado Oil Unknown Codeine Rash SOB Wellbutrin [Bupropi* Mental Status Change Current Outpatient Medications Medication Sig LORazepam (ATIVAN) 0.5 mg (Patient not taking: Reported on 08/15/2023) risperiDONE (RISPERDAL) 1 mg tablet Take 1 tablet by mouth daily at bedtime. No current facility-administered medications for this visit. OBJECTIVE BP 124/90 Pulse 106 Ht 175.3 cm (5' 9) Wt 72.6 kg (160 lb) LMP 06/16/2023 (Approximate) BMI 23.63 kg/m? BMI 23.63 kg/(m2) Physical Exam BREAST EXAM: Problem focused exam only - RIGHT breast Palpable area remains 4:00 to 7:30 position with erythema noted Nipple discharge not reproducible upon exam ASSESSMENT/PLAN: 1. Cellulitis of right breast - ICD9: 611.0, ICD10: N61.0 (primary diagnosis) - CEPHALEXIN 500 MG CAPSULE 2. Abscess of right breast - ICD9: 611.0, ICD10: N61.1 - CEPHALEXIN 500 MG CAPSULE Pranay Reyes is a 28 year old female who presents today for RIGHT breast imaging and planned multiple site biopsies. Areas of concern not (more content not included)... [facility] 07-25-2023 History of Present illness Narrative Images from the original note were not included. Mireille Simpson, WOOD HANDLER-HALL MANAGER, OCN [facility] [address] [id number] Date of Visit: 07/25/2023 Patient Name: Pranay Reyes Date of : 1995 Established Visit Breast Surgeon: Radha Hays DO SUBJECTIVE Chief Complaint: Patient presents with: Breast Problem Neck Pain: Lump pain with palpation HPI Pranay Reyes is a 28 year old female who presents today for multiple site RIGHT breast biopsies. Today the prior sites of concern were all no longer visible by ultrasound. She is an established [facility] patient and was last seen in the [facility] 07/23/[address] Hays. She does endorse RIGHT breast sensitivity and erythema surrounding nipple. Nursing Notes: Luna Newberry LPN 07/25/2023 10:15 AM Signed Pranay Reyes is a 28 year old female who presents for Breast Problem and Neck Pain (Lump pain with palpation ) pt arrived for BX but radiology declined. Pt denies breast pain other than some sensitivity, breast redness. Pt also c/o left neck swelling and painful with palpation Luna Newberry LPN No question data found. Family and personal medical histories reviewed and updated. REVIEW OF SYSTEMS: Complete 10 system ROS done and negative except as stated above in the HPI. Current Outpatient Medications Medication Sig Dispense Refill LORazepam (ATIVAN) 0.5 mg (Patient not taking: Reported on 08/15/2023) risperiDONE (RISPERDAL) 1 mg tablet Take 1 tablet by mouth daily at bedtime. 30 tablet 2 No current facility-administered medications for this visit. I have performed the physical exam on 07/25/2023 - all new findings noted below. PAST MEDICAL HISTORY Diagnosis Date Abdominal pain Adenomatous polyp Blood in urine Borderline personality disorder (HCC) Bruising Chest pain Constipation Dizziness Early satiety Fatigue Heart trouble History of medical problems Unspecified, Ovarian Cysts, Left History of weight change change in appetite and weight Indigestion Kidney stones Leg swelling Manic bipolar I disorder (HCC) Nausea Numbness and tingling Palpitations POTS (postural orthostatic tachycardia syndrome) Renal disorder kidney stones SOB (shortness of breath) Visual changes blurry vision in both eyes,and spouts of blindness PAST SURGICAL HISTORY Procedure Laterality Date SECTION HX x 2 1. suspected LGA 2. repeat CLAVICAL SURGERY COLONOSCOPY 05/01/2019 sigmoid polyp (tubular adenoma) EGD 05/01/2019 normal HEMORRHOID SURGERY HX HEMORRHOIDECTOMY PAST SURGICAL HISTORY OF removal of left ovary and uterine ablation THERMAL ENDOMETRIAL ABLATION TUBAL LIGATION HX laparoscopic WRIST SURGERY HX Left 05/06/2023 Social History Tobacco Use Smoking status: Every Day Packs/day: 0.50 Years: 9.00 Additional pack years: 0.00 Total pack years: 4.50 Types: Cigarettes Smokeless tobacco: Never Tobacco comments: 1/2 ppd Vaping Use Vaping Use: Never used Substance Use Topics Alcohol use: Not Currently Drug use: Yes Types: Marijuana FAMILY HISTORY Problem Relation Age of Onset Ovarian cancer Paternal Grandmother Breast Cancer Paternal Aunt other (Blood Clots) Other Cancer Other Diabetes Other other (Heart Trouble) Other other (Lung Disease) Other Stroke Other other (High Blood Pressure) Other other (Intracranial Tumor) Sister sister,aunt,grandmother Multiple Sclerosis Maternal Uncle maternal uncle,cousins other (migraine) Mother The ROS, medical, surgical, family, and social history were reviewed by Mireille Simpson APRN.HALL MANAGER ALLERGIES Allergen Reactions Lexapro [Escitalopr* Mental Status Change Adhesive Rash Avocado Oil Unknown Codeine Rash SOB Wellbutrin [Bupropi* Mental Status Change Current Outpatient Medications Medication Sig LORazepam (ATIVAN) 0.5 mg (Patient not taking: Reported on 08/15/2023) risperiDONE (RISPERDAL) 1 mg tablet Take 1 tablet by mouth daily at bedtime. No current facility-administered medications for this visit. OBJECTIVE BP 124/90 Pulse 106 Ht 175.3 cm (5' 9) Wt 72.6 kg (160 lb) LMP 06/16/2023 (Approximate) BMI 23.63 kg/m BMI 23.63 kg/(m^2) Physical Exam BREAST EXAM: Problem focused exam only - RIGHT breast Palpable area remains 4:00 to 7:30 position with erythema noted Nipple discharge not reproducible upon exam ASSESSMENT/PLAN: 1. Cellulitis of right breast - ICD9: 611.0, ICD10: N61.0 (primary diagnosis) - CEPHALEXIN 500 MG CAPSULE 2. Abscess of right breast - ICD9: 611.0, ICD10: N61.1 - CEPHALEXIN 500 MG CAPSULE Pranay Reyes is a 28 year old female who presents today for RIGHT breast imaging and planned multiple site biopsies. Areas of concern not visualized today by US and biopsies cancelled. She voices complaints of breast tenderness, erythema surrounding nipple and palpable breast lump. Clinical exam as noted above. We discussed the report from today's imaging as follows: LIMITED ULTRASOUND OF RIGHT BREAST: 07/25/2023 HISTORY: Mass Overlapping Multiple Quadrants Of Right Breast/ Ultrasound guided biopsy was canceled due to non-visualization. RESULT: Comparison is made to exams dated: 07/03/2023 mammogram, 07/03/2023 ultrasound - [facility], and 08/25/2019 ultrasound - [facility]. Color flow and real-time ultrasound of the right breast 4-6 o'clock region were performed. Ley scale images of the real-time examination were reviewed. Prior density is no longer seen in the right breast at 4 o'clock. Prior density is no longer seen in the right breast at 6 o'clock. Prior density is no longer seen in the right breast at 5 o'clock. IMPRESSION: BENIGN FINDING The prior sites of concern are all no longer seen by ultrasound. This would suggest that these were due to mastitis. The patient still has redness of the skin and there is evidence of skin thickening by ultrasound. Further clinical management is recommended. No biopsies were done today. There is is ongoing clinical concern for the skin/palpable finding, punch biopsy could be considered. There is no sonographic evidence of malignancy. Joe Salas M.D. tab/:07/25/2023 16:21:19 Calender Roll Operator(s): Meliza GanSSara, [facility] Ultrasound BI-RADS: 2 Benign finding She will maintain vigilant breast awareness and continue monthly self breast exams. She will contact us with any concerns. She is clinically stable and has no evidence of disease. Portions of this note including HPI, ROS, impression/plan, and examination may have been copied forward as to provide important historical information essential in contributing to medical decision making. Documentation has been reviewed and edited as necessary to support clinical decision making for today's visit 07/25/2023 . Follow up: Return in about 12 days (around 08/06/2023) for clinical exam. Medical Decision Making: Problems: Moderate: 1+ chronic illnesses with change Data: Unique test result(s) reviewed: 3+ Risk: Moderate: Drug management Medical Decision Making Level: 4 - Moderate Mireille Simpson APRN.CNP I verified the site medical director/nurse documentation in the medical record, and made appropriate changes. I personally performed a history,physical exam and medical decision making. Mireille Simpson APRN-SANTOS, OCN documented in this encounter [facility] 07-25-2023 Nurse Note Pranay Reyes is a 28 year old female who presents for Breast Problem and Neck Pain (Lump pain with palpation ) pt arrived for BX but radiology declined. Pt denies breast pain other than some sensitivity, breast redness. Pt also c/o left neck swelling and painful with palpation Luna Newberry LPN documented in this encounter [facility] 07-25-2023 History of Present illness Narrative Radiology Service Progress Note PATIENT NAME: Pranay Reyes DATE OF SERVICE: July 25, 2023 TIME: 9:01 AM PATIENT IDENTITY VERIFICATION COMPLETED USING TWO (2) IDENTIFIERS: Name and Date of confirmed by patient verbally. FALL SCREENING: Has the patient had 2 falls in the last year or 1 fall with injury or currently using an Ambulatory Assistive Device (Walker, Cane, Wheelchair, Crutches, etc.)? No PATIENT GENDER DATA: Female. status: : No status: NO. PATIENT RELEVANT IMPLANT DATA REVIEWED: Not Applicable RADIOLOGY DEPARTMENT: Ultrasound PERIPHERAL IV DATA: Not applicable SIGNED BY: RT Malik(R) July 25, 2023 9:01 AM documented in this encounter [facility] 07-25-2023 Note HNO ID: [id number] Author: Nadeen Nguyen RT(R) Service: ? Author Type: Technologist Type: Progress Notes Filed: 07/25/2023 9:01 AM Note Text: Radiology Service Progress Note PATIENT NAME: Pranay Reyes DATE OF SERVICE: July 25, 2023 TIME: 9:01 AM PATIENT IDENTITY VERIFICATION COMPLETED USING TWO (2) IDENTIFIERS: Name and Date of confirmed by patient verbally. FALL SCREENING: Has the patient had 2 falls in the last year or 1 fall with injury or currently using an Ambulatory Assistive Device (Walker, Cane, Wheelchair, Crutches, etc.)? No PATIENT GENDER DATA: Female. status: : No status: NO. PATIENT RELEVANT IMPLANT DATA REVIEWED: Not Applicable RADIOLOGY DEPARTMENT: Ultrasound PERIPHERAL IV DATA: Not applicable SIGNED BY: RT Malik(R) July 25, 2023 9:01 AM [facility] 07-23-2023 Nurse Note Pranay Reyes is a 28 year old female who presents for New Patient (BX scheduled for 07/25/23 ) and Results (The 9 mm oval mass in the right breast at 6 o'clock in the retroareolar /region likely represents a fibroadenoma and is at a low suspicion for /malignancy. An ultrasound guided biopsy is recommended. /The 1.5 cm area in the right breast at 4 o'clock anterior depth has a /differential diagnosis of duct ectasia and is at a low suspicion for /malignancy. An ultrasound guided biopsy is recommended. /The 7 mm irregular mass in the right breast at 5 o'clock middle depth is /suspicious of malignancy. ) Pt states the breast pain has resolved. Pt c/o nipple drainage, ability to palpate mass below areola, and redness. Pr noted mass first time 06/25/23. Luna Newberry LPN documented in this encounter [facility] 07-23-2023 History of Present illness Narrative Images from the original note were not included. Radha Hays [facility] [address] [place], [place] [id number] SUBJECTIVE Chief Complaint: Patient presents with: New Patient: BX scheduled for 07/25/23 Results: The 9 mm oval mass in the right breast at 6 o'clock in the retroareolar region likely represents a fibroadenoma and is at a low suspicion for malignancy. An ultrasound guided biopsy is recommended. The 1.5 cm area in the right breast at 4 o'clock anterior depth has a differential diagnosis of duct ectasia and is at a low suspicion for malignancy. An ultrasound guided biopsy is recommended. The 7 mm irregular mass in the right breast at 5 o'clock middle depth is suspicious of malignancy. . HPI Pranay Reyes is a 28 year old female who is here for right breast mass. Recently saw her PCP for a large right breast mass and clear and curdling nipple discharge. Nipple discharge been going on for months. H/o lactational mastitis 7 years ago. Underwent right breast mammogram on 07/03/23 which showed extremely dense breast tissue and no mammographic abnormality. 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 Erythematous lesion over the right anterior, inferior, medial breast was seen on physical exam. She was given Augmentin and fluconazole and discharged for possible mastitis. States that she has felt this mass for a few weeks. Along with the nipple discharge on the right which is white in color and only is present with manipulation. She did have history of lactational mastitis. Otherwise she did finish the antibiotics that were prescribed to her and the redness has improved, however the mass is still palpable. She also complains of nipple itching and sensitivity. Family history of colon cancer on both sides. History of scleroderma on both sides. Per patient, she does have 4 paternal aunts diagnosed with breast cancer, possibly at the age of 32 for the youngest diagnosis. Nursing Notes: Luna Newberry LPN 07/23/2023 1:43 PM Sign at exiting of workspace Pranay Reyes is a 28 year old female who presents for New Patient (BX scheduled for 07/25/23 ) and Results (The 9 mm oval mass in the right breast at 6 o'clock in the retroareolar /region likely represents a fibroadenoma and is at a low suspicion for /malignancy. An ultrasound guided biopsy is recommended. /The 1.5 cm area in the right breast at 4 o'clock anterior depth has a /differential diagnosis of duct ectasia and is at a low suspicion for /malignancy. An ultrasound guided biopsy is recommended. /The 7 mm irregular mass in the right breast at 5 o'clock middle depth is /suspicious of malignancy. ) Pt states the breast pain has resolved. Pt c/o nipple drainage, ability to palpate mass below areola, and redness. Pr noted mass first time 06/25/23. Luna Newberry LPN No question data found. Review of Systems CONSTITUTIONAL: No weight loss, malaise or fevers HEENT: Negative for frequent or significant headaches, No changes in hearing or vision, no nose bleeds or other nasal problems NECK: Negative for Pain and Swelling RESPIRATORY: Negative for cough or shortness of breath CARDIOVASCULAR: Negative for chest pain or palpitations. Negative for leg swelling GI: Negative for abdominal pain, nausea, or vomiting MUSCULOSKELETAL: Negative for joint pain or swelling, back pain or muscle pain SKIN: Negative for lesions, rash, and itching BREAST: See HPI. PAST MEDICAL HISTORY Diagnosis Date Abdominal pain Adenomatous polyp Blood in urine Borderline personality disorder (HCC) Bruising Chest pain Constipation Dizziness Early satiety Fatigue Heart trouble History of medical problems Unspecified, Ovarian Cysts, Left History of weight change change in appetite and weight Indigestion Kidney stones Leg swelling Manic bipolar I disorder (HCC) Nausea Numbness and tingling Palpitations POTS (postural orthostatic tachycardia syndrome) Renal disorder kidney stones SOB (shortness of breath) Visual changes blurry vision in both eyes,and spouts of blindness PAST SURGICAL HISTORY Procedure Laterality Date SECTION HX x 2 1. suspected LGA 2. repeat CLAVICAL SURGERY COLONOSCOPY 05/01/2019 sigmoid polyp (tubular adenoma) EGD 05/01/2019 normal HEMORRHOID SURGERY HX HEMORRHOIDECTOMY PAST SURGICAL HISTORY OF removal of left ovary and uterine ablation THERMAL ENDOMETRIAL ABLATION TUBAL LIGATION HX laparoscopic WRIST SURGERY HX Left 05/06/2023 Social History Tobacco Use Smoking status: Every Day Packs/day: 0.50 Years: 9.00 Additional pack years: 0.00 Total pack years: 4.50 Types: Cigarettes Smokeless tobacco: Never Tobacco comments: 1/2 ppd Vaping Use Vaping Use: Never used Substance Use Topics Alcohol use: Not Currently Drug use: Yes Types: Marijuana FAMILY HISTORY Problem Relation Age of Onset Ovarian cancer Paternal Grandmother Breast Cancer Paternal Aunt other (Blood Clots) Other Cancer Other Diabetes Other other (Heart Trouble) Other other (Lung Disease) Other Stroke Other other (High Blood Pressure) Other other (Intracranial Tumor) Sister sister,aunt,grandmother Multiple Sclerosis Maternal Uncle maternal uncle,cousins other (migraine) Mother The ROS, medical, surgical, family, and social history were reviewed by Radha Hays DO ALLERGIES Allergen Reactions Lexapro [Escitalopr* Mental Status Change Adhesive Rash Avocado Oil Unknown Codeine Rash SOB Wellbutrin [Bupropi* Mental Status Change Current Outpatient Medications Medication Sig risperiDONE (RISPERDAL) 1 mg tablet Take 1 tablet by mouth daily at bedtime. No current facility-administered medications for this visit. OBJECTIVE LMP 06/16/2023 (Approximate) No weight on file for this encounter. PHYSICAL EXAM: General appearance: Well appearing, alert, in no acute distress Skin: skin color, texture, turgor normal, no suspicious rashes or lesions Eyes: Anicteric sclera, Pupils are equally round and reactive Abdomen: soft, non-tender, non-distended Extremities: No clubbing, cyanosis, or edema. Heart: Regular rate and rhythm Lungs: Clear to ascultation bilaterally Neuro: Alert and oriented times three Physical Exam Chest: Breasts: Right: Mass, skin change and tenderness present. No inverted nipple or nipple discharge. Left: No inverted nipple, mass, nipple discharge, skin change or tenderness. Comments: 6 x 4 cm area of induration/dense breast tissue. No fluctuation. There is skin changes overlying the palpable area, there is minimal erythema, there is dry skin. Nipple is also slightly retracted toward the palpable area. Lymphadenopathy: Upper Body: Right upper body: No axillary adenopathy. Left upper body: No axillary adenopathy. Imaging: The mammogram and breast ultrasound from 07/03/23 was reviewed in detail and shows BIRADS 4. IMPRESSION: SUSPICIOUS OF MALIGNANCY The 9 mm oval mass in the right breast at 6 o'clock in the retroareolar region likely represents a fibroadenoma and is at a low suspicion for malignancy. An ultrasound guided biopsy is recommended. The 1.5 cm area in the right breast at 4 o'clock anterior depth has a differential diagnosis of duct ectasia and is at a low suspicion for malignancy. An ultrasound guided biopsy is recommended. The 7 mm irregular mass in the right breast at 5 o'clock middle depth is suspicious of malignancy. An ultrasound guided biopsy is recommended. Breast Density: Extremely Dense Data Reviewed: Most recent labs and imaging results. Plan ASSESSMENT/PLAN Pranay Reyes is a 28 year old female who presents with palpable right breast mass that is painful and nipple discharge, with imaging findings showing multiple mass in right breast and possible duct ectasia, recommending biopsy x 3 ASSESSMENT/PLAN: 1. Mass overlapping multiple quadrants of right breast - ICD9: 611.72, ICD10: N63.15 (primary diagnosis) - US BIOPSY BREAST RIGHT - US BIOPSY BREAST RIGHT - US BIOPSY BREAST RIGHT She does have a palpable area on the right breast from the 7 to 4:00 position that feels either like induration or dense breast tissue. She also has skin changes overlying this palpable area with dry skin, minimal erythema which has significant improved (patient had picture on her phone). Unable to reproduce nipple discharge. POC ultrasound was done and I can visualize dense breast tissue in the palpable area. Could possibly be granulomatous mastitis as patient has had mastitis in the past. She also informed me that that connective tissue diseases run in her family. We will have her get the ultrasound guided biopsy in radiology and have her follow up with me afterwards. She has finished antibiotics and does not need anymore at this time. 2. Mass of lower inner quadrant of right breast - ICD9: 611.72, ICD10: N63.14 3. 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 Extremely dense tissue of right breast on mammography - ICD9: 793.82, ICD10: R92.341 6. Family history of breast cancer - ICD9: V16.3, ICD10: Z80.3 - CONSULT TO MEDICAL GENETICS - CANCER Follow up: Return for follow up after biopsy. Medical Decision Making: Problems: Moderate: New problem with uncertain prognosis Data: Unique source(s) for external note(s) reviewed: 2 Unique test(s) ordered: 3+ Medical Decision Making Level: 4 - Moderate Radha Hays DO Breast Surgical Oncology Fellow 07/20/2023 12:55 PM documented in this encounter [facility] 07-23-2023 Note HNO ID: [id number] Author: Radha Hays DO Service: ? Author Type: Physician Type: Progress Notes Filed: 07/23/2023 2:20 PM Note Text: Radha Hays DO [place] [id number] SUBJECTIVE Chief Complaint: Patient presents with: New Patient: BX scheduled for 07/25/23 Results: The 9 mm oval mass in the right breast at 6 o'clock in the retroareolar region likely represents a fibroadenoma and is at a low suspicion for malignancy. An ultrasound guided biopsy is recommended. The 1.5 cm area in the right breast at 4 o'clock anterior depth has a differential diagnosis of duct ectasia and is at a low suspicion for malignancy. An ultrasound guided biopsy is recommended. The 7 mm irregular mass in the right breast at 5 o'clock middle depth is suspicious of malignancy. . HPI Pranay Reyes is a 28 year old female who is here for right breast mass. Recently saw her PCP for a large right breast mass and clear and curdling nipple discharge. Nipple discharge been going on for months. H/o lactational mastitis 7 years ago. Underwent right breast mammogram on 07/03/23 which showed extremely dense breast tissue and no mammographic abnormality. 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 Erythematous lesion over the right anterior, inferior, medial breast was seen on physical exam. She was given Augmentin and fluconazole and discharged for possible mastitis. States that she has felt this mass for a few weeks. Along with the nipple discharge on the right which is white in color and only is present with manipulation. She did have history of lactational mastitis. Otherwise she did finish the antibiotics that were prescribed to her and the redness has improved, however the mass is still palpable. She also complains of nipple itching and sensitivity. Family history of colon cancer on both sides. History of scleroderma on both sides. Per patient, she does have 4 paternal aunts diagnosed with breast cancer, possibly at the age of 32 for the youngest diagnosis. Nursing Notes: Luna Newberry LPN 07/23/2023 1:43 PM Sign at exiting of workspace Pranay Reyes is a 28 year old female who presents for New Patient (BX scheduled for 07/25/23 ) and Results (The 9 mm oval mass in the right breast at 6 o'clock in the retroareolar /region likely represents a fibroadenoma and is at a low suspicion for /malignancy. An ultrasound guided biopsy is recommended. /The 1.5 cm area in the right breast at 4 o'clock anterior depth has a /differential diagnosis of duct ectasia and is at a low suspicion for /malignancy. An ultrasound guided biopsy is recommended. /The 7 mm irregular mass in the right breast at 5 o'clock middle depth is /suspicious of malignancy. ) Pt states the breast pain has resolved. Pt c/o nipple drainage, ability to palpate mass below areola, and redness. Pr noted mass first time 06/25/23. Luna Newberry LPN No question data found. Review of Systems CONSTITUTIONAL: No weight loss, malaise or fevers HEENT: Negative for frequent or significant headaches, No changes in hearing or vision, no nose bleeds or other nasal problems NECK: Negative for Pain and Swelling RESPIRATORY: Negative for cough or shortness of breath CARDIOVASCULAR: Negative for chest pain or palpitations. Negative for leg swelling GI: Negative for abdominal pain, nausea, or vomiting MUSCULOSKELETAL: Negative for joint pain or swelling, back pain or muscle pain SKIN: Negative for lesions, rash, and itching BREAST: See HPI. PAST MEDICAL HISTORY Diagnosis Date Abdominal pain Adenomatous polyp Blood in urine Borderline personality disorder (HCC) Bruising Chest pain Constipation Dizziness Early satiety Fatigue Heart trouble History of medical problems Unspecified, Ovarian Cysts, Left History of weight change change in appetite and weight Indigestion Kidney stones Leg swelling Manic bipolar I disorder (HCC) Nausea Numbness and tingling Palpitations POTS (postural orthostatic tachycardia syndrome) Renal disorder kidney stones SOB (shortness of breath) Visual changes blurry vision in both eyes,and spouts of blindness PAST SURGICAL HISTORY Procedure Laterality Date SECTION HX x 2 1. suspected LGA 2. repeat CLAVICAL SURGERY COLONOSCOPY 05/01/2019 sigmoid polyp (tubular adenoma) EGD 05/01/2019 normal HEMORRHOID SURGERY HX HEMORRHOIDECTOMY PAST SURGICAL HISTORY OF removal of left ovary and uterine ablation THERMAL ENDOMETRIAL ABLATION TUBAL LIGATIO (more content not included)... [facility] 07-12-2023 Miscellaneous Notes Patient calling in with complaints of right breast mass getting larger in size with red coloring and warm to touch. Discussed with provider, Rusty Parrish. Patient directed to [facility] for further evaluation. Melissa Mcbride documented in this encounter [facility] 07-11-2023 Miscellaneous Notes Noted After speaking with Latrice, it was clarified that she is only to get all the biopsies done in one appointment if they are done at the currently scheduled biopsy appointment. If a waiting list opening became available, she would still have to return for an additional biopsy to complete the other biopsy locations. I removed the waiting list request for the biopsy appointment, so she is able to have her biopsies all done in her currently scheduled appointment. We verified Dr. Hays does not currently have any openings for an earlier appointment for Amaury's initial appointment, but she is on the waiting list for this in case a cancellation creates an opening. Thank you, Gina Ordaz Amaury has been seen in Primary Care at the [facility] by Andra Parrish CNP, for her initial visit regarding a rapidly growing breast mass this past week and had her mammogram later that day. Per Andra, if there is any way Amaury can see Dr. Hays sooner to expedite her treatment, this would be extremely beneficial for her. I have added all her appointments with Dr. Hays as well as her Biopsy appointment to the waiting list, in the hopes that if there are cancellations she will be able to move her treatment up. We appreciate any assistance in attempting to see her at an earlier appointment, if possible. Thank you, Gina Ordaz documented in this encounter [facility] 07-03-2023 History of Present illness Narrative Radiology Service Progress Note PATIENT NAME: Pranay Reyes DATE OF SERVICE: July 03, 2023 TIME: 1:02 PM PATIENT IDENTITY VERIFICATION COMPLETED USING TWO (2) IDENTIFIERS: Name and Date of confirmed by patient verbally. FALL SCREENING: Has the patient had 2 falls in the last year or 1 fall with injury or currently using an Ambulatory Assistive Device (Walker, Cane, Wheelchair, Crutches, etc.)? No PATIENT GENDER DATA: Female. status: : No status: NO. PATIENT RELEVANT IMPLANT DATA REVIEWED: Not Applicable RADIOLOGY DEPARTMENT: Mammography PERIPHERAL IV DATA: Not applicable SIGNED BY: RT Carlos(R) July 03, 2023 1:02 PM Radiology Service Progress Note PATIENT NAME: Pranay Reyes DATE OF SERVICE: July 03, 2023 TIME: 2:59 PM PATIENT IDENTITY VERIFICATION COMPLETED USING TWO (2) IDENTIFIERS: Name and Date of confirmed by patient verbally. FALL SCREENING: Has the patient had 2 falls in the last year or 1 fall with injury or currently using an Ambulatory Assistive Device (Walker, Cane, Wheelchair, Crutches, etc.)? No PATIENT GENDER DATA: Female. status: : No status: NO. PATIENT RELEVANT IMPLANT DATA REVIEWED: Not Applicable RADIOLOGY DEPARTMENT: Ultrasound PERIPHERAL IV DATA: Not applicable SIGNED BY: RT Bucky(R) July 03, 2023 2:59 PM documented in this encounter [facility] 07-03-2023 Miscellaneous Notes spoke with pt to schedule a follow up appt. Gave pt date and time of new appt . Pt agreed. documented in this encounter [facility] 07-03-2023 History of Present illness Narrative Images from the original note were not included. This note was created using [employer]. Subjective Pranay Reyes is a 28 year old female. Patient presents with: Lump: Right breast x 1 week; discharge, itching Showered 1 week ago and noticed a large lump, itching of nipple and felt dimpling of skin lump does not hurt but skin feels weird Pt denies pain but states she feels a tingling Nipple itches. Pt states she can express a clear and also curdling discharge. Has also had bloody discharge from her nipple. Had something hard come out of her nipple. The lump does not move. States the nipple discharge has been going on for months. Has nipple sensitivity. Last menstrual cycle ended June 22. Is not on any form of control Does not have history of breast changes with her menses. Did have mastitis of the right breast when she breastfed 7 years ago. Family history of breast cancer and cervical cancer, someone on moms side and 2 aunts on fathers side Precancerous polyps on colon and abnormal pap The history is provided by the patient. No professor of languages was used. Review of Systems Constitutional: Negative for appetite change, chills, diaphoresis, fatigue and fever. HENT: Negative. Negative for tinnitus. Eyes: Negative for photophobia and visual disturbance. Respiratory: Negative for cough, chest tightness, shortness of breath and wheezing. Cardiovascular: Negative for chest pain, palpitations and leg swelling. Gastrointestinal: Negative. Genitourinary: Negative. Negative for menstrual problem, pelvic pain, urgency and vaginal bleeding. Musculoskeletal: Negative for myalgias. Skin: Negative for rash. Right breast lump Neurological: Negative for dizziness, syncope, weakness, light-headedness, numbness and headaches. Psychiatric/Behavioral: Negative for dysphoric mood, self-injury, sleep disturbance and suicidal ideas. The patient is not nervous/anxious. All other systems reviewed and are negative. Objective BP 142/94 Pulse (!) 126 Temp 36.3 C (97.3 F) (Tympanic) Ht 172.7 cm (5' 8) Wt 73.7 kg (162 lb 8 oz) LMP 06/16/2023 (Approximate) SpO2 99% BMI 24.71 kg/m PAST MEDICAL HISTORY Diagnosis Date Abdominal pain Adenomatous polyp Blood in urine Borderline personality disorder (HCC) Bruising Chest pain Constipation Dizziness Early satiety Fatigue Heart trouble History of medical problems Unspecified, Ovarian Cysts, Left History of weight change change in appetite and weight Indigestion Kidney stones Leg swelling Manic bipolar I disorder (HCC) Nausea Numbness and tingling Palpitations POTS (postural orthostatic tachycardia syndrome) Renal disorder kidney stones SOB (shortness of breath) Visual changes blurry vision in both eyes,and spouts of blindness PAST SURGICAL HISTORY Procedure Laterality Date SECTION HX x 2 1. suspected LGA 2. repeat COLONOSCOPY 05/01/2019 sigmoid polyp (tubular adenoma) EGD 05/01/2019 normal HEMORRHOID SURGERY HX HEMORRHOIDECTOMY PAST SURGICAL HISTORY OF removal of left ovary and uterine ablation THERMAL ENDOMETRIAL ABLATION TUBAL LIGATION HX laparoscopic Current Outpatient Medications on File Prior to Visit Medication Sig risperiDONE (RISPERDAL) 1 mg tablet Take 1 tablet by mouth daily at bedtime. No current facility-administered medications on file prior to visit. ALLERGIES Allergen Reactions Lexapro [Escitalopr* Mental Status Change Adhesive Rash Avocado Oil Unknown Codeine Rash SOB Wellbutrin [Bupropi* Mental Status Change Physical Exam Vitals and nursing note reviewed. Constitutional: General: She is awake. She is not in acute distress. Appearance: Normal appearance. She is well-developed, well-groomed and normal weight. She is not ill-appearing. Comments: Pt extremely tearful, anxious and upset due to reason for visit HENT: Head: Normocephalic. Eyes: Conjunctiva/sclera: Conjunctivae normal. Pupils: Pupils are equal, round, and reactive to light. Cardiovascular: Rate and Rhythm: Normal rate and regular rhythm. Pulses: Normal pulses. Heart sounds: Normal heart sounds. Pulmonary: Effort: Pulmonary effort is normal. No respiratory distress. Breath sounds: Normal breath sounds. No decreased air movement. No decreased breath sounds or wheezing. Chest: Breasts: Right: Mass, skin change and tenderness present. No swelling, bleeding, inverted nipple or nipple discharge. Left: No tenderness. Musculoskeletal: General: No swelling, tenderness or signs of injury. Normal range of motion. Cervical back: Full passive range of motion without pain, normal range of motion and neck supple. Right lower leg: No edema. Left lower leg: No edema. Lymphadenopathy: Cervical: No cervical adenopathy. Upper Body: Right upper body: No supraclavicular, axillary or pectoral adenopathy. Skin: General: Skin is warm and dry. Capillary Refill: Capillary refill takes less than 2 seconds. Findings: No rash. Neurological: General: No focal deficit present. Mental Status: She is alert and oriented to person, place, and time. Mental status is at baseline. Cranial Nerves: No cranial nerve deficit. Sensory: Sensation is intact. No sensory deficit. Motor: Motor function is intact. No weakness. Coordination: Coordination is intact. Gait: Gait is intact. Gait normal. Psychiatric: Attention and Perception: Attention and perception normal. Mood and Affect: Mood is anxious. Affect is tearful. Speech: Speech normal. Behavior: Behavior normal. Behavior is cooperative. Thought Content: Thought content normal. Thought content does not include homicidal or suicidal ideation. Cognition and Memory: Cognition and memory normal. Judgment: Judgment normal. ASSESSMENT/PLAN: 1. Mass overlapping multiple quadrants of right breast - ICD9: 611.72, ICD10: N63.15 (primary diagnosis) - needs imaging usman. - BREAST LTD RIGHT - [facility] RIGHT 2. Breast skin changes - ICD9: 782.8, ICD10: R23.4 - BREAST LTD [facility] RIGHT Follow up as needed or sooner if new or worsening symptoms. Andra Parrish APRN.HALL MANAGER documented in this encounter [facility] 05-24-2023 Instructions Roland Blanco MD - 05/24/2023 1:54 PM EDT Keep previously scheduled follow-up visit. documented in this encounter [facility] 05-24-2023 History of Present illness Narrative Images from the original note were not included. ORTHOPAEDIC OFFICE NOTE CHIEF COMPLAINT: Right shoulder concern HISTORY OF PRESENT ILLNESS: Pranay Reyes is a 27 year old female who presents for reevaluation after open reduction internal fixation right clavicle and left distal radius fractures 05/06/2023. She reports attempting to move an 80 pound dog overnight and felt a popping sensation in the right shoulder. She was unable to get comfortable after the injury and was concerned about new injury. Feels uncertain about instability in the shoulder. No specific persistent pain; most of the popping sensation was along the medial edge. No new paresthesias or paralysis right upper extremity. Reviewed nursing note and current pain scale. PAST MEDICAL HISTORY Diagnosis Date Abdominal pain Adenomatous polyp Blood in urine Borderline personality disorder (HCC) Bruising Chest pain Constipation Dizziness Early satiety Fatigue Heart trouble History of medical problems Unspecified, Ovarian Cysts, Left History of weight change change in appetite and weight Indigestion Kidney stones Leg swelling Manic bipolar I disorder (HCC) Nausea Numbness and tingling Palpitations POTS (postural orthostatic tachycardia syndrome) Renal disorder kidney stones SOB (shortness of breath) Visual changes blurry vision in both eyes,and spouts of blindness PAST SURGICAL HISTORY Procedure Laterality Date SECTION HX x 2 1. suspected LGA 2. repeat COLONOSCOPY 05/01/2019 sigmoid polyp (tubular adenoma) EGD 05/01/2019 normal HEMORRHOID SURGERY HX HEMORRHOIDECTOMY PAST SURGICAL HISTORY OF removal of left ovary and uterine ablation THERMAL ENDOMETRIAL ABLATION TUBAL LIGATION HX laparoscopic FAMILY HISTORY Problem Relation Age of Onset Ovarian cancer Paternal Grandmother Breast Cancer Paternal Aunt other (Blood Clots) Other Cancer Other Diabetes Other other (Heart Trouble) Other other (Lung Disease) Other Stroke Other other (High Blood Pressure) Other other (Intracranial Tumor) Sister sister,aunt,grandmother Multiple Sclerosis Maternal Uncle maternal uncle,cousins other (migraine) Mother Social History Tobacco Use Smoking status: Every Day Packs/day: 0.50 Years: 9.00 Additional pack years: 0.00 Total pack years: 4.50 Types: Cigarettes Smokeless tobacco: Never Tobacco comments: 1/2 ppd Substance Use Topics Alcohol use: Not Currently Drug use: Yes Types: Marijuana MEDICATIONS: Current Outpatient Medications Medication Sig risperiDONE (RISPERDAL) 1 mg tablet Take 1 tablet by mouth daily at bedtime. acetaminophen (TYLENOL) 325 mg tablet Take 3 tablets by mouth every 6 hours as needed for pain. No current facility-administered medications for this visit. ALLERGIES: ALLERGIES Allergen Reactions Lexapro [Escitalopr* Mental Status Change Adhesive Rash Avocado Oil Unknown Codeine Rash SOB Wellbutrin [Bupropi* Mental Status Change PHYSICAL EXAMINATION: Resp 16 Ht 5' 9 (1.75m) Wt 160 lb (72.6kg) LMP 01/15/2022 BMI 23.62 kg/(m^2). General Appearance: Well appearing, alert, in no acute distress, well-hydrated, well nourished. Skin: Skin color, texture, turgor normal, no suspicious rashes or lesions. Extremities: Right shoulder incision healing well. No erythema. No surrounding new edema or fluid collection. Hardware palpable over the clavicle with no definitive change in position and no instability with deep pressure. Active shoulder range of motion does not demonstrate motion of the construct. Right arm and forearm compartments soft and compressible. Peripheral Pulses: Normal. Neurologic: Intact light touch sensation right upper extremity. IMAGES: Recent Results (from the past 36 hour(s)) XR CLAVICLE 2V RIGHT Narrative Two views right clavicle demonstrate no change in position of hardware compared to prior images. The fracture remains well aligned with no evidence of displacement. No new fracture identified. ASSESSMENT AND PLAN: 1. Injury of right shoulder, initial encounter - ICD9: 959.2, ICD10: S49.91XA (primary diagnosis) 2. Closed displaced fracture of shaft of right clavicle with routine healing, subsequent encounter - ICD9: V54.11, ICD10: S42.021D Functional Plan: Light weightbearing right upper extremity 1 to 2 pounds; cautioned against extreme lifting such as occurred. Cautioned against repetitive motion until more healing evident. Assistance Devices: None; patient indicates she may return to sling use. Physical/Occupational Therapy: None currently. Wound Care: Continue daily soap and water washes right shoulder. Pain Control: No change in pain regimen recommended this office visit. Fragility Fracture: Not per mechanism. Additional: None. No follow-ups on file. Roland Blanco MD documented in this encounter [facility] 05-24-2023 Miscellaneous Notes Called and spoke with the patient and got her scheduled. Va Sterling May 24, 2023 11:50 AM ----- Message from Roland Blanco MD sent at 05/24/2023 6:58 AM EDT ----- Regarding: office appointment Hello: This patient injured her right shoulder last night after clavicle surgery. Can she be scheduled at the [facility] at 1 pm for an appointment today? Jed Connelly documented in this encounter [facility] 05-22-2023 History of Present illness Narrative Images from the original note were not included. ORTHOPAEDIC OFFICE NOTE CHIEF COMPLAINT: right shoulder and left wrist injuries, right ankle pain and swelling. HISTORY OF PRESENT ILLNESS: Pranay Reyes is a 27 year old female who presents for post-operative evaluation after open reduction internal fixation right clavicle and left distal radius fractures 05/06/2023. She notes continued pain left wrist, seems to be much more improved at the right shoulder. Also has increased right ankle swelling since her admission with lateral ankle pain; has not prevented ambulation on the extremity. Takes rare pain medication, mostly [id number] for pain control. No new fevers chills nausea or vomiting. No new chest pain or shortness of breath. Reviewed nursing note and current pain scale. PAST MEDICAL HISTORY Diagnosis Date Abdominal pain Adenomatous polyp Blood in urine Borderline personality disorder (HCC) Bruising Chest pain Constipation Dizziness Early satiety Fatigue Heart trouble History of medical problems Unspecified, Ovarian Cysts, Left History of weight change change in appetite and weight Indigestion Kidney stones Leg swelling Manic bipolar I disorder (HCC) Nausea Numbness and tingling Palpitations POTS (postural orthostatic tachycardia syndrome) Renal disorder kidney stones SOB (shortness of breath) Visual changes blurry vision in both eyes,and spouts of blindness PAST SURGICAL HISTORY Procedure Laterality Date SECTION HX x 2 1. suspected LGA 2. repeat COLONOSCOPY 05/01/2019 sigmoid polyp (tubular adenoma) EGD 05/01/2019 normal HEMORRHOID SURGERY HX HEMORRHOIDECTOMY PAST SURGICAL HISTORY OF removal of left ovary and uterine ablation THERMAL ENDOMETRIAL ABLATION TUBAL LIGATION HX laparoscopic FAMILY HISTORY Problem Relation Age of Onset Ovarian cancer Paternal Grandmother Breast Cancer Paternal Aunt other (Blood Clots) Other Cancer Other Diabetes Other other (Heart Trouble) Other other (Lung Disease) Other Stroke Other other (High Blood Pressure) Other other (Intracranial Tumor) Sister sister,aunt,grandmother Multiple Sclerosis Maternal Uncle maternal uncle,cousins other (migraine) Mother Social History Tobacco Use Smoking status: Every Day Packs/day: 0.50 Years: 9.00 Additional pack years: 0.00 Total pack years: 4.50 Types: Cigarettes Smokeless tobacco: Never Tobacco comments: / ppd Substance Use Topics Alcohol use: Not Currently Drug use: Yes Types: Marijuana MEDICATIONS: Current Outpatient Medications Medication Sig risperiDONE (RISPERDAL) 1 mg tablet Take 1 tablet by mouth daily at bedtime. acetaminophen (TYLENOL) 325 mg tablet Take 3 tablets by mouth every 6 hours as needed for pain. No current facility-administered medications for this visit. ALLERGIES: ALLERGIES Allergen Reactions Lexapro [Escitalopr* Mental Status Change Adhesive Rash Avocado Oil Unknown Codeine Rash SOB Wellbutrin [Bupropi* Mental Status Change PHYSICAL EXAMINATION: Resp 16 Ht 5' 9 (1.75m) Wt 160 lb (72.6kg) LMP 01/15/2022 BMI 23.62 kg/(m^2). General Appearance: Well appearing, alert, in no acute distress, well-hydrated, well nourished. Skin: Skin color, texture, turgor normal, no suspicious rashes or lesions. Extremities: Right shoulder incision healing well. No erythema or drainage. Left wrist incision healing well, moderate volar swelling with resolved ecchymosis. Left forearm and hand compartments soft and compressible. Slow passive left forearm pronation and supination demonstrates smooth arc of motion with hesitancy at extremes. Able to resist thumb extension. Hesitant to flex or extend wrist. Right ankle with moderate edema and mild tenderness to palpation over lateral ligamentous structures. Right leg and foot compartments soft and compressible. Able to DF/PF right foot comfortably. Peripheral Pulses: Normal. Neurologic: Intact light touch sensation bilateral upper and right lower extremity. IMAGES: Recent Results (from the past 36 hour(s)) XR ANKLE GENERAL 3V AP/LAT/OBL RIGHT Narrative Three views right ankle demonstrate no acute fracture. The ankle mortise is well maintained. Lateral soft tissue swelling apparent. XR WRIST GENERAL 3V PA/LAT/OBL LEFT Narrative Three views left wrist demonstrate no change in position of hardware stabilizing the intraarticular distal radius fractures. Lateral view of joint obscured by elevation, appears similar to operative images. Radial parameters appropriate. No new fracture identified. XR CLAVICLE 2V RIGHT Narrative Two views right clavicle demonstrate no change in position of the plate/screw construct stabilizing the shaft fractures. Alignment remains acceptable. No new fracture identified. ASSESSMENT AND PLAN: 1. Other closed intra-articular fracture of distal end of left radius with routine healing, subsequent encounter - ICD9: V54.12, ICD10: S52.572D (primary diagnosis) 2. Closed displaced fracture of shaft of right clavicle with routine healing, subsequent encounter - ICD9: V54.11, ICD10: S42.021D 3. Acute right ankle pain - ICD9: 719.47, 338.19, ICD10: M25.571 Functional Plan: Advance weight bearing as symptoms allow left upper and right upper extremities. No restrictions right lower extremity. Assistance Devices: Administered removable brace left wrist for comfort. Physical/Occupational Therapy: Administered occupational therapy prescription for left wrist. Has established therapy for shoulders previously. Wound Care: Continue daily soap and water washes right shoulder and left wrist. Pain Control: No change in pain regimen recommended this office visit. Fragility Fracture: Not per mechanism. Additional: None. Return in about 4 weeks (around 06/19/2023). Roland Blanco MD documented in this encounter [facility] 05-18-2023 Emergency department Note Pt comes into ED complaining of blood in her urine. Pt states she has had kidney stones in her past and has become septic. documented in this encounter [facility] 05-18-2023 Emergency department Triage note Pt comes into ED complaining of blood in her urine. Pt states she has had kidney stones in her past and has become septic. [facility] 05-14-2023 Miscellaneous Notes She is still eligible for short term pain medication after surgery. Placed order to her pharmacy. NJD ----- Message from Va Sterling sent at 05/14/2023 10:49 AM EDT ----- This patient informed me that she is still in a lot of pain. She said that the pain is just about the same as right after surgery. She was wondering if that was normal? She was also wondering if something could be called in to help with the pain or if there was something she could do to help with the pain? Just let me know and I will be happy to put something in for you to sign. Karyn Connelly ----- Message ----- From: Roland Blanco MD Sent: 05/14/2023 7:47 AM EDT To: Va Sterling She can leave the dressing off the shoulder. She can remove the dressing on the wrist and wash the wrist, then replace the cecilia wrap only. She can stop the gabapentin. FRIEDA ----- Message ----- From: Va Sterling Sent: 05/13/2023 4:17 PM EDT To: Roland Blanco MD This patient called in with some questions.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 lab appointment - Do not eat after midnight the night before - You can go to any [facility] lab location to have your blood drawn - You do not need to have any paperwork to present to the labelling machine operator Next Visit: Follow-up in 2 weeks for repeat evaluation/medication management Call [phone] and select option 2 to schedule your next appointment or for any questions or concerns. As soon as the automated nurses medical assistants phlebotomists picks up, press the number two on your telephone keypad anca connected to our waterfront director If you are feeling suicidal or experiencing a mental health emergency, please call 911 or report tothe nearest emergency room for assistance. Below is the number for the national suicide [place] [address] DISPOSITION: Home I spent a total of 60+ minutes on the date of the service which included preparing to see the patient, [id number] patient care, completing clinical documentation, obtaining and/or reviewing separately obtained history, performing a medically appropriate examination, counseling and educating the pa tient/family/caregiver, ordering medications, tests, or procedures, and care coordination (not separately reported). ADD ON PSYCHOTHERAPY CODE : No SIGNATURE: Preethi Melchor APRN.CNP PATIENT NAME: Pranay Reyes DATE: January 07, 2023 TIME: 2:11 PM PAGER : documented in this encounterGrand Lake Joint [facility]04-15-2023 Miscellaneous Notes* Telephone Encounter - Nava Roberts RN - 12/29/2022 9:26 AM EDT See nurse triage encounter documented in this encounterGrand Lake Joint Township [facility]04-03-2023 History of Present illness Narrative* Kelton Powers MD - 12/17/2022 6:36 PM EDT ESTABLISHED PATIENT Pranay Reyes is a 27 year old female presenting for Follow Up. HISTORY OF PRESENT ILLNESS Diagnosed with schizoaffective disorder and anxiety. Trying to get in with psych. She notes she needs an emotional support animal. Helps with her anixety. Last 10 Encounter Wt Readings: Date: Wt: 12/17/2022 71.7 kg (158 lb) 09/18/2022 74.4 kg (164 lb) 01/18/2022 85.3 kg (188 lb 1.6 oz) 01/13/2022 89.4 kg (197 lb) 12/05/2021 89.5 kg (197 lb 4 oz) 10/04/2021 92.8 kg (204 lb 8 oz) 09/29/2021 97.4 kg (214 lb 11.2 oz) 09/29/2021 92.1 kg (203 lb 1.6 oz) 10/24/2020 80.3 kg (177 lb 1.6 oz) 01/19/2020 79.4 kg (175 lb) Patient is having problems maintaining weight. Eating normally. Not getting any exercise. Dizzy allthe time. Has POTS. 4 people on mother side of the family has had colon cancer. Estranged from mother and father. Abnormal periods. Has had tubal. Getting at random times. ASSESSMENT: (F25.0) Schizoaffective disorder, bipolar type (HCC) (primary encounter diagnosis) (Z13.220) Screening, lipid (R63.4) Weight loss (N92.6) Abnormal menstrual periods PLAN: Will resend list of providers and numbers in area Lipids ordered Check labs for weight loss Labs ordered for abnormal periods Consult beveler HISTORIES FAMILY HISTORY Problem Relation Age of Onset Ovarian cancer Paternal Grandmother Breast Cancer Paternal Aunt other (Blood Clots) Other Cancer Other Diabetes Other other (Heart Trouble) Other other (Lung Disease) Other Stroke Other other (High Blood Pressure) Other other (Intracranial Tumor) Sister sister,aunt,grandmother Multiple Sclerosis Maternal Uncle maternal uncle,cousins other (migraine) Mother PAST MEDICAL HISTORY Diagnosis Date Abdominal pain Adenomatous polyp Blood in urine Borderline personality disorder (HCC) Bruising Chest pain Constipation Dizziness Early satiety Fatigue Heart trouble History of medical problems Unspecified, Ovarian Cysts, Left History of weight change change in appetite and weight Indigestion Kidney stones Leg swelling Manic bipolar I disorder (HCC) Nausea Numbness and tingling Palpitations POTS (postural orthostatic tachycardia syndrome) Renal disorder kidney stones SOB (shortness of breath) Visual changes blurry vision in both eyes,and spouts of blindness PAST SURGICAL HISTORY Procedure Laterality Date SECTION HX x 2 1. suspected LGA 2. repeat COLONOSCOPY 05/01/2019 sigmoid polyp (tubular adenoma) EGD 05/01/2019 normal HEMORRHOID SURGERY HX HEMORRHOIDECTOMY PAST SURGICAL HISTORY OF removal of left ovary and uterine ablation THERMAL ENDOMETRIAL ABLATION TUBAL LIGATION HX laparoscopic Social History Tobacco Use Smoking status: Every Day Packs/day: 0.50 Years: 9.00 Pack years: 4.50 Types: Cigarettes Smokeless tobacco: Never Tobacco comments: 1/2 ppd Substance Use Topics Alcohol use: Not Currently Drug use: Yes Types: Marijuana Allergies: ALLERGIES Allergen Reactions Lexapro [Escitalopr* Mental Status Change Adhesive Rash Avocado Oil Unknown Codeine Rash SOB Wellbutrin [Bupropi* Mental Status Change Medications: ondansetron (ZOFRAN) 4 mg tablet^Take 1 tablet by mouth every 8 hours as needed for nausea/vomiting.^Disp: 6 tablet^Rfl: 5 hydrOXYzine HCl (ATARAX) 50 mg tablet^Take 1 tablet by mouth three times daily as needed for anxiety.^Disp: 30 tablet^Rfl: 1 (Patient not taking: Reported on 12/17/2022) metoprolol succinate ER (TOPROL XL) 25 mg 24 hr tablet^Take 1 tablet by mouth once daily.^Disp: 30 tablet^Rfl: 1 (Patient not taking: Reported on 12/17/2022) REVIEW OF SYSTEMS GENERAL: No weight loss, malaise or fevers PHYSICAL EXAM BP 136/80 Pulse 101 Temp 37 C (98.6 F) Resp 16 Ht 172.7 cm (5' 8) Wt 71.7 kg (158 lb) LMP 01/15/2022 (Exact Date) SpO2 99% BMI 24.02 kg/m General Appearance: Well appearing, alert, in no acute distress, well-hydrated, well nourished.. Kelton Powers MD * Allison Schulz - 12/17/2022 6:15 PM EDT COVID-19 VACCINE(1) Never done PNEUMOCOCCAL(1 - PCV) Never done HEPATITIS C SCREENING Never done DEPRESSION ASSESSMENT Never done documented in this encounterGrand Lake Joint [facility]04-03-2023 Instructions* Patient Instructions* Allison Schulz - 12/17/2022 6:16 PM EDT [facility] TEST INFORMATION [facility] HOURS: Lab is open: 7:30am to 5:00pm M - Th, 7:30am to 4:00pm onFri and 8am -12pm on Sat. The lab is located in [facility] on the first floor. There is a registration window at the lab, available 7 am to 3 pm Saturday - Saturday. If registration is unavailable at the lab, you may register at the patient registration office near the front lobby of the hospital. SCHEDULING A LAB APPOINTMENT: Laboratory appointments are recommended.Walk ins are still accepted. Call [phone] or schedule via [employer] (HotelHotel) scheduling ticket. ROUTINE LAB ORDERS 60 days after they are entered. If your lab orders , you may be required to wait in the lab while they are reinstated FUTURE ORDERS are lab tests to be completed on the EXPECTED date. These orders 60 days afterthe expected date. STANDING ORDERS are recurring orders with an expiration date. The interval will indicate how often the test should be completed. CT / MRI / IVP If you have lab tests ordered for one of these radiology exams, please complete the blood work at least one day prior to the scheduled exam. PRESCRIPTION REFILL REQUESTS Request prescription refills through your [employer] (Hotel[employer]el) account or contact your Pharmacy. My Chart Schedule My Appointment enables you to view your established primary care provider's open schedule and book an appointment online in real-time. This feature is available in internal medicine, family medicine, or pediatrics at any of our rust locations and main campus. documented in this encounterGrand Lake Joint Township [facility] Hospital03-10-2023 Miscellaneous Notes* Telephone Encounter - Sachi Woodruff RN - 11/23/2022 3:45 PM EST Unable to leave VM, my chart message sent regarding provider message. * Telephone Encounter - Wayne Jones RN - 11/23/2022 11:43 AM EST Attempted to reach patient. Could not leave message. * Telephone Encounter - Kelton Powers MD - 11/22/2022 8:17 PM EST Isn't patient seeing psychiatrist or counselor. Kelton Powers MD * Telephone Encounter - Kathy Tesfaye Pss - 11/22/2022 2:03 PM EST Patient is calling in today asking to get a letter for her Emotional Support Animal; her dog helps her keep routine she helps getting her motivated and is truly who she talks too. Please contact patient at [phone]. Kathy Tesfaye Pss documented in this encounterGrand Lake Joint Township District [facility] Hospital02-21-2023 Miscellaneous Notes* Telephone Encounter - Yohana Bloom MA - 11/06/2022 1:19 PM EST Received 11-05-22 from [facility]. Placed in provider's inbox for review. Route to DC scanning documented in this encounterGrand Lake Joint Township [facility] Hospital02-18-[address] Bernard [facility] November 03, 2022 11:48am Note Date/Time November 03, 2022 9:58am [facility] Medical Records Department [address] [place] [id number] Emergency Department Summary 11/03/22 MR#: [id number] Acct: [id number] Name: PRANAY REYES Rep #:[id number] : 1995 27 From: Alayna Bernard MD PCP: Dr. Kelton Powers MD Status:R EG ER Location: ED HPI History of Present Illness Chief Complaint: General Illness Detail of Chief Complaint: Body aches with nausea vomiting diarrhea. Informant: patient Onset/Context/Timing Onset: Days Context: Gradual Onset Timing: Continuous Current Severity: Mild Maximum Severity: Mild Narrative Narrative: 27-year-old female history of clots, prior tubal ligation, and historyof kidney stones. States the last 4 days she has had just diffuse body aches with associated nausea, vomiting diarrhea. Decreased p.o. intake. Denies any significant abdominal pain. No dysuria. No fever. No melena or hematemesis. Prior similar symptoms: Yes Recent Illness/Hospitalization: No PFSH PFSH Medical History POTS (postural orthostatic tachycardia syndrome) Schizo affective schizophrenia Home Medications ondansetron 4 mg disintegrating tablet 4 mg PO Q6H PRN nausea and vomiting #7 tabs 11/03/22 [Rx Last Taken Unknown] Allergy/AdvReac Type Severity Reaction Status Date / Time adhesive Allergy Rash Verified 11/03/22 09:23 avocado Allergy Rash Verified 11/03/22 09:23 codeine Allergy Shortness Verified 11/03/22 09:23 of breath Surgical History Hx of section Hx of tubal ligation Social History Smoking Status: Current every day smoker tobacco type: cigarettes ROS ROS ED ROS Narrative Nausea vomiting diarrhea. Body aches Review of Systems ROS Unobtainable: Denies due to encephalopathy Constitutional Constitutional ED: Denies chills or fever(s) Eyes Eyes: Denies blurry vision ENT ENT ED: Denies ear pain Cardiovascular Cardiovascular: Denies chest pain Respiratory/Chest Respiratory/Chest: Denies cough or dyspnea Gastrointestinal Gastrointestinal: Reports diarrhea, nausea and vomiting; Denies abdominal pain or melena Genitourinary Genitourinary ED: Denies dysuria or hematuria Musculoskeletal Musculoskeletal: Reports myalgias; Denies arthralgias Integumentary Denies abscess Neurologic Neurologic: Denies headache(s) Psychiatric Psychiatric: Denies anxiety Endocrine Endocrinology: Denies cold intolerance Hematologic/Lymphatic Hematologic/Lymphatic: Reports none Allergic/Immunologic Allergic/Immunologic ED: Denies mouth swelling, tongue swelling or urticaria EXAM Physical Exam Narrative Exam Narrative: 27-year-old female no acute distress. Vital signs are stable afebrile. H EENT exam unremarkable except mild dry mucous membranes. Neck nontender no lymphadenopathy. No meningismus. Lungs clear to auscultation bilaterally. Heart tachycardic rate about 110 no murmur. Chest wall nontender. Abdomen soft, nontender, nondistended, normal bowel sounds without peritoneal signs. Nohernia or mass. No distention. Back nontender. Patient moving all 4 extremities. Neurovascularly intact. Nontender no edema no cords. Normal range of motion. Neurologically she is awake and alert with no focal motor deficits. Benign exam mildly dehydrated. Const Vital Signs: 11/03/22 09:20 11/03/22 09:29 11/03/22 09:33 Temperature 97.9 F Temperature Source Temporal Pulse Rate 135 H 110 H Respiratory Rate 18 15 Respiratory Pattern Tachypnea Blood Pressure 119/78 122/96 H Blood Pressure Mean 91 104 Pulse Ox 98 99 Oxygen Delivery Method Room Air Room Air Positive well nourished and well developed; Negative for obese, cachectic, contractures or unkempt General Appearance ED: well developed and NAD; Negative for unkempt, cachectic, contractures, cyanotic, diaphoretic or pallor Nutritional Appearance: Negative for cachectic or obese HEENT Reports dry mucous membranes; Denies moist mucous membranes Negative for trauma or tenderness Mouth ED: Yes dry mucous membranes Mouth: dry mucous membranes Eyes PERRL and EOMs intact bilaterally General Eye ED: Negative for pale conjunctiva or scleral icterus Neck no lymphadenopathy, supple and no JVD General: Negative for tenderness Lymph Lymphatic: Negative for other Chest Wall inspection of chest normal and palpation of chest normal Chest: Negative for other Resp normal respiratory effort and clear to auscultation bilaterally Effort and Inspection: Negative for retractions Auscultation: Negative for rales, rhonchi or wheezes Cardio regular rhythm, S1 normal heart sound, S2 normal heart sound and no murmurs; Negative for regular rate Rate: tachycardic GI normal to inspection, nondistended, normoactive bowel sounds, non-tender, non-distended and no masses; Negative for hepatosplenomegaly Inspection: Negative for abdominal distention Auscultation: normoactive bowel sounds Palpation: soft; Negative for tender or guarding Back/Spine no CVA tenderness General Back: Negative for CVA tenderness Cervical Spine: Negative for cervical spine tenderness Thoracic Spine / Upper Back: Negative for thoracic spinal tenderness or paraspinal muscle tenderness Lumbar Spine / Lower Back: Negative for lumbar spinal tenderness Extremity normal to inspection General Extremety ED: Negative for edema or tenderness General Extremity: Negative for edema Neuro oriented x3 and CN's II-XII intact bilaterally Sensorium / Orientation: alert; Negative for orientation impaired, lethargic or stuporous Motor Exam: strength 5/5 throughout Psych mental status grossly normal Appearance: Negative for unkempt Attitude: No agitated Mood & Affect: Negative for depressed Skin no rashes or lesions noted and no wounds General Skin Exam: Negative for jaundice or pallor Rashes: No rashes noted Trauma: Negative for abrasion Wounds: Negative for wounds noted MDM MDM MDM Narrative Medical decision making narrative: 27-year-old with most likely viral gastroenteritis. Will be treated with IV fluids, IV Zofran and Toradol for body aches. CBC and chemistry will be obtained. Her abdomen is benign and nontender. She does not need any imaging. Repeat exam patient is doing well at 11:44 AM. We went over her normal test results. Clinically she looks well. She needs no further work-up today. She will be discharged home. Fluids and rest. Treated as a viral gastroenteritis. Zofran for nausea. Lab Data Attestation: I reviewed the patient's lab results. Lab results narrative: CBC shows a normal white count 5.2. H&H 13 and 39. Platelets 208. Electrolytes show a gap of 5. Normal BUN and creatinine 11 and 0.6. Glucose of105. Labs: Laboratory Results - last 24 hr 11/03/22 11/03/22 10:10 10:10 WBC 5.2 RBC 4.30 Hgb 13.4 Hct 39.7 MCV 92.3 MCH 31.2 MCHC 33.8 RDW Std Deviation 40.9 RDW Coeff of Mounika 12.0 Plt Count 208 MPV 10.5 Immature Gran % (Auto) 0.600 Neut % (Auto) 77.6 H Lymph % (Auto) 7.5 L Borden % (Auto) 12.6 H Eos % (Auto) 1.1 Baso % (Auto) 0.6 Absolute Neuts (auto) 4.1 Absolute Lymphs (auto) 0.39 L Nucleated RBC % 0 Sodium 139 Potassium 3.8 Chloride 108 H Carbon Dioxide 26.0 Anion Gap 5 BUN 11 Creatinine 0.67 Estim Creat Clear Calc 129.48 Est GFR (MDRD) Af Amer 133 Est GFR (MDRD) Non-Af 110 BUN/Creatinine Ratio 16.4 Glucose 105 Calcium 8.9 Rhythm Strip Rhythm Strip: Sinus Tach Rate: 118 Ectopy: None EKG Initial EKG: Attestation: I personally reviewed and interpreted this EKG as follows: Interpretation: No Acute Injury Pattern and Sinus Tachycardia Comments: Sinus tachycardia rate of 118 no acute signs of WA, ischemia or dysrhythmia. Discharge Plan Triage Chief Complaint: General Illness ED Provider: Alayna Bernard Dx/Rx/DC Orders Clinical Impression: Viral gastroenteritis Instructions: ED Gastroenteritis, Viral (Adult) Prescriptions: New ondansetron 4 mg tablet,disintegrating 4 mg PO Q6H PRN (Reason: nausea and vomiting) Qty: 7 0RF Primary Care Provider: Kelton Powers Referrals: Kelton Powers MD [Primary Care Provider] - 1 Week if not improving Activity Restrictions/Additional Instructions: Plenty of fluids and rest Zofran as needed for nausea. Follow-up with your doctor if not improving. Your labs today were all unremarkable. Disposition Disposition: Home, Self Care What to do if you have Problems For any increased pain, shortness of breath, bleeding, nausea or vomiting, chestpain, or any unexpected problems, contact your Primary Care Provider. Call [facility] ([phone]) or report to the closest Emergency Room. Call 911 if necessary. 11/03/22 1148 <Electronically signed by Alayna Bernard MD> Cosigner Signature (if applicable): CC: Dr. Kelton Powers MD ~ Signed [facility] Work Phone: 1(964) 603-908601-16-2023 Hospital Discharge instructions* Discharge Instructions* Roland Coley MD - 10/01/2022 8:09 PM EST Please return to the Emergency Department immediately for new or worsening symptoms or any new concerns, including significantly worsened pain, skin discoloration, weakness numbness or tingling Please rest, ice, and elevate your affected foot, you may bear weight as tolerated with crutches You may take ibuprofen and/or Tylenol as needed for discomfort according to package instructions. Please follow-up with podiatry in the next 5 to 7 days for reevaluation. * Attachments The following attachments cannot be sent through Care Everywhere. * Crush Injury (Angolan) documented in this [facility]01-16-2023 Emergency department Note* Arti Zambrano LPN - 10/01/2022 7:17 PM EST Pt sitting comfortably in bed with SO at bedside. No questions or concerns at this time. Bed lockedand in lowest position, call light within reach. Arti Zambrano LPN 10/01/221917 [id number]* Arti Zambrano LPN - 10/01/2022 7:17 PM EST Pt sitting comfortably in bed with SO at bedside. No questions or concerns at this time. Bed lockedand in lowest position, call light within reach. Arti Zambrano LPN 10/01/221917 * Arti Zabmrano LPN - 10/01/2022 7:08 PM EST Hand off report received from ALEXA Goldberg LPN 10/01/22 190 * Roland Coley MD - 10/01/2022 6:41 PM EST Emergency Department Encounter [facility] ED Patient: Pranay Reyes : 1995 Date of Evaluation: 10/01/2022 ED Provider: Roland Coley MD Note: I wore an N95 mask and gloves during this encounter. I, Dr. Coley, am the paste up artist of record. CHIEF COMPLAINT: left foot injury HPI: Pranay Reyes is a 27 y.o. female with PMH including denies anxiety, depression, presents concern for left foot injury. Patient reports earlier this evening a heavy wooden door fell landing on her left foot causing acute pain, she denies pain or injury elsewhere, endorses tingling in her toes, denies numbness or weakness, denies involvement of the right foot, or elsewhere throughout the left lower extremity including the ankle, tib-fib, knee, denies other symptoms or concerns. REVIEW OF SYSTEMS: 8 systems reviewed and otherwise acutely negative except as per HPI. HISTORIES: PAST MEDICAL HISTORY: as per HPI SOCIAL HISTORY: History of tobacco use, no alcohol illicit drug use MEDICATIONS: Nursing notes and EMR reviewed ALLERGIES: Nursing notes and EMR reviewed PHYSICAL EXAM: Vital signs: reviewed General: No apparent discomfort or distress, anxious appearing Cardiovascular: Normal rhythm, tachycardic rate, left DP pulse palpable, left PT pulse palpable, left foot well-perfused with capillary refill less than 2 seconds throughout including throughout the toes Extremities: tenderness throughout the left midfoot without palpable deformity, skin intact withoutwounds, no erythema or warmth, no ecchymosis, no tenderness to palpation elsewhere throughout the left lower extremity including the ankle tib-fib or knee, no tenderness to palpation throughout the right foot, nonedematous lower extremities bilaterally Integumentary: warm, dry, intact Neurologic: alert, no obvious neurologic deficits, wiggles left toes, sensation intact throughout the left toes MEDICAL DECISION MAKING: Medications acetaminophen (Tylenol) tablet 1,000 mg (has no administration in time range) Pranay Reyes is a 27 y.o. female who presents as above, with accidental crush injury involving theleft foot, reports this is an isolated injury, denies pain or injury elsewhere or other symptoms orconcerns, she is afebrile, mildly tachycardic although anxious appearing - suspect related to pain and anxiety, patient states she is always tachycardic when in the emergency department, she is neurovascular intact, discussed with patient, concern for contusion versus fracture, will obtain left foot x-ray, treat pain with Tylenol. L foot x-ray obtained, interpreted per radiologist no acute findings Patient informed of findings, she is in agreement with plan for discharge, recommend PCP follow-up,additionally will provide podiatry referral for follow- up, recommend rest, ice, elevation, NSAIDs for discomfort, will provide crutches, recommend weightbearing as tolerating, strict return precautions were discussed, patient in agreement with plan, stable for discharge. DIAGNOSIS: Left foot crush injury DISPOSITION: Discharge PRESCRIPTIONS: New Prescriptions No medications on file Comment: Please note this report has been produced using speech recognition software and may contain errors related to that system including errors in grammar, punctuation, and spelling, as well as words and phrases that may be inappropriate. If there are any questions or concerns please feel free to contact the dictating provider for clarification. Roland Coley MD [facility] Roland Coley MD 10/01/22 4520 * Rocío Newberry RN - 10/01/2022 6:41 PM EST Patient arrived in a wheelchair to room 3 with family member. 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 Patient's left foot is visibly swollen. Patient states she is unable to move her toes. Patient states her foot is numbness denies any tingling. Ice bag applied to foot upon arrival. documented in this [facility]01-16-2023 Emergency department Note* Arti Zambrano LPN - 10/01/2022 7:08 PM EST Hand off report received from ALEXA Goldberg LPN 10/01/22 1908 [id number] department Triage note* Rocío Newberry RN - 10/01/2022 6:41 PM EST Patient arrived in a wheelchair to room 3 with family member. 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 Patient's left foot is visibly swollen. Patient states she is unable to move her toes. Patient states her foot is numbness denies any tingling. Ice bag applied to foot upon arrival. [id number] Phys[facility] Emergency department Note* Roland Coley MD - 10/01/2022 6:41 PM EST Emergency Department Encounter [facility] ED Patient: Pranay Reyes : 1995 Date of Evaluation: 10/01/2022 ED Provider: Roland Coley MD Note: I wore an N95 mask and gloves during this encounter. I, Dr. Coley, am the paste up artist of record. CHIEF COMPLAINT: left foot injury HPI: Pranay Reyes is a 27 y.o. female with PMH including denies anxiety, depression, presents concern for left foot injury. Patient reports earlier this evening a heavy wooden door fell landing on her left foot causing acute pain, she denies pain or injury elsewhere, endorses tingling in her toes, denies numbness or weakness, denies involvement of the right foot, or elsewhere throughout the left lower extremity including the ankle, tib-fib, knee, denies other symptoms or concerns. REVIEW OF SYSTEMS: 8 systems reviewed and otherwise acutely negative except as per HPI. HISTORIES: PAST MEDICAL HISTORY: as per HPI SOCIAL HISTORY: History of tobacco use, no alcohol illicit drug use MEDICATIONS: Nursing notes and EMR reviewed ALLERGIES: Nursing notes and EMR reviewed PHYSICAL EXAM: Vital signs: reviewed General: No apparent discomfort or distress, anxious appearing Cardiovascular: Normal rhythm, tachycardic rate, left DP pulse palpable, left PT pulse palpable, left foot well-perfused with capillary refill less than 2 seconds throughout including throughout the toes Extremities: tenderness throughout the left midfoot without palpable deformity, skin intact withoutwounds, no erythema or warmth, no ecchymosis, no tenderness to palpation elsewhere throughout the left lower extremity including the ankle tib-fib or knee, no tenderness to palpation throughout the right foot, nonedematous lower extremities bilaterally Integumentary: warm, dry, intact Neurologic: alert, no obvious neurologic deficits, wiggles left toes, sensation intact throughout the left toes MEDICAL DECISION MAKING: Medications acetaminophen (Tylenol) tablet 1,000 mg (has no administration in time range) Pranay Reyes is a 27 y.o. female who presents as above, with accidental crush injury involving theleft foot, reports this is an isolated injury, denies pain or injury elsewhere or other symptoms orconcerns, she is afebrile, mildly tachycardic although anxious appearing - suspect related to pain and anxiety, patient states she is always tachycardic when in the emergency department, she is neurovascular intact, discussed with patient, concern for contusion versus fracture, will obtain left foot x-ray, treat pain with Tylenol. L foot x-ray obtained, interpreted per radiologist no acute findings Patient informed of findings, she is in agreement with plan for discharge, recommend PCP follow-up,additionally will provide podiatry referral for follow- up, recommend rest, ice, elevation, NSAIDs for discomfort, will provide crutches, recommend weightbearing as tolerating, strict return precautions were discussed, patient in agreement with plan, stable for discharge. DIAGNOSIS: Left foot crush injury DISPOSITION: Discharge PRESCRIPTIONS: New Prescriptions No medications on file Comment: Please note this report has been produced using speech recognition software and may contain errors related to that system including errors in grammar, punctuation, and spelling, as well as words and phrases that may be inappropriate. If there are any questions or concerns please feel free to contact the dictating provider for clarification. Roland Coley MD Acute Care [facility] Roland Coley MD 10/01/22 5953 [facility] Work Phone: 1(177) 304-663101-03-2023 Miscellaneous Notes* Telephone Encounter - EMILIE Lynn - 09/18/2022 2:31 PM EST Behavioral Health Social Work Progress Note Patient identified for [facility] from: PCP Reason for referral: Resources Behavioral Health Resources: Psychology - talk therapy;Psychiatry med management [facility] encounter type: Telephone Encounter;Orthodatat Message Attempts to Outreach: 1 attempt Referral made: Psychiatry - Internal;Psychiatry - External;Psychology - Internal;Psychology - External Psychiatry-Internal referral type: Medication Management Psychology-Internal referral type: Therapy Psychology-External referral type: Therapy Psychiatry-External referral type: Medication Management Reason for external referral: Wait times at [facility] too long Final Disposition: Resources given Patient Discharged?: Yes Patient reported that caregiver was able to meet their needs today?: Yes SW placed telephone call at the request of the PCP to discuss behavioral health needs. Patient states she was receiving services at [facility], but states she had a bad experience with the SALES PROJECT COORDINATOR providing her medication and does not want to continue services there. Patient also has a case resource manager at this agency. States she is without housing right now and is receiving temporary housing through [facility] until her disability comes through. Patient presenting very anxious over the phone with jumbled speech and apologizing for her brain not working. Agreeable to resources in the [facility]. Will send the following: [facility] Psychiatry and Counseling Central Scheduling Call Center [phone] [facility] [employer] [address] [place] [address] *Counseling, Psychiatry, Case Management Services [address] [place] [address] *Counseling, Psychiatry, Case Management Services [facility] [address] [place] [address] *Counseling and psychiatry [facility] (Telehealth available) [address] [address] *counseling and psychiatry [facility] [address] [address] *counseling and psychiatry [facility] (Telehealth available) [address] [place] [address], [place], [place] [id number] *counseling and psychiatry [place] [address] *counseling and psychiatry EMILIE Lynn September 18, 2022 [facility] History of Present illness Narrative* Andra Parrish APRN.HALL MANAGER - 09/18/2022 1:00 PM EST This note was created using NoteWriter. Subjective Pranay D Amy is a 27 year old female. Patient presents with: Anxiety Wants referral for psych Went to [facility], not wanting to go back Has schizoaffective disorder Auditory hallucinations Gets overstimulated Has Overwhelming racing thoughts Feels the voices make her more depressed. Sleeps ok, too much Doesn't feel like she has a regular schedule Tries to force herself to have a schedule but is not working Her dogs force her out of bed Tried to harm herself years ago with sleeping pills. Doesn't have a plan to harm herself but the 7 voices talk down to her States she has panic attacks almost daily. Smoke cigarettes, doesn't drink often, does not get drunk Her support at home is her boyfriend Has been on many medication sin the past that have either not worked or made her symptoms worse. Admits she is not always compliant with medications. Was getting Abilify injection, which helped then stopped suddenly. Lexapro and wellbutrin,make her angry Was misdiagnosed with borderline personality Has been on buspar, zoloft, wellbutrin, viibryd, trazodone, Schizophrenia is genetic in her family Denies SI/HI The history is provided by the patient. No professor of languages was used. Review of Systems Constitutional: Negative for activity change, appetite change, chills, diaphoresis, fatigue, fever and unexpected weight change. HENT: Negative. Negative for tinnitus. Eyes: Negative for photophobia and visual disturbance. Respiratory: Negative for cough, chest tightness, shortness of breath and wheezing. Cardiovascular: Negative for chest pain, palpitations and leg swelling. Gastrointestinal: Negative. Genitourinary: Negative. Musculoskeletal: Negative for myalgias. Skin: Negative for rash. Neurological: Negative for dizziness, syncope, weakness, light-headedness, numbness and headaches. Psychiatric/Behavioral: Positive for agitation, dysphoric mood and hallucinations. Negative for behavioral problems, confusion, decreased concentration, self-injury, sleep disturbance and suicidal ideas. The patient is nervous/anxious. The patient is not hyperactive. All other systems reviewed and are negative. Objective BP 142/90 (BP Site: Left Arm, BP Position: Sitting, BP Cuff Size: Large Adult) Pulse 112 Ht 175.3 cm (5' 9) Wt 74.4 kg (164 lb) LMP 01/15/2022 (Exact Date) SpO2 99% BMI 24.22 kg/m PAST MEDICAL HISTORY Diagnosis Date Abdominal pain Adenomatous polyp Blood in urine Borderline personality disorder (HCC) Bruising Chest pain Constipation Dizziness Early satiety Fatigue Heart trouble History of medical problems Unspecified, Ovarian Cysts, Left History of weight change change in appetite and weight Indigestion Kidney stones Leg swelling Manic bipolar I disorder (HCC) Nausea Numbness and tingling Palpitations POTS (postural orthostatic tachycardia syndrome) Renal disorder kidney stones SOB (shortness of breath) Visual changes blurry vision in both eyes,and spouts of blindness PAST SURGICAL HISTORY Procedure Laterality Date SECTION HX x 2 1. suspected LGA 2. repeat COLONOSCOPY 05/01/2019 sigmoid polyp (tubular adenoma) EGD 05/01/2019 normal HEMORRHOID SURGERY HX HEMORRHOIDECTOMY PAST SURGICAL HISTORY OF removal of left ovary and uterine ablation THERMAL ENDOMETRIAL ABLATION TUBAL LIGATION HX laparoscopic Current Outpatient Medications on File Prior to Visit Medication Sig metoprolol succinate ER (TOPROL XL) 25 mg 24 hr tablet Take 1 tablet by mouth once daily. (Patient not taking: Reported on 01/18/2022 ) ondansetron (ZOFRAN) 4 mg tablet Take 1 tablet by mouth every 8 hours as needed for nausea/vomiting. Current Facility-Administered Medications on File Prior to Visit Medication perflutren lipid microspheres 1.3 mL in NaCl (PF) 0.9% 10 mL injection (DEFINITY) sodium chloride 0.9 % (flush) 10 mL (BD POSIFLUSH) ALLERGIES Allergen Reactions Lexapro [Escitalopr* Mental Status Change Adhesive Rash Avocado Oil Unknown Codeine Rash SOB Wellbutrin [Bupropi* Mental Status Change Physical Exam Vitals and nursing note reviewed. Constitutional: General: She is awake. She is not in acute distress. Appearance: Normal appearance. She is well-developed, well-groomed and normal weight. HENT: Head: Normocephalic. Eyes: Conjunctiva/sclera: Conjunctivae normal. Pupils: Pupils are equal, round, and reactive to light. Cardiovascular: Rate and Rhythm: Regular rhythm. Tachycardia present. Pulses: Normal pulses. Heart sounds: Normal heart sounds. Pulmonary: Effort: Pulmonary effort is normal. No respiratory distress. Breath sounds: Normal breath sounds. No decreased breath sounds or wheezing. Musculoskeletal: General: No swelling, tenderness or signs of injury. Normal range of motion. Cervical back: Full passive range of motion without pain, normal range of motion and neck supple. Right lower leg: No edema. Left lower leg: No edema. Lymphadenopathy: Cervical: No cervical adenopathy. Skin: General: Skin is warm and dry. Capillary Refill: Capillary refill takes less than 2 seconds. Findings: No rash. Neurological: General: No focal deficit present. Mental Status: She is alert and oriented to person, place, and time. Mental status is at baseline. Cranial Nerves: No cranial nerve deficit. Sensory: Sensation is intact. No sensory deficit. Motor: Motor function is intact. No weakness. Coordination: Coordination is intact. Gait: Gait is intact. Gait normal. Psychiatric: Attention and Perception: Attention and perception normal. Mood and Affect: Affect normal. Mood is anxious. Speech: Speech normal. Behavior: Behavior is withdrawn. Behavior is cooperative. Thought Content: Thought content normal. Thought content is not paranoid or delusional. Thought content does not include homicidal or suicidal ideation. Thought content does not include homicidal plan. Cognition and Memory: Cognition and memory normal. Judgment: Judgment normal. ASSESSMENT/PLAN: 1. Anxiety with depression - ICD9: 300.4, ICD10: F41.8 (primary diagnosis) - CONSULT TO PSYCHIATRY - CONSULT TO PRIMARY CARE BEHAVIORAL HEALTH ADULT 2. Panic attacks - ICD9: 300.01, ICD10: F41.0 - ED if severe, discussed red flag symptoms and when to be evaluated in the ED. Pt VU. - CONSULT TO PSYCHIATRY - CONSULT TO PRIMARY CARE BEHAVIORAL HEALTH ADULT 3. Paranoia (HCC) - ICD9: 297.1, ICD10: F22 - CONSULT TO PSYCHIATRY - CONSULT TO PRIMARY CARE BEHAVIORAL HEALTH ADULT Follow up as needed or sooner if new or worsening symptoms. Andra Parrish APRN.SANTOS documented in this encounterGrand Lake [facility] History of Present illness Narrative* Katina Conte Population Health Navigator - 06/22/2022 9:01 AM EDT POPULATION HEALTH NAVIGATION OUTREACH Action/FYI I tried to call both phone number neither one is a working number sent a my chart message Pt identified by name and : NO Outreach Outcome/Action Unable to reach patient: Phone number not valid / voicemail full Orthodatat message sent Did you use a PCP flex slot to schedule this appointment? N/A Reason for Outreach HCC or suspected condition Payer: Payor: [place] [employer]ICA[employer] / Plan: [place] [facility] MEDICAID / Product Type: Medicaid / Care Gap Reviewed:: Annual Wellness visit Flu vaccine Reminder: Reminder note to check Health Maintenance for items below Health Maintenance items due: COVID-19 VACCINE(1) Never done PNEUMOCOCCAL(1 - PCV) Never done HEPATITIS C SCREENING Never done DEPRESSION ASSESSMENT Never done INFLUENZA(1) due on 05/17/2022 Message Sent to Practice: No Navigation Signature: Katina Conte [facility] Navigator June 22, 2022 9:01 AM Electronically signed by Katina Conte [facility] Navigator at 06/22/2022 9:02 AM EDT documented in this encounterGrand Lake Joint [facility]05-05-2022 Miscellaneous Notes* Telephone Encounter - Clarissa Pink RN - 01/18/2022 1:54 PM EDT Pt evaluated today by provider. This encounter closed. * Telephone Encounter - Magy Mancini RN - 01/17/2022 12:49 PM EDT Patient injured her shoulder and was seen in the ER for a shot, which has not helped much. Patient was scheduled in [place] on 01-16 in the am and pm, but was unable to make the appointment on time. She is in pain and would like to know what the next steps could be. I have her scheduled for 01-18-22 [address] [place] [address]. Rivera, since it was the soonest in the area. Please advise what other options patient may have. Called patient re message above, no answer. Left message to call office back. Magy Mancini RN documented in this encounterGrand Lake [facility]05-05-2022 History of Present illness Narrative* Andra Parrish APRN.HALL MANAGER - 01/18/2022 11:32 AM EDT Images from the original note were not included. This note was created using [employer]. Subjective Pranay Reyes is a 26 year old female. Patient presents with: ER F/U: left shoulder pain, hand numbness Here for ER follow up. Was seen in the ER for left shoulder pain on 01/13/22. Xray was negative, was given toradol, kenalog and robaxin, with minimal relief. Was given a sling, that pt states she will not wear. Pt admits to left scapular pain that radiates into her left armpit. Shooting pain with numbness into her hand. Feels like something is stuck. Feels sharp at all times. Worse with any movement. No bony tenderness. Has a long history of bilateral shoulder pain and dislocation. When she sleeps she falls asleep with her arms above her head and her shoulders dislocate and nevernormally have issues but this time pain started immediately. The dislocation happened and her boyfriend normally puts them back in place. This has happened since she was 8 years old. Broken both collar bones and has broken both shoulders multiple times. Using motrin, which helps minimally. Denies chest pain, heart palpitations or syncope. The history is provided by the patient. No professor of languages was used. Review of Systems Constitutional: Negative for activity change, appetite change, chills, diaphoresis, fatigue, fever and unexpected weight change. HENT: Negative. Eyes: Negative for visual disturbance. Respiratory: Negative for cough, chest tightness, shortness of breath and wheezing. Cardiovascular: Negative for chest pain, palpitations and leg swelling. Gastrointestinal: Negative for abdominal pain, blood in stool, constipation, diarrhea, nausea, rectal pain and vomiting. Genitourinary: Negative for difficulty urinating, dysuria, flank pain, frequency, hematuria and urgency. Musculoskeletal: Positive for arthralgias and myalgias. Negative for back pain, gait problem, jointswelling, neck pain and neck stiffness. Skin: Negative for pallor and rash. Neurological: Positive for weakness and numbness. Negative for dizziness, light- headedness and headaches. Numbness of left hand Psychiatric/Behavioral: Negative for dysphoric mood, self-injury, sleep disturbance and suicidal ideas. The patient is not nervous/anxious. All other systems reviewed and are negative. Objective BP 132/80 Pulse 104 Temp 36.8 C (98.2 F) (Tympanic) Ht 175.3 cm (5' 9) Wt 85.3 kg (188 lb1.6 oz) LMP 01/15/2022 (Exact Date) SpO2 99% BMI 27.78 kg/m PAST MEDICAL HISTORY Diagnosis Date Abdominal pain Adenomatous polyp Blood in urine Borderline personality disorder (HCC) Bruising Chest pain Constipation Dizziness Early satiety Fatigue Heart trouble History of medical problems Unspecified, Ovarian Cysts, Left History of weight change change in appetite and weight Indigestion Kidney stones Leg swelling Manic bipolar I disorder (HCC) Nausea Numbness and tingling Palpitations POTS (postural orthostatic tachycardia syndrome) Renal disorder kidney stones SOB (shortness of breath) Visual changes blurry vision in both eyes,and spouts of blindness PAST SURGICAL HISTORY Procedure Laterality Date SECTION HX x 2 1. suspected LGA 2. repeat COLONOSCOPY 05/01/2019 sigmoid polyp (tubular adenoma) EGD 05/01/2019 normal HEMORRHOID SURGERY HX HEMORRHOIDECTOMY PAST SURGICAL HISTORY OF removal of left ovary and uterine ablation THERMAL ENDOMETRIAL ABLATION TUBAL LIGATION HX laparoscopic Current Outpatient Medications on File Prior to Visit Medication Sig ibuprofen (MOTRIN) 600 mg tablet Take 1 tablet by mouth every 6 hours as needed for pain for up to 8 days. ondansetron (ZOFRAN) 4 mg tablet Take 1 tablet by mouth every 8 hours as needed for nausea/vomiting. metoprolol succinate ER (TOPROL XL) 25 mg 24 hr tablet Take 1 tablet by mouth once daily. (Patient not taking: Reported on 01/18/2022 ) Current Facility-Administered Medications on File Prior to Visit Medication perflutren lipid microspheres 1.3 mL in NaCl (PF) 0.9% 10 mL injection (DEFINITY) sodium chloride 0.9 % (flush) 10 mL (BD POSIFLUSH) ALLERGIES Allergen Reactions Adhesive Rash Avocado Oil Unknown Codeine Rash SOB Wellbutrin [Bupropi* Mental Status Change Physical Exam Vitals reviewed. Constitutional: General: She is awake. She is not in acute distress. Appearance: Normal appearance. She is well-developed and normal weight. HENT: Head: Normocephalic. Cardiovascular: Rate and Rhythm: Regular rhythm. Tachycardia present. Pulses: Normal pulses. Heart sounds: Normal heart sounds. Pulmonary: Effort: Pulmonary effort is normal. No respiratory distress. Breath sounds: Normal breath sounds. No decreased breath sounds or wheezing. Musculoskeletal: General: No swelling, deformity or signs of injury. Right shoulder: Normal. Left shoulder: Tenderness present. No swelling, deformity, laceration or bony tenderness. Decreasedrange of motion. Normal strength. Normal pulse. Arms: Cervical back: Normal range of motion and neck supple. Right lower leg: No edema. Left lower leg: No edema. Comments: Pt is holding her left shoulder to her side due to discomfort. Not wearing a sling. Skin: General: Skin is warm. Capillary Refill: Capillary refill takes less than 2 seconds. Findings: No rash. Neurological: General: No focal deficit present. Mental Status: She is alert and oriented to person, place, and time. Mental status is at baseline. Cranial Nerves: Cranial nerves are intact. No cranial nerve deficit. Sensory: Sensation is intact. No sensory deficit. Motor: Motor function is intact. No weakness. Coordination: Coordination is intact. Gait: Gait is intact. Gait normal. Psychiatric: Attention and Perception: Attention and perception normal. Mood and Affect: Mood and affect normal. Speech: Speech normal. Behavior: Behavior normal. Behavior is cooperative. Thought Content: Thought content normal. Thought content does not include homicidal or suicidal ideation. Cognition and Memory: Cognition and memory normal. Judgment: Judgment normal. ASSESSMENT/PLAN: 1. Acute pain of left shoulder - ICD9: 719.41, ICD10: M25.512 - pt states she has seen ortho for this previously and would like PT orders as well. - will schedule with ortho and PT - discussed ice, rest and NSAIDs for pain. Pt should wear sling, but declines wearing it. - CONSULT TO PHYSICAL THERAPY - ED if severe, discussed red flag symptoms and when to be evaluated in the ED. Pt VU. Follow up as needed or sooner if new or worsening symptoms. Andra Parrish APRN.HALL MANAGER documented in this encounterGrand Lake Joint [facility]05-04-2022 Miscellaneous Notes* Telephone Encounter - Magy Mancini RN - 01/17/2022 12:50 PM EDT Addressed in Triage encounter. Kristel Mckoski, RN * Telephone Encounter - Paola Nicolas Pss - 01/16/2022 5:03 PM EDT Patient injured her shoulder and was seen in the ER for a shot, which has not helped much. Patient was scheduled in [place] on 01-16 in the am and pm, but was unable to make the appointment on time. She is in pain and would like to know what the next steps could be. I have her scheduled for 01-18-22 in [place] [address]. Rivera, since it was the soonest in the area. Please advise what other options patient may have. documented in this encounterGrand Lake Joint [facility]03-29-2022 Instructions* Patient Instructions* Julisa Ji DO - 12/12/2021 1:09 PM EDT -- will get circulation test to screen for raynaud's documented in this encounterGrand Lake Joint [facility]03-29-2022 History of Present illness Narrative* Julisa Ji DO - 12/12/2021 1:00 PM EDT Images from the original note were not included. [facility] [place] [facility] Department of Cardiovascular Medicine SECTION OF VASCULAR MEDICINE OUTPATIENT VISIT DATE December 12, 2021 OUTPATIENT VISIT TYPE ESTABLISHED Follow up regarding: leg swelling, leg skin discoloration Review of history: Last seen 11/07/21. 26 year old woman here for multiple issues. She was in her usual state of health until ~07/2021 when she had viral symptoms and was concerned for having COVID-19 though never tested. Since that time has not felt right. She has different symptoms including palpitations, generalized fatigue and myalgia, flushing of skin, bilateral lower leg swelling, shortness of breath, dizziness. She has no history of thrombosis. She has noticed more leg swelling in both legs. Some swelling in the morning but worse by end of the day. She has fishnet like rash on skin of her legs. No skin ulcers. Has knee high compression stockings but does not feel it helps. Denies any history of LN surgeries, nor pelvic radiation. No history of heart disease, liver disease, kidney disease. No tinnitus. Has vision blurring but saw eye doctor who said it was fine. Has had 2 pregnancies. 1 possible miscarriage, not sure. Pregnancies were uneventful. Paternal GF had blood clot but she is not sure what type. Subjective: Will get intermittent hand numbness and tingling as well in the toes when weather is colder/cold exposure. No history of raynaud's diagnosis. No ulcer history in the finger tips. Will still get lightheaded with standing up too quickly. Off/on leg swelling. Allergies: is allergic to adhesive, avocado oil, codeine, and wellbutrin [bupropion hcl]. Medications: Current Outpatient Medications Medication Sig metoprolol succinate ER (TOPROL XL) 25 mg 24 hr tablet Take 1 tablet by mouth once daily. ondansetron (ZOFRAN) 4 mg tablet Take 1 tablet by mouth every 8 hours as needed for nausea/vomiting. Current Facility-Administered Medications Medication Dose Route Frequency perflutren lipid microspheres 1.3 mL in NaCl (PF) 0.9% 10 mL injection (DEFINITY) INTRAVENOUS DIRECTED PRN sodium chloride 0.9 % (flush) 10 mL (BD POSIFLUSH) 10 mL INTRAVENOUS DIRECTED PRN Physical exam: [facility] 11/20/2021 (Exact Date) General: Alert and oriented, in no acute distress, pleasant mood. Skin: Healthy, intact, no ulcerations, no rashes. HEENT: Head normocephalic, sclera anicteric without injection, oral mucosa moist and pink. No carotid bruit. Cardiovascular: Heart has a regular rate and rhythm without murmur. Respiratory: Lungs clear auscultation bilaterally. Gastrointestinal: Abdomen soft, nontender, nondistended. No abdominal bruit or palpable mass. Musculoskeletal: No cyanosis or clubbing. Peripheral vascular: Right Pulses: radial=2, dorsalis pedis=2, posterior tibial=2 Left Pulses: radial=2, dorsalis pedis=2, posterior tibial=2 Lower extremities: mild to moderate bilateral calf swelling, mild dorsal hump on feet, increased skin fold crease at base of toes. Negative Stemmer sign. No ulcers. Livido reticularis without racemosa. No visible varicose veins. Imaging US legs bilateral 12/12/2021 IMPRESSION RIGHT SIDE - DEEP VEINS Negative for acute deep vein thrombosis in vessels visualized. Positive for valvular incompetency in the common femoral vein. RIGHT SIDE - SUPERFICIAL VEINS Negative for valvular incompetency in the great saphenous vein. Negative for valvular incompetency in the small saphenous vein. LEFT SIDE -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 to criminally investigate or prosecute any alcohol or drug abuse patient.[facility] HospitalIn the event this information is protected by the Federal Confidentiality of Alcohol and Drug Abuse Patient Records regulations: The Federal rules restrict any use of the information to criminally investigate or prosecute any alcohol or drug abuse patient.[facility] HospitalIn the event this information is protected by the Federal Confidentiality of Alcohol and Drug Abuse Patient Records regulations: The Federal rules restrict any use of the information to criminally investigate or prosecute any alcohol or drug abuse patient.[facility] HospitalIn the event this information is protected by the Federal Confidentiality of Alcohol and Drug Abuse Patient Records regulations: The Federal rules restrict any use of the information to criminally investigate or prosecute any alcohol or drug abuse patient.[facility] HospitalIn the event this information is protected by the Federal Confidentiality of Alcohol and Drug Abuse Patient Records regulations: The Federal rules restrict any use of the information to criminally investigate or prosecute any alcohol or drug abuse patient.[facility] HospitalIn the event this information is protected by the Federal Confidentiality of Alcohol and Drug Abuse Patient Records regulations: The Federal rules restrict any use of the information to criminally investigate or prosecute any alcohol or drug abuse patient.[facility] HospitalIn the event this information is protected by the Federal Confidentiality of Alcohol and Drug Abuse Patient Records regulations: The Federal rules restrict any use of the information to criminally investigate or prosecute any alcohol or drug abuse patient.[facility] HospitalIn the event this information is protected by the Federal Confidentiality of Alcohol and Drug Abuse Patient Records regulations: The Federal rules restrict any use of the information to criminally investigate or prosecute any alcohol or drug abuse patient.[facility] HospitalIn the event this information is protected by the Federal Confidentiality of Alcohol and Drug Abuse Patient Records regulations: The Federal rules restrict any use of the information to criminally investigate or prosecute any alcohol or drug abuse patient.[facility] HospitalIn the event this information is protected by the Federal Confidentiality of Alcohol and Drug Abuse Patient Records regulations: The Federal rules restrict any use of the information to criminally investigate or prosecute any alcohol or drug abuse patient.[facility] HospitalIn the event this information is protected by the Federal Confidentiality of Alcohol and Drug Abuse Patient Records regulations: The Federal rules restrict any use of the information to criminally investigate or prosecute any alcohol or drug abuse patient.[facility] HospitalIn the event this information is protected by the Federal Confidentiality of Alcohol and Drug Abuse Patient Records regulations: The Federal rules restrict any use of the information to criminally investigate or prosecute any alcohol or drug abuse patient.[facility] HospitalIn the event this information is protected by the Federal Confidentiality of Alcohol and Drug Abuse Patient Records regulations: The Federal rules restrict any use of the information to criminally investigate or prosecute any alcohol or drug abuse patient.[facility] HospitalIn the event this information is protected by the Federal Confidentiality of Alcohol and Drug Abuse Patient Records regulations: The Federal rules restrict any use of the information to criminally investigate or prosecute any alcohol or drug abuse patient.[facility] HospitalIn the event this information is protected by the Federal Confidentiality of Alcohol and Drug Abuse Patient Records regulations: The Federal rules restrict any use of the information to criminally investigate or prosecute any alcohol or drug abuse patient.[facility] HospitalIn the event this information is protected by the Federal Confidentiality of Alcohol and Drug Abuse Patient Records regulations: The Federal rules restrict any use of the information to criminally investigate or prosecute any alcohol or drug abuse patient.[facility] HospitalIn the event this information is protected by the Federal Confidentiality of Alcohol and Drug Abuse Patient Records regulations: The Federal rules restrict any use of the information to criminally investigate or prosecute any alcohol or drug abuse patient.[facility] HospitalIn the event this information is protected by the Federal Confidentiality of Alcohol and Drug Abuse Patient Records regulations: The Federal rules restrict any use of the information to criminally investigate or prosecute any alcohol or drug abuse patient.[facility] HospitalIn the event this information is protected by the Federal Confidentiality of Alcohol and Drug Abuse Patient Records regulations: The Federal rules restrict any use of the information to criminally investigate or prosecute any alcohol or drug abuse patient.[facility] HospitalIn the event this information is protected by the Federal Confidentiality of Alcohol and Drug Abuse Patient Records regulations: The Federal rules restrict any use of the information to criminally investigate or prosecute any alcohol or drug abuse patient.[facility] HospitalIn the event this information is protected by the Federal Confidentiality of Alcohol and Drug Abuse Patient Records regulations: The Federal rules restrict any use of the information to criminally investigate or prosecute any alcohol or drug abuse patient.[facility] HospitalIn the event this information is protected by the Federal Confidentiality of Alcohol and Drug Abuse Patient Records regulations: The Federal rules restrict any use of the information to criminally investigate or prosecute any alcohol or drug abuse patient.[facility] HospitalIn the event this information is protected by the Federal Confidentiality of Alcohol and Drug Abuse Patient Records regulations: The Federal rules restrict any use of the information to criminally investigate or prosecute any alcohol or drug abuse patient.[facility] HospitalIn the event this information is protected by the Federal Confidentiality of Alcohol and Drug Abuse Patient Records regulations: The Federal rules restrict any use of the information to criminally investigate or prosecute any alcohol or drug abuse patient.[facility] HospitalIn the event this information is protected by the Federal Confidentiality of Alcohol and Drug Abuse Patient Records regulations: The Federal rules restrict any use of the information to criminally investigate or prosecute any alcohol or drug abuse patient.[facility] HospitalIn the event this information is protected by the Federal Confidentiality of Alcohol and Drug Abuse Patient Records regulations: The Federal rules restrict any use of the information to criminally investigate or prosecute any alcohol or drug abuse patient.[facility] Care Teams (unrecognized sec tion and content) Network Operations Technician Relationship Specialty Start Date End Date Priya, Kelton Chin MD [address] [place] [address] PCP - General Internal Medicine 08/04/20 [facility] [phone] 06/03/19 Network Operations Technician Relationship Specialty Start Date End Date Ellis, Kelton Chin MD [address] [place] [address] PCP - General Internal Medicine 08/04/20 [facility] [phone] 06/03/19 Network Operations Technician Relationship Specialty Start Date End Date Priya, Kelton Chin MD [address] [place] [address] PCP - General Internal Medicine 08/04/20 [facility] [phone] 06/03/19 Network Operations Technician Relationship Specialty Start Date End Date Priya, Kelton Chin MD [address] [place] [address] PCP - General Internal Medicine 08/04/20 [facility] [phone] 06/03/19 Network Operations Technician Relationship Specialty Start Date End Date Ellis, Kelton Chin MD [address] [place] [address] PCP - General Internal Medicine 08/04/20 [facility] [phone] 06/03/19 Network Operations Technician Relationship Specialty Start Date End Date Priya, Kelton Chin MD [address] [place] [address] PCP - General Internal Medicine 08/04/20 [facility] [phone] 06/03/19 Network Operations Technician Relationship Specialty Start Date End Date Ellis, Kelton Chin MD [address] [place] [address] PCP - General Internal Medicine 08/04/20 [facility] [phone] 06/03/19 Network Operations Technician Relationship Specialty Start Date End Date PriyaKelton maldonado MD [address] [place] [address] PCP - General Internal Medicine 08/04/20 [facility] [phone] 06/03/19 Team Status: Active Member Role Status Dates No Primary Care Physician Family Provider Active Dr. Kelton Powers MD Primary Care Provider Active Team Status: Inactive Member Role Status Dates Dr. Kelton Powers MD Primary Care Provider Active Dr. Alayna Bernard MD Emergency Provider Active Network Operations Technician Relationship Specialty Start Date End Date EllisKelton maldonado MD [address] [place] [address] PCP - General Internal Medicine 08/04/20 [facility] [phone] 06/03/19 Network Operations Technician Relationship Specialty Start Date End Date PriyaKelton maldonado MD [address] [place] [address] PCP - General Internal Medicine 08/04/20 [facility] [phone] 06/03/19 Network Operations Technician Relationship Specialty Start Date End Date EllisKelton maldonado MD [address] [place] [address] PCP - General Internal Medicine 08/04/20 [facility] [phone] 06/03/19 Network Operations Technician Relationship Specialty Start Date End Date EllisKelton maldonado MD [address] [place] [address] PCP - General Internal Medicine 08/04/20 [facility] [phone] 06/03/19 Network Operations Technician Relationship Specialty Start Date End Date EllisKelton maldonado, MD [address] [place] [address] PCP - General Internal Medicine 08/04/20 [facility] [phone] 06/03/19 Network Operations Technician Relationship Specialty Start Date End Date Ellis, Kelton Chin MD [address] [place] [address] PCP - General Internal Medicine 08/04/20 [facility] [phone] 06/03/19 Network Operations Technician Relationship Specialty Start Date End Date Aileen Hunter [address] [place] [address] [place] [address] PCP - General Family Medicine 10/01/22 Network Operations Technician Relationship Specialty Start Date End Date Priya, Kelton Chin MD [address] [place] [address] PCP - General Internal Medicine 08/04/20 [facility] [phone] 06/03/19 Network Operations Technician Relationship Specialty Start Date End Date Priya, Kelton Chin MD [address] [place] [address] PCP - General Internal Medicine 08/04/20 [facility] [phone] 06/03/19 Network Operations Technician Relationship Specialty Start Date End Date Ellis, Kelton Chin MD [address] [place] [address] PCP - General Internal Medicine 08/04/20 [facility] [phone] 06/03/19 Network Operations Technician Relationship Specialty Start Date End Date Ellis, Kelton Chin MD [address] [place] [address] PCP - General Internal Medicine 08/04/20 [facility] [phone] 06/03/19 Network Operations Technician Relationship Specialty Start Date End Date Ellis, Kelton Chin MD [address] [place] [address] PCP - General Internal Medicine 08/04/20 [facility] [phone] 06/03/19 Network Operations Technician Relationship Specialty Start Date End Date Aileen Hunter [address] [place] [address] PCP - General Family Medicine 10/01/22 Network Operations Technician Relationship Specialty Start Date End Date Priya, Kelton Chin MD [address] [place] [address] PCP - General Internal Medicine 08/04/20 [facility] [phone] 06/03/19 Network Operations Technician Relationship Specialty Start Date End Date Ellis, Kelton Chin MD [address] [place] [address] PCP - General Internal Medicine 08/04/20 [facility] [phone] 06/03/19 Network Operations Technician Relationship Specialty Start Date End Date Priya, Kelton Chin MD [address] [place] [address] PCP - General Internal Medicine 08/04/20 [facility] [phone] 06/03/19 Network Operations Technician Relationship Specialty Start Date End Date PriyaKelton MD [address] [place] [address] PCP - General Internal Medicine 08/04/20 [facility] [phone] 06/03/19 Network Operations Technician Relationship Specialty Start Date End Date Ellis, Kelton Chin MD [address] [place] [address] PCP - General Internal Medicine 08/04/20 [facility] [phone] 06/03/19 Network Operations Technician Relationship Specialty Start Date End Date Priya, Kelton Chin MD [address] [place] [address] PCP - General Internal Medicine 08/04/20 [facility] [phone] 06/03/19 Network Operations Technician Relationship Specialty Start Date End Date Ellis, Kelton Chin MD [address] [place] [address] PCP - General Internal Medicine 08/04/20 [facility] [phone] 06/03/19 Network Operations Technician Relationship Specialty Start Date End Date Priya, Kelton Chin MD [address] [place] [address] PCP - General Internal Medicine 08/04/20 [facility] [phone] 06/03/19 Network Operations Technician Relationship Specialty Start Date End Date Priya, Kelton Chin MD [address] [place] [address] PCP - General Internal Medicine 08/04/20 [facility] [phone] 06/03/19 Network Operations Technician Relationship Specialty Start Date End Date Priya, Kelton Chin MD [address] [place] [address] PCP - General Internal Medicine 08/04/20 [facility] [phone] 06/03/19 Network Operations Technician Relationship Specialty Start Date End Date Ellis, Kelton Chin MD [address] [place] [address] PCP - General Internal Medicine 08/04/20 [facility] [phone] 06/03/19 Network Operations Technician Relationship Specialty Start Date End Date Ellis, MD Kelton [address] [address] PCP - General Internal Medicine 11/27/23 Network Operations Technician Relationship Specialty Start Date End Date Ellis, MD Kelton [address] [address] PCP - General Internal Medicine 11/27/23 Network Operations Technician Relationship Specialty Start Date End Date Ellis, Kelton Chin MD [address] [place] [address] PCP - General Internal Medicine 08/04/20 [facility] [phone] 06/03/19 Network Operations Technician Relationship Specialty Start Date End Date Priya, Kelton Chin MD [address] [place] [address] PCP - General Internal Medicine 08/04/20 [facility] [phone] 06/03/19 Network Operations Technician Relationship Specialty Start Date End Date Ellis, Kelton Chin MD [address] [place] [address] PCP - General Internal Medicine 08/04/20 [facility] [phone] 06/03/19 Network Operations Technician Relationship Specialty Start Date End Date Priya, MD Kelton [address] [address] PCP - General Internal Medicine 11/27/23 Network Operations Technician Relationship Specialty Start Date End Date EllisKelton maldonado MD [address] [address] PCP - General Internal Medicine 11/27/23 Network Operations Technician Relationship Specialty Start Date End Date EllisKelton MD [address] [place] [address] PCP - General Internal Medicine 11/27/23 Network Operations Technician Relationship Specialty Start Date End Date PriyaKelton maldonado MD [address] [place] [address] PCP - General Internal Medicine 08/04/20 [facility] [phone] 06/03/19 Network Operations Technician Relationship Specialty Start Date End Date PriyaKelton MD [address] [place] [address] PCP - General Internal Medicine 08/04/20 [facility] [phone] 06/03/19 Network Operations Technician Relationship Specialty Start Date End Date EllisKelton MD [address] [place] [address] PCP - General Internal Medicine 08/04/20 [facility] [phone] 06/03/19 Network Operations Technician Relationship Specialty Start Date [place] [address] [address] PCP - General Family Medicine 10/01/22 Network Operations Technician Relationship Specialty Start Date [place] [address] PCP - General Family Medicine 10/01/22 Network Operations Technician Relationship Specialty Start Date End Date Kelton Powers MD [address] [place] [address] PCP - General Internal Medicine 08/04/20 Ronen Flaherty APRN.HALL MANAGER [address] [place] [address] Channel Executive Internal Medicine 08/23/24 Ani Batista MD [address] [place] [address] Psychiatry 09/25/24 [facility] [phone] 06/03/19 Network Operations Technician Relationship Specialty Start Date End Date Kelton Powers MD [address] [place] [address] PCP - General Internal Medicine 08/04/20 Ronen Flaherty APRN.HALL MANAGER [address] [place] [address] Channel Executive Internal Medicine 08/23/24 Ani Batista MD [address] [place] [address] Psychiatry 09/25/24 [facility] [phone] 06/03/19 Network Operations Technician Relationship Specialty Start Date End Date Kelton Powers MD [address] [place] [address] PCP - General Internal Medicine 08/04/20 Ronen Flaherty APRN.HALL MANAGER [address] [place] [address] Channel Executive Internal Medicine 08/23/24 Ani Batista MD [address] [place] [address] Psychiatry 05/16/23 [facility] [phone] 06/03/19 Network Operations Technician Relationship Specialty Start Date End Date Kelton Powers MD [address] [place] [address] PCP - General Internal Medicine 08/04/20 Ronen Flaherty, WOOD HANDLER.HALL MANAGER [address] [place] [address] Channel Executive Internal Medicine 08/23/24 Ani Batista MD [address] [place] [address] Psychiatry 05/16/23 [facility] [phone] 06/03/19 Network Operations Technician Relationship Specialty Start Date End Date Kelton Powers MD [address] [place] [address] PCP - General Internal Medicine 08/04/20 Ronen Flaherty, WOOD HANDLER.HALL MANAGER [address] [place], [place] [address] Channel [employer] Internal Medicine 08/23/24 Ani Batista MD [address] [place], [place] [address] Psychiatry 05/16/23 [facility] [phone] 06/03/19 Network Operations Technician Relationship Specialty Start Date End Date Kelton Powers MD [address] [place] [address] PCP - General Internal Medicine 08/04/20 Ronen Flaherty APRN.HALL MANAGER [address] [place] [address] Channel Executive Internal Medicine 08/23/24 Ani Batista MD [address] [facility] [place] [address] Psychiatry 05/16/23 [facility] [phone] 06/03/19 Network Operations Technician Relationship Specialty Start Date End Date Kelton Powesr MD [address] [place] [address] PCP - General Internal Medicine 08/04/20 Ronen Flaherty APRN.HALL MANAGER [address] [place] [address] Channel Executive Internal Medicine 08/23/24 Ani Batista MD 1 [facility] [place] [address] Psychiatry 05/16/23 [facility] [phone] 06/03/19 Network Operations Technician Relationship Specialty Start Date End Date Kelton Powers MD [address] [place] [address] PCP - General Internal Medicine 08/04/20 Ronen Flaherty APRN.HALL MANAGER [address] [place] [address] Channel Executive Internal Medicine 08/23/24 Ani Batista MD [address] [place] [address] Psychiatry 05/16/23 [facility] [phone] 06/03/19 Network Operations Technician Relationship Specialty Start Date End Date Kelton Powers MD [address] [place] [address] PCP - General Internal Medicine 08/04/20 Ronen Flaherty APRN.HALL MANAGER [address] [place] [address] Channel Executive Internal Medicine 08/23/24 Ani Batista MD [address] [place] [address] Psychiatry 05/16/23 [facility] [phone] 06/03/19 Network Operations Technician Relationship Specialty Start Date End Date Kelton Powers MD [address] [place] [address] PCP - General Internal Medicine 08/04/20 Ronen Flaherty, WOOD HANDLER.HALL MANAGER [address] [place] [address] Channel Executive Internal Medicine 08/23/24 Ani Batista MD [address] [place] [address] Psychiatry 05/16/23 [facility] [phone] 06/03/19 Network Operations Technician Relationship Specialty Start Date End Date Ellis, MD Kelton [address] [place] [address] PCP - General Internal Medicine 11/27/23 Network Operations Technician Relationship Specialty Start Date End Date Ellis, Kelton Chin MD [address] [place] [address] PCP - General Internal Medicine 08/04/20 Ronen Flaherty APRN.HALL MANAGER [address] [place] [address] Channel Executive Internal Medicine 08/23/24 Ani Batista MD [address] [place] [address] Psychiatry 05/16/23 [facility] [phone] 06/03/19 Network Operations Technician Relationship Specialty Start Date End Date Priya, Kelton Chin MD [address] [place] [address] PCP - General Internal Medicine 08/04/20 Ronen Flaherty APRN.HALL MANAGER [address] [place] [address] Channel Executive Internal Medicine 08/23/24 Ani Baitsta MD [address] [place], [place] [address] Psychiatry 05/16/23 [facility] [phone] 06/03/19 Network Operations Technician Relationship Specialty Start Date End Date Priya, Kelton Chin MD [address] [place] [address] PCP - General Internal Medicine 08/04/20 Ronen Flaherty APRN.HALL MANAGER [address] [place] [address] Channel Executive Internal Medicine 08/23/24 Ani Batista MD [address] [place] [address] Psychiatry 05/16/23 03/15/25 [facility] [phone] 06/03/19 Network Operations Technician Relationship Specialty Start Date End Date Kelton Powers MD [address] [place] [address] PCP - General Internal Medicine 11/27/23 Network Operations Technician Relationship Specialty Start Date End Date Kelton Powers MD [address] [place] [address] PCP - General Internal Medicine 08/04/20 Ronen Flaherty, EDILBERTO.HALL MANAGER [address] [place] [address] [facility] Internal Medicine 08/23/24 Jessica Hollingsworth MD [address] [place] [address] Resident Psychiatry 03/16/25 Vinh Buchanan DO [address] [place] [address] Primary Staff Physician Cardiology 04/21/25 [facility] [phone] 06/03/19 Network Operations Technician Relationship Specialty Start Date End Date Kelton Powers MD [address] [place] [address] PCP - General Internal Medicine 11/27/23 Network Operations Technician Relationship Specialty Start Date End Date Kelton Powers MD [address] [place] [address] PCP - General Internal Medicine 08/04/20 Ronen Flaherty APRN.HALL MANAGER [address] [place] [address] Channel Executive Internal Medicine 08/23/24 Jessica Hollingsworth MD [address] [place], [place] [id number] Resident Psychiatry 03/16/25 Vinh Buchanan DO [address] [facility] [place] [address] Primary Staff Physician Cardiology 04/21/25 [facility] [phone] 06/03/19 Network Operations Technician Relationship Specialty Start Date End Date Kelton Powers MD [address] [place] [address] PCP - General Internal Medicine 08/04/20 Ronen Flaherty, EDILBERTO.HALL MANAGER [address] [place] [address] [facility] [employer] Internal Medicine 08/23/24 Jessica Hollingsworth MD [address] [place] [address] Resident Psychiatry 03/16/25 Vinh Buchanan DO [address] [place] [address] Primary Staff Physician Cardiology 04/21/25 [facility] [phone] 06/03/19 Network Operations Technician Relationship Specialty Start Date End Date Kelton Powers MD [address] [place] [address] PCP - General Internal Medicine 08/04/20 Ronen Flaherty, EDILBERTO.HALL MANAGER [address] [place] [address] Channel Executive Internal Medicine 08/23/24 Jessica Hollingsworth MD [address] [place] [address] Resident Psychiatry 03/16/25 Vinh Buchanan DO [address] [place] [address] Primary Staff Physician Cardiology 04/21/25 [facility] [phone] 06/03/19 Network Operations Technician Relationship Specialty Start Date End Date Kelton Powers MD [address] [place] [address] PCP - General Internal Medicine 08/04/20 Ronen Flaherty, EDILBERTO.HALL MANAGER [address] [place] [address] Channel [facility] Internal Medicine 08/23/24 Jessica Hollingsworth MD [address] [place], [place] [id number] Resident Psychiatry 03/16/25 Vinh Buchanan DO [address] [place] [address] Primary Staff Physician Cardiology 04/21/25 [facility] [phone] 06/03/19 Network Operations Technician Relationship Specialty Start Date End Date Kelton Powers MD [address] [place] [address] PCP - General Internal Medicine 08/04/20 Ronen Flaherty APRN.HALL MANAGER [address] [place] [address] [facility] Internal Medicine 08/23/24 Jessica Hollingsworth MD [address] [place] [address] Resident Psychiatry 03/16/25 Vinh Buchanan DO [address] [place] [address] Primary Staff Physician Cardiology 04/21/25 [facility] [phone] 06/03/19 Network Operations Technician Relationship Specialty Start Date End Date Kelton Powers MD [address] [place] [address] PCP - General Internal Medicine 08/04/20 Ronen Flaherty, EDILBERTO.HALL MANAGER [address] [place] [address] Channel [facility] Internal Medicine 08/23/24 Jessica Hollingsworth MD [address] [place] [address] Resident Psychiatry 03/16/25 Vinh Buchanan DO [address] [place] [address] Primary Staff Physician Cardiology 04/21/25 [facility] [phone] 06/03/19 Network Operations Technician Relationship Specialty Start Date End Date Kelton Powers MD [address] [place] [address] PCP - General Internal Medicine 08/04/20 Ronen Flaherty, EDILBERTO.HALL MANAGER [address] [place] [address] [facility] Internal Medicine 08/23/24 Jessica Hollingsworth MD [address] [place] [address] Resident Psychiatry 03/16/25 Vinh Bcuhanan DO [address] [place] [address] Primary Staff Physician Cardiology 04/21/25 [facility] [phone] 06/03/19 Network Operations Technician Relationship Specialty Start Date End Date Kelton Powers MD [address] [place], [place] [address] PCP - General Internal Medicine 08/04/20 Ronen Flaherty, EDILBERTO.HALL MANAGER [address] [place] [address] [facility] [employer] Internal Medicine 08/23/24 Jessica Hollingsworth MD [address] [place] [address] Resident Psychiatry 03/16/25 Vinh Buchanan DO [address] [place] [address] Primary Staff Physician Cardiology 04/21/25 [facility] [phone] 06/03/19 Network Operations Technician Relationship Specialty Start Date End Date Kelton Powers MD [address] [place], [place] [address] PCP - General Internal Medicine 08/04/20 Ronen Flaherty APRN.HALL MANAGER [address] [place], [place] [id number] [facility] 08/23/24 Jessica Hollingsworth MD [address] [place] [address] Resident Psychiatry 03/16/25 Vinh Buchanan DO [address] [place] [address] Primary Staff Physician Cardiology 04/21/25 [facility] [phone] 06/03/19 Network Operations Technician Relationship Specialty Start Date End Date Kelton Powers MD [address] [place], [place] [id number] PCP - General Internal Medicine 08/04/20 Ronen Flaherty APRN.HALL MANAGER [address] [place], [place] [id number] [facility] 08/23/24 Jessica Hollingsworth MD [address] [place] [address] Resident Psychiatry 03/16/25 Vinh Buchanan DO [address] [place] [address] Primary Staff Physician Cardiology 04/21/25 [facility] [phone] 06/03/19 Network Operations Technician Relationship Specialty Start Date End Date Kelton Powers MD [address] [place] [id number] PCP - General Internal Medicine 08/04/20 Ronen Flaherty APRN.HALL MANAGER [address] [place] [id number] [facility] 08/23/24 Jessica Hollingsworth MD [address] [place] [address] Resident Psychiatry 03/16/25 Vinh Buchanan DO [address] [place] [address] Primary Staff Physician Cardiology 04/21/25 [facility] [phone] 06/03/19 Network Operations Technician Relationship Specialty Start Date End Date Kelton Powers MD [address] [place] [id number] PCP - General Internal Medicine 08/04/20 Ronen Flaherty APRN.HALL MANAGER [address] [place] [address] [facility] 08/23/24 Jessica Hollingsworth MD [address] [place] [address] Resident Psychiatry 03/16/25 Vinh Buchanan DO [address] [place] [address] Primary Staff Physician Cardiology 04/21/25 [facility] [phone] 06/03/19 Network Operations Technician Relationship Specialty Start Date End Date Kelton Powers MD [address] [place] [address] PCP - General Internal Medicine 08/04/20 Ronen Flaherty APRN.HALL MANAGER [address] [place] [address] [facility] 08/23/24 Jessica Hollingsworth MD [address] [place] [address] Resident Psychiatry 03/16/25 Vinh Buchanan DO [address] [place] [address] Primary Staff Physician Cardiology 04/21/25 [facility] [phone] 06/03/19 Network Operations Technician Relationship Specialty Start Date End Date Kelton Powers MD [address] [place] [address] PCP - General Internal Medicine 08/04/20 Ronen Flaherty APRN.HALL MANAGER [address] [place] [address] [facility] 08/23/24 Jessica Hollingsworth MD [address] [place] [address] Resident Psychiatry 03/16/25 Vinh Buchanan DO [address] [place] [address] Primary Staff Physician Cardiology 04/21/25 [facility] [phone] 06/03/19 Network Operations Technician Relationship Specialty Start Date End Date Kelton Powers MD [address] [place] [address] PCP - General Internal Medicine 08/04/20 Ronen Flaherty APRN.HALL MANAGER [address] [place] [address] [facility] 08/23/24 Jessica Hollingsworth MD [address] [place] [address] Resident Psychiatry 03/16/25 Vinh Buchanan DO [address] [place] [address] Primary Staff Physician Cardiology 04/21/25 [facility] [phone] 06/03/19 Network Operations Technician Relationship Specialty Start Date End Date Kelton Powers MD [address] [place] [address] PCP - General Internal Medicine 11/27/23 Goals (unrecognized section and content) Goals may be documented in a n alternate section FOR RECORDS PERTAINING TO PATIENTS WHO ARE OR HAVE BEEN ENROLLED IN A CHEMICAL DEPENDENCY/SUBSTANCEABUSE PROGRAM, SOME INFORMATION MAY BE OMITTED. This clinical summary was aggregated from multiple sources. Caution should be exercised in using it in the provision of clinical care. This summary normalizes information from multiple sources, and as a consequence, information in this document may materially change the coding, format and clinical context of patient data. In addition, data may be omitted in some cases. CLINICAL DECISIONS SHOULD BE BASED ON THE PRIMARY CLINICAL RECORDS. [employer] [facility]. provides no warranty or guarantee of the accuracy or completeness of information in this document.
[2025-09-05 10:58] LABS: Hematocrit 42.1 % (37-47); Hemoglobin 14.5 g/dL (12.0-15.0); Immature Granulocytes Count 0.030 X10^3/uL (0.0-0.0); Mean Corp Hgb Conc 34.4 g/dL (32-36); Mean Corpuscular Volume 88.8 fL (81-99); Mean Platelet Vol. 9.5 fl (6.2-12.0); NRBC Flagged by Analyzer 0 % (0-5); Platelet Count 382 K/mm3 (150-450); RBC Distribution Width CV 11.6 % (11.6-14.6); RBC Distribution Width SD 37.5 fl (35.1-43.9); Red Blood Count 4.74 M/mm3 (4.2-5.4); White Blood Count 10.3 K/mm3 (4.4-11.0)
[2025-09-05 10:58] LABS: Color, Urine Yellow (Yellow); Glucose, Dipstick Normal (Normal); Ketone-Dipstick Negative (Negative); Leukocyte Esterase-Dipstick Negative /ul (Negative); Nitrite-Dipstick Negative (Negative); Occult Blood-Urine Negative /ul (Negative); Protein-Dipstick Negative (Negative); Specific Gravity, Urine 1.010 (1.002-1.030); Urine Bilirubin Dipstick Negative (Negative)
[2025-09-05 11:02] LABS: Internal QC Validated? YES +Cl - CLEAR BKGD; Pregnancy, Urine Negative Negative
[2025-09-05 11:05] LABS: Red Blood Cells-Urine 0 SEEN /hpf (0-5); Squamous Epithelial Cells - UA 10-25 SEEN /hpf (5-10)
[2025-09-05 11:06] LABS: Mucous, Urine 0 SEEN /hpf (<or=2+)
[2025-09-05 11:14] LABS: AST(SGOT) 20 U/L (<=31); Alanine Aminotransfer ALT/SGPT 28 U/L (<=34); Albumin, Serum 4.5 g/dL (3.5-5.0); Alkaline Phosphatase 71 U/L (35-104); Anion Gap 14 (5-15); BUN 9 mg/dL (4-19); BUN/Creat Ratio 10.7 RATIO (10-20); Calcium,Total 9.5 mg/dL (7.6-11.0); Carbon Dioxide 23.2 mmol/L (21.0-32.0); Chloride 101 mmol/L (98-108); Estimated Creatinine Clearance 122.05 ml/min (50-250); Globulin 3.2 g/dL (2.2-4.2); Glucose 103 mg/dL (70-99); Lipase 18 U/L (13-75); Potassium 3.9 mmol/L (3.3-5.1)
[2025-09-05 12:31] VITALS: BP 97/78; PULSE 65; RESP 18; O2SAT 97
[2025-09-05 12:32] VITALS: BP 97/78; PULSE 65; RESP 18; TEMP 36.5; O2SAT 97
== END 2025-09-05 12:40 | disposition home or self-care (01) ==
PROVIDERS: Emergency Provider Student in an Organized Health Care Education/Training Program; PCP Internal Medicine; Visit Provider Student in an Organized Health Care Education/Training Program
DX: R10.30 Lower abdominal pain, unspecified (principal); F20.9 Schizophrenia, unspecified; F31.9 Bipolar disorder, unspecified; F17.290 Nicotine dependence, other tobacco product, uncomplicated
CPT/HCPCS: 74177; 80053; 81001; 81025; 83690; 85025; 96374; 96375; 96376; 99283; Q9967; A4216; J2405